=== PATIENT | female | born 1985 | race Hispanic/Latino ===

== ENCOUNTER 2019-02-25 16:57 | Inpatient (IN) | payer SELFPAY ==
[~2019-02-25] VITALS: Ht 170.2 cm; Wt 68.0 kg
[~2019-02-25 16:57] MED LIST: DOXY100T2 PO; SULF1TAB42 PO; TRAM50TA2 PO
[2019-02-25] MEDS ORDERED: SODIUM CHLORIDE 0.9% 1000ML 2,000 ML IV ONE (17:19)
[2019-02-25] MEDS ORDERED: ONDANSETRON HCL 4 MG/2 ML VIAL ONE (17:20)
[2019-02-25] MEDS ORDERED: METOCLOPRAMIDE 10 MG/2 ML VIAL ONE ×2 (17:20→21:43)
[2019-02-25] MEDS ORDERED: FAMOTIDINE/PF 20 MG/2 ML VIAL IV ONE ×2 (17:20→21:43)
[2019-02-25 17:41] LABS: ABG OXYGEN SATURATION 49.6 % (95.0-99.0); BASE EXCESS,VENOUS BLOOD GAS -0.8 (-2.0-3.0); HCO3,VENOUS BLOOD GAS 24.3 (21.0-28.0); PCO2,VENOUS BLOOD GAS 42 (32-45); PH,VENOUS BLOOD GAS 7.382 (7.350-7.450)
[2019-02-25 17:50] LABS: BASOPHILS % (AUTO) 0.7 % (0.0-5.0); EOSINOPHILS % (AUTO) 0.6 % (0.0-8.0); HEMATOCRIT 34.6 % (36-48); LYMPHOCYTES % (AUTO) 18.5 % (21.0-51.0); MEAN CORPUSCULAR HEMOGLOBIN 28.2 pg (27.0-33.0); MEAN CORPUSCULAR HGB CONC 34.9 g/dL (32.0-36.0); MEAN CORPUSCULAR VOLUME 80.9 fL (79-99); MONOCYTES % (AUTO) 4.3 % (3.0-13.0); NEUTROPHILS % (AUTO) 75.9 % (40.0-77.0); PLATELET COUNT (AUTO) 287 K/uL (130-400); RED BLOOD CELL COUNT(AUTO) 4.28 MIL/uL (4.00-5.50); RED CELL DISTRIBUTION WIDTH 12.6 % (11.0-15.5); WHITE BLOOD COUNT (AUTO) 8.4 K/uL (4.8-10.8)
[2019-02-25 18:32] LABS: ALBUMIN 2.8 g/dL (3.5-5.0); BILIRUBIN,TOTAL 0.3 mg/dL (0.2-1.0); CREATININE 1.3 mg/dL (0.5-1.5)
[2019-02-25] MEDS ORDERED: DiphenhydrAMINE HCL 50 MG/ML VIAL ONE (18:33)
[2019-02-25] MEDS ORDERED: SODIUM CHLORIDE 0.9% 1000ML 1,000 ML IV ONE (19:04)
[2019-02-25 20:12] LABS: APPEARANCE,URINE CLOUDY (CLEAR); BILIRUBIN,URINE NEGATIVE (NEGATIVE); COLOR,URINE YELLOW (YELLOW); GLUCOSE, URINE (UA) >=1000 mg/dL (NEGATIVE); KETONES,URINE 5 mg/dL (NEGATIVE); LEUKOCYTE ESTERASE ,URINE MODERATE (NEGATIVE); NITRATE,URINE NEGATIVE (NEGATIVE); OCCULT BLOOD,URINE LARGE (NEGATIVE); PROTEIN,URINE 100 mg/dL (NEGATIVE); UROBILINOGEN,URINE 0.2 mg/dL (0.2-1.0)
[2019-02-25 20:19] LABS: HCG,QUAL RESULT NEGATIVE (NEGATIVE)
[2019-02-25 20:25] LABS: WBC,URINE 51-100 /HPF (0-1)
[2019-02-25 20:26] LABS: BACTERIA,URINE Moderate /HPF (None Seen); SQUAMOUS EPITHELIAL CELL,UR Rare /HPF (0-2)
[2019-02-25] MEDS ORDERED: CEFTRIAXONE SODIUM 1 GM ONE (20:37)
[2019-02-25 20:43] LABS: AMPHET/METH SCREEN,URINE NEGATIVE (NEGATIVE); BARBITURATE SCREEN, URINE NEGATIVE (NEGATIVE); BENZODIAZEPINES SCREEN,URINE NEGATIVE (NEGATIVE); CANNABINOID SCREEN,URINE POSITIVE (NEGATIVE); COCAINE SCREEN,URINE NEGATIVE (NEGATIVE); OPIATE SCREEN,URINE NEGATIVE (NEGATIVE); PHENCYCLIDINE SCREEN,URINE NEGATIVE (NEGATIVE)
[2019-02-25] MEDS ORDERED: ONDANSETRON HCL 4 MG/2 ML VIAL IVP PRN (20:45)
[2019-02-25] MEDS ORDERED: MORPHINE SULFATE 2 MG/ML 1ML SYG IVP PRN (20:45)
[2019-02-25] MEDS: CEFTRIAXONE SODIUM 1 GM IVP SCH (20:45)
[2019-02-26] MEDS: INSULIN LISPRO 100 UNIT/ML 3ML SQ SCH ×5 (06:00→23:33)
[2019-02-26 06:20] LABS: HEMATOCRIT 30.4 % (36-48); LYMPHOCYTES % (AUTO) 33.9 % (21.0-51.0); MEAN CORPUSCULAR HEMOGLOBIN 28.5 pg (27.0-33.0); MEAN CORPUSCULAR HGB CONC 34.8 g/dL (32.0-36.0); MEAN CORPUSCULAR VOLUME 81.9 fL (79-99); MONOCYTES % (AUTO) 6.4 % (3.0-13.0); NEUTROPHILS % (AUTO) 57.7 % (40.0-77.0); PLATELET COUNT (AUTO) 252 K/uL (130-400); RED BLOOD CELL COUNT(AUTO) 3.71 MIL/uL (4.00-5.50); RED CELL DISTRIBUTION WIDTH 12.3 % (11.0-15.5); WHITE BLOOD COUNT (AUTO) 7.8 K/uL (4.8-10.8)
[2019-02-26 06:38] LABS: ALBUMIN 2.1 g/dL (3.5-5.0); BILIRUBIN,TOTAL 0.2 mg/dL (0.2-1.0); CREATININE 0.8 mg/dL (0.5-1.5); CRP QUANTITATIVE 2.3 mg/L (0.00-9.0); POTASSIUM 3.6 mmol/L (3.5-5.1); TOTAL PROTEIN, SERUM 5.3 g/dL (6.0-8.3)
[2019-02-26 08:21] VITALS: BP 133/86
[2019-02-26] MEDS: SODIUM CHLORIDE 0.9% 1000ML 1,000 ML IV SCH ×3 (09:57→18:08)
[2019-02-26] MEDS: METOCLOPRAMIDE 10 MG/2 ML VIAL IVP SCH ×2 (09:57→20:48)
[2019-02-26] MEDS: FAMOTIDINE/PF 20 MG/2 ML VIAL IV SCH ×2 (09:58→20:48)
[2019-02-26 11:12] VITALS: BP 132/73
[2019-02-26] MEDS ORDERED: FENO135C4 PO (12:30)
[2019-02-26] MEDS ORDERED: PREVPACK (12:30)
[2019-02-26] MEDS ORDERED: ATOR40TA71 PO (12:30)
[2019-02-26] MEDS ORDERED: SITA100T12 PO (12:30)
[2019-02-26 16:31] VITALS: BP 122/87
[2019-02-26 20:00] VITALS: BP 127/79
[2019-02-26] MEDS: CEFTRIAXONE SODIUM 1 GM IVP SCH (20:48)
[2019-02-26 23:50] VITALS: BP 125/79
[2019-02-27 04:00] VITALS: BP 138/88
[2019-02-27] MEDS: SODIUM CHLORIDE 0.9% 1000ML 1,000 ML IV SCH (04:41)
[2019-02-27] MEDS: INSULIN LISPRO 100 UNIT/ML 3ML SQ SCH ×2 (05:33→12:00)
[2019-02-27 05:37] LABS: HEMATOCRIT 29.8 % (36-48); MEAN CORPUSCULAR HEMOGLOBIN 28.4 pg (27.0-33.0); MEAN CORPUSCULAR HGB CONC 34.6 g/dL (32.0-36.0); MEAN CORPUSCULAR VOLUME 82.1 fL (79-99); PLATELET COUNT (AUTO) 245 K/uL (130-400); RED BLOOD CELL COUNT(AUTO) 3.63 MIL/uL (4.00-5.50); RED CELL DISTRIBUTION WIDTH 12.9 % (11.0-15.5); WHITE BLOOD COUNT (AUTO) 5.9 K/uL (4.8-10.8)
[2019-02-27 05:49] LABS: CREATININE 0.7 mg/dL (0.5-1.5); POTASSIUM 3.3 mmol/L (3.5-5.1)
[2019-02-27 08:07] VITALS: BP 154/93
[2019-02-27 08:08] LABS: LYMPHOCYTES % (MANUAL) 46 % (22-44); MONOCYTES % (MANUAL) 5 % (2-9); REACTIVE LYMPHOCYTES 1 % (0-0); SEGMENTED NEUTROPHILS % 48 % (40-70)
[2019-02-27 08:09] LABS: PLATELET MORPHOLOGY COMMENT ADEQUATE
[2019-02-27] MEDS: FAMOTIDINE/PF 20 MG/2 ML VIAL IV SCH (10:51)
[2019-02-27] MEDS: METOCLOPRAMIDE 10 MG/2 ML VIAL IVP SCH (10:51)
[2019-02-27 11:20] VITALS: BP 133/86
[2019-02-27] MEDS ORDERED: CEFD300C3 PO (12:02)
[2019-02-27] MEDS ORDERED: METF-444 PO (12:14)
[2019-02-27] MEDS ORDERED: POTASSIUM CHLORIDE 20 MEQ ERTAB PO ONE (13:03)
[2019-02-27] MEDS ORDERED: POTASSIUM CHLORIDE 10% ELIXIR 20 MEQ/15 ML UDCUP PO SCH (13:15)
--- NOTE | 2019-02-27 14:19 | NUR ---
DCP CM met with pt discussed dc plans. Pt is independent prior to admission, lives at home with mother and children. Denies any equipments/services. Pt feels safe to go back home, still works and drives, mother able to assist with transportation and needs as necessary. Given community resources packet. DC plan to home once stable. CM to cont to follow up. Addendum: 02/27/19 at 1420 by CORNELIUS ANTHONY LVN CM Amended: Links added.
[2019-02-27] MEDS ORDERED: POTASSIUM CHLORIDE 20 MEQ ERTAB PO SCH (14:20)
[2019-02-27] MEDS: CEFTRIAXONE SODIUM 1 GM IVP SCH (14:49)
--- NOTE | 2019-02-27 15:00 | NUR ---
DISCHARGE DISCHARGE TEACHING PROVIDED TO PATIENT REGARDING RX (CEFDINIR, METFORMIN), NEED TO SCHEDULED F/U APPT WITH PRIMARY MD. LIST OF FAMILY DOCTORS PROVIDED TO PATIENT. TEACHING PROVIDED REGARDING CONTINUING SOFT/BLAND DIET AT HOME, NAUSEA/VOMITING HOME CARE, UTI TEACHING. PROVIDED TEACHING REGARDING URINE CULTURE RESULTS AND SENSITIVITY REPORTS, PROVIDED TEACHING REGARDING ANTIBIOTIC RESISTANCE. PATIENT VERBALIZED UNDERSTANDING OF DISCHARGE TEACHING. REMOVED 20G IV FROM RIGHT AC. PATIENT REPORTS NO PAIN, NO DISCOMFORTS, REPORTS TOLERATING DIET WELL.
== END 2019-02-27 15:32 | disposition home or self-care (01) | DRG 690 ==
LOC: EDH 16:57 → EDHIP 20:40 → OBSVTOIN 20:40 → 4BH 02-26 08:20
PROVIDERS: ADMIT Family Medicine; ATTEND Family Medicine
DX: N39.0 Urinary tract infection, site not specified (principal); E87.1 Hypo-osmolality and hyponatremia; E46 Unspecified protein-calorie malnutrition; E86.0 Dehydration; E11.9 Type 2 diabetes mellitus without complications; B96.20 Unspecified Escherichia coli [E. coli] as the cause of diseases classified elsewhere; E87.6 Hypokalemia; F12.10 Cannabis abuse, uncomplicated; Z68.23 Body mass index [BMI] 23.0-23.9, adult
CPT/HCPCS: 36415; 36600; 80048; 80053; 80061; 80305; 81001; 81025; 82010; 82550; 82803; 82948; 83605; 83690; 85025; 86140; 86677; 87077; 87088; 87186; G0378; J0696; J1200; J2405; J2765; J3490; J7030

== ENCOUNTER 2019-05-03 20:27 | Emergency (ER) | payer OTHER ==
[~2019-05-03 20:27] MED LIST changes: +ATOR40TA71 PO; +CEFD300C3 PO; -DOXY100T2 PO; +FENO135C4 PO; +METF-444 PO; +PREVPACK; +SITA100T12 PO; -SULF1TAB42 PO; -TRAM50TA2 PO
[2019-05-03] MEDS ORDERED: ONDANSETRON HCL 4 MG/2 ML VIAL ONE (20:57)
[2019-05-03] MEDS ORDERED: SODIUM CHLORIDE 0.9% 1000ML 1,000 ML IV ONE ×2 (20:58→22:40)
[2019-05-03 21:05] LABS: BASOPHILS % (AUTO) 0.7 % (0.0-5.0); EOSINOPHILS % (AUTO) 1.1 % (0.0-8.0); HEMATOCRIT 33.3 % (36-48); LYMPHOCYTES % (AUTO) 20.3 % (21.0-51.0); MEAN CORPUSCULAR HEMOGLOBIN 27.7 pg (27.0-33.0); MEAN CORPUSCULAR HGB CONC 34.3 g/dL (32.0-36.0); MEAN CORPUSCULAR VOLUME 80.9 fL (79-99); MONOCYTES % (AUTO) 5.6 % (3.0-13.0); NEUTROPHILS % (AUTO) 72.3 % (40.0-77.0); NUCLEATED RED BLOOD CELLS 0.1 % (0.0-0.19); PLATELET COUNT (AUTO) 283 K/uL (130-400); RED BLOOD CELL COUNT(AUTO) 4.11 MIL/uL (4.00-5.50); RED CELL DISTRIBUTION WIDTH 12.3 % (11.0-15.5)
[2019-05-03 21:12] LABS: APPEARANCE,URINE SL CLOUDY (CLEAR); BILIRUBIN,URINE NEGATIVE (NEGATIVE); COLOR,URINE YELLOW (YELLOW); GLUCOSE, URINE (UA) >=1000 mg/dL (NEGATIVE); KETONES,URINE 5 mg/dL (NEGATIVE); LEUKOCYTE ESTERASE ,URINE SMALL (NEGATIVE); NITRATE,URINE NEGATIVE (NEGATIVE); OCCULT BLOOD,URINE LARGE (NEGATIVE); PROTEIN,URINE 100 mg/dL (NEGATIVE); UROBILINOGEN,URINE 0.2 mg/dL (0.2-1.0)
[2019-05-03 21:15] LABS: HCG,QUAL RESULT NEGATIVE (NEGATIVE)
[2019-05-03 21:19] LABS: INR 0.95 (0.85-1.15); PARTIAL THROMBOPLASTIN TIME 22.9 SEC (26.3-35.5)
[2019-05-03 21:24] LABS: BACTERIA,URINE Many /HPF (None Seen); MUCUS,URINE Few LPF (None Seen)
[2019-05-03 21:27] LABS: ALBUMIN 2.7 g/dL (3.5-5.0); BILIRUBIN,TOTAL 0.3 mg/dL (0.2-1.0); CREATININE 0.9 mg/dL (0.5-1.5); POTASSIUM 3.8 mmol/L (3.5-5.1); TOTAL PROTEIN, SERUM 6.6 g/dL (6.0-8.3)
[2019-05-03 22:14] LABS: AMPHET/METH SCREEN,URINE NEGATIVE (NEGATIVE); BARBITURATE SCREEN, URINE NEGATIVE (NEGATIVE); BENZODIAZEPINES SCREEN,URINE NEGATIVE (NEGATIVE); CANNABINOID SCREEN,URINE POSITIVE (NEGATIVE); COCAINE SCREEN,URINE NEGATIVE (NEGATIVE); OPIATE SCREEN,URINE NEGATIVE (NEGATIVE); PHENCYCLIDINE SCREEN,URINE NEGATIVE (NEGATIVE)
[2019-05-03] MEDS ORDERED: INSULIN HUMULIN R 100 UNIT/ML 3ML ONE (22:39)
[2019-05-03] MEDS ORDERED: CEFTRIAXONE SODIUM 1 GM ONE (23:49)
== END 2019-05-04 03:39 | disposition home or self-care (01) ==
LOC: EDH 20:27
DX: N39.0 Urinary tract infection, site not specified (principal); E11.65 Type 2 diabetes mellitus with hyperglycemia
CPT/HCPCS: 36415; 80053; 80305; 81001; 81025; 82010; 82150; 82550; 82948 ×3; 83690; 84484; 85025; 85610; 85730; 87077; 87088; 87186; 93005; 96361; 96374; 99285; J0696; J1815; J2405; J7030 ×2

== ENCOUNTER 2019-06-01 22:08 | Emergency (ER) | payer OTHER ==
[2019-06-01] MEDS ORDERED: ONDANSETRON HCL 4 MG/2 ML VIAL ONE (22:21)
[2019-06-01] MEDS ORDERED: SODIUM CHLORIDE 0.9% 1000ML 1,000 ML IV ONE ×2 (22:21→23:08)
[2019-06-01 22:22] LABS: BASOPHILS % (AUTO) 0.2 % (0.0-5.0); LYMPHOCYTES % (AUTO) 13.9 % (21.0-51.0); MEAN CORPUSCULAR HGB CONC 34.5 g/dL (32.0-36.0); MEAN CORPUSCULAR VOLUME 78.2 fL (79-99); MONOCYTES % (AUTO) 2.9 % (3.0-13.0); NEUTROPHILS % (AUTO) 82.6 % (40.0-77.0); PLATELET COUNT (AUTO) 336 K/uL (130-400); RED BLOOD CELL COUNT(AUTO) 4.22 MIL/uL (4.00-5.50); WHITE BLOOD COUNT (AUTO) 8.1 K/uL (4.8-10.8)
[2019-06-01 22:35] LABS: ALBUMIN 2.9 g/dL (3.5-5.0); BILIRUBIN,TOTAL 0.3 mg/dL (0.2-1.0); CREATININE 1.1 mg/dL (0.5-1.5); POTASSIUM 3.9 mmol/L (3.5-5.1); TOTAL PROTEIN, SERUM 6.7 g/dL (6.0-8.3)
[2019-06-01 23:00] LABS: APPEARANCE,URINE Cloudy (CLEAR); BILIRUBIN,URINE Negative (NEGATIVE); COLOR,URINE Yellow (YELLOW); GLUCOSE, URINE (UA) >=1000 mg/dL (NEGATIVE); KETONES,URINE 15 mg/dL (NEGATIVE); LEUKOCYTE ESTERASE ,URINE Trace (NEGATIVE); NITRATE,URINE Negative (NEGATIVE); OCCULT BLOOD,URINE Moderate (NEGATIVE); PH,URINE 6.5 (5.0-8.0); PROTEIN,URINE 300 mg/dL (NEGATIVE); UROBILINOGEN,URINE 0.2 mg/dL (0.2-1.0)
[2019-06-01 23:01] LABS: HCG,QUAL RESULT NEGATIVE (NEGATIVE)
[2019-06-01] MEDS ORDERED: INSULIN HUMULIN R 100 UNIT/ML 3ML ONE (23:05)
[2019-06-01 23:12] LABS: BACTERIA,URINE Few /HPF (None Seen); YEAST,URINE BUDDING Few /HPF (None Seen)
[2019-06-01] MEDS ORDERED: CEFTRIAXONE SODIUM 1 GM ONE (23:30)
[2019-06-01 23:33] LABS: ABG BASE EXCESS -3.4 mmol/L (-2.0-3.0); ABG HCO3 20.2 mmol/L (21.0-28.0); ABG OXYGEN SATURATION 97.8 % (95.0-99.0); ABG PCO2 33 mmHg (32-45)
[2019-06-02] MEDS ORDERED: MAG HYDROX/AL HYDROX/SIMETH ES 30 ML SUSP UDCUP ONE
[2019-06-02] MEDS ORDERED: LIDOCAINE HCL 2% VISCOUS 15 ML UDCUP ONE
[2019-06-02] MEDS ORDERED: FAMOTIDINE 20MG TAB 20 MG TAB ONE (00:46)
[2019-06-02] MEDS ORDERED: METOCLOPRAMIDE 10 MG TABLET ONE (00:57)
== END 2019-06-02 01:47 | disposition home or self-care (01) ==
LOC: EDH 22:08
DX: E11.65 Type 2 diabetes mellitus with hyperglycemia (principal); N39.0 Urinary tract infection, site not specified; R11.2 Nausea with vomiting, unspecified; R10.13 Epigastric pain
CPT/HCPCS: 36415; 36600; 74176; 80053; 81001; 81025; 82010; 82150; 82803; 82948 ×2; 83690; 85025; 87088; 87804 ×2; 96361; 96374; 96375; 99285; J0696; J1815; J2405; J7030 ×2

== ENCOUNTER 2019-06-14 17:36 | Emergency (ER) | payer OTHER ==
[2019-06-14] MEDS ORDERED: ONDANSETRON HCL 4 MG/2 ML VIAL ONE (17:43)
[2019-06-14] MEDS ORDERED: SODIUM CHLORIDE 0.9% 1000ML 1,000 ML IV ONE (17:43)
[2019-06-14 17:59] LABS: BASOPHILS % (AUTO) 0.4 % (0.0-5.0); EOSINOPHILS % (AUTO) 0.4 % (0.0-8.0); HEMATOCRIT 36.5 % (36-48); MEAN CORPUSCULAR HEMOGLOBIN 26.7 pg (27.0-33.0); MEAN CORPUSCULAR HGB CONC 34.2 g/dL (32.0-36.0); MEAN CORPUSCULAR VOLUME 77.8 fL (79-99); MONOCYTES % (AUTO) 3.5 % (3.0-13.0); NEUTROPHILS % (AUTO) 70.4 % (40.0-77.0); PLATELET COUNT (AUTO) 323 K/uL (130-400); RED BLOOD CELL COUNT(AUTO) 4.69 MIL/uL (4.00-5.50); RED CELL DISTRIBUTION WIDTH 11.9 % (11.0-15.5); WHITE BLOOD COUNT (AUTO) 7.5 K/uL (4.8-10.8)
[2019-06-14 18:18] LABS: INR 0.95 (0.85-1.15); PARTIAL THROMBOPLASTIN TIME 24.5 SEC (26.3-35.5)
[2019-06-14 18:22] LABS: ALBUMIN 2.9 g/dL (3.5-5.0); BILIRUBIN,TOTAL 0.3 mg/dL (0.2-1.0); CREATININE 1.1 mg/dL (0.5-1.5); TOTAL PROTEIN, SERUM 7.1 g/dL (6.0-8.3)
[2019-06-14 18:34] LABS: ABG BASE EXCESS -0.6 mmol/L (-2.0-3.0); ABG HCO3 23.4 mmol/L (21.0-28.0); ABG OXYGEN SATURATION 97.7 % (95.0-99.0); ABG PCO2 37 mmHg (32-45)
[2019-06-14 18:54] LABS: APPEARANCE,URINE Clear (CLEAR); BILIRUBIN,URINE Negative (NEGATIVE); COLOR,URINE Yellow (YELLOW); GLUCOSE, URINE (UA) >=1000 mg/dL (NEGATIVE); KETONES,URINE Negative (NEGATIVE); LEUKOCYTE ESTERASE ,URINE Negative (NEGATIVE); NITRATE,URINE Negative (NEGATIVE); OCCULT BLOOD,URINE Moderate (NEGATIVE); PH,URINE 6.5 (5.0-8.0); PROTEIN,URINE 300 mg/dL (NEGATIVE); UROBILINOGEN,URINE 0.2 mg/dL (0.2-1.0)
[2019-06-14 19:03] LABS: AMPHET/METH SCREEN,URINE NEGATIVE (NEGATIVE); BARBITURATE SCREEN, URINE NEGATIVE (NEGATIVE); BENZODIAZEPINES SCREEN,URINE NEGATIVE (NEGATIVE); CANNABINOID SCREEN,URINE POSITIVE (NEGATIVE); COCAINE SCREEN,URINE NEGATIVE (NEGATIVE); OPIATE SCREEN,URINE NEGATIVE (NEGATIVE); PHENCYCLIDINE SCREEN,URINE NEGATIVE (NEGATIVE)
[2019-06-14 19:07] LABS: HCG,QUAL RESULT NEGATIVE (NEGATIVE)
[2019-06-14] MEDS ORDERED: KETOROLAC TROMETHAMINE 15MG/ML ONE (19:13)
[2019-06-14] MEDS ORDERED: METOCLOPRAMIDE 10 MG/2 ML VIAL ONE (19:13)
[2019-06-14 19:25] LABS: BACTERIA,URINE Few /HPF (None Seen); WBC,URINE 0-1 /HPF (0-1)
== END 2019-06-14 19:46 | disposition home or self-care (01) ==
LOC: EDH 17:36
DX: R10.13 Epigastric pain (principal); R11.2 Nausea with vomiting, unspecified; E11.9 Type 2 diabetes mellitus without complications
CPT/HCPCS: 36415; 36600; 80053; 80305; 81001; 81025; 82010; 82150; 82550; 82803; 82948 ×2; 83690; 84484; 85025; 85610; 85730; 93005; 96361; 96374; 96375; 99285; J1885; J2405; J2765; J7030

== ENCOUNTER 2020-08-23 12:59 | Inpatient (IN) | payer MEDICAID, OTHER ==
[~2020-08-23] VITALS: Ht 170.2 cm; Wt 86.6 kg
[2020-08-23] VITALS (11 sets, daily range): BP systolic 149–200; BP diastolic 80–115
[2020-08-23 13:42] LABS: BASOPHILS % (AUTO) 0.2 % (0.0-5.0); EOSINOPHILS % (AUTO) 0.8 % (0.0-8.0); LYMPHOCYTES % (AUTO) 18.1 % (21.0-51.0); MEAN CORPUSCULAR HEMOGLOBIN 27.2 pg (27.0-33.0); MEAN CORPUSCULAR HGB CONC 33.1 g/dL (32.0-36.0); MONOCYTES % (AUTO) 3.8 % (3.0-13.0); NEUTROPHILS % (AUTO) 76.7 % (40.0-77.0); PLATELET COUNT (AUTO) 168 K/uL (130-400); RED BLOOD CELL COUNT(AUTO) 2.17 MIL/uL (4.00-5.50); RED CELL DISTRIBUTION WIDTH 14.1 % (11.0-15.5)
[2020-08-23 13:59] LABS: B-TYPE NATRIURETIC PEPTIDE 426 pg/mL (0-100)
[2020-08-23 14:00] LABS: INR 0.98 (0.85-1.15); PROTHROMBIN TIME 10.7 SEC (9.6-11.6)
[2020-08-23 14:01] LABS: HEMATOCRIT 17.8 % (36-48)
[2020-08-23 14:02] LABS: PARTIAL THROMBOPLASTIN TIME 26.2 SEC (26.3-35.5)
[2020-08-23 14:09] LABS: ALBUMIN 2.6 g/dL (3.5-5.0); BILIRUBIN,TOTAL 0.3 mg/dL (0.2-1.0); MAGNESIUM 1.9 mg/dL (1.80-2.40); POTASSIUM 5.8 mmol/L (3.5-5.1); TOTAL PROTEIN, SERUM 5.8 g/dL (6.0-8.3)
[2020-08-23 14:13] LABS: CREATININE 7.9 mg/dL (0.5-1.5); THYROID STIMULATING HORMONE 2.56 uIU/mL (0.36-3.74)
[2020-08-23 14:20] LABS: APPEARANCE,URINE Clear (CLEAR); BILIRUBIN,URINE Negative (NEGATIVE); COLOR,URINE Yellow (YELLOW); GLUCOSE, URINE (UA) TRACE mg/dL (NEGATIVE); KETONES,URINE Negative (NEGATIVE); LEUKOCYTE ESTERASE ,URINE Trace (NEGATIVE); NITRATE,URINE Negative (NEGATIVE); OCCULT BLOOD,URINE Moderate (NEGATIVE); PROTEIN,URINE >=1000 mg/dL (NEGATIVE); UROBILINOGEN,URINE 0.2 mg/dL (0.2-1.0)
[2020-08-23 14:27] LABS: AMPHET/METH SCREEN,URINE NEGATIVE (NEGATIVE); BARBITURATE SCREEN, URINE NEGATIVE (NEGATIVE); BENZODIAZEPINES SCREEN,URINE NEGATIVE (NEGATIVE); CANNABINOID SCREEN,URINE NEGATIVE (NEGATIVE); COCAINE SCREEN,URINE NEGATIVE (NEGATIVE); OPIATE SCREEN,URINE NEGATIVE (NEGATIVE); PHENCYCLIDINE SCREEN,URINE NEGATIVE (NEGATIVE)
[2020-08-23 14:36] LABS: BACTERIA,URINE Rare /HPF (None Seen); SQUAMOUS EPITHELIAL CELL,UR Few /HPF (0-2); TRANSITIONAL EPI CELLS,URINE Rare /HPF (None Seen)
[2020-08-23] MEDS ORDERED: CALCIUM GLUC 1GM/10ML VIAL IV ONE (15:00)
[2020-08-23] MEDS ORDERED: ONDANSETRON 4MG INJ ONE (15:00)
[2020-08-23] MEDS ORDERED: MORPHINE 2 MG SYG ONE (15:00)
[2020-08-23] MEDS ORDERED: 0.9%NACL 100ML 100 ML IV ONE (15:01)
[2020-08-23] MEDS ORDERED: DEXTROSE 5%-WATER 100 ML IV ONE (15:03)
[2020-08-23] MEDS ORDERED: LACTULOSE 20 GM/30 ML UDCUP PO PRN (15:30)
[2020-08-23] MEDS ORDERED: ACETAMINOPHEN 325 MG TAB PO PRN (15:30)
[2020-08-23 15:59] LABS: HEMOGLOBIN A1C 6.2 % (4.0-6.0)
[2020-08-23] MEDS: INSULIN HUMULIN R 100 UNIT/ML 3ML SQ SCH ×2 (16:30→21:00)
[2020-08-23] MEDS ORDERED: KAYEXALATE 15GM/60ML PO SCH (17:30)
[2020-08-23] MEDS: ONDANSETRON 4MG INJ IV PRN (18:22)
[2020-08-23] MEDS: MORPHINE 2 MG SYG IVP PRN (18:22)
[2020-08-23] MEDS ORDERED: 0.9% NACL 250ML 500 ML IV ONE (18:45)
[2020-08-23] MEDS ORDERED: LABETALOL 20MG VIAL IV ONE (20:39)
[2020-08-23] MEDS ORDERED: LABETALOL 20MG SYG IV PRN (20:45)
[2020-08-23] MEDS: FAMOTIDINE 20MG TAB PO SCH (21:00)
[2020-08-23] MEDS: CEFTRIAXONE 1G VIAL IVP SCH (21:22)
[2020-08-23] MEDS ORDERED: CACL 1GM SYG IVP SCH (22:00)
[2020-08-23] MEDS ORDERED: FUROSEMIDE 20MG VIAL IV SCH (22:00)
[2020-08-23] MEDS ORDERED: DEXTROSE 50%-WATER 50 ML DISP.SYRIN IV SCH (22:00)
[2020-08-23] MEDS ORDERED: INSULIN HUMULIN R 100 UNIT/ML 3ML IV SCH (22:00)
[2020-08-23 22:07] LABS: POTASSIUM 5.4 mmol/L (3.5-5.1)
[2020-08-24] VITALS (19 sets, daily range): BP systolic 141–188; BP diastolic 81–115
[2020-08-24] MEDS: MORPHINE 2 MG SYG IVP PRN ×3 (01:38→13:45)
[2020-08-24] MEDS: ONDANSETRON 4MG INJ IV PRN ×4 (01:38→23:01)
[2020-08-24] MEDS: METRONIDAZOLE 500MG/100ML BAG 100 ML IVPB SCH ×4 (01:51→21:34)
[2020-08-24 02:55] LABS: BASOPHILS % (AUTO) 0.5 % (0.0-5.0); EOSINOPHILS % (AUTO) 0.3 % (0.0-8.0); HEMATOCRIT 29.2 % (36-48); LYMPHOCYTES % (AUTO) 13.8 % (21.0-51.0); MEAN CORPUSCULAR HGB CONC 33.2 g/dL (32.0-36.0); MEAN CORPUSCULAR VOLUME 81.3 fL (79-99); MONOCYTES % (AUTO) 3.9 % (3.0-13.0); NEUTROPHILS % (AUTO) 81.3 % (40.0-77.0); PLATELET COUNT (AUTO) 214 K/uL (130-400); RED BLOOD CELL COUNT(AUTO) 3.59 MIL/uL (4.00-5.50); RED CELL DISTRIBUTION WIDTH 15.2 % (11.0-15.5); WHITE BLOOD COUNT (AUTO) 6.4 K/uL (4.8-10.8)
[2020-08-24 03:04] LABS: CREATININE 7.7 mg/dL (0.5-1.5); POTASSIUM 5.5 mmol/L (3.5-5.1)
[2020-08-24 03:21] LABS: B-TYPE NATRIURETIC PEPTIDE 1530 pg/mL (0-100)
[2020-08-24] MEDS: INSULIN HUMULIN R 100 UNIT/ML 3ML SQ SCH ×4 (07:25→21:00)
[2020-08-24] MEDS ORDERED: AMLODIPINE 5 MG TAB ONE (08:47)
[2020-08-24] MEDS ORDERED: AMLODIPINE 5 MG TAB PO SCH (09:00)
[2020-08-24] MEDS: AMLODIPINE 5 MG TAB PO SCH (09:13)
[2020-08-24] MEDS ORDERED: METOPROLOL TARTRATE 50 MG TAB PO SCH (11:30)
[2020-08-24] MEDS ORDERED: FUROSEMIDE 40MG VIAL IV SCH (11:45)
[2020-08-24] MEDS ORDERED: HYDROMORPHONE 0.5 MG SYG (0.5MG/0.5ML) ONE (16:30)
[2020-08-24] MEDS: FUROSEMIDE 40MG VIAL IV SCH (16:38)
[2020-08-24] MEDS: CEFTRIAXONE 1G VIAL IVP SCH (16:38)
[2020-08-24] MEDS ORDERED: PROMETHAZINE HCL 25 MG/ML 1ML AMPULE IM SCH (17:35)
[2020-08-24] MEDS: METOPROLOL TARTRATE 50 MG TAB PO SCH (21:33)
[2020-08-24] MEDS: FAMOTIDINE 20MG TAB PO SCH (21:33)
[2020-08-24] MEDS: HYDROMORPHONE 0.5 MG SYG (0.5MG/0.5ML) IVP PRN (23:01)
[2020-08-25] VITALS (7 sets, daily range): BP systolic 142–157; BP diastolic 56–90
[2020-08-25 05:29] LABS: BASOPHILS % (AUTO) 0.5 % (0.0-5.0); LYMPHOCYTES % (AUTO) 31.4 % (21.0-51.0); MEAN CORPUSCULAR HEMOGLOBIN 26.7 pg (27.0-33.0); MEAN CORPUSCULAR HGB CONC 32.3 g/dL (32.0-36.0); MEAN CORPUSCULAR VOLUME 82.7 fL (79-99); MONOCYTES % (AUTO) 6.8 % (3.0-13.0); PLATELET COUNT (AUTO) 234 K/uL (130-400); RED BLOOD CELL COUNT(AUTO) 3.75 MIL/uL (4.00-5.50); RED CELL DISTRIBUTION WIDTH 15.7 % (11.0-15.5); WHITE BLOOD COUNT (AUTO) 7.5 K/uL (4.8-10.8)
[2020-08-25 05:33] LABS: INR 1.01 (0.85-1.15)
[2020-08-25] MEDS: ACETAMINOPHEN 325 MG TAB PO PRN (05:34)
[2020-08-25 05:35] LABS: PARTIAL THROMBOPLASTIN TIME 26.2 SEC (26.3-35.5)
[2020-08-25 05:54] LABS: % IRON SATURATION 34.5 % (22-44); PHOSPHORUS 7.9 mg/dL (2.5-4.9); POTASSIUM 4.9 mmol/L (3.5-5.1)
[2020-08-25] MEDS: METRONIDAZOLE 500MG/100ML BAG 100 ML IVPB SCH ×3 (06:03→20:19)
[2020-08-25] MEDS: INSULIN HUMULIN R 100 UNIT/ML 3ML SQ SCH ×4 (06:04→20:35)
[2020-08-25 06:11] LABS: CREATININE 8.3 mg/dL (0.5-1.5)
[2020-08-25] MEDS: FUROSEMIDE 40MG VIAL IV SCH ×2 (06:18→16:24)
[2020-08-25] MEDS: HYDROMORPHONE 0.5 MG SYG (0.5MG/0.5ML) IVP PRN ×2 (08:14→16:31)
[2020-08-25] MEDS: AMLODIPINE 5 MG TAB PO SCH (08:14)
[2020-08-25] MEDS: METOPROLOL TARTRATE 50 MG TAB PO SCH ×2 (08:14→20:19)
[2020-08-25] MEDS ORDERED: LIDOCAINE HCL 1% MDV 50ML VIAL ONE (09:44)
[2020-08-25] MEDS ORDERED: HEPARIN 1,000 UNIT VIAL ONE (09:44)
[2020-08-25 12:02] LABS: ALBUMIN 2.5 g/dL (3.5-5.0)
[2020-08-25 12:14] LABS: HEMOGLOBIN A1C 5.9 % (4.0-6.0)
[2020-08-25] MEDS ORDERED: NITROGLYCERIN 0.4 MG SL TAB SL PRN (12:15)
[2020-08-25] MEDS ORDERED: 0.9%NACL 1000ML 1,000 ML IV PRN (12:15)
[2020-08-25] MEDS ORDERED: ACETAMINOPHEN 325 MG TAB PO PRN (12:15)
[2020-08-25] MEDS ORDERED: ALBUMIN FOR BP SUPPORT MISC PRN (12:15)
[2020-08-25] MEDS ORDERED: HEPARIN 5,000 UNIT VIAL IJ PRN ×2 (12:15)
[2020-08-25] MEDS ORDERED: 0.9%NACL 1000ML IV PRN (12:15)
[2020-08-25] MEDS ORDERED: LIDOCAINE HCL-MPF 1% 2ML VIAL IJ PRN (12:15)
[2020-08-25] MEDS: CEFTRIAXONE 1G VIAL IVP SCH (16:24)
[2020-08-25] MEDS: FAMOTIDINE 20MG TAB PO SCH (20:19)
[2020-08-25] MEDS: ONDANSETRON 4MG INJ IV PRN (22:53)
[2020-08-26] MEDS: HYDROMORPHONE 0.5 MG SYG (0.5MG/0.5ML) IVP PRN ×3 (00:40→16:32)
[2020-08-26 04:00] VITALS: BP 155/87
[2020-08-26 05:06] LABS: BASOPHILS % (AUTO) 0.8 % (0.0-5.0); EOSINOPHILS % (AUTO) 4.7 % (0.0-8.0); HEMATOCRIT 31.1 % (36-48); LYMPHOCYTES % (AUTO) 20.8 % (21.0-51.0); MEAN CORPUSCULAR HEMOGLOBIN 26.8 pg (27.0-33.0); MEAN CORPUSCULAR HGB CONC 33.1 g/dL (32.0-36.0); MONOCYTES % (AUTO) 6.2 % (3.0-13.0); NEUTROPHILS % (AUTO) 67.2 % (40.0-77.0); PLATELET COUNT (AUTO) 214 K/uL (130-400); RED BLOOD CELL COUNT(AUTO) 3.84 MIL/uL (4.00-5.50); RED CELL DISTRIBUTION WIDTH 14.9 % (11.0-15.5)
[2020-08-26 05:27] LABS: ALBUMIN 2.3 g/dL (3.5-5.0); BILIRUBIN,TOTAL 0.2 mg/dL (0.2-1.0); CREATININE 6.3 mg/dL (0.5-1.5); POTASSIUM 4.3 mmol/L (3.5-5.1); TOTAL PROTEIN, SERUM 5.6 g/dL (6.0-8.3)
[2020-08-26] MEDS: INSULIN HUMULIN R 100 UNIT/ML 3ML SQ SCH ×4 (05:41→20:25)
[2020-08-26] MEDS: METRONIDAZOLE 500MG/100ML BAG 100 ML IVPB SCH ×3 (05:51→21:48)
[2020-08-26] MEDS: FUROSEMIDE 40MG VIAL IV SCH (05:51)
[2020-08-26] MEDS: ONDANSETRON 4MG INJ IV PRN ×3 (06:52→20:33)
[2020-08-26 07:00] VITALS: BP 160/81
[2020-08-26 08:13] LABS: HEPATITIS Bs ANTIGEN SCREEN P Negative (Negative)
[2020-08-26] MEDS: AMLODIPINE 5 MG TAB PO SCH (08:34)
[2020-08-26] MEDS: METOPROLOL TARTRATE 50 MG TAB PO SCH ×2 (08:34→20:25)
[2020-08-26] MEDS: METOCLOPRAMIDE 5 MG TABLET PO SCH ×2 (10:41→16:28)
[2020-08-26 11:30] VITALS: BP 149/79
[2020-08-26] MEDS: CEFTRIAXONE 1G VIAL IVP SCH (14:50)
[2020-08-26 16:00] VITALS: BP 147/90
[2020-08-26 19:34] VITALS: BP 135/76
[2020-08-26] MEDS: FAMOTIDINE 20MG TAB PO SCH (20:25)
[2020-08-27] VITALS (7 sets, daily range): BP systolic 137–155; BP diastolic 20–96
[2020-08-27] MEDS: HYDROMORPHONE 0.5 MG SYG (0.5MG/0.5ML) IVP PRN ×2 (01:50→14:21)
[2020-08-27 04:58] LABS: BASOPHILS % (AUTO) 0.6 % (0.0-5.0); EOSINOPHILS % (AUTO) 1.8 % (0.0-8.0); HEMATOCRIT 32.6 % (36-48); LYMPHOCYTES % (AUTO) 24.7 % (21.0-51.0); MEAN CORPUSCULAR HEMOGLOBIN 26.5 pg (27.0-33.0); MEAN CORPUSCULAR HGB CONC 33.1 g/dL (32.0-36.0); MEAN CORPUSCULAR VOLUME 79.9 fL (79-99); MONOCYTES % (AUTO) 7.7 % (3.0-13.0); NEUTROPHILS % (AUTO) 64.9 % (40.0-77.0); PLATELET COUNT (AUTO) 243 K/uL (130-400); RED BLOOD CELL COUNT(AUTO) 4.08 MIL/uL (4.00-5.50); RED CELL DISTRIBUTION WIDTH 14.6 % (11.0-15.5); WHITE BLOOD COUNT (AUTO) 6.8 K/uL (4.8-10.8)
[2020-08-27 05:10] LABS: INR 1.05 (0.85-1.15); PROTHROMBIN TIME 11.4 SEC (9.6-11.6)
[2020-08-27 05:12] LABS: PARTIAL THROMBOPLASTIN TIME 26.2 SEC (26.3-35.5)
[2020-08-27 05:19] LABS: ALBUMIN 2.2 g/dL (3.5-5.0); BILIRUBIN,TOTAL 0.3 mg/dL (0.2-1.0); CREATININE 4.9 mg/dL (0.5-1.5); PHOSPHORUS 5.1 mg/dL (2.5-4.9); TOTAL PROTEIN, SERUM 5.9 g/dL (6.0-8.3)
[2020-08-27] MEDS: INSULIN HUMULIN R 100 UNIT/ML 3ML SQ SCH ×4 (05:38→19:53)
[2020-08-27] MEDS: METRONIDAZOLE 500MG/100ML BAG 100 ML IVPB SCH ×3 (05:38→21:04)
[2020-08-27] MEDS: METOCLOPRAMIDE 5 MG TABLET PO SCH ×3 (05:38→16:26)
[2020-08-27] MEDS: ONDANSETRON 4MG INJ IV PRN ×3 (05:49→19:52)
[2020-08-27] MEDS: METOPROLOL TARTRATE 50 MG TAB PO SCH ×2 (07:28→19:53)
[2020-08-27] MEDS: AMLODIPINE 5 MG TAB PO SCH (07:29)
[2020-08-27] MEDS ORDERED: MIDAZOLAM HCL 1 MG/ML 2ML VIAL ONE (10:22)
[2020-08-27] MEDS ORDERED: FENTANYL CITRATE PF 50 MCG/1 ML 2ML VIAL ONE (10:22)
[2020-08-27] MEDS: CEFTRIAXONE 1G VIAL IVP SCH (19:52)
[2020-08-27] MEDS: FAMOTIDINE 20MG TAB PO SCH (19:53)
[2020-08-28] MEDS: ONDANSETRON 4MG INJ IV PRN ×3 (01:34→17:28)
[2020-08-28] MEDS: HYDROMORPHONE 0.5 MG SYG (0.5MG/0.5ML) IVP PRN (01:41)
[2020-08-28 04:00] VITALS: BP 156/89
[2020-08-28 05:47] LABS: BASOPHILS % (AUTO) 0.5 % (0.0-5.0); EOSINOPHILS % (AUTO) 1.2 % (0.0-8.0); HEMATOCRIT 33.3 % (36-48); LYMPHOCYTES % (AUTO) 22.4 % (21.0-51.0); MEAN CORPUSCULAR HEMOGLOBIN 26.7 pg (27.0-33.0); MEAN CORPUSCULAR HGB CONC 33.3 g/dL (32.0-36.0); MEAN CORPUSCULAR VOLUME 80.2 fL (79-99); MONOCYTES % (AUTO) 5.9 % (3.0-13.0); NEUTROPHILS % (AUTO) 69.7 % (40.0-77.0); PLATELET COUNT (AUTO) 246 K/uL (130-400); RED BLOOD CELL COUNT(AUTO) 4.15 MIL/uL (4.00-5.50); RED CELL DISTRIBUTION WIDTH 14.4 % (11.0-15.5); WHITE BLOOD COUNT (AUTO) 7.5 K/uL (4.8-10.8)
[2020-08-28 05:55] LABS: ALBUMIN 2.5 g/dL (3.5-5.0); BILIRUBIN,TOTAL 0.3 mg/dL (0.2-1.0); CREATININE 5.2 mg/dL (0.5-1.5); POTASSIUM 3.9 mmol/L (3.5-5.1); TOTAL PROTEIN, SERUM 6.1 g/dL (6.0-8.3)
[2020-08-28] MEDS: METRONIDAZOLE 500MG/100ML BAG 100 ML IVPB SCH ×3 (05:57→23:00)
[2020-08-28] MEDS: METOCLOPRAMIDE 5 MG TABLET PO SCH ×3 (05:57→17:23)
[2020-08-28] MEDS: INSULIN HUMULIN R 100 UNIT/ML 3ML SQ SCH ×4 (05:58→21:00)
[2020-08-28 08:00] VITALS: BP 158/88
[2020-08-28] MEDS ORDERED: PROMETHAZINE HCL 25 MG/ML 1ML AMPULE IM SCH (09:15)
[2020-08-28] MEDS: AMLODIPINE 5 MG TAB PO SCH (11:28)
[2020-08-28] MEDS: METOPROLOL TARTRATE 50 MG TAB PO SCH ×2 (11:28→21:09)
[2020-08-28 12:00] VITALS: BP 166/98
[2020-08-28 16:00] VITALS: BP 131/74
[2020-08-28 19:15] VITALS: BP 132/72
[2020-08-28] MEDS: FAMOTIDINE 20MG TAB PO SCH (21:10)
[2020-08-28] MEDS: CEFTRIAXONE 1G VIAL IVP SCH (21:10)
[2020-08-28] MEDS ORDERED: ONDANSETRON 4MG INJ IVP PRN (23:30)
[2020-08-28 23:51] VITALS: BP 136/79
[2020-08-29] MEDS: ONDANSETRON 4MG INJ IV PRN (00:13)
[2020-08-29 04:00] VITALS: BP 156/84
[2020-08-29] MEDS: PROMETHAZINE HCL 25 MG/ML 1ML AMPULE IM PRN ×2 (04:24→10:36)
[2020-08-29 05:15] LABS: BASOPHILS % (AUTO) 0.6 % (0.0-5.0); EOSINOPHILS % (AUTO) 2.2 % (0.0-8.0); HEMATOCRIT 32.3 % (36-48); LYMPHOCYTES % (AUTO) 22.1 % (21.0-51.0); MEAN CORPUSCULAR HEMOGLOBIN 26.3 pg (27.0-33.0); MEAN CORPUSCULAR HGB CONC 32.8 g/dL (32.0-36.0); MEAN CORPUSCULAR VOLUME 80.1 fL (79-99); MONOCYTES % (AUTO) 6.9 % (3.0-13.0); NEUTROPHILS % (AUTO) 67.8 % (40.0-77.0); PLATELET COUNT (AUTO) 243 K/uL (130-400); RED BLOOD CELL COUNT(AUTO) 4.03 MIL/uL (4.00-5.50); RED CELL DISTRIBUTION WIDTH 14.4 % (11.0-15.5); WHITE BLOOD COUNT (AUTO) 7.9 K/uL (4.8-10.8)
[2020-08-29 05:18] LABS: CREATININE 4.5 mg/dL (0.5-1.5); POTASSIUM 3.7 mmol/L (3.5-5.1)
[2020-08-29] MEDS: METRONIDAZOLE 500MG/100ML BAG 100 ML IVPB SCH ×2 (06:54→16:38)
[2020-08-29] MEDS: METOCLOPRAMIDE 5 MG TABLET PO SCH ×3 (06:56→16:38)
[2020-08-29] MEDS: INSULIN HUMULIN R 100 UNIT/ML 3ML SQ SCH ×4 (06:58→20:43)
[2020-08-29 08:06] VITALS: BP 152/73
[2020-08-29] MEDS: FAMOTIDINE 20MG VIAL IV SCH ×2 (10:34→21:57)
[2020-08-29] MEDS: AMLODIPINE 5 MG TAB PO SCH (10:35)
[2020-08-29] MEDS: METOPROLOL TARTRATE 50 MG TAB PO SCH ×2 (10:35→21:57)
[2020-08-29] MEDS: HYDROMORPHONE 0.5 MG SYG (0.5MG/0.5ML) IVP PRN (10:37)
[2020-08-29 12:04] VITALS: BP 160/88
[2020-08-29] MEDS ORDERED: LISINOPRIL 10 MG TABLET PO SCH (13:15)
[2020-08-29 16:08] VITALS: BP 137/74
[2020-08-29] MEDS ORDERED: LISINOPRIL 10 MG TABLET ONE (16:39)
[2020-08-29 20:18] VITALS: BP 143/78
[2020-08-29] MEDS: CEFTRIAXONE 1G VIAL IVP SCH (21:57)
[2020-08-29 23:47] VITALS: BP 146/82
[2020-08-30] MEDS: PROMETHAZINE HCL 25 MG/ML 1ML AMPULE IM PRN (00:46)
[2020-08-30] MEDS: METRONIDAZOLE 500MG/100ML BAG 100 ML IVPB SCH ×4 (00:46→20:21)
[2020-08-30] MEDS ORDERED: TRAMADOL HCL 50 MG TABLET ONE (01:43)
[2020-08-30] MEDS: TRAMADOL HCL 50 MG TABLET PO SCH ×3 (01:45→21:01)
[2020-08-30 04:38] LABS: BASOPHILS % (AUTO) 0.5 % (0.0-5.0); EOSINOPHILS % (AUTO) 2.8 % (0.0-8.0); HEMATOCRIT 30.5 % (36-48); LYMPHOCYTES % (AUTO) 28.3 % (21.0-51.0); MEAN CORPUSCULAR HEMOGLOBIN 26.5 pg (27.0-33.0); MEAN CORPUSCULAR HGB CONC 32.8 g/dL (32.0-36.0); MEAN CORPUSCULAR VOLUME 80.9 fL (79-99); MONOCYTES % (AUTO) 6.6 % (3.0-13.0); NEUTROPHILS % (AUTO) 61.7 % (40.0-77.0); PLATELET COUNT (AUTO) 207 K/uL (130-400); RED BLOOD CELL COUNT(AUTO) 3.77 MIL/uL (4.00-5.50); RED CELL DISTRIBUTION WIDTH 14.3 % (11.0-15.5); WHITE BLOOD COUNT (AUTO) 7.6 K/uL (4.8-10.8)
[2020-08-30 04:54] LABS: CREATININE 5.5 mg/dL (0.5-1.5); POTASSIUM 3.6 mmol/L (3.5-5.1)
[2020-08-30 05:05] VITALS: BP 146/88
[2020-08-30] MEDS: METOCLOPRAMIDE 5 MG TABLET PO SCH ×3 (06:33→16:11)
[2020-08-30] MEDS: INSULIN HUMULIN R 100 UNIT/ML 3ML SQ SCH ×4 (06:34→20:40)
[2020-08-30 08:00] VITALS: BP 138/75
[2020-08-30] MEDS: AMLODIPINE 5 MG TAB PO SCH (10:46)
[2020-08-30] MEDS: LISINOPRIL 20 MG TABLET PO SCH (10:46)
[2020-08-30] MEDS: METOPROLOL TARTRATE 50 MG TAB PO SCH ×2 (10:47→20:21)
[2020-08-30 11:35] VITALS: BP 166/85
[2020-08-30 16:08] VITALS: BP 143/80
[2020-08-30 19:48] VITALS: BP 141/80
[2020-08-30] MEDS: CEFTRIAXONE 1G VIAL IVP SCH (20:21)
[2020-08-31] VITALS (7 sets, daily range): BP systolic 133–164; BP diastolic 74–91
[2020-08-31] MEDS ORDERED: LOPERAMIDE 1 MG/7.5 ML UDCUP PO SCH (00:45)
[2020-08-31] MEDS: LOPERAMIDE HCL 2 MG CAP PO SCH (02:52)
[2020-08-31 04:35] LABS: BASOPHILS % (AUTO) 0.5 % (0.0-5.0); EOSINOPHILS % (AUTO) 4.4 % (0.0-8.0); LYMPHOCYTES % (AUTO) 30.4 % (21.0-51.0); MEAN CORPUSCULAR HEMOGLOBIN 26.6 pg (27.0-33.0); MEAN CORPUSCULAR HGB CONC 32.6 g/dL (32.0-36.0); MEAN CORPUSCULAR VOLUME 81.6 fL (79-99); NEUTROPHILS % (AUTO) 56.4 % (40.0-77.0); PLATELET COUNT (AUTO) 179 K/uL (130-400); RED CELL DISTRIBUTION WIDTH 14.4 % (11.0-15.5); WHITE BLOOD COUNT (AUTO) 7.3 K/uL (4.8-10.8)
[2020-08-31 05:03] LABS: BILIRUBIN,TOTAL 0.2 mg/dL (0.2-1.0); CREATININE 4.4 mg/dL (0.5-1.5); PHOSPHORUS 4.4 mg/dL (2.5-4.9); POTASSIUM 3.5 mmol/L (3.5-5.1); TOTAL PROTEIN, SERUM 5.2 g/dL (6.0-8.3)
[2020-08-31] MEDS: INSULIN HUMULIN R 100 UNIT/ML 3ML SQ SCH ×4 (05:36→20:38)
[2020-08-31] MEDS: METRONIDAZOLE 500MG/100ML BAG 100 ML IVPB SCH ×3 (05:57→20:38)
[2020-08-31] MEDS: METOCLOPRAMIDE 5 MG TABLET PO SCH ×3 (07:18→16:19)
[2020-08-31] MEDS: TRAMADOL HCL 50 MG TABLET PO SCH ×2 (09:00→20:38)
[2020-08-31] MEDS: AMLODIPINE 5 MG TAB PO SCH (09:15)
[2020-08-31] MEDS: FAMOTIDINE 20MG TAB PO SCH (09:15)
[2020-08-31] MEDS: LISINOPRIL 20 MG TABLET PO SCH (09:15)
[2020-08-31] MEDS: METOPROLOL TARTRATE 50 MG TAB PO SCH ×2 (09:15→20:38)
[2020-08-31] MEDS: ONDANSETRON 4MG INJ IV PRN (20:37)
[2020-08-31] MEDS: CEFTRIAXONE 1G VIAL IVP SCH (20:38)
[2020-09-01] VITALS (12 sets, daily range): BP systolic 135–161; BP diastolic 73–100
[2020-09-01] MEDS: LOPERAMIDE HCL 2 MG CAP PO SCH (01:15)
[2020-09-01 05:24] LABS: HEMATOCRIT 29.9 % (36-48); MEAN CORPUSCULAR HEMOGLOBIN 27.1 pg (27.0-33.0); MEAN CORPUSCULAR HGB CONC 33.4 g/dL (32.0-36.0); RED BLOOD CELL COUNT(AUTO) 3.69 MIL/uL (4.00-5.50); RED CELL DISTRIBUTION WIDTH 14.3 % (11.0-15.5); WHITE BLOOD COUNT (AUTO) 6.9 K/uL (4.8-10.8)
[2020-09-01 05:46] LABS: CREATININE 4.9 mg/dL (0.5-1.5); POTASSIUM 3.4 mmol/L (3.5-5.1)
[2020-09-01] MEDS: INSULIN HUMULIN R 100 UNIT/ML 3ML SQ SCH ×4 (06:18→21:00)
[2020-09-01] MEDS: METOCLOPRAMIDE 5 MG TABLET PO SCH ×3 (06:46→16:29)
[2020-09-01] MEDS: METRONIDAZOLE 500MG/100ML BAG 100 ML IVPB SCH ×3 (06:46→22:15)
[2020-09-01] MEDS: TRAMADOL HCL 50 MG TABLET PO SCH ×2 (09:00→14:46)
[2020-09-01] MEDS: METOPROLOL TARTRATE 50 MG TAB PO SCH ×2 (09:43→22:15)
[2020-09-01] MEDS: AMLODIPINE 5 MG TAB PO SCH (09:43)
[2020-09-01] MEDS: LISINOPRIL 20 MG TABLET PO SCH (09:43)
[2020-09-01 12:28] LABS: INR 1.02 (0.85-1.15); PROTHROMBIN TIME 11.1 SEC (9.6-11.6)
[2020-09-01 12:29] LABS: PARTIAL THROMBOPLASTIN TIME 24.9 SEC (26.3-35.5)
[2020-09-01] MEDS ORDERED: SODIUM BICARB 50MEQ 50ML VIAL 50 ML ONE (13:16)
[2020-09-01] MEDS ORDERED: HEPARIN 1,000 UNIT VIAL ONE (13:17)
[2020-09-01] MEDS ORDERED: LIDOCAINE HCL 400MG/20ML VIAL ONE (13:17)
[2020-09-01] MEDS ORDERED: HYDROMORPHONE 0.5 MG SYG (0.5MG/0.5ML) ONE (18:24)
[2020-09-01] MEDS: HEPARIN 5,000 UNIT VIAL SQ SCH (18:28)
[2020-09-01] MEDS: CEFTRIAXONE 1G VIAL IVP SCH (22:15)
[2020-09-02] MEDS: HYDROMORPHONE 0.5 MG SYG (0.5MG/0.5ML) IVP PRN ×3 (00:50→23:10)
[2020-09-02] MEDS: LOPERAMIDE HCL 2 MG CAP PO SCH (01:15)
[2020-09-02] MEDS: HEPARIN 5,000 UNIT VIAL SQ SCH ×3 (02:00→16:37)
[2020-09-02 03:43] VITALS: BP 139/78
[2020-09-02 05:19] LABS: BASOPHILS % (AUTO) 0.7 % (0.0-5.0); EOSINOPHILS % (AUTO) 3.3 % (0.0-8.0); HEMATOCRIT 30.5 % (36-48); LYMPHOCYTES % (AUTO) 30.2 % (21.0-51.0); MEAN CORPUSCULAR HEMOGLOBIN 26.8 pg (27.0-33.0); MEAN CORPUSCULAR HGB CONC 32.8 g/dL (32.0-36.0); MEAN CORPUSCULAR VOLUME 81.8 fL (79-99); MONOCYTES % (AUTO) 6.9 % (3.0-13.0); NEUTROPHILS % (AUTO) 58.6 % (40.0-77.0); PLATELET COUNT (AUTO) 203 K/uL (130-400); RED BLOOD CELL COUNT(AUTO) 3.73 MIL/uL (4.00-5.50); RED CELL DISTRIBUTION WIDTH 14.6 % (11.0-15.5); WHITE BLOOD COUNT (AUTO) 7.4 K/uL (4.8-10.8)
[2020-09-02 05:47] LABS: CREATININE 5.9 mg/dL (0.5-1.5); PHOSPHORUS 5.4 mg/dL (2.5-4.9); POTASSIUM 3.4 mmol/L (3.5-5.1)
[2020-09-02 06:01] LABS: INR 1.09 (0.85-1.15); PROTHROMBIN TIME 11.2 SEC (9.6-11.6)
[2020-09-02 06:03] LABS: PARTIAL THROMBOPLASTIN TIME 24.4 SEC (26.3-35.5)
[2020-09-02] MEDS: INSULIN HUMULIN R 100 UNIT/ML 3ML SQ SCH ×4 (06:38→21:00)
[2020-09-02] MEDS: METOCLOPRAMIDE 5 MG TABLET PO SCH ×3 (06:53→16:26)
[2020-09-02] MEDS: METRONIDAZOLE 500MG/100ML BAG 100 ML IVPB SCH ×3 (06:53→21:33)
[2020-09-02 07:56] VITALS: BP 149/85
[2020-09-02] MEDS: FAMOTIDINE 20MG TAB PO SCH (09:50)
[2020-09-02] MEDS: METOPROLOL TARTRATE 50 MG TAB PO SCH ×2 (09:51→21:31)
[2020-09-02] MEDS: TRAMADOL HCL 50 MG TABLET PO SCH ×2 (09:51→21:32)
[2020-09-02] MEDS: AMLODIPINE 5 MG TAB PO SCH (09:51)
[2020-09-02] MEDS: LISINOPRIL 20 MG TABLET PO SCH (09:55)
[2020-09-02 12:00] VITALS: BP 170/92
[2020-09-02 15:54] VITALS: BP 130/74
[2020-09-02] MEDS: ACETAMINOPHEN 325 MG TAB PO PRN (18:23)
[2020-09-02] MEDS ORDERED: CEFAZOLIN SODIUM 1 GM VIAL IVP PRN (19:45)
[2020-09-02 19:56] VITALS: BP 166/94
[2020-09-02] MEDS: CEFTRIAXONE 1G VIAL IVP SCH (21:31)
[2020-09-02] MEDS: ONDANSETRON 4MG INJ IV PRN (23:09)
[2020-09-02 23:45] VITALS: BP 138/75
[2020-09-03] VITALS (23 sets, daily range): BP systolic 141–168; BP diastolic 75–85
[2020-09-03] MEDS: LOPERAMIDE HCL 2 MG CAP PO SCH ×2 (00:13→23:07)
[2020-09-03] MEDS: HEPARIN 5,000 UNIT VIAL SQ SCH ×3 (00:15→18:50)
[2020-09-03] MEDS: METRONIDAZOLE 500MG/100ML BAG 100 ML IVPB SCH ×3 (05:11→23:06)
[2020-09-03 05:13] LABS: BASOPHILS % (AUTO) 0.7 % (0.0-5.0); HEMATOCRIT 32.3 % (36-48); LYMPHOCYTES % (AUTO) 30.8 % (21.0-51.0); MEAN CORPUSCULAR HEMOGLOBIN 26.1 pg (27.0-33.0); MEAN CORPUSCULAR HGB CONC 31.9 g/dL (32.0-36.0); MONOCYTES % (AUTO) 8.4 % (3.0-13.0); NEUTROPHILS % (AUTO) 56.9 % (40.0-77.0); PLATELET COUNT (AUTO) 209 K/uL (130-400); RED BLOOD CELL COUNT(AUTO) 3.94 MIL/uL (4.00-5.50); RED CELL DISTRIBUTION WIDTH 14.7 % (11.0-15.5)
[2020-09-03 05:27] LABS: INR 1.03 (0.85-1.15); PROTHROMBIN TIME 11.2 SEC (9.6-11.6)
[2020-09-03 05:28] LABS: CREATININE 4.6 mg/dL (0.5-1.5); POTASSIUM 3.5 mmol/L (3.5-5.1)
[2020-09-03] MEDS: METOCLOPRAMIDE 5 MG TABLET PO SCH ×3 (06:38→18:46)
[2020-09-03] MEDS: INSULIN HUMULIN R 100 UNIT/ML 3ML SQ SCH ×4 (06:41→21:00)
[2020-09-03] MEDS: AMLODIPINE 5 MG TAB PO SCH (09:27)
[2020-09-03] MEDS: METOPROLOL TARTRATE 50 MG TAB PO SCH ×2 (09:27→23:06)
[2020-09-03] MEDS: TRAMADOL HCL 50 MG TABLET PO SCH ×3 (09:28→09:30)
[2020-09-03] MEDS ORDERED: CEFAZOLIN SODIUM 1 GM VIAL ONE (10:23)
[2020-09-03] MEDS ORDERED: MIDAZOLAM HCL 1 MG/ML 2ML VIAL ONE (10:26)
[2020-09-03] MEDS ORDERED: PROPOFOL 10 MG/ML 20ML VIAL IV ONE (10:32)
[2020-09-03] MEDS ORDERED: FENTANYL CITRATE PF 50 MCG/1 ML 2ML VIAL ONE ×2 (10:44→12:26)
[2020-09-03] MEDS ORDERED: LIDOCAINE HCL MPF 1% 5ML VIAL ONE (10:47)
[2020-09-03] MEDS ORDERED: TRAMADOL HCL 50 MG TABLET PO PRN ×2 (11:30)
[2020-09-03] MEDS ORDERED: PROTAMINE SULFATE 10 MG/ML 5 ML VIAL ONE (11:59)
[2020-09-03] MEDS ORDERED: HEPARIN 10,000 UNIT/10ML (1,000 UNIT/ML) VIAL ONE (11:59)
[2020-09-03] MEDS ORDERED: OXYCODONE/ACETAMIN 5/325MG TAB PO PRN (13:30)
[2020-09-03] MEDS: HYDROMORPHONE 0.5 MG SYG (0.5MG/0.5ML) IVP PRN (14:10)
[2020-09-03] MEDS ORDERED: HYDROMORPHONE 0.5 MG SYG (0.5MG/0.5ML) IVP PRN (14:30)
[2020-09-03] MEDS: LISINOPRIL 20 MG TABLET PO SCH (15:12)
[2020-09-03] MEDS: OXYCODONE/ACETAMIN 5/325MG TAB PO PRN ×2 (15:13→23:16)
[2020-09-03] MEDS: CEFTRIAXONE 1G VIAL IVP SCH (23:06)
[2020-09-04] MEDS: HEPARIN 5,000 UNIT VIAL SQ SCH ×3 (02:21→16:13)
[2020-09-04 03:38] VITALS: BP 155/80
[2020-09-04 05:10] LABS: BASOPHILS % (AUTO) 0.8 % (0.0-5.0); HEMATOCRIT 30.8 % (36-48); LYMPHOCYTES % (AUTO) 30.8 % (21.0-51.0); MEAN CORPUSCULAR HEMOGLOBIN 27.1 pg (27.0-33.0); MEAN CORPUSCULAR HGB CONC 32.8 g/dL (32.0-36.0); MEAN CORPUSCULAR VOLUME 82.6 fL (79-99); MONOCYTES % (AUTO) 8.5 % (3.0-13.0); NEUTROPHILS % (AUTO) 56.6 % (40.0-77.0); PLATELET COUNT (AUTO) 213 K/uL (130-400); RED BLOOD CELL COUNT(AUTO) 3.73 MIL/uL (4.00-5.50); RED CELL DISTRIBUTION WIDTH 14.6 % (11.0-15.5); WHITE BLOOD COUNT (AUTO) 6.6 K/uL (4.8-10.8)
[2020-09-04 05:23] LABS: CREATININE 5.4 mg/dL (0.5-1.5); POTASSIUM 3.6 mmol/L (3.5-5.1)
[2020-09-04] MEDS: METRONIDAZOLE 500MG/100ML BAG 100 ML IVPB SCH ×2 (05:58→14:43)
[2020-09-04] MEDS: INSULIN HUMULIN R 100 UNIT/ML 3ML SQ SCH ×3 (05:59→16:13)
[2020-09-04] MEDS: METOCLOPRAMIDE 5 MG TABLET PO SCH ×3 (06:41→16:13)
[2020-09-04 08:00] VITALS: BP 155/82
[2020-09-04] MEDS: ONDANSETRON 4MG INJ IV PRN ×2 (08:12→16:53)
[2020-09-04] MEDS ORDERED: METO50 PO (09:21)
[2020-09-04] MEDS ORDERED: LISI20TA24 PO (09:21)
[2020-09-04] MEDS ORDERED: AMLO5TAB4 PO (09:21)
[2020-09-04 11:37] VITALS: BP 147/86
[2020-09-04] MEDS: OXYCODONE/ACETAMIN 5/325MG TAB PO PRN (14:41)
[2020-09-04] MEDS: AMLODIPINE 5 MG TAB PO SCH (14:42)
[2020-09-04] MEDS: METOPROLOL TARTRATE 50 MG TAB PO SCH (14:42)
[2020-09-04] MEDS: FAMOTIDINE 20MG TAB PO SCH (14:42)
[2020-09-04] MEDS: LISINOPRIL 20 MG TABLET PO SCH (14:43)
[2020-09-04 16:00] VITALS: BP 151/82
[2021-06-08] MEDS ORDERED: AMOX-426 PO (11:05)
[2021-06-08] MEDS ORDERED: ONDA4TAB4 PO (11:05)
== END 2020-09-04 17:58 | disposition home or self-care (01) | DRG 444 ==
LOC: EDH 12:59 → EDHIP 13:00 → 4BH 18:07 → 2CH 18:58 → 4BH 08-24 15:56
PROVIDERS: ADMIT Family Medicine; ATTEND Family Medicine
PROC: 30233N1 Transfusion of Nonautologous Red Blood Cells into Peripheral Vein, Percutaneous Approach (ICD-10-PCS; 2020-08-23)
PROC: 02H633Z Insertion of Infusion Device into Right Atrium, Percutaneous Approach (ICD-10-PCS; 2020-08-25)
PROC: B5181ZA Fluoroscopy of Superior Vena Cava using Low Osmolar Contrast, Guidance (ICD-10-PCS; 2020-08-25)
PROC: B548ZZA Ultrasonography of Superior Vena Cava, Guidance (ICD-10-PCS; 2020-08-25)
PROC: 5A1D70Z Performance of Urinary Filtration, Intermittent, Less than 6 Hours Per Day (ICD-10-PCS; 2020-08-25)
PROC: 5A1D70Z Performance of Urinary Filtration, Intermittent, Less than 6 Hours Per Day (ICD-10-PCS; 2020-08-27)
PROC: 0TB13ZX Excision of Left Kidney, Percutaneous Approach, Diagnostic (ICD-10-PCS; 2020-08-27)
PROC: 5A1D70Z Performance of Urinary Filtration, Intermittent, Less than 6 Hours Per Day (ICD-10-PCS; 2020-08-28)
PROC: 0JH63XZ Insertion of Tunneled Vascular Access Device into Chest Subcutaneous Tissue and Fascia, Percutaneous Approach (ICD-10-PCS; 2020-09-01)
PROC: 05HM33Z Insertion of Infusion Device into Right Internal Jugular Vein, Percutaneous Approach (ICD-10-PCS; 2020-09-01)
PROC: B5131ZA Fluoroscopy of Right Jugular Veins using Low Osmolar Contrast, Guidance (ICD-10-PCS; 2020-09-01)
PROC: 5A1D70Z Performance of Urinary Filtration, Intermittent, Less than 6 Hours Per Day (ICD-10-PCS; 2020-09-02)
PROC: 03180ZD Bypass Left Brachial Artery to Upper Arm Vein, Open Approach (ICD-10-PCS; principal; 2020-09-03 10:16)
PROC: 5A1D70Z Performance of Urinary Filtration, Intermittent, Less than 6 Hours Per Day (ICD-10-PCS; 2020-09-04)
DX: N17.9 Acute kidney failure, unspecified (principal); I13.2 Hypertensive heart and chronic kidney disease with heart failure and with stage 5 chronic kidney disease, or end stage renal disease; N18.6 End stage renal disease; N39.0 Urinary tract infection, site not specified; G82.20 Paraplegia, unspecified; M62.82 Rhabdomyolysis; E44.0 Moderate protein-calorie malnutrition; D64.9 Anemia, unspecified; E87.5 Hyperkalemia; R79.89 Other specified abnormal findings of blood chemistry; R74.8 Abnormal levels of other serum enzymes; M79.89 Other specified soft tissue disorders; R62.7 Adult failure to thrive; I50.43 Acute on chronic combined systolic (congestive) and diastolic (congestive) heart failure; D63.8 Anemia in other chronic diseases classified elsewhere; E11.22 Type 2 diabetes mellitus with diabetic chronic kidney disease; E87.6 Hypokalemia; Z79.4 Long term (current) use of insulin; Z99.2 Dependence on renal dialysis; Z20.822 Contact with and (suspected) exposure to COVID-19; Z88.8 Allergy status to other drugs, medicaments and biological substances; E88.09 Other disorders of plasma-protein metabolism, not elsewhere classified; Z68.29 Body mass index [BMI] 29.0-29.9, adult
CPT/HCPCS: 36415; 36430; 36556; 36581; 50200; 70450; 71045; 72141; 72146; 72148; 74176; 76705; 76770; 76942; 77001; 80048; 80053; 80061; 80305; 81001; 82040; 82085; 82270; 82306; 82550; 82570; 82728; 82948; 83036; 83540; 83550; 83605; 83690; 83735; 83880; 84100; 84132; 84156; 84166; 84443; 84484; 84703; 85025; 85027; 85378; 85610; 85651; 85730; 86038; 86140; 86160; 86215; 86235; 86255; 86325; 86334; 86701; 86704; 86706; 86850; 86900; 86901; 86923; 87040; 87088; 87340; 87390; 87426; 87520; 88305; 88313; 88346; 88348; 88350; 90935; 93005; 93306; 93356; 93970; 93971; 96365; 97039; 99152; C1750; C1752; G0378; J0610; J0690; J0696; J1170; J1644; J1815; J1940; J2250; J2405; J2550; J2704; J2720; J3010; J3490; J7030; J7050; J7060; J7070; P9016; U0003

== ENCOUNTER 2020-09-17 11:23 | Emergency (ER) | payer MEDICAID ==
[~2020-09-17 11:23] MED LIST changes: +AMLO5TAB4 PO; -CEFD300C3 PO; +LISI20TA24 PO; +METO50 PO; -PREVPACK
[2020-09-17] MEDS ORDERED: ONDANSETRON HCL 4 MG/2 ML VIAL ONE (11:34)
[2020-09-17 12:50] LABS: BASOPHILS % (AUTO) 0.5 % (0.0-5.0); EOSINOPHILS % (AUTO) 0.2 % (0.0-8.0); HEMATOCRIT 31.2 % (36-48); LYMPHOCYTES % (AUTO) 13.3 % (21.0-51.0); MEAN CORPUSCULAR HEMOGLOBIN 27.4 pg (27.0-33.0); MEAN CORPUSCULAR HGB CONC 34.3 g/dL (32.0-36.0); MONOCYTES % (AUTO) 3.1 % (3.0-13.0); NEUTROPHILS % (AUTO) 81.6 % (40.0-77.0); PLATELET COUNT (AUTO) 283 K/uL (130-400); RED CELL DISTRIBUTION WIDTH 15.1 % (11.0-15.5); WHITE BLOOD COUNT (AUTO) 8.5 K/uL (4.8-10.8)
[2020-09-17] MEDS ORDERED: METOCLOPRAMIDE 10 MG/2 ML VIAL ONE ×2 (12:57→17:44)
[2020-09-17 13:00] LABS: ALBUMIN 2.8 g/dL (3.5-5.0); BILIRUBIN,TOTAL 0.3 mg/dL (0.2-1.0); CREATININE 4.6 mg/dL (0.5-1.5); POTASSIUM 3.9 mmol/L (3.5-5.1)
[2020-09-17] MEDS ORDERED: MORPHINE SULFATE 4 MG/1ML SYG ONE (13:03)
[2020-09-17] MEDS ORDERED: MORPHINE SULFATE 2 MG/ML 1ML SYG ONE (17:45)
== END 2020-09-17 18:00 | disposition home or self-care (01) ==
LOC: EDH 11:23
DX: K83.8 Other specified diseases of biliary tract (principal); R10.84 Generalized abdominal pain; I12.0 Hypertensive chronic kidney disease with stage 5 chronic kidney disease or end stage renal disease; E11.22 Type 2 diabetes mellitus with diabetic chronic kidney disease; N18.6 End stage renal disease; Z98.890 Other specified postprocedural states; Z99.2 Dependence on renal dialysis
CPT/HCPCS: 36415; 74176; 76705; 80053; 83690; 84702; 85025; 96374; 96375; 96376; 99285; J2270; J2405; J2765 ×2

== ENCOUNTER 2020-11-21 10:18 | Day surgery (SDC) | payer MEDICAID ==
[~2020-11-21] VITALS: Ht 170.2 cm; Wt 80.3 kg
[2020-11-21 11:22] LABS: HEMATOCRIT 35.5 % (36-48); MEAN CORPUSCULAR HEMOGLOBIN 28.3 pg (27.0-33.0); MEAN CORPUSCULAR HGB CONC 32.4 g/dL (32.0-36.0); MEAN CORPUSCULAR VOLUME 87.4 fL (79-99); RED BLOOD CELL COUNT(AUTO) 4.06 MIL/uL (4.00-5.50); RED CELL DISTRIBUTION WIDTH 15.2 % (11.0-15.5); WHITE BLOOD COUNT (AUTO) 8.5 K/uL (4.8-10.8)
[2020-11-21 11:34] LABS: CREATININE 7.5 mg/dL (0.5-1.5); POTASSIUM 5.6 mmol/L (3.5-5.1)
[2020-11-21 11:45] LABS: INR 0.95 (0.85-1.15); PROTHROMBIN TIME 10.4 SEC (9.6-11.6)
== END 2020-11-21 13:26 | disposition home or self-care (01) ==
LOC: DAH 10:18
PROVIDERS: ATTEND Thoracic Surgery (Cardiothoracic Vascular Surgery)
DX: N18.6 End stage renal disease (principal); Z79.899 Other long term (current) drug therapy; Z53.8 Procedure and treatment not carried out for other reasons; Z79.01 Long term (current) use of anticoagulants
CPT/HCPCS: 36415; 80048; 82948; 84703; 85027; 85610; A4215; A4216; A4221; A4222; A4223 ×3; A4606; A4663

== ENCOUNTER 2020-12-17 16:00 | Observation (INO) | payer MEDICAID ==
[~2020-12-17] VITALS: Ht 170.2 cm; Wt 68.0 kg
[2020-12-17] MEDS ORDERED: ONDANSETRON 4MG INJ IVP ONE (16:30)
[2020-12-17] MEDS ORDERED: 0.9%NACL 1000ML 1,000 ML IV ONE (16:30)
[2020-12-17 17:40] LABS: APPEARANCE,URINE Clear (CLEAR); BILIRUBIN,URINE Negative (NEGATIVE); COLOR,URINE Yellow (YELLOW); GLUCOSE, URINE (UA) 250 mg/dL (NEGATIVE); KETONES,URINE Negative (NEGATIVE); LEUKOCYTE ESTERASE ,URINE Trace (NEGATIVE); NITRATE,URINE Negative (NEGATIVE); OCCULT BLOOD,URINE Trace (NEGATIVE); PH,URINE >=9.0 (5.0-8.0); PROTEIN,URINE >=1000 mg/dL (NEGATIVE); UROBILINOGEN,URINE 0.2 mg/dL (0.2-1.0)
[2020-12-17 17:48] LABS: BASOPHILS % (AUTO) 0.2 % (0.0-5.0); HEMATOCRIT 34.2 % (36-48); LYMPHOCYTES % (AUTO) 12.3 % (21.0-51.0); MEAN CORPUSCULAR HEMOGLOBIN 27.9 pg (27.0-33.0); MEAN CORPUSCULAR HGB CONC 33.3 g/dL (32.0-36.0); MEAN CORPUSCULAR VOLUME 83.6 fL (79-99); MONOCYTES % (AUTO) 4.3 % (3.0-13.0); NEUTROPHILS % (AUTO) 82.9 % (40.0-77.0); PLATELET COUNT (AUTO) 256 K/uL (130-400); RED BLOOD CELL COUNT(AUTO) 4.09 MIL/uL (4.00-5.50); RED CELL DISTRIBUTION WIDTH 13.7 % (11.0-15.5); WHITE BLOOD COUNT (AUTO) 8.6 K/uL (4.8-10.8)
[2020-12-17 17:51] LABS: BACTERIA,URINE Few /HPF (None Seen); SQUAMOUS EPITHELIAL CELL,UR Moderate /HPF (0-2)
[2020-12-17] MEDS ORDERED: PROMETHAZINE HCL 25 MG/ML 1ML AMPULE IM ONE (18:00)
[2020-12-17] MEDS ORDERED: FENTANYL CITRATE PF 50 MCG/1 ML 2ML VIAL IVP ONE ×2 (18:00→20:00)
[2020-12-17] MEDS ORDERED: CEFTRIAXONE 1G VIAL IVP ONE (18:00)
[2020-12-17 18:03] LABS: CREATININE 4.9 mg/dL (0.5-1.5); POTASSIUM 3.7 mmol/L (3.5-5.1)
[2020-12-17 18:08] LABS: ALBUMIN 3.2 g/dL (3.5-5.0); BILIRUBIN,TOTAL 0.3 mg/dL (0.2-1.0); TOTAL PROTEIN, SERUM 7.5 g/dL (6.0-8.3)
[2020-12-17] MEDS ORDERED: CEFTRIAXONE 1G VIAL ONE (18:08)
[2020-12-17] MEDS ORDERED: FENTANYL CITRATE PF 50 MCG/1 ML 2ML VIAL ONE (18:09)
[2020-12-17 19:15] VITALS: BP 187/96
[2020-12-17 19:34] VITALS: BP 189/93
[2020-12-17] MEDS ORDERED: HYDRALAZINE 20MG/ML VIAL ONE (19:54)
[2020-12-17] MEDS ORDERED: HYDRALAZINE 20MG/ML VIAL IV SCH (20:00)
[2020-12-17] MEDS ORDERED: ACETAMINOPHEN 325 MG TAB PO PRN ×2 (20:30)
[2020-12-17] MEDS: ONDANSETRON 4MG INJ IV PRN (21:09)
[2020-12-17] MEDS: ZOSYN 3.375GM+NS 50ML 50 ML IV SCH (21:09)
[2020-12-17] MEDS ORDERED: HYDROMORPHONE 0.5 MG SYG (0.5MG/0.5ML) IVP PRN (22:30)
[2020-12-17] MEDS ORDERED: HYDROMORPHONE 0.5 MG SYG (0.5MG/0.5ML) ONE (23:14)
[2020-12-18] VITALS (29 sets, daily range): BP systolic 139–186; BP diastolic 60–99
[2020-12-18] MEDS ORDERED: LABETALOL 20MG SYG IV PRN (00:30)
[2020-12-18] MEDS: HYDRALAZINE 20MG/ML VIAL IV PRN ×2 (02:16→20:13)
[2020-12-18] MEDS: METOCLOPRAMIDE 10 MG/2 ML VIAL IVP PRN ×2 (02:50→10:00)
[2020-12-18] MEDS: ONDANSETRON 4MG INJ IV PRN ×2 (06:20→10:27)
[2020-12-18 07:38] LABS: BASOPHILS % (AUTO) 0.2 % (0.0-5.0); HEMATOCRIT 32.2 % (36-48); LYMPHOCYTES % (AUTO) 18.5 % (21.0-51.0); MEAN CORPUSCULAR HGB CONC 32.9 g/dL (32.0-36.0); MEAN CORPUSCULAR VOLUME 85.2 fL (79-99); NEUTROPHILS % (AUTO) 74.8 % (40.0-77.0); PLATELET COUNT (AUTO) 228 K/uL (130-400); RED BLOOD CELL COUNT(AUTO) 3.78 MIL/uL (4.00-5.50); WHITE BLOOD COUNT (AUTO) 8.3 K/uL (4.8-10.8)
[2020-12-18 07:49] LABS: MAGNESIUM 1.9 mg/dL (1.80-2.40); POTASSIUM 3.6 mmol/L (3.5-5.1)
[2020-12-18] MEDS ORDERED: PANTOPRAZOLE 40 MG/VIAL IVP SCH (09:00)
[2020-12-18] MEDS: METOPROLOL TARTRATE 50 MG TAB PO SCH ×2 (09:00→21:04)
[2020-12-18] MEDS ORDERED: KETOROLAC 15MG/ML VIAL (15MG/ML) IV ONE (09:00)
[2020-12-18] MEDS ORDERED: HYDROMORPHONE 0.5 MG SYG (0.5MG/0.5ML) IVP PRN (09:00)
[2020-12-18] MEDS ORDERED: LISINOPRIL 40 MG TABLET PO SCH (09:00)
[2020-12-18] MEDS ORDERED: AMLODIPINE 5 MG TAB PO SCH (09:00)
[2020-12-18] MEDS: ZOSYN 3.375GM+NS 50ML 50 ML IV SCH ×2 (09:59→21:04)
[2020-12-18] MEDS ORDERED: HYDROMORPHONE 0.5 MG SYG (0.5MG/0.5ML) ONE (12:20)
[2020-12-18] MEDS ORDERED: HEPARIN 5,000 UNIT VIAL IV SCH (18:00)
[2020-12-18] MEDS ORDERED: METOCLOPRAMIDE 10 MG/2 ML VIAL ONE (19:53)
[2020-12-18] MEDS ORDERED: INSULIN HUMULIN R 100 UNIT/ML 3ML SQ SCH (21:00)
[2020-12-18] MEDS ORDERED: METOCLOPRAMIDE 10 MG/2 ML VIAL IVP SCH (21:00)
[2020-12-18] MEDS: KETOROLAC 15MG/ML VIAL (15MG/ML) IM PRN (21:04)
[2020-12-19] MEDS: ONDANSETRON 4MG INJ IV PRN (01:55)
[2020-12-19] MEDS: KETOROLAC 15MG/ML VIAL (15MG/ML) IM PRN (01:56)
[2020-12-19 03:54] VITALS: BP 167/86
[2020-12-19] MEDS ORDERED: PROMETHAZINE HCL 25 MG/ML 1ML AMPULE IM PRN (04:30)
[2020-12-19 04:55] LABS: HEMATOCRIT 31.8 % (36-48); MEAN CORPUSCULAR HEMOGLOBIN 28.4 pg (27.0-33.0); MEAN CORPUSCULAR VOLUME 83.7 fL (79-99); RED BLOOD CELL COUNT(AUTO) 3.8 MIL/uL (4.00-5.50); RED CELL DISTRIBUTION WIDTH 13.8 % (11.0-15.5); WHITE BLOOD COUNT (AUTO) 7.5 K/uL (4.8-10.8)
[2020-12-19 05:18] LABS: ALBUMIN 3.2 g/dL (3.5-5.0); BILIRUBIN,TOTAL 0.3 mg/dL (0.2-1.0); POTASSIUM 3.4 mmol/L (3.5-5.1); TOTAL PROTEIN, SERUM 7.2 g/dL (6.0-8.3)
[2020-12-19 05:24] LABS: HEMOGLOBIN A1C 6.5 % (4.0-6.0)
[2020-12-19 10:14] LABS: HEPATITIS Bs ANTIGEN SCREEN P Negative (Negative)
== END 2020-12-19 05:45 | disposition left against medical advice (07) ==
LOC: EDH 16:00 → EDHIP 20:15 → 3AH 12-18 18:14
PROVIDERS: ADMIT Internal Medicine; ATTEND Internal Medicine
DX: N30.00 Acute cystitis without hematuria (principal); I12.0 Hypertensive chronic kidney disease with stage 5 chronic kidney disease or end stage renal disease; N18.6 End stage renal disease; K82.8 Other specified diseases of gallbladder; R11.2 Nausea with vomiting, unspecified; E78.00 Pure hypercholesterolemia, unspecified; E11.43 Type 2 diabetes mellitus with diabetic autonomic (poly)neuropathy; E11.22 Type 2 diabetes mellitus with diabetic chronic kidney disease; F19.90 Other psychoactive substance use, unspecified, uncomplicated; Z99.2 Dependence on renal dialysis; Z87.442 Personal history of urinary calculi; Z79.899 Other long term (current) drug therapy
CPT/HCPCS: 36415 ×3; 74176; 76775; 80048; 80053 ×2; 81001; 82948 ×3; 83036; 83605; 83690; 83735; 84100; 84703; 85025 ×2; 85027; 86704; 86706; 87040 ×2; 87088; 87340; 96365; 96366 ×2; 96372 ×3; 96375 ×2; 96376 ×3; 99285; G0378 ×33; J0360 ×3; J0696; J1170 ×2; J1885 ×2; J2405 ×5; J2543 ×2; J2765 ×3; J3010 ×2; S0164; 90935; C9113; J2550

== ENCOUNTER 2020-12-22 10:52 | Emergency (ER) | payer MEDICAID ==
[~2020-12-22] VITALS: Ht 170.2 cm; Wt 68.0 kg
[2020-12-22 11:02] VITALS: BP 193/108
[2020-12-22 11:26] LABS: BASOPHILS % (AUTO) 0.5 % (0.0-5.0); HEMATOCRIT 36.2 % (36-48); LYMPHOCYTES % (AUTO) 23.3 % (21.0-51.0); MEAN CORPUSCULAR HEMOGLOBIN 27.9 pg (27.0-33.0); MEAN CORPUSCULAR HGB CONC 33.7 g/dL (32.0-36.0); MEAN CORPUSCULAR VOLUME 82.8 fL (79-99); MONOCYTES % (AUTO) 5.9 % (3.0-13.0); NEUTROPHILS % (AUTO) 69.1 % (40.0-77.0); PLATELET COUNT (AUTO) 248 K/uL (130-400); RED BLOOD CELL COUNT(AUTO) 4.37 MIL/uL (4.00-5.50); RED CELL DISTRIBUTION WIDTH 13.4 % (11.0-15.5); WHITE BLOOD COUNT (AUTO) 8.6 K/uL (4.8-10.8)
[2020-12-22 11:48] LABS: ALBUMIN 3.8 g/dL (3.5-5.0); BILIRUBIN,TOTAL 0.3 mg/dL (0.2-1.0); POTASSIUM 3.6 mmol/L (3.5-5.1)
[2020-12-22] MEDS ORDERED: DICYCLOMINE 20MG (10MG/ML) AMP IM STA (11:59)
[2020-12-22] MEDS ORDERED: METOCLOPRAMIDE 10 MG/2 ML VIAL IVP ONE (12:00)
[2020-12-22] MEDS ORDERED: FAMOTIDINE 20MG VIAL IV ONE (12:30)
[2020-12-22] MEDS: HYDRALAZINE 20MG/ML VIAL IV SCH ×2 (12:53→13:09)
[2020-12-22 13:09] VITALS: BP 195/97
[2020-12-22] MEDS ORDERED: DICY20TA2 PO (13:11)
[2020-12-22] MEDS ORDERED: ONDA4TAB10 PO (13:11)
[2020-12-22] MEDS ORDERED: FAMO-136 PO (13:11)
[2020-12-22 13:19] VITALS: BP 163/87
[2020-12-22] MEDS ORDERED: HYDRALAZINE 20MG/ML VIAL IV SCH (13:30)
[2020-12-22 13:46] VITALS: BP 165/78
== END 2020-12-22 13:47 | disposition home or self-care (01) ==
LOC: EDH 10:52
DX: K29.70 Gastritis, unspecified, without bleeding (principal); I12.0 Hypertensive chronic kidney disease with stage 5 chronic kidney disease or end stage renal disease; E10.22 Type 1 diabetes mellitus with diabetic chronic kidney disease; N18.6 End stage renal disease; Z79.84 Long term (current) use of oral hypoglycemic drugs; Z79.899 Other long term (current) drug therapy; Z99.2 Dependence on renal dialysis
CPT/HCPCS: 36415; 80053; 82150; 83690; 84703; 85025; 96372; 96374; 96375; 99284; J0360 ×2; J0500; J2765; S0028; J3490

== ENCOUNTER 2021-01-27 08:33 | Emergency (ER) | payer MEDICAID ==
[~2021-01-27] VITALS: Ht 170.2 cm; Wt 68.0 kg
[~2021-01-27 08:33] MED LIST changes: +DICY20TA2 PO; +FAMO-136 PO; +ONDA4TAB10 PO
[2021-01-27 08:40] VITALS: BP 171/93
[2021-01-27] MEDS ORDERED: ONDANSETRON 4MG INJ IVP SCH (09:00)
[2021-01-27 09:05] LABS: BASOPHILS % (AUTO) 0.6 % (0.0-5.0); EOSINOPHILS % (AUTO) 0.4 % (0.0-8.0); HEMATOCRIT 35.7 % (36-48); LYMPHOCYTES % (AUTO) 9.8 % (21.0-51.0); MEAN CORPUSCULAR HEMOGLOBIN 27.9 pg (27.0-33.0); MEAN CORPUSCULAR HGB CONC 31.9 g/dL (32.0-36.0); MEAN CORPUSCULAR VOLUME 87.5 fL (79-99); MONOCYTES % (AUTO) 5.4 % (3.0-13.0); NEUTROPHILS % (AUTO) 83.6 % (40.0-77.0); PLATELET COUNT (AUTO) 294 K/uL (130-400); RED BLOOD CELL COUNT(AUTO) 4.08 MIL/uL (4.00-5.50); RED CELL DISTRIBUTION WIDTH 16.5 % (11.0-15.5); WHITE BLOOD COUNT (AUTO) 8.3 K/uL (4.8-10.8)
[2021-01-27 09:17] LABS: ALANINE AMINOTRANSFERASE 18 U/L (12-78); ALBUMIN 3.4 g/dL (3.5-5.0); AMYLASE 122 U/L (25-115); ASPARTATE AMINOTRANSFERASE 14 U/L (10-37); BILIRUBIN,TOTAL 0.3 mg/dL (0.2-1.0); CARBON DIOXIDE 28 mmol/L (21-32); CHLORIDE 99 mmol/L (101-111); GLOMERULAR FILTR. RATE CALC 5 mL/min (>60); GLUCOSE,RANDOM 234 mg/dL (70-105); POTASSIUM 4.2 mmol/L (3.5-5.1); SODIUM SERUM 139 mmol/L (136-145); TOTAL PROTEIN, SERUM 6.9 g/dL (6.0-8.3); UREA NITROGEN, BLOOD 54 mg/dL (7-18)
[2021-01-27 09:22] LABS: LIPASE < 50 U/L (114-286)
[2021-01-27 09:23] LABS: CREATININE 9.9 mg/dL (0.5-1.5)
[2021-01-27] MEDS ORDERED: METOCLOPRAMIDE 10 MG/2 ML VIAL IVP SCH (09:30)
[2021-01-27] MEDS ORDERED: MORPHINE 2 MG SYG IVP SCH (09:30)
[2021-01-27] MEDS ORDERED: METO10TA41 PO (11:24)
[2021-01-27 11:30] VITALS: BP 171/93
[2021-01-27] MEDS ORDERED: MORPHINE 2 MG SYG IM ONE (11:30)
== END 2021-01-27 11:36 | disposition home or self-care (01) ==
LOC: EDH 08:33
DX: K29.70 Gastritis, unspecified, without bleeding (principal); E11.43 Type 2 diabetes mellitus with diabetic autonomic (poly)neuropathy; K31.84 Gastroparesis; I12.0 Hypertensive chronic kidney disease with stage 5 chronic kidney disease or end stage renal disease; E11.22 Type 2 diabetes mellitus with diabetic chronic kidney disease; N18.6 End stage renal disease; Z79.84 Long term (current) use of oral hypoglycemic drugs; Z79.899 Other long term (current) drug therapy; Z99.2 Dependence on renal dialysis
CPT/HCPCS: 36415; 80053; 82150; 83690; 85025; 96374; 96375; 99284; J2405; J2765

== ENCOUNTER 2021-06-12 02:21 | Emergency (ER) | payer MEDICAID ==
[~2021-06-12] VITALS: Ht 170.2 cm; Wt 74.8 kg
[~2021-06-12 02:21] MED LIST changes: +AMOX-426 PO; +METO10TA41 PO; +ONDA4TAB4 PO
[2021-06-12] MEDS ORDERED: HALOPERIDOL INJ 5 MG/ML VIAL IM SCH (02:30)
[2021-06-12] MEDS ORDERED: HALOPERIDOL INJ 5 MG/ML VIAL IV SCH (03:00)
[2021-06-12 03:02] LABS: APPEARANCE,URINE Cloudy (CLEAR); BILIRUBIN,URINE Negative (NEGATIVE); COLOR,URINE Yellow (YELLOW); GLUCOSE, URINE (UA) 250 mg/dL (NEGATIVE); KETONES,URINE Negative (NEGATIVE); LEUKOCYTE ESTERASE ,URINE Small (NEGATIVE); NITRATE,URINE Negative (NEGATIVE); OCCULT BLOOD,URINE Moderate (NEGATIVE); PH,URINE 8.5 (5.0-8.0); PROTEIN,URINE >=1000 mg/dL (NEGATIVE)
[2021-06-12 03:12] LABS: AMPHET/METH SCREEN,URINE NEGATIVE (NEGATIVE); BARBITURATE SCREEN, URINE NEGATIVE (NEGATIVE); BENZODIAZEPINES SCREEN,URINE POSITIVE (NEGATIVE); CANNABINOID SCREEN,URINE POSITIVE (NEGATIVE); COCAINE SCREEN,URINE NEGATIVE (NEGATIVE); HCG,QUAL RESULT NEGATIVE (NEGATIVE); OPIATE SCREEN,URINE NEGATIVE (NEGATIVE); PHENCYCLIDINE SCREEN,URINE NEGATIVE (NEGATIVE)
[2021-06-12 03:20] LABS: BASOPHILS % (AUTO) 0.3 % (0.0-5.0); EOSINOPHILS % (AUTO) 0.2 % (0.0-8.0); HEMATOCRIT 29.6 % (36-48); LYMPHOCYTES % (AUTO) 7.4 % (21.0-51.0); MEAN CORPUSCULAR HEMOGLOBIN 28.3 pg (27.0-33.0); MEAN CORPUSCULAR HGB CONC 33.1 g/dL (32.0-36.0); MEAN CORPUSCULAR VOLUME 85.5 fL (79-99); MONOCYTES % (AUTO) 3.4 % (3.0-13.0); NEUTROPHILS % (AUTO) 87.6 % (40.0-77.0); PLATELET COUNT (AUTO) 318 K/uL (130-400); RED BLOOD CELL COUNT(AUTO) 3.46 MIL/uL (4.00-5.50); RED CELL DISTRIBUTION WIDTH 14.4 % (11.0-15.5); WHITE BLOOD COUNT (AUTO) 13.2 K/uL (4.8-10.8)
[2021-06-12 03:25] LABS: BACTERIA,URINE Few /HPF (None Seen); SQUAMOUS EPITHELIAL CELL,UR 30-50 /HPF (0-2)
[2021-06-12 03:45] LABS: ALBUMIN 4.1 g/dL (3.5-5.0); BILIRUBIN,TOTAL 0.3 mg/dL (0.2-1.0); POTASSIUM 4.6 mmol/L (3.5-5.1); TOTAL PROTEIN, SERUM 7.8 g/dL (6.0-8.3)
[2021-06-12 03:53] LABS: CREATININE 8.7 mg/dL (0.5-1.5)
[2021-06-12] MEDS ORDERED: HYDROCODONE/ACETAMINOPHEN 10/325 MG TAB PO ONE (04:00)
[2021-06-12] MEDS ORDERED: PROM12.513 PO (05:21)
[2021-06-12 06:41] VITALS: BP 159/67
== END 2021-06-12 06:42 | disposition home or self-care (01) ==
LOC: EDH 02:21
DX: R11.2 Nausea with vomiting, unspecified (principal); F12.10 Cannabis abuse, uncomplicated; I12.0 Hypertensive chronic kidney disease with stage 5 chronic kidney disease or end stage renal disease; E11.22 Type 2 diabetes mellitus with diabetic chronic kidney disease; N18.6 End stage renal disease; Z99.2 Dependence on renal dialysis; Z79.84 Long term (current) use of oral hypoglycemic drugs; Z79.899 Other long term (current) drug therapy
CPT/HCPCS: 36415; 80053; 80305; 81001; 81025; 83690; 84484; 84702; 85025; 87088; 93005; 96374; 99284; J1630

== ENCOUNTER 2022-04-27 15:05 | Observation (INO) | payer MEDICAID ==
[~2022-04-27] VITALS: Ht 170.2 cm; Wt 70.3 kg
[2022-04-27] VITALS (12 sets, daily range): BP systolic 131–166; BP diastolic 51–81
[~2022-04-27 15:05] MED LIST changes: -AMOX-426 PO; -DICY20TA2 PO; -FAMO-136 PO; -LISI20TA24 PO; -METF-444 PO; -METO10TA41 PO; +METO5TAB2 PO; -ONDA4TAB10 PO; -ONDA4TAB4 PO; +PANT40TA PO; +SUCR1TAB PO
[2022-04-27] MEDS ORDERED: ONDANSETRON 4MG INJ IVP ONE (15:30)
[2022-04-27] MEDS ORDERED: 0.9% NACL 250ML 250 ML IV ONE (15:30)
[2022-04-27 15:39] LABS: BASOPHILS % (AUTO) 0.5 % (0.0-5.0); EOSINOPHILS % (AUTO) 1.6 % (0.0-8.0); HEMATOCRIT 30.5 % (36-48); LYMPHOCYTES % (AUTO) 22.1 % (21.0-51.0); MEAN CORPUSCULAR HEMOGLOBIN 29.5 pg (27.0-33.0); MEAN CORPUSCULAR HGB CONC 34.1 g/dL (32.0-36.0); MEAN CORPUSCULAR VOLUME 86.4 fL (79-99); MONOCYTES % (AUTO) 6.7 % (3.0-13.0); NEUTROPHILS % (AUTO) 68.6 % (40.0-77.0); PLATELET COUNT (AUTO) 196 K/uL (130-400); RED BLOOD CELL COUNT(AUTO) 3.53 MIL/uL (4.00-5.50); RED CELL DISTRIBUTION WIDTH 14.1 % (11.0-15.5); WHITE BLOOD COUNT (AUTO) 7.4 K/uL (4.8-10.8)
[2022-04-27 15:51] LABS: ALBUMIN 3.8 g/dL (3.5-5.0); TOTAL PROTEIN, SERUM 7.5 g/dL (6.0-8.3)
[2022-04-27 15:58] LABS: POTASSIUM 6.9 mmol/L (3.5-5.1)
[2022-04-27 15:59] LABS: APPEARANCE,URINE CLEAR (CLEAR); BILIRUBIN,URINE NEGATIVE (NEGATIVE); COLOR,URINE LIGHT-YELLOW (YELLOW); GLUCOSE, URINE (UA) TRACE mg/dL (NEGATIVE); KETONES,URINE NEGATIVE (NEGATIVE); LEUKOCYTE ESTERASE ,URINE NEGATIVE Leu/uL (NEGATIVE); NITRATE,URINE NEGATIVE (NEGATIVE); OCCULT BLOOD,URINE NEGATIVE (NEGATIVE); PROTEIN,URINE 300 mg/dL (NEGATIVE); UROBILINOGEN,URINE 0.2 mg/dL (0.2-1.0)
[2022-04-27] MEDS ORDERED: SODIUM BICARB 50MEQ 50ML VIAL IV STA (16:03)
[2022-04-27] MEDS ORDERED: CALCIUM GLUC 1GM/10ML VIAL IV STA (16:03)
[2022-04-27 16:05] LABS: BACTERIA,URINE RARE /HPF (None Seen); SQUAMOUS EPITHELIAL CELL,UR MOD /HPF (0-2)
[2022-04-27] MEDS ORDERED: DEXTROSE 50%-WATER 50 ML DISP.SYRIN IV ONE (16:30)
[2022-04-27] MEDS ORDERED: INSULIN HUMULIN R 100 UNIT/ML 3ML SQ ONE (16:30)
[2022-04-27] MEDS ORDERED: KAYEXALATE 15GM/60ML PO ONE (16:30)
[2022-04-27] MEDS ORDERED: ONDANSETRON 4MG INJ IVP PRN (17:00)
[2022-04-27] MEDS ORDERED: ACETAMINOPHEN 650 MG SUPPOSITORY RC PRN (17:00)
[2022-04-27] MEDS ORDERED: ACETAMINOPHEN 325 MG TAB PO PRN (17:00)
[2022-04-27] MEDS ORDERED: CLONIDINE HCL 0.1 MG TABLET PO PRN (17:00)
[2022-04-27] MEDS ORDERED: HYDRALAZINE 20MG/ML VIAL IV PRN (17:00)
[2022-04-27] MEDS ORDERED: HALOPERIDOL INJ 5 MG/ML VIAL IV SCH (17:00)
[2022-04-27 18:45] LABS: AMPHET/METH SCREEN,URINE NEGATIVE (NEGATIVE); BARBITURATE SCREEN, URINE NEGATIVE (NEGATIVE); BENZODIAZEPINES SCREEN,URINE POSITIVE (NEGATIVE); CANNABINOID SCREEN,URINE NEGATIVE (NEGATIVE); COCAINE SCREEN,URINE NEGATIVE (NEGATIVE); OPIATE SCREEN,URINE NEGATIVE (NEGATIVE); PHENCYCLIDINE SCREEN,URINE NEGATIVE (NEGATIVE)
[2022-04-27] MEDS ORDERED: PROMETHAZINE HCL 25 MG/ML 1ML AMPULE IM PRN (19:00)
[2022-04-27] MEDS ORDERED: LORAZEPAM 0.5 MG TABLET PO PRN (20:00)
[2022-04-27] MEDS ORDERED: ZOSYN 3.375GM +NS 50ML IV SCH (21:00)
[2022-04-27] MEDS ORDERED: METOCLOPRAMIDE 5 MG TABLET PO SCH (21:00)
[2022-04-27] MEDS ORDERED: INSULIN HUMULIN R 100 UNIT/ML 3ML SQ SCH (21:00)
[2022-04-27 23:15] LABS: POTASSIUM 4.2 mmol/L (3.5-5.1)
[2022-04-28 01:23] VITALS: BP 146/74
[2022-04-28 04:20] LABS: HEPATITIS B SURFACE ANTIGEN Non-Reactive (Nonreactive)
[2022-04-28] MEDS ORDERED: PANTOPRAZOLE 40 MG TAB DR PO SCH (09:00)
[2022-04-28] MEDS ORDERED: FERROUS SULFATE 325 MG TABLET.DR PO SCH (09:00)
[2022-04-28] MEDS ORDERED: ENOXAPARIN SODIUM 30 MG/0.3 ML SQ SCH (09:00)
== END 2022-04-28 01:46 | disposition left against medical advice (07) ==
LOC: EDH 15:05 → EDHIP 15:06
PROVIDERS: ADMIT Internal Medicine Critical Care Medicine; ATTEND Internal Medicine Critical Care Medicine
DX: R11.2 Nausea with vomiting, unspecified (principal); Z20.822 Contact with and (suspected) exposure to COVID-19; I12.0 Hypertensive chronic kidney disease with stage 5 chronic kidney disease or end stage renal disease; N18.6 End stage renal disease; E87.5 Hyperkalemia; E87.1 Hypo-osmolality and hyponatremia; E11.22 Type 2 diabetes mellitus with diabetic chronic kidney disease; E11.65 Type 2 diabetes mellitus with hyperglycemia; D63.8 Anemia in other chronic diseases classified elsewhere; H54.61 Unqualified visual loss, right eye, normal vision left eye; E78.00 Pure hypercholesterolemia, unspecified; R79.89 Other specified abnormal findings of blood chemistry; Z79.899 Other long term (current) drug therapy; Z98.890 Other specified postprocedural states
CPT/HCPCS: 96372; 96361; 96365; 96366 ×2; 96375; 99285; 82550 ×2; 83874 ×2; 84484 ×2; 84132; 80053; 80305; 83690; 85025; 87040 ×2; 87804 ×2; 82948; 83605; 86706; 87340; 86704; 81001; 81025; 36415; 87635; 74176; 93005; 96376; 76705; G0378 ×7; C9803; J3490; J7070; J1630; J0610; J2405 ×2; J2543; J7050; J1815; 90935

== ENCOUNTER 2023-01-31 19:43 | Emergency (ER) | payer MEDICAID ==
[~2023-01-31] VITALS: Ht 170.2 cm; Wt 69.9 kg
[2023-01-31 20:56] LABS: ADD UA MICROSCOPIC YES; APPEARANCE,URINE CLOUDY (CLEAR); BILIRUBIN,URINE NEGATIVE (NEGATIVE); COLOR,URINE LIGHT-YELLOW (YELLOW); GLUCOSE, URINE (UA) 200 mg/dL (NEGATIVE); KETONES,URINE NEGATIVE (NEGATIVE); LEUKOCYTE ESTERASE ,URINE NEGATIVE Leu/uL (NEGATIVE); NITRATE,URINE NEGATIVE (NEGATIVE); OCCULT BLOOD,URINE MODERATE (NEGATIVE); PH,URINE 6.5 (5.0-8.0); PROTEIN,URINE 300 mg/dL (NEGATIVE); UROBILINOGEN,URINE 0.2 mg/dL (0.2-1.0)
[2023-01-31 20:59] LABS: BACTERIA,URINE RARE /HPF (None Seen); MUCUS,URINE RARE LPF (None Seen); NON-SQUAMOUS EPITHELIAL CELL 2 /HPF (0-2); OTHER CASTS, URINE 2 /LPF (None Seen); SQUAMOUS EPITHELIAL CELL,UR MOD /HPF (0-2); UNCLASSIFIED CRYSTAL 2 /HPF (None Seen)
[2023-01-31 21:19] LABS: BASOPHILS # (AUTO) 0.03 K/uL (0.00-0.20); BASOPHILS % (AUTO) 0.4 % (0.0-5.0); EOSINOPHILS # (AUTO) 0.18 K/uL (0.00-0.70); EOSINOPHILS % (AUTO) 2.2 % (0.0-8.0); HEMATOCRIT 34.2 % (36-48); IMMATURE GRANULOCYTE ABSOLUTE 0.08 K/uL (0-1); LYMPHOCYTES # (AUTO) 2.5 K/uL (1.0-4.8); LYMPHOCYTES % (AUTO) 30.6 % (21.0-51.0); MEAN CORPUSCULAR HEMOGLOBIN 29.6 pg (27.0-33.0); MEAN CORPUSCULAR VOLUME 89.5 fL (79-99); MONOCYTES # (AUTO) 0.5 K/uL (0.1-1.0); MONOCYTES % (AUTO) 5.8 % (3.0-13.0); NEUTROPHILS # (AUTO) 4.8 K/uL (1.8-7.7); PLATELET COUNT (AUTO) 218 K/uL (130-400); RED BLOOD CELL COUNT(AUTO) 3.82 MIL/uL (4.00-5.50); RED CELL DISTRIBUTION WIDTH 13.9 % (11.0-15.5)
[2023-01-31 22:06] LABS: ALBUMIN 3.2 g/dL (3.5-5.0); BILIRUBIN,TOTAL 0.3 mg/dL (0.2-1.0); POTASSIUM 5.5 mmol/L (3.5-5.1); TOTAL PROTEIN, SERUM 7.2 g/dL (6.0-8.3)
[2023-01-31 22:07] LABS: CREATININE 8.4 mg/dL (0.5-1.5)
[2023-01-31] MEDS ORDERED: CALCIUM GLUC 1GM/10ML VIAL ONE (23:11)
[2023-01-31] MEDS ORDERED: DEXTROSE 50%-WATER 50 ML DISP.SYRIN IV ONE (23:12)
[2023-01-31] MEDS ORDERED: KAYEXALATE 15GM/60ML RC SCH (23:30)
[2023-01-31] MEDS ORDERED: ALBUTEROL 0.083% 2.5 MG/3 ML INH IH SCH (23:30)
[2023-01-31] MEDS ORDERED: DEXTROSE 50%-WATER 25 GM/50 ML VIAL IV ONE (23:30)
[2023-01-31] MEDS ORDERED: CALCIUM GLUC 1GM 1 GM in 0.9%NACL 100ML 100 ML IV ONE (23:30)
[2023-01-31] MEDS ORDERED: KAYEXALATE 15GM/60ML PO ONE (23:30)
[2023-01-31] MEDS ORDERED: INSULIN HUMULIN R 100 UNIT/ML 3ML IV ONE (23:30)
[2023-01-31 23:47] VITALS: BP 153/76; PULSE 68; RESP 18; O2SAT 98
== END 2023-01-31 23:50 | disposition home or self-care (01) ==
LOC: EDH 19:43
DX: E87.5 Hyperkalemia (principal); K59.00 Constipation, unspecified; R31.9 Hematuria, unspecified; I10 Essential (primary) hypertension; E78.00 Pure hypercholesterolemia, unspecified; Z90.710 Acquired absence of both cervix and uterus; Z79.899 Other long term (current) drug therapy
CPT/HCPCS: 99285; 80053; 83690; 85025; 87088; 81001; 81025; 36415; 74176; 96365; 96375; J7070 ×2; J0610 ×2; J1815

== ENCOUNTER 2023-06-15 21:16 | Observation (INO) | payer MEDICARE ==
[~2023-06-15 21:16] MED LIST changes: +HALO1TAB2 PO; +LEVO250T75 PO; +LISI40TA9 PO; +METR-172 PO; +PANT40TA54 PO; -SUCR1TAB PO
[2023-06-15] MEDS ORDERED: ONDANSETRON 4MG INJ IV ONE (21:30)
[2023-06-15] MEDS ORDERED: MORPHINE 2 MG SYG ONE (21:33)
[2023-06-15 21:51] LABS: BASOPHILS # (AUTO) 0.04 K/uL (0.00-0.20); BASOPHILS % (AUTO) 0.4 % (0.0-5.0); EOSINOPHILS # (AUTO) 0.02 K/uL (0.00-0.70); EOSINOPHILS % (AUTO) 0.2 % (0.0-8.0); HEMATOCRIT 35.1 % (36-48); IMMATURE GRANULOCYTE ABSOLUTE 0.04 K/uL (0-1); LYMPHOCYTES # (AUTO) 1.2 K/uL (1.0-4.8); LYMPHOCYTES % (AUTO) 12.8 % (21.0-51.0); MEAN CORPUSCULAR HEMOGLOBIN 29.6 pg (27.0-33.0); MEAN CORPUSCULAR HGB CONC 33.6 g/dL (32.0-36.0); MEAN CORPUSCULAR VOLUME 88.2 fL (79-99); MONOCYTES # (AUTO) 0.7 K/uL (0.1-1.0); MONOCYTES % (AUTO) 7.9 % (3.0-13.0); NEUTROPHILS # (AUTO) 7.3 K/uL (1.8-7.7); NEUTROPHILS % (AUTO) 78.3 % (40.0-77.0); PLATELET COUNT (AUTO) 229 K/uL (130-400); RED BLOOD CELL COUNT(AUTO) 3.98 MIL/uL (4.00-5.50); RED CELL DISTRIBUTION WIDTH 14.1 % (11.0-15.5); WHITE BLOOD COUNT (AUTO) 9.4 K/uL (4.8-10.8)
[2023-06-15] MEDS ORDERED: MORPHINE 2 MG SYG IVP ONE (22:00)
[2023-06-15] MEDS ORDERED: ONDANSETRON 4MG INJ IVP ONE (22:00)
[2023-06-15 22:10] LABS: ALBUMIN 3.9 g/dL (3.5-5.0); BILIRUBIN,TOTAL 0.6 mg/dL (0.2-1.0); MAGNESIUM 2.5 mg/dL (1.80-2.40); POTASSIUM 5.8 mmol/L (3.5-5.1); TOTAL PROTEIN, SERUM 8.1 g/dL (6.0-8.3)
[2023-06-15 22:13] LABS: CREATININE 8.1 mg/dL (0.5-1.5)
[2023-06-15] MEDS ORDERED: KAYEXALATE 15GM/60ML PO ONE (22:30)
[2023-06-15 22:47] LABS: RAPID GROUP A STREP negative (NEGATIVE)
[2023-06-15 22:52] LABS: APPEARANCE,URINE CLOUDY (CLEAR); BILIRUBIN,URINE NEGATIVE (NEGATIVE); COLOR,URINE LIGHT-YELLOW (YELLOW); GLUCOSE, URINE (UA) 70 mg/dL (NEGATIVE); KETONES,URINE NEGATIVE (NEGATIVE); LEUKOCYTE ESTERASE ,URINE NEGATIVE Leu/uL (NEGATIVE); NITRATE,URINE NEGATIVE (NEGATIVE); OCCULT BLOOD,URINE SMALL (NEGATIVE); PH,URINE 8.5 (5.0-8.0); PROTEIN,URINE 300 mg/dL (NEGATIVE); UROBILINOGEN,URINE 0.2 mg/dL (0.2-1.0)
[2023-06-15 22:54] LABS: ADD UA MICROSCOPIC YES; SARS-CoV-2, RNA, NAAT NEGATIVE SARS CoV-2 (NEGATIVE)
[2023-06-15 23:06] LABS: BACTERIA,URINE RARE /HPF (None Seen); NON-SQUAMOUS EPITHELIAL CELL 8 /HPF (0-2); SQUAMOUS EPITHELIAL CELL,UR MANY /HPF (0-2); TRANSITIONAL EPI CELLS,URINE RARE /HPF (None Seen)
[2023-06-15] MEDS ORDERED: PROMETHAZINE HCL 25 MG/ML 1ML AMPULE IM PRN (23:30)
[2023-06-15] MEDS ORDERED: TEMAZEPAM 15 MG CAPSULE PO PRN (23:30)
[2023-06-15] MEDS ORDERED: LACTULOSE 20 GM/30 ML UDCUP PO PRN (23:30)
[2023-06-15] MEDS ORDERED: HYDROMORPHONE 1 MG INJ IVP PRN (23:30)
[2023-06-15] MEDS ORDERED: TRAMADOL HCL 50 MG TABLET PO PRN (23:30)
[2023-06-15] MEDS ORDERED: LABETALOL 20MG SYG IV PRN (23:30)
[2023-06-15] MEDS ORDERED: ALBUTEROL 0.083% 2.5 MG/3 ML INH IH PRN (23:30)
[2023-06-15] MEDS ORDERED: HYDRALAZINE 20MG/ML VIAL IV PRN (23:30)
[2023-06-15] MEDS ORDERED: ONDANSETRON 4MG INJ IVP PRN (23:30)
[2023-06-15] MEDS ORDERED: DOCUSATE SODIUM 100 MG CAP PO PRN (23:30)
[2023-06-15] MEDS ORDERED: ACETAMINOPHEN 325 MG TAB PO PRN (23:30)
[2023-06-15] MEDS ORDERED: ACETAMINOPHEN 650 MG SUPPOSITORY RC PRN (23:30)
[2023-06-16] VITALS (16 sets, daily range): BP systolic 140–173; BP diastolic 66–87; PULSE 62–88; RESP 14–18; TEMP 98.2–98.3; O2SAT 99
[2023-06-16 00:15] LABS: INFLUENZA TYPE A Negative For Type A (NEGATIVE); INFLUENZA TYPE B Negative For Type B (NEGATIVE)
[2023-06-16 07:35] LABS: BASOPHILS # (AUTO) 0.03 K/uL (0.00-0.20); BASOPHILS % (AUTO) 0.4 % (0.0-5.0); EOSINOPHILS # (AUTO) 0.02 K/uL (0.00-0.70); EOSINOPHILS % (AUTO) 0.3 % (0.0-8.0); HEMATOCRIT 36.2 % (36-48); IMMATURE GRANULOCYTE ABSOLUTE 0.03 K/uL (0-1); LYMPHOCYTES % (AUTO) 13.4 % (21.0-51.0); MEAN CORPUSCULAR HEMOGLOBIN 29.3 pg (27.0-33.0); MEAN CORPUSCULAR HGB CONC 33.7 g/dL (32.0-36.0); MONOCYTES # (AUTO) 0.5 K/uL (0.1-1.0); NEUTROPHILS # (AUTO) 6.1 K/uL (1.8-7.7); NEUTROPHILS % (AUTO) 78.5 % (40.0-77.0); PLATELET COUNT (AUTO) 234 K/uL (130-400); RED BLOOD CELL COUNT(AUTO) 4.16 MIL/uL (4.00-5.50); RED CELL DISTRIBUTION WIDTH 14.3 % (11.0-15.5); WHITE BLOOD COUNT (AUTO) 7.7 K/uL (4.8-10.8)
[2023-06-16 07:47] LABS: MAGNESIUM 2.6 mg/dL (1.80-2.40); PHOSPHORUS 6.1 mg/dL (2.5-4.9); POTASSIUM 5.2 mmol/L (3.5-5.1)
[2023-06-16] MEDS: INSULIN HUMULIN R 100 UNIT/ML 3ML SQ SCH ×3 (07:50→16:30)
[2023-06-16] MEDS ORDERED: LORAZEPAM 2 MG/ML 1 ML VIAL IVP ONE (08:00)
[2023-06-16 08:09] LABS: CREATININE 8.4 mg/dL (0.5-1.5)
[2023-06-16] MEDS ORDERED: LISINOPRIL 40 MG TABLET PO SCH (09:00)
[2023-06-16] MEDS ORDERED: LORAZEPAM 1 MG TABLET PO PRN (09:00)
[2023-06-16] MEDS ORDERED: AMLODIPINE 5 MG TAB PO SCH (09:00)
[2023-06-16] MEDS ORDERED: METOPROLOL TARTRATE 50 MG TAB PO SCH (09:00)
[2023-06-16] MEDS: METOCLOPRAMIDE 5 MG TABLET PO SCH ×2 (14:07→16:37)
[2023-06-16] MEDS ORDERED: LORAZEPAM 0.5 MG TABLET PO SCH (17:30)
[2023-06-17 00:57] LABS: HEPATITIS B CORE AB TOTAL Non-Reactive (Nonreactive); HEPATITIS B SURFACE ANTIBODY Positive (Reactive); HEPATITIS B SURFACE ANTIGEN Non-Reactive (Nonreactive)
== END 2023-06-16 18:31 | disposition left against medical advice (07) ==
LOC: EDH 21:16 → EDHIP 23:12
PROVIDERS: ADMIT Internal Medicine Pulmonary Disease; ATTEND Internal Medicine Pulmonary Disease
DX: I16.1 Hypertensive emergency (principal); Z20.822 Contact with and (suspected) exposure to COVID-19; E87.5 Hyperkalemia; J96.01 Acute respiratory failure with hypoxia; E11.65 Type 2 diabetes mellitus with hyperglycemia; I12.0 Hypertensive chronic kidney disease with stage 5 chronic kidney disease or end stage renal disease; E11.22 Type 2 diabetes mellitus with diabetic chronic kidney disease; N18.6 End stage renal disease; E78.00 Pure hypercholesterolemia, unspecified; Z90.710 Acquired absence of both cervix and uterus; Z53.29 Procedure and treatment not carried out because of patient's decision for other reasons; Z91.199 Patient's noncompliance with other medical treatment and regimen due to unspecified reason; Z99.2 Dependence on renal dialysis; Z79.899 Other long term (current) drug therapy
CPT/HCPCS: 96374; 96375 ×2; 99285; 83735 ×2; 84484; 80053; 84703; 85025 ×2; 87040 ×2; 87088; 87880; 87804 ×2; 83605 ×2; 81001; 36415 ×2; 87635; 71045; 74176; 93005; 84100; 80048; 82948 ×3; 86706; 87340; 86704; J1815; G0378 ×17; J2270; J2405; J1170; J0360; J2060; 90935

== ENCOUNTER 2023-09-25 15:30 | Emergency (ER) | payer MEDICARE ==
[~2023-09-25] VITALS: Ht 170.2 cm; Wt 70.3 kg
[2023-09-25] MEDS: ACETAMINOPHEN 500 MG TABLET PO ONE (15:59)
[2023-09-25] MEDS: LORAZEPAM 2 MG/ML 1 ML VIAL IVP ONE (15:59)
[2023-09-25 16:14] LABS: BASOPHILS # (AUTO) 0.03 K/uL (0.00-0.20); BASOPHILS % (AUTO) 0.4 % (0.0-5.0); EOSINOPHILS % (AUTO) 1.2 % (0.0-8.0); HEMATOCRIT 34.2 % (36-48); IMMATURE GRANULOCYTE ABSOLUTE 0.03 K/uL (0-1); LYMPHOCYTES # (AUTO) 1.6 K/uL (1.0-4.8); LYMPHOCYTES % (AUTO) 18.9 % (21.0-51.0); MEAN CORPUSCULAR HEMOGLOBIN 30.3 pg (27.0-33.0); MEAN CORPUSCULAR HGB CONC 33.6 g/dL (32.0-36.0); MONOCYTES # (AUTO) 0.5 K/uL (0.1-1.0); MONOCYTES % (AUTO) 6.3 % (3.0-13.0); NEUTROPHILS % (AUTO) 72.8 % (40.0-77.0); PLATELET COUNT (AUTO) 204 K/uL (130-400); RED CELL DISTRIBUTION WIDTH 13.2 % (11.0-15.5); WHITE BLOOD COUNT (AUTO) 8.2 K/uL (4.8-10.8)
[2023-09-25 16:23] LABS: POTASSIUM 4.3 mmol/L (3.5-5.1)
[2023-09-25 16:32] LABS: ALBUMIN 3.5 g/dL (3.5-5.0); BILIRUBIN,TOTAL 0.4 mg/dL (0.2-1.0); TOTAL PROTEIN, SERUM 7.2 g/dL (6.0-8.3)
[2023-09-25 18:45] VITALS: BP 162/70; PULSE 79; RESP 16; O2SAT 98
== END 2023-09-25 18:55 | disposition home or self-care (01) ==
LOC: EDH 15:30
DX: H54.7 Unspecified visual loss (principal); I12.0 Hypertensive chronic kidney disease with stage 5 chronic kidney disease or end stage renal disease; E11.22 Type 2 diabetes mellitus with diabetic chronic kidney disease; N18.6 End stage renal disease; Z99.2 Dependence on renal dialysis; E78.00 Pure hypercholesterolemia, unspecified; Z90.710 Acquired absence of both cervix and uterus; Z79.899 Other long term (current) drug therapy
CPT/HCPCS: 99285; 96374; 70450; 71045; 84484; 80053; 85025; 36415; 93005; J2060

== ENCOUNTER 2023-10-23 14:32 | Emergency (ER) | payer MEDICARE ==
[~2023-10-23] VITALS: Ht 170.2 cm; Wt 68.0 kg
[2023-10-23] MEDS: ONDANSETRON 4MG INJ IVP ONE (15:03)
[2023-10-23] MEDS: HYDROMORPHONE 1 MG INJ IVP ONE (15:03)
[2023-10-23 15:51] LABS: BASOPHILS # (AUTO) 0.02 K/uL (0.00-0.20); BASOPHILS % (AUTO) 0.2 % (0.0-5.0); HEMATOCRIT 32.8 % (36-48); IMMATURE GRANULOCYTE ABSOLUTE 0.03 K/uL (0-1); LYMPHOCYTES # (AUTO) 0.8 K/uL (1.0-4.8); LYMPHOCYTES % (AUTO) 8.4 % (21.0-51.0); MEAN CORPUSCULAR HEMOGLOBIN 30.4 pg (27.0-33.0); MEAN CORPUSCULAR HGB CONC 34.1 g/dL (32.0-36.0); MEAN CORPUSCULAR VOLUME 88.9 fL (79-99); MONOCYTES # (AUTO) 0.4 K/uL (0.1-1.0); NEUTROPHILS # (AUTO) 7.8 K/uL (1.8-7.7); NEUTROPHILS % (AUTO) 87.1 % (40.0-77.0); PLATELET COUNT (AUTO) 217 K/uL (130-400); RED BLOOD CELL COUNT(AUTO) 3.69 MIL/uL (4.00-5.50); RED CELL DISTRIBUTION WIDTH 14.2 % (11.0-15.5); WHITE BLOOD COUNT (AUTO) 8.9 K/uL (4.8-10.8)
[2023-10-23 16:11] LABS: ALBUMIN 4.2 g/dL (3.5-5.0); BILIRUBIN,TOTAL 0.6 mg/dL (0.2-1.0); POTASSIUM 5.4 mmol/L (3.5-5.1); TOTAL PROTEIN, SERUM 8.4 g/dL (6.0-8.3)
[2023-10-23 16:17] LABS: CREATININE 9.2 mg/dL (0.5-1.0)
[2023-10-23] MEDS ORDERED: ONDA-243 PO (18:02)
[2023-10-23] MEDS: METOCLOPRAMIDE 10 MG/2 ML VIAL IVP ONE (18:34)
[2023-10-23 18:40] VITALS: BP 161/78; PULSE 80; RESP 17; O2SAT 97
== END 2023-10-23 18:42 | disposition home or self-care (01) ==
LOC: EDH 14:32
DX: R11.2 Nausea with vomiting, unspecified (principal); R10.2 Pelvic and perineal pain; I12.0 Hypertensive chronic kidney disease with stage 5 chronic kidney disease or end stage renal disease; E11.22 Type 2 diabetes mellitus with diabetic chronic kidney disease; N18.6 End stage renal disease; E78.00 Pure hypercholesterolemia, unspecified; M54.50 Low back pain, unspecified; Z99.2 Dependence on renal dialysis; Z90.710 Acquired absence of both cervix and uterus; Z79.899 Other long term (current) drug therapy
CPT/HCPCS: 99285; 96374; 96375; J1170; J2765; 36415; 71045; 74176; 80053; 82010; 83690; 84702; 85025

== ENCOUNTER → 2023-11-30 | Outpatient (CLI) | payer MEDICARE ==
[~2023-11-30] MED LIST changes: +CEPH500B PO; +LIDOCAINE HCL 4% LTA SOL 4 ML VIAL TP ONE; +ONDA-243 PO
== END | disposition home or self-care (01) ==
LOC: WHH 09:27
PROVIDERS: ATTEND Podiatrist Foot & Ankle Surgery
DX: E11.621 Type 2 diabetes mellitus with foot ulcer (principal); L97.512 Non-pressure chronic ulcer of other part of right foot with fat layer exposed; E11.42 Type 2 diabetes mellitus with diabetic polyneuropathy; E11.22 Type 2 diabetes mellitus with diabetic chronic kidney disease; I12.0 Hypertensive chronic kidney disease with stage 5 chronic kidney disease or end stage renal disease; N18.6 End stage renal disease; R60.0 Localized edema; M21.372 Foot drop, left foot; M21.371 Foot drop, right foot; E78.00 Pure hypercholesterolemia, unspecified; H54.7 Unspecified visual loss; F41.9 Anxiety disorder, unspecified; Z90.710 Acquired absence of both cervix and uterus; Z99.2 Dependence on renal dialysis; Z79.899 Other long term (current) drug therapy
CPT/HCPCS: 11042; A6209; A4450; A6260

== ENCOUNTER → 2023-12-07 | Outpatient (CLI) | payer MEDICARE | END | disposition home or self-care (01) | LOC: WHH 09:18 | PROVIDERS: ATTEND Podiatrist Foot & Ankle Surgery | DX: E11.621 Type 2 diabetes mellitus with foot ulcer (principal); L97.512 Non-pressure chronic ulcer of other part of right foot with fat layer exposed; L97.521 Non-pressure chronic ulcer of other part of left foot limited to breakdown of skin; E11.42 Type 2 diabetes mellitus with diabetic polyneuropathy; E11.22 Type 2 diabetes mellitus with diabetic chronic kidney disease; I12.0 Hypertensive chronic kidney disease with stage 5 chronic kidney disease or end stage renal disease; N18.6 End stage renal disease; R60.0 Localized edema; M21.371 Foot drop, right foot; M21.372 Foot drop, left foot; E78.00 Pure hypercholesterolemia, unspecified; H54.7 Unspecified visual loss; F41.9 Anxiety disorder, unspecified; Z90.710 Acquired absence of both cervix and uterus; Z99.2 Dependence on renal dialysis; Z79.899 Other long term (current) drug therapy | CPT/HCPCS: 97597; A6209; A6260 ==

== ENCOUNTER 2023-12-08 09:01 | Emergency (ER) | payer MEDICARE ==
[~2023-12-08] VITALS: Ht 170.2 cm; Wt 70.3 kg
[~2023-12-08 09:01] MED LIST changes: -CEPH500B PO; -LIDOCAINE HCL 4% LTA SOL 4 ML VIAL TP ONE
[2023-12-08 09:30] LABS: BASOPHILS # (AUTO) 0.02 K/uL (0.00-0.20); BASOPHILS % (AUTO) 0.2 % (0.0-5.0); EOSINOPHILS # (AUTO) 0.02 K/uL (0.00-0.70); EOSINOPHILS % (AUTO) 0.2 % (0.0-8.0); HEMATOCRIT 34.4 % (36-48); IMMATURE GRANULOCYTE ABSOLUTE 0.03 K/uL (0-1); LYMPHOCYTES # (AUTO) 1.3 K/uL (1.0-4.8); LYMPHOCYTES % (AUTO) 15.6 % (21.0-51.0); MEAN CORPUSCULAR HEMOGLOBIN 30.6 pg (27.0-33.0); MEAN CORPUSCULAR HGB CONC 34.9 g/dL (32.0-36.0); MEAN CORPUSCULAR VOLUME 87.8 fL (79-99); MONOCYTES # (AUTO) 0.6 K/uL (0.1-1.0); MONOCYTES % (AUTO) 7.4 % (3.0-13.0); NEUTROPHILS # (AUTO) 6.3 K/uL (1.8-7.7); NEUTROPHILS % (AUTO) 76.2 % (40.0-77.0); PLATELET COUNT (AUTO) 246 K/uL (130-400); RED BLOOD CELL COUNT(AUTO) 3.92 MIL/uL (4.00-5.50); RED CELL DISTRIBUTION WIDTH 14.1 % (11.0-15.5); WHITE BLOOD COUNT (AUTO) 8.3 K/uL (4.8-10.8)
[2023-12-08] MEDS: MORPHINE 2 MG SYG ONE (09:33)
[2023-12-08] MEDS: ONDANSETRON 4MG INJ ONE (09:41)
[2023-12-08] MEDS: MORPHINE 2 MG SYG IVP ONE (09:42)
[2023-12-08] MEDS: LORAZEPAM 2 MG/ML 1 ML VIAL IVP ONE (09:42)
[2023-12-08] MEDS: ONDANSETRON 4MG INJ IVP ONE (09:46)
[2023-12-08 09:54] LABS: CREATININE 6.4 mg/dL (0.5-1.0); POTASSIUM 5.4 mmol/L (3.5-5.1)
[2023-12-08 09:56] LABS: ALBUMIN 4.1 g/dL (3.5-5.0); BILIRUBIN,TOTAL 0.5 mg/dL (0.2-1.0); TOTAL PROTEIN, SERUM 7.9 g/dL (6.0-8.3)
[2023-12-08 10:05] LABS: APPEARANCE,URINE CLOUDY (CLEAR); BILIRUBIN,URINE NEGATIVE (NEGATIVE); COLOR,URINE YELLOW (YELLOW); GLUCOSE, URINE (UA) TRACE mg/dL (NEGATIVE); KETONES,URINE NEGATIVE (NEGATIVE); LEUKOCYTE ESTERASE ,URINE NEGATIVE Leu/uL (NEGATIVE); NITRATE,URINE NEGATIVE (NEGATIVE); OCCULT BLOOD,URINE NEGATIVE (NEGATIVE); PH,URINE 8.5 (5.0-8.0); PROTEIN,URINE 600 mg/dL (NEGATIVE); UROBILINOGEN,URINE 0.2 mg/dL (0.2-1.0)
[2023-12-08 10:10] LABS: ADD UA MICROSCOPIC YES
[2023-12-08 10:13] LABS: BACTERIA,URINE RARE /HPF (None Seen); MUCUS,URINE RARE LPF (None Seen); OTHER CASTS, URINE 6 /LPF (None Seen); SQUAMOUS EPITHELIAL CELL,UR MANY /HPF (0-2); TRANSITIONAL EPI CELLS,URINE FEW /HPF (None Seen)
[2023-12-08] MEDS: CEFTRIAXONE 1G VIAL IVPB ONE (10:52)
[2023-12-08] MEDS: HYDRALAZINE 20MG/ML VIAL IV ONE (12:37)
[2023-12-08] MEDS ORDERED: ONDA-243 PO (13:01)
[2023-12-08] MEDS ORDERED: CEPH500B PO (13:01)
[2023-12-08 13:35] VITALS: BP 176/99; PULSE 66; RESP 14; O2SAT 97
== END 2023-12-08 13:35 | disposition home or self-care (01) ==
LOC: EDH 09:01
DX: N30.90 Cystitis, unspecified without hematuria (principal); N83.209 Unspecified ovarian cyst, unspecified side; I12.0 Hypertensive chronic kidney disease with stage 5 chronic kidney disease or end stage renal disease; E11.22 Type 2 diabetes mellitus with diabetic chronic kidney disease; N18.6 End stage renal disease; F41.9 Anxiety disorder, unspecified; E78.00 Pure hypercholesterolemia, unspecified; Z79.899 Other long term (current) drug therapy; Z90.49 Acquired absence of other specified parts of digestive tract; Z90.710 Acquired absence of both cervix and uterus; Z98.890 Other specified postprocedural states
CPT/HCPCS: 99284; 96365; 96375; 76830; 71045; 84484; 80053; 83690; 85025; 81001; 81025; 36415; 93005; J2270; J0360; J0696; J2405; J2060

== ENCOUNTER → 2023-12-21 | Outpatient (CLI) | payer MEDICARE ==
[~2023-12-21] MED LIST changes: +CEPH500B PO; +LIDOCAINE HCL 4% LTA SOL 4 ML VIAL TP ONE
== END | disposition home or self-care (01) ==
LOC: WHH 09:27
PROVIDERS: ATTEND Podiatrist Foot & Ankle Surgery
DX: E11.621 Type 2 diabetes mellitus with foot ulcer (principal); L97.512 Non-pressure chronic ulcer of other part of right foot with fat layer exposed; L97.521 Non-pressure chronic ulcer of other part of left foot limited to breakdown of skin; S90.821A Blister (nonthermal), right foot, initial encounter; E11.42 Type 2 diabetes mellitus with diabetic polyneuropathy; L84 Corns and callosities; E11.22 Type 2 diabetes mellitus with diabetic chronic kidney disease; I12.0 Hypertensive chronic kidney disease with stage 5 chronic kidney disease or end stage renal disease; N18.6 End stage renal disease; R60.0 Localized edema; M21.371 Foot drop, right foot; M21.372 Foot drop, left foot; E78.00 Pure hypercholesterolemia, unspecified; H54.7 Unspecified visual loss; F41.9 Anxiety disorder, unspecified; Z90.710 Acquired absence of both cervix and uterus; Z99.2 Dependence on renal dialysis; Z79.899 Other long term (current) drug therapy; X58.XXXA Exposure to other specified factors, initial encounter; Y93.89 Activity, other specified; Y92.89 Other specified places as the place of occurrence of the external cause; Y99.8 Other external cause status
CPT/HCPCS: 11042; A4450

== ENCOUNTER → 2024-01-04 | Outpatient (CLI) | payer MEDICARE | END | disposition home or self-care (01) | LOC: WHH 09:03 | PROVIDERS: ATTEND Podiatrist Foot & Ankle Surgery | DX: E11.621 Type 2 diabetes mellitus with foot ulcer (principal); L97.512 Non-pressure chronic ulcer of other part of right foot with fat layer exposed; L97.521 Non-pressure chronic ulcer of other part of left foot limited to breakdown of skin; S90.821D Blister (nonthermal), right foot, subsequent encounter; E11.42 Type 2 diabetes mellitus with diabetic polyneuropathy; L84 Corns and callosities; E11.22 Type 2 diabetes mellitus with diabetic chronic kidney disease; I12.0 Hypertensive chronic kidney disease with stage 5 chronic kidney disease or end stage renal disease; N18.6 End stage renal disease; R60.0 Localized edema; M21.371 Foot drop, right foot; M21.372 Foot drop, left foot; E78.00 Pure hypercholesterolemia, unspecified; H54.7 Unspecified visual loss; F41.9 Anxiety disorder, unspecified; Z90.710 Acquired absence of both cervix and uterus; Z99.2 Dependence on renal dialysis; Z79.899 Other long term (current) drug therapy; X58.XXXD Exposure to other specified factors, subsequent encounter | CPT/HCPCS: G0463; A6209; A6260 ==

== ENCOUNTER → 2024-01-11 | Outpatient (CLI) | payer MEDICARE ==
[~2024-01-11] MED LIST changes: -LIDOCAINE HCL 4% LTA SOL 4 ML VIAL TP ONE
== END | disposition home or self-care (01) ==
LOC: WHH 09:02
PROVIDERS: ATTEND Podiatrist Foot & Ankle Surgery
DX: E11.621 Type 2 diabetes mellitus with foot ulcer (principal); L97.512 Non-pressure chronic ulcer of other part of right foot with fat layer exposed; L97.522 Non-pressure chronic ulcer of other part of left foot with fat layer exposed; E11.42 Type 2 diabetes mellitus with diabetic polyneuropathy; L84 Corns and callosities; E11.22 Type 2 diabetes mellitus with diabetic chronic kidney disease; I12.0 Hypertensive chronic kidney disease with stage 5 chronic kidney disease or end stage renal disease; N18.6 End stage renal disease; R60.0 Localized edema; M21.371 Foot drop, right foot; M21.372 Foot drop, left foot; E78.00 Pure hypercholesterolemia, unspecified; H54.7 Unspecified visual loss; F41.9 Anxiety disorder, unspecified; Z90.710 Acquired absence of both cervix and uterus; Z99.2 Dependence on renal dialysis; Z79.899 Other long term (current) drug therapy
CPT/HCPCS: 11042; 11055; A6209

== ENCOUNTER → 2024-02-01 | Outpatient (CLI) | payer MEDICARE ==
[~2024-02-01] MED LIST changes: +LIDOCAINE HCL 4% LTA SOL 4 ML VIAL TP ONE
== END | disposition home or self-care (01) ==
LOC: WHH 09:06
PROVIDERS: ATTEND Podiatrist Foot & Ankle Surgery
DX: E11.621 Type 2 diabetes mellitus with foot ulcer (principal); L97.512 Non-pressure chronic ulcer of other part of right foot with fat layer exposed; L97.522 Non-pressure chronic ulcer of other part of left foot with fat layer exposed; E11.42 Type 2 diabetes mellitus with diabetic polyneuropathy; E11.22 Type 2 diabetes mellitus with diabetic chronic kidney disease; I12.0 Hypertensive chronic kidney disease with stage 5 chronic kidney disease or end stage renal disease; N18.6 End stage renal disease; R60.0 Localized edema; M21.371 Foot drop, right foot; M21.372 Foot drop, left foot; E78.00 Pure hypercholesterolemia, unspecified; H54.7 Unspecified visual loss; F41.9 Anxiety disorder, unspecified; Z90.710 Acquired absence of both cervix and uterus; Z99.2 Dependence on renal dialysis; Z79.899 Other long term (current) drug therapy
CPT/HCPCS: 11042; A6209; A4450

== ENCOUNTER 2024-03-07 10:35 | Inpatient (IN) | payer MEDICARE ==
[~2024-03-07] VITALS: Ht 170.2 cm; Wt 66.2 kg
[2024-03-07] VITALS (15 sets, daily range): BP systolic 157–198; BP diastolic 84–100; PULSE 70–80; RESP 16; TEMP 97.7–98.1
[~2024-03-07 10:35] MED LIST changes: -LIDOCAINE HCL 4% LTA SOL 4 ML VIAL TP ONE
[2024-03-07 11:19] LABS: BASOPHILS # (AUTO) 0.05 K/uL (0.00-0.20); BASOPHILS % (AUTO) 0.3 % (0.0-5.0); EOSINOPHILS # (AUTO) 0.01 K/uL (0.00-0.70); EOSINOPHILS % (AUTO) 0.1 % (0.0-8.0); HEMATOCRIT 32.3 % (36-48); IMMATURE GRANULOCYTE ABSOLUTE 0.11 K/uL (0-1); LYMPHOCYTES # (AUTO) 0.8 K/uL (1.0-4.8); LYMPHOCYTES % (AUTO) 4.9 % (21.0-51.0); MEAN CORPUSCULAR VOLUME 85.7 fL (79-99); MONOCYTES % (AUTO) 5.7 % (3.0-13.0); NEUTROPHILS # (AUTO) 14.9 K/uL (1.8-7.7); NEUTROPHILS % (AUTO) 88.3 % (40.0-77.0); PLATELET COUNT (AUTO) 196 K/uL (130-400); RED BLOOD CELL COUNT(AUTO) 3.77 MIL/uL (4.00-5.50); RED CELL DISTRIBUTION WIDTH 15.1 % (11.0-15.5); WHITE BLOOD COUNT (AUTO) 16.9 K/uL (4.8-10.8)
[2024-03-07 11:25] LABS: INR 1.23 (0.85-1.15); PROTHROMBIN TIME 13.1 SEC (9.6-11.6)
[2024-03-07 11:27] LABS: PARTIAL THROMBOPLASTIN TIME 33.7 SEC (26.3-35.5); POTASSIUM 5.2 mmol/L (3.5-5.1)
[2024-03-07 11:30] LABS: CREATININE 12.7 mg/dL (0.5-1.0)
[2024-03-07 12:01] LABS: BAND NEUTROPHILS % (MANUAL) 7 % (0-2); LYMPHOCYTES % (MANUAL) 7 % (22-44); MAN.DIFF COMMENT-IMPRESSION MANUAL DIFFERENTIAL; MONOCYTES % (MANUAL) 6 % (2-9); PLATELET MORPHOLOGY COMMENT ADEQUATE; REACTIVE LYMPHOCYTES 2 % (0-0); SEGMENTED NEUTROPHILS % 78 % (40-70); TOTAL CELLS COUNTED 100
[2024-03-07] MEDS: ceFEPime HCL 1 GM VIAL IVPB SCH (12:21)
[2024-03-07] MEDS: morPHINE 2 MG SYG IVP ONE (15:19)
[2024-03-07] MEDS ORDERED: VANCOMYCIN PROTOCOL PER PHARMACY IV SCH (16:30)
[2024-03-07] MEDS: SODIUM ZIRCONIUM CYCLOSILICATE 5 GM POWD.PACK PO ONE (16:35)
[2024-03-07] MEDS: SODIUM CHLORIDE 3% FOR INHALATION 4 ML/AMP VIAL.NEB IH ONE ×2 (16:43→23:36)
[2024-03-07] MEDS ORDERED: hydrALAZine 20MG/ML VIAL IV PRN (17:00)
[2024-03-07] MEDS ORDERED: cloNIDine HCL 0.1 MG TABLET PO PRN (17:00)
[2024-03-07] MEDS: 0.9%NACL 1000ML 1,000 ML IV SCH (17:54)
[2024-03-07] MEDS: metoPROLOL tartRATE 50 MG TAB PO SCH (21:08)
[2024-03-07 21:09] LABS: INFLUENZA TYPE A Negative For Type A (NEGATIVE); INFLUENZA TYPE B Negative For Type B (NEGATIVE)
[2024-03-07] MEDS: LISINOPRIL 40 MG TABLET PO SCH (21:09)
[2024-03-07] MEDS: ZOSYN 3.375GM +NS 50ML IV SCH (21:09)
[2024-03-07 21:11] LABS: SARS-CoV-2, RNA, NAAT NEGATIVE SARS CoV-2 (NEGATIVE)
[2024-03-07] MEDS: VANCOMYCIN 1.25 GM/250 ML BAG 250 ML IV ONE (21:31)
[2024-03-08] MEDS: hydroMORPHone 0.5 MG SYG (0.5MG/0.5ML) IVP ONE (00:42)
[2024-03-08 02:15] LABS: HEPATITIS B SURFACE ANTIGEN Non-Reactive (Nonreactive)
[2024-03-08 04:59] LABS: HEPATITIS B CORE AB TOTAL Non-Reactive (Nonreactive); HEPATITIS B SURFACE ANTIBODY Positive (Reactive)
[2024-03-08] MEDS ORDERED: DEXTROSE 50%-WATER 50 ML DISP.SYRIN IV PRN (06:30)
[2024-03-08] MEDS ORDERED: GLUCAGON 1MG KIT 1 MG ML IM PRN (06:30)
[2024-03-08 07:02] LABS: HEMATOCRIT 32.3 % (36-48); MEAN CORPUSCULAR HEMOGLOBIN 29.3 pg (27.0-33.0); MEAN CORPUSCULAR HGB CONC 34.1 g/dL (32.0-36.0); MEAN CORPUSCULAR VOLUME 86.1 fL (79-99); RED BLOOD CELL COUNT(AUTO) 3.75 MIL/uL (4.00-5.50); RED CELL DISTRIBUTION WIDTH 15.1 % (11.0-15.5); WHITE BLOOD COUNT (AUTO) 16.2 K/uL (4.8-10.8)
[2024-03-08] MEDS: INSULIN humuLIN R 100 UNIT/ML 3ML SQ SCH (07:30)
[2024-03-08 08:20] LABS: ALBUMIN 2.8 g/dL (3.5-5.0); BILIRUBIN,TOTAL 1.8 mg/dL (0.2-1.0); PHOSPHORUS 6.7 mg/dL (2.5-4.9); POTASSIUM 4.5 mmol/L (3.5-5.1); TOTAL PROTEIN, SERUM 7.5 g/dL (6.0-8.3)
[2024-03-08] MEDS: ZOSYN 3.375GM +NS 50ML IV SCH (09:00)
[2024-03-08] MEDS: ALPRAZolam 0.25 MG TABLET PO PRN (09:15)
[2024-03-08] MEDS: HYDROcodone/APAP 5/325 1 TAB TABLET PO PRN ×2 (09:16→15:25)
[2024-03-08] MEDS: amLODIPine 5 MG TAB PO SCH (09:16)
[2024-03-08] MEDS: SODIUM CHLORIDE 3% FOR INHALATION 4 ML/AMP VIAL.NEB IH ONE (10:24)
[2024-03-08 10:25] VITALS: PULSE 64; RESP 20; O2SAT 97
[2024-03-08 11:30] VITALS: O2SAT 100
[2024-03-08] MEDS: sevELAMer HCL 800 MG TABLET PO SCH (15:25)
[2024-03-08 17:30] VITALS: BP 131/68; PULSE 66; RESP 16; TEMP 98.8
[2024-03-08] MEDS: ALPRAZolam 0.5 MG TABLET PO PRN (20:12)
[2024-03-08] MEDS: hydroMORPHone 0.5 MG SYG (0.5MG/0.5ML) IVP PRN (23:08)
[2024-03-08 23:27] VITALS: BP 129/74; PULSE 58; RESP 19; TEMP 98.5
[2024-03-09] VITALS (39 sets, daily range): BP systolic 102–175; BP diastolic 48–96; PULSE 54–88; RESP 15–19; TEMP 97.3–100.2
[2024-03-09 03:47] LABS: HEMATOCRIT 28.6 % (36-48); MEAN CORPUSCULAR HEMOGLOBIN 29.4 pg (27.0-33.0); MEAN CORPUSCULAR HGB CONC 34.3 g/dL (32.0-36.0); MEAN CORPUSCULAR VOLUME 85.9 fL (79-99); RED BLOOD CELL COUNT(AUTO) 3.33 MIL/uL (4.00-5.50); RED CELL DISTRIBUTION WIDTH 15.2 % (11.0-15.5); WHITE BLOOD COUNT (AUTO) 16.7 K/uL (4.8-10.8)
[2024-03-09 04:23] LABS: POTASSIUM 4.5 mmol/L (3.5-5.1)
[2024-03-09 04:26] LABS: CREATININE 10.1 mg/dL (0.5-1.0)
[2024-03-09 08:36] LABS: HEMOGLOBIN A1C 6.9 % (4.0-6.0)
[2024-03-09] MEDS: VANCOMYCIN 500MG+NS 100ML 100 ML IV SCH (16:10)
[2024-03-09 17:27] LABS: BASOPHILS # (AUTO) 0.05 K/uL (0.00-0.20); BASOPHILS % (AUTO) 0.3 % (0.0-5.0); EOSINOPHILS # (AUTO) 0.07 K/uL (0.00-0.70); EOSINOPHILS % (AUTO) 0.4 % (0.0-8.0); HEMATOCRIT 30.2 % (36-48); IMMATURE GRANULOCYTE ABSOLUTE 0.13 K/uL (0-1); LYMPHOCYTES % (AUTO) 5.2 % (21.0-51.0); MEAN CORPUSCULAR HEMOGLOBIN 29.7 pg (27.0-33.0); MEAN CORPUSCULAR HGB CONC 33.8 g/dL (32.0-36.0); MEAN CORPUSCULAR VOLUME 87.8 fL (79-99); MONOCYTES # (AUTO) 0.9 K/uL (0.1-1.0); MONOCYTES % (AUTO) 4.7 % (3.0-13.0); NEUTROPHILS # (AUTO) 16.4 K/uL (1.8-7.7); NEUTROPHILS % (AUTO) 88.7 % (40.0-77.0); PLATELET COUNT (AUTO) 220 K/uL (130-400); RED BLOOD CELL COUNT(AUTO) 3.44 MIL/uL (4.00-5.50); RED CELL DISTRIBUTION WIDTH 15.3 % (11.0-15.5); WHITE BLOOD COUNT (AUTO) 18.4 K/uL (4.8-10.8)
[2024-03-09 17:46] LABS: ALBUMIN 2.5 g/dL (3.5-5.0); BILIRUBIN,TOTAL 1.3 mg/dL (0.2-1.0); POTASSIUM 3.6 mmol/L (3.5-5.1)
[2024-03-09] MEDS ORDERED: LIDOCAINE PF 100MG/5ML (2%) SYRINGE 5ML ONE (18:56)
[2024-03-09] MEDS ORDERED: FENTanyl CITRate PF 50 MCG/1 ML 2ML VIAL ONE (18:57)
[2024-03-09] MEDS ORDERED: MIDAZOLAM HCL 1 MG/ML 2ML VIAL ONE (18:57)
[2024-03-09] MEDS ORDERED: proPOFol 10 MG/ML 20ML VIAL IV ONE ×2 (18:57→19:45)
[2024-03-09] MEDS ORDERED: LIDOCAINE HCL 400MG/20ML VIAL ONE (19:16)
[2024-03-09] MEDS ORDERED: BUPIvacaine/PF 0.5% 30ML VIAL ONE (19:16)
[2024-03-09] MEDS: LIDOCAINE HCL-MPF 2% 10ML AMP IJ ONE (19:34)
[2024-03-09] MEDS ORDERED: BACITRACIN 28.4 GM OINT TP ONE (19:37)
[2024-03-09] MEDS ORDERED: ondanSETRON 4MG INJ ONE (19:45)
[2024-03-10] VITALS: BP 119/65; PULSE 86; RESP 16
== END 2024-03-10 00:45 | disposition left against medical advice (07) | DRG 853 ==
LOC: EDH 10:35 → EDHIP 16:09 → 2AH 03-08 15:28 → 2DH 03-09 21:17
PROVIDERS: ADMIT Internal Medicine Critical Care Medicine; ATTEND Internal Medicine Critical Care Medicine
PROC: 0KBV0ZZ Excision of Right Foot Muscle, Open Approach (ICD-10-PCS; principal; 2024-03-09 19:22)
DX: A41.9 Sepsis, unspecified organism (principal); N18.6 End stage renal disease; E87.1 Hypo-osmolality and hyponatremia; L03.115 Cellulitis of right lower limb; N30.00 Acute cystitis without hematuria; I12.0 Hypertensive chronic kidney disease with stage 5 chronic kidney disease or end stage renal disease; F41.9 Anxiety disorder, unspecified; E87.5 Hyperkalemia; Z20.822 Contact with and (suspected) exposure to COVID-19; Z53.29 Procedure and treatment not carried out because of patient's decision for other reasons; E11.621 Type 2 diabetes mellitus with foot ulcer; E11.22 Type 2 diabetes mellitus with diabetic chronic kidney disease; E78.00 Pure hypercholesterolemia, unspecified; E11.319 Type 2 diabetes mellitus with unspecified diabetic retinopathy without macular edema; E11.42 Type 2 diabetes mellitus with diabetic polyneuropathy; E11.65 Type 2 diabetes mellitus with hyperglycemia; D64.9 Anemia, unspecified; L97.519 Non-pressure chronic ulcer of other part of right foot with unspecified severity; L97.529 Non-pressure chronic ulcer of other part of left foot with unspecified severity; M21.372 Foot drop, left foot; M21.371 Foot drop, right foot; Z99.2 Dependence on renal dialysis; Z79.899 Other long term (current) drug therapy
CPT/HCPCS: 36415; 71045; 73630; 80048; 80053; 82948; 83036; 83605; 83735; 84100; 84145; 84484; 84703; 85025; 85027; 85610; 85730; 86704; 86706; 87040; 87070; 87076; 87086; 87186; 87205; 87340; 87635; 87804; 87880; 90935; 93005; 93970; 94640; 96365; G0378; J0692; J1170; J2001; J2250; J2270; J2405; J2543; J2704; J3010; J3370; J3490; J7030; J7070; 3370; A4649; A4930; A6209; A6446; A6450; J0665

== ENCOUNTER 2024-03-21 13:40 | Inpatient (IN) | payer MEDICARE ==
[~2024-03-21] VITALS: Ht 170.2 cm; Wt 58.5 kg
[2024-03-21] VITALS (17 sets, daily range): BP systolic 152–203; BP diastolic 73–104; PULSE 64–88; RESP 12–20; TEMP 97.2–98; O2SAT 96
[~2024-03-21 13:40] MED LIST changes: -AMLO-258 PO; -LIDOCAINE HCL 4% LTA SOL 4 ML VIAL TP ONE
[2024-03-21 19:28] LABS: BASOPHILS # (AUTO) 0.06 K/uL (0.00-0.20); BASOPHILS % (AUTO) 0.3 % (0.0-5.0); EOSINOPHILS # (AUTO) 0.28 K/uL (0.00-0.70); EOSINOPHILS % (AUTO) 1.6 % (0.0-8.0); HEMATOCRIT 25.2 % (36-48); IMMATURE GRANULOCYTE ABSOLUTE 0.16 K/uL (0-1); LYMPHOCYTES # (AUTO) 1.1 K/uL (1.0-4.8); MEAN CORPUSCULAR HEMOGLOBIN 29.3 pg (27.0-33.0); MEAN CORPUSCULAR HGB CONC 34.1 g/dL (32.0-36.0); MEAN CORPUSCULAR VOLUME 85.7 fL (79-99); MONOCYTES # (AUTO) 0.9 K/uL (0.1-1.0); MONOCYTES % (AUTO) 4.8 % (3.0-13.0); NEUTROPHILS # (AUTO) 15.1 K/uL (1.8-7.7); NEUTROPHILS % (AUTO) 86.4 % (40.0-77.0); PLATELET COUNT (AUTO) 463 K/uL (130-400); RED BLOOD CELL COUNT(AUTO) 2.94 MIL/uL (4.00-5.50); WHITE BLOOD COUNT (AUTO) 17.6 K/uL (4.8-10.8)
[2024-03-21 19:43] LABS: ALBUMIN 2.1 g/dL (3.5-5.0); BILIRUBIN,TOTAL 0.4 mg/dL (0.2-1.0); CREATININE 4.2 mg/dL (0.5-1.0); TOTAL PROTEIN, SERUM 6.8 g/dL (6.0-8.3)
[2024-03-21 19:45] LABS: POTASSIUM 2.9 mmol/L (3.5-5.1)
[2024-03-21] MEDS: hydroMORPHone 0.5 MG SYG (0.5MG/0.5ML) IVP ONE (19:57)
[2024-03-21] MEDS: hydrALAZine 20MG/ML VIAL IV PRN (19:58)
[2024-03-21] MEDS ORDERED: DEXTROSE 50%-WATER 50 ML DISP.SYRIN IV PRN (20:00)
[2024-03-21] MEDS ORDERED: VANCOMYCIN PROTOCOL PER PHARMACY IV PRN (20:00)
[2024-03-21] MEDS ORDERED: GLUCAGON 1MG KIT 1 MG ML IM PRN (20:00)
[2024-03-21] MEDS ORDERED: ZOSYN 3.375GM+NS 50ML 50 ML IV SCH (21:00)
[2024-03-21] MEDS: INSULIN humuLIN R 100 UNIT/ML 3ML SQ SCH (21:00)
[2024-03-21] MEDS: ZOSYN 3.375GM +NS 50ML IVPB SCH (22:00)
[2024-03-21] MEDS: DiphenhydrAMINE HCL 25 MG CAPSULE PO ONE (22:40)
[2024-03-21] MEDS: VANCOMYCIN 1.25 GM/250 ML BAG 250 ML IV ONE (22:40)
[2024-03-21] MEDS: cloNIDine HCL 0.1 MG TABLET PO ONE (22:45)
[2024-03-22] MEDS: hydroMORPHone 0.5 MG SYG (0.5MG/0.5ML) IVP ONE ×2 (04:38→10:03)
[2024-03-22 05:00] VITALS: BP 162/85; PULSE 76; RESP 17; TEMP 98.1
[2024-03-22 05:21] LABS: HEMATOCRIT 29.1 % (36-48); MEAN CORPUSCULAR HEMOGLOBIN 29.4 pg (27.0-33.0); MEAN CORPUSCULAR HGB CONC 33.7 g/dL (32.0-36.0); MEAN CORPUSCULAR VOLUME 87.4 fL (79-99); RED BLOOD CELL COUNT(AUTO) 3.33 MIL/uL (4.00-5.50); RED CELL DISTRIBUTION WIDTH 15.9 % (11.0-15.5); WHITE BLOOD COUNT (AUTO) 17.1 K/uL (4.8-10.8)
[2024-03-22] MEDS ORDERED: AMLO-258 PO (05:59)
[2024-03-22] MEDS ORDERED: LISI40TA9 PO (05:59)
[2024-03-22 06:10] LABS: ALBUMIN 2.1 g/dL (3.5-5.0); BILIRUBIN,TOTAL 0.5 mg/dL (0.2-1.0); CREATININE 5.8 mg/dL (0.5-1.0); PHOSPHORUS 5.2 mg/dL (2.5-4.9)
[2024-03-22 08:00] VITALS: BP 139/70; PULSE 79; RESP 18; TEMP 99.3; O2SAT 90
[2024-03-22] MEDS: FAMOTIDINE 20MG TAB PO SCH (09:08)
[2024-03-22] MEDS: acetaMINOPHEN 325 MG TAB PO PRN (11:33)
[2024-03-22 12:00] VITALS: BP 160/80; PULSE 89; RESP 18; TEMP 100.3
[2024-03-22 16:00] VITALS: BP 148/75; PULSE 73; RESP 18; TEMP 98.3
[2024-03-22] MEDS: hydroMORPHone 0.5 MG SYG (0.5MG/0.5ML) IVP PRN (16:12)
[2024-03-22 20:00] VITALS: BP 144/77; PULSE 77; RESP 16; TEMP 98.4; O2SAT 99
[2024-03-22] MEDS: ALPRAZolam 0.5 MG TABLET PO ONE (22:59)
[2024-03-23] VITALS (40 sets, daily range): BP systolic 118–204; BP diastolic 49–107; PULSE 63–102; RESP 14–21; TEMP 97.4–99.5; O2SAT 96–98
[2024-03-23] MEDS: DiphenhydrAMINE HCL 25 MG CAPSULE PO PRN (04:59)
[2024-03-23 05:22] LABS: BASOPHILS # (AUTO) 0.07 K/uL (0.00-0.20); BASOPHILS % (AUTO) 0.4 % (0.0-5.0); EOSINOPHILS % (AUTO) 1.1 % (0.0-8.0); HEMATOCRIT 26.8 % (36-48); IMMATURE GRANULOCYTE ABSOLUTE 0.13 K/uL (0-1); LYMPHOCYTES # (AUTO) 1.4 K/uL (1.0-4.8); LYMPHOCYTES % (AUTO) 7.8 % (21.0-51.0); MEAN CORPUSCULAR HEMOGLOBIN 29.1 pg (27.0-33.0); MEAN CORPUSCULAR HGB CONC 33.6 g/dL (32.0-36.0); MEAN CORPUSCULAR VOLUME 86.7 fL (79-99); MONOCYTES % (AUTO) 5.8 % (3.0-13.0); NEUTROPHILS % (AUTO) 84.2 % (40.0-77.0); PLATELET COUNT (AUTO) 427 K/uL (130-400); RED BLOOD CELL COUNT(AUTO) 3.09 MIL/uL (4.00-5.50); RED CELL DISTRIBUTION WIDTH 15.9 % (11.0-15.5); WHITE BLOOD COUNT (AUTO) 17.8 K/uL (4.8-10.8)
[2024-03-23 05:39] LABS: ALBUMIN 2.1 g/dL (3.5-5.0); BILIRUBIN,TOTAL 0.7 mg/dL (0.2-1.0); CREATININE 7.4 mg/dL (0.5-1.0); MAGNESIUM 1.8 mg/dL (1.80-2.40); PHOSPHORUS 7.3 mg/dL (2.5-4.9); POTASSIUM 4.4 mmol/L (3.5-5.1)
[2024-03-23 06:26] LABS: ERYTHROCYTE SEDIMENTATION RATE 67 MM/HR (0-20)
[2024-03-23] MEDS: [UNRECOGNIZED DRUG - REMARK] MISC SCH (13:00)
[2024-03-23] MEDS: ALPRAZolam 0.5 MG TABLET PO ONE ×2 (14:12→23:21)
[2024-03-23] MEDS: 0.9%NACL 1000ML 1,000 ML IV SCH (14:17)
[2024-03-23] MEDS: VANCOMYCIN 500MG+NS 100ML 100 ML IV SCH (16:00)
[2024-03-23 17:11] LABS: CREATININE 3.8 mg/dL (0.5-1.0); POTASSIUM 3.5 mmol/L (3.5-5.1)
[2024-03-23] MEDS: EPOETIN ALFA-EPBX (NON-ESRD) 10,000 UNIT/ML VIAL SQ ONE (18:06)
[2024-03-23] MEDS ORDERED: FENTanyl CITRate PF 50 MCG/1 ML 2ML VIAL ONE ×2 (18:15→19:11)
[2024-03-23] MEDS ORDERED: proPOFol 10 MG/ML 20ML VIAL IV ONE ×2 (18:15→19:13)
[2024-03-23] MEDS ORDERED: MIDAZOLAM HCL 1 MG/ML 2ML VIAL ONE (18:15)
[2024-03-23 18:30] LABS: INR 1.12 (0.85-1.15)
[2024-03-23 18:32] LABS: PARTIAL THROMBOPLASTIN TIME 27.1 SEC (26.3-35.5)
[2024-03-23] MEDS: hydrALAZine 20MG/ML VIAL IV ONE (18:36)
[2024-03-23] MEDS: BUPIvacaine/PF 0.5% 30ML VIAL ONE (19:04)
[2024-03-23] MEDS: LIDOCAINE HCL 1% 20 ML VIAL ONE (19:04)
[2024-03-23] MEDS ORDERED: ondanSETRON 4MG INJ ONE (19:11)
[2024-03-24] VITALS (11 sets, daily range): BP systolic 140–180; BP diastolic 71–87; PULSE 71–89; RESP 16–19; TEMP 97.7–100.1; O2SAT 98–99
[2024-03-24 04:02] LABS: BASOPHILS # (AUTO) 0.09 K/uL (0.00-0.20); BASOPHILS % (AUTO) 0.5 % (0.0-5.0); EOSINOPHILS # (AUTO) 0.22 K/uL (0.00-0.70); EOSINOPHILS % (AUTO) 1.2 % (0.0-8.0); HEMATOCRIT 27.8 % (36-48); IMMATURE GRANULOCYTE ABSOLUTE 0.23 K/uL (0-1); LYMPHOCYTES # (AUTO) 1.5 K/uL (1.0-4.8); LYMPHOCYTES % (AUTO) 7.9 % (21.0-51.0); MEAN CORPUSCULAR HEMOGLOBIN 29.1 pg (27.0-33.0); MEAN CORPUSCULAR HGB CONC 33.5 g/dL (32.0-36.0); MEAN CORPUSCULAR VOLUME 86.9 fL (79-99); MONOCYTES # (AUTO) 1.2 K/uL (0.1-1.0); MONOCYTES % (AUTO) 6.3 % (3.0-13.0); NEUTROPHILS # (AUTO) 15.7 K/uL (1.8-7.7); NEUTROPHILS % (AUTO) 82.9 % (40.0-77.0); PLATELET COUNT (AUTO) 440 K/uL (130-400); RED CELL DISTRIBUTION WIDTH 15.8 % (11.0-15.5); WHITE BLOOD COUNT (AUTO) 18.9 K/uL (4.8-10.8)
[2024-03-24 04:23] LABS: ALBUMIN 2.1 g/dL (3.5-5.0); BILIRUBIN,TOTAL 0.5 mg/dL (0.2-1.0); PHOSPHORUS 4.7 mg/dL (2.5-4.9); POTASSIUM 4.2 mmol/L (3.5-5.1)
[2024-03-24] MEDS: amLODIPine 5 MG TAB PO SCH (08:17)
[2024-03-24] MEDS: ALPRAZolam 0.5 MG TABLET PO SCH (08:17)
[2024-03-24] MEDS: LISINOPRIL 40 MG TABLET PO SCH (08:17)
[2024-03-24] MEDS: FAMOTIDINE 20MG TAB PO SCH (08:17)
[2024-03-24] MEDS: ALPRAZolam 0.5 MG TABLET PO ONE (18:14)
[2024-03-25] VITALS (8 sets, daily range): BP systolic 132–187; BP diastolic 68–87; PULSE 78–103; RESP 16–21; TEMP 98.4–99.5; O2SAT 97–98
[2024-03-25] MEDS: ALPRAZolam 0.25 MG TABLET PO ONE (00:42)
[2024-03-25 03:57] LABS: MEAN CORPUSCULAR HEMOGLOBIN 28.6 pg (27.0-33.0); MEAN CORPUSCULAR HGB CONC 33.6 g/dL (32.0-36.0); RED BLOOD CELL COUNT(AUTO) 2.94 MIL/uL (4.00-5.50); RED CELL DISTRIBUTION WIDTH 15.7 % (11.0-15.5); WHITE BLOOD COUNT (AUTO) 19.5 K/uL (4.8-10.8)
[2024-03-25 04:25] LABS: CREATININE 6.6 mg/dL (0.5-1.0); MAGNESIUM 1.6 mg/dL (1.80-2.40); PHOSPHORUS 5.7 mg/dL (2.5-4.9); POTASSIUM 4.1 mmol/L (3.5-5.1)
[2024-03-25] MEDS: hydrOXYzine 10 MG TABLET PO ONE (23:46)
[2024-03-26] VITALS (21 sets, daily range): BP systolic 122–161; BP diastolic 60–88; PULSE 73–87; RESP 14–20; TEMP 97.5–100; O2SAT 98–100
[2024-03-26 05:12] LABS: BASOPHILS # (AUTO) 0.12 K/uL (0.00-0.20); BASOPHILS % (AUTO) 0.7 % (0.0-5.0); EOSINOPHILS # (AUTO) 0.35 K/uL (0.00-0.70); EOSINOPHILS % (AUTO) 2.1 % (0.0-8.0); HEMATOCRIT 24.9 % (36-48); IMMATURE GRANULOCYTE ABSOLUTE 0.45 K/uL (0-1); LYMPHOCYTES % (AUTO) 12.1 % (21.0-51.0); MEAN CORPUSCULAR HEMOGLOBIN 28.1 pg (27.0-33.0); MEAN CORPUSCULAR HGB CONC 33.3 g/dL (32.0-36.0); MEAN CORPUSCULAR VOLUME 84.4 fL (79-99); MONOCYTES # (AUTO) 1.4 K/uL (0.1-1.0); MONOCYTES % (AUTO) 8.4 % (3.0-13.0); NEUTROPHILS # (AUTO) 12.4 K/uL (1.8-7.7); PLATELET COUNT (AUTO) 462 K/uL (130-400); RED BLOOD CELL COUNT(AUTO) 2.95 MIL/uL (4.00-5.50); RED CELL DISTRIBUTION WIDTH 15.9 % (11.0-15.5); WHITE BLOOD COUNT (AUTO) 16.8 K/uL (4.8-10.8)
[2024-03-26 05:35] LABS: ALBUMIN 1.8 g/dL (3.5-5.0); BILIRUBIN,TOTAL 0.5 mg/dL (0.2-1.0); PHOSPHORUS 7.7 mg/dL (2.5-4.9); POTASSIUM 4.7 mmol/L (3.5-5.1); TOTAL PROTEIN, SERUM 7.1 g/dL (6.0-8.3); VANCOMYCIN LEVEL 12.8 mcg/mL (20.0-30.0)
[2024-03-26 05:54] LABS: CREATININE 8.7 mg/dL (0.5-1.0)
[2024-03-26] MEDS: hydroMORPHone 0.5 MG SYG (0.5MG/0.5ML) IVP ONE (09:58)
[2024-03-26] MEDS: ALPRAZolam 0.5 MG TABLET PO ONE (16:46)
[2024-03-26] MEDS: hydrOXYzine 10 MG TABLET PO ONE (22:00)
[2024-03-27] VITALS: BP 141/64; PULSE 91; RESP 18; TEMP 100
== END 2024-03-27 00:13 | DRG 853 ==
LOC: EDH 13:40 → EDHIP 13:41 → 4DH 22:02
PROVIDERS: ADMIT Internal Medicine; ATTEND Internal Medicine
PROC: 5A1D70Z Performance of Urinary Filtration, Intermittent, Less than 6 Hours Per Day (ICD-10-PCS; 2024-03-21)
PROC: 5A1D70Z Performance of Urinary Filtration, Intermittent, Less than 6 Hours Per Day (ICD-10-PCS; 2024-03-23)
PROC: 0QBN0ZZ Excision of Right Metatarsal, Open Approach (ICD-10-PCS; principal; 2024-03-23 18:58)
PROC: 5A1D70Z Performance of Urinary Filtration, Intermittent, Less than 6 Hours Per Day (ICD-10-PCS; 2024-03-26)
DX: A41.9 Sepsis, unspecified organism (principal); A48.0 Gas gangrene; N18.6 End stage renal disease; I12.0 Hypertensive chronic kidney disease with stage 5 chronic kidney disease or end stage renal disease; M86.8X7 Other osteomyelitis, ankle and foot; E11.52 Type 2 diabetes mellitus with diabetic peripheral angiopathy with gangrene; L02.611 Cutaneous abscess of right foot; L03.115 Cellulitis of right lower limb; E11.621 Type 2 diabetes mellitus with foot ulcer; L97.519 Non-pressure chronic ulcer of other part of right foot with unspecified severity; L08.9 Local infection of the skin and subcutaneous tissue, unspecified; E11.622 Type 2 diabetes mellitus with other skin ulcer; E11.22 Type 2 diabetes mellitus with diabetic chronic kidney disease; E11.65 Type 2 diabetes mellitus with hyperglycemia; D63.1 Anemia in chronic kidney disease; D75.839 Thrombocytosis, unspecified; S91.302A Unspecified open wound, left foot, initial encounter; F12.90 Cannabis use, unspecified, uncomplicated; E11.319 Type 2 diabetes mellitus with unspecified diabetic retinopathy without macular edema; F32.A Depression, unspecified; L97.529 Non-pressure chronic ulcer of other part of left foot with unspecified severity; E78.5 Hyperlipidemia, unspecified; F41.9 Anxiety disorder, unspecified; H54.7 Unspecified visual loss; M21.372 Foot drop, left foot; M21.371 Foot drop, right foot; Z83.3 Family history of diabetes mellitus; Z91.158 Patient's noncompliance with renal dialysis for other reason; Z99.2 Dependence on renal dialysis
CPT/HCPCS: 36415; 73630; 73718; 80048; 80053; 80061; 80202; 82948; 83605; 83735; 84100; 84132; 84145; 84703; 85025; 85027; 85610; 85651; 85730; 86140; 86850; 86900; 86901; 87070; 87076; 87086; 87186; 87205; 90935; 93005; A6266; G0378; J0360; J1171; J1815; J2250; J2405; J2543; J2704; J3010; J3370; J7030; Q0163; 3370; A4215; A4216; A4222; A4223; A4649; A6445; A6446; J0665; J3490; Q5106

== ENCOUNTER → 2024-03-21 | Outpatient (CLI) | payer MEDICARE ==
[~2024-03-21] MED LIST changes: +AMLO-258 PO; +LIDOCAINE HCL 4% LTA SOL 4 ML VIAL TP ONE
== END | disposition home or self-care (01) ==
LOC: WHH 10:26
PROVIDERS: ATTEND Podiatrist Foot & Ankle Surgery
DX: E11.621 Type 2 diabetes mellitus with foot ulcer (principal); L97.512 Non-pressure chronic ulcer of other part of right foot with fat layer exposed; L97.522 Non-pressure chronic ulcer of other part of left foot with fat layer exposed; E11.69 Type 2 diabetes mellitus with other specified complication; M86.8X8 Other osteomyelitis, other site; E11.319 Type 2 diabetes mellitus with unspecified diabetic retinopathy without macular edema; E11.42 Type 2 diabetes mellitus with diabetic polyneuropathy; E11.22 Type 2 diabetes mellitus with diabetic chronic kidney disease; I12.0 Hypertensive chronic kidney disease with stage 5 chronic kidney disease or end stage renal disease; N18.6 End stage renal disease; E78.00 Pure hypercholesterolemia, unspecified; R60.0 Localized edema; H54.7 Unspecified visual loss; M21.371 Foot drop, right foot; M21.372 Foot drop, left foot; F41.9 Anxiety disorder, unspecified; Z99.2 Dependence on renal dialysis; Z79.899 Other long term (current) drug therapy; Z90.710 Acquired absence of both cervix and uterus
CPT/HCPCS: G0463; A4450

== ENCOUNTER → 2024-05-16 | Outpatient (CLI) | payer MEDICARE ==
[~2024-05-16] MED LIST changes: +ALBU50IV IV; +ALPR0.5T PO; -AMLO5TAB4 PO; +AMLO5TAB5 PO; +ASPI-1026 PO; -ATOR40TA71 PO; -CEPH500B PO; +DIPH25CA53 PO; +DOCU100C33 PO; +FAMO-136 PO; -FENO135C4 PO; +FENT1PAT60 TP; -HALO1TAB2 PO; +HYDR-4060 PO; +HYDR20VI16 IV; -LEVO250T75 PO; +LIDO-15 TP; +MERO1VIA23 IV; -METO50 PO; -METO5TAB2 PO; -METR-172 PO; +NITR0.4T50 SL; -ONDA-243 PO; +ONDA4SOL PO; -PANT40TA PO; -PANT40TA54 PO; +PREG25CA19 PO; -SITA100T12 PO; +TRAZ-187 PO; +VANC750V IV
== END | disposition home or self-care (01) ==
LOC: WHH 08:12
PROVIDERS: ATTEND Podiatrist Foot & Ankle Surgery
DX: E11.621 Type 2 diabetes mellitus with foot ulcer (principal); L97.522 Non-pressure chronic ulcer of other part of left foot with fat layer exposed; L97.511 Non-pressure chronic ulcer of other part of right foot limited to breakdown of skin; E11.69 Type 2 diabetes mellitus with other specified complication; M86.8X8 Other osteomyelitis, other site; E11.319 Type 2 diabetes mellitus with unspecified diabetic retinopathy without macular edema; E11.42 Type 2 diabetes mellitus with diabetic polyneuropathy; E11.22 Type 2 diabetes mellitus with diabetic chronic kidney disease; I12.0 Hypertensive chronic kidney disease with stage 5 chronic kidney disease or end stage renal disease; N18.6 End stage renal disease; E78.00 Pure hypercholesterolemia, unspecified; R60.0 Localized edema; H54.7 Unspecified visual loss; M21.371 Foot drop, right foot; M21.372 Foot drop, left foot; F41.9 Anxiety disorder, unspecified; Z99.2 Dependence on renal dialysis; Z79.899 Other long term (current) drug therapy; Z90.710 Acquired absence of both cervix and uterus
CPT/HCPCS: G0463; A6209; A4450

== ENCOUNTER → 2024-05-17 | Outpatient (CLI) | payer MEDICARE | END | disposition home or self-care (01) | LOC: WHH 09:58 | PROVIDERS: ATTEND Family Medicine | DX: T87.81 Dehiscence of amputation stump (principal); E11.621 Type 2 diabetes mellitus with foot ulcer; L97.522 Non-pressure chronic ulcer of other part of left foot with fat layer exposed; S81.801A Unspecified open wound, right lower leg, initial encounter; E11.69 Type 2 diabetes mellitus with other specified complication; M86.8X8 Other osteomyelitis, other site; E11.319 Type 2 diabetes mellitus with unspecified diabetic retinopathy without macular edema; E11.42 Type 2 diabetes mellitus with diabetic polyneuropathy; E11.22 Type 2 diabetes mellitus with diabetic chronic kidney disease; I12.0 Hypertensive chronic kidney disease with stage 5 chronic kidney disease or end stage renal disease; N18.6 End stage renal disease; E78.00 Pure hypercholesterolemia, unspecified; R60.0 Localized edema; H54.7 Unspecified visual loss; M21.371 Foot drop, right foot; M21.372 Foot drop, left foot; F41.9 Anxiety disorder, unspecified; Z99.2 Dependence on renal dialysis; Z79.899 Other long term (current) drug therapy; Z90.710 Acquired absence of both cervix and uterus; X58.XXXA Exposure to other specified factors, initial encounter; Y93.89 Activity, other specified; Y92.89 Other specified places as the place of occurrence of the external cause; Y99.8 Other external cause status; Y83.5 Amputation of limb(s) as the cause of abnormal reaction of the patient, or of later complication, without mention of misadventure at the time of the procedure | CPT/HCPCS: 11042; 87070; 87086; 87186 ==

== ENCOUNTER 2024-05-21 04:21 | Inpatient (IN) | payer MEDICARE ==
[2024-05-21] VITALS (24 sets, daily range): BP systolic 128–191; BP diastolic 53–97; PULSE 56–79; RESP 14–20; TEMP 97.5–98.7; O2SAT 97–99
[~2024-05-21] VITALS: Ht 177.8 cm; Wt 67.9 kg
[~2024-05-21 04:21] MED LIST changes: +TIGECYCLINE 50 MG in 0.9%NACL 100ML 100 ML IV SCH
[2024-05-21] MEDS: LACTATED RINGERS 1000ML 1,000 ML IV ONE (05:03)
[2024-05-21 05:14] LABS: BASOPHILS # (AUTO) 0.04 K/uL (0.00-0.20); BASOPHILS % (AUTO) 0.4 % (0.0-5.0); EOSINOPHILS # (AUTO) 0.33 K/uL (0.00-0.70); EOSINOPHILS % (AUTO) 3.4 % (0.0-8.0); HEMATOCRIT 30.4 % (36-48); IMMATURE GRANULOCYTE ABSOLUTE 0.07 K/uL (0-1); LYMPHOCYTES # (AUTO) 3.2 K/uL (1.0-4.8); LYMPHOCYTES % (AUTO) 32.9 % (21.0-51.0); MEAN CORPUSCULAR HEMOGLOBIN 28.6 pg (27.0-33.0); MEAN CORPUSCULAR HGB CONC 32.9 g/dL (32.0-36.0); MEAN CORPUSCULAR VOLUME 86.9 fL (79-99); MONOCYTES # (AUTO) 0.6 K/uL (0.1-1.0); MONOCYTES % (AUTO) 5.8 % (3.0-13.0); NEUTROPHILS # (AUTO) 5.5 K/uL (1.8-7.7); NEUTROPHILS % (AUTO) 56.8 % (40.0-77.0); NUCLEATED RED BLOOD CELLS 0.2 % (0.0-0.19); PLATELET COUNT (AUTO) 327 K/uL (130-400); RED CELL DISTRIBUTION WIDTH 17.9 % (11.0-15.5); WHITE BLOOD COUNT (AUTO) 9.7 K/uL (4.8-10.8)
[2024-05-21] MEDS: morPHINE 4 MG SYG IVP ONE (05:18)
[2024-05-21 05:19] LABS: CREATININE 7.6 mg/dL (0.5-1.0); POTASSIUM 5.3 mmol/L (3.5-5.1)
[2024-05-21 05:23] LABS: MAGNESIUM 2.1 mg/dL (1.80-2.40)
[2024-05-21] MEDS: NITROGLYCERIN 1GM OINT 1 INCH/1GM TD ONE ×2 (06:02→09:00)
--- NOTE | 2024-05-21 06:55 | ERN ---
General Chief Complaint: Hypertension Stated Complaint: PAIN TO DIALYSIS ACCESS R UPPER CHEST Time Seen by MD: 04:28 History of Present Illness Initial Comments Ms. Blanca is a very pleasant 38-year-old female significant past medical history of end-stage renal disease, hypertension, anxiety, GERD presents today with a chief complaint of catheter pain. Patient reports that she has been experiencing pain over her dialysis catheter. Patient reports that she was at [facility] few weeks ago when there was some manipulation to her catheter. Patient reports that she has been experiencing increased pain and discomfort. She patient denies fever or chills Allergies: Coded Allergies: No Known Drug Allergies (Unverified Allergy, Unknown, 01/03/17) Home Meds Reported Medications Hydrocodone/Acetaminophen (Hydrocodon-Acetaminophen 5-325) 5 Mg-325 Mg Tablet, 1 TAB PO Q6HPRN PRN for pain for 5 Days, #10 TAB 0 Refills 04/05/24 Albumin Human (Albumin (Human) 25%) 25 % Iv.soln, 50 ML IV QMOWEFR, ML 04/05/24 Fentanyl (Fentanyl) 25 Mcg/Hour Patch.td72, 1 PATCH TP Q3D for 6 Days, #2 PATCH 0 Refills 04/05/24 Famotidine (Pepcid) 20 Mg Tablet, 1 TAB PO Q48H for 30 Days, #60 TAB 0 Refills 04/05/24 Meropenem (Meropenem) 1 Gram Vial, 1 GM IV AM, VIAL 04/05/24 Vancomycin HCl (Vancomycin HCl) 750 Mg Vial, 750 MG IV QMOWEFR, VIAL 04/05/24 Pregabalin (Pregabalin) 25 Mg Capsule, 1 CAP PO AM MDD 2 Capsule(s) for 30 Days, #60 CAP 0 Refills 04/05/24 Lidocaine HCl (Lidocaine HCl) 4 % Adh..patch, 1 PATCH TP DAILY for 10 Days, #10 PATCH 0 Refills 04/05/24 Trazodone HCl (Trazodone HCl) 100 Mg Tablet, 1 TAB PO HS for 30 Days, #30 TAB 0 Refills 04/05/24 Alprazolam (Xanax) 0.5 Mg Tablet, 1 TAB PO BID PRN for anxiety for 30 Days, #60 TAB 0 Refills 04/05/24 Lisinopril (Lisinopril) 40 Mg Tablet, 1 TAB PO DAILY for 30 Days, #30 TAB 0 Refills 04/05/24 Amlodipine Besylate (Norvasc) 5 Mg Tablet, 2 TAB PO BID for 30 Days, #30 TAB 0 Refills 04/05/24 Famotidine (Pepcid) 20 Mg Tablet, 1 TAB PO BID for 30 Days, #60 TAB 0 Refills 04/05/24 Hydralazine HCl (Hydralazine HCl) 20 Mg/Ml Vial, 5 MG IV Q4PRN, VIAL 04/05/24 Diphenhydramine HCl (Diphenhydramine HCl) 25 Mg Capsule, 25 MG PO TIDP PRN for ITCHING, CAP 04/05/24 Docusate Sodium (Docusate Sodium) 100 Mg Capsule, 1 CAP PO BID PRN for CONSTIPATION for 7 Days, #14 CAP 0 Refills 04/05/24 Ondansetron HCl (Ondansetron HCl) 4 Mg/5 Ml Solution, 2 ML PO Q6HPRN PRN for NAUSEA for 2 Days, #15 ML 0 Refills 04/05/24 Nitroglycerin (Nitroglycerin) 0.4 Mg Tab.subl, 1 TAB SL AD PRN for CHEST PAIN, #25 TAB 0 Refills 1st sign of attack; may repeat every 5 mins; if pain persists after 3 in 15 min, medical attention is recommended 04/05/24 Aspirin (Aspirin) 325 Mg Tablet, 325 MG PO AM PRN for CHEST PAIN, TAB 04/05/24 Past Medical History Past Medical History: Diabetes-Type II, High Cholesterol, Hypertension, Renal Disese, Renal Failure Medical History Other: MRSA Past Surgical History: , LAVA Surgical History Other: ABD I/D Family History Family History: Negative Social History Social History: Drugs, Negative Female( History) History: Not Applicable ROS Dictation Constitutional: Negative for fever,chills, and weight loss Eyes: Negative for injury, pain,redness, and discharge ENT: Negative for injury,pain or swelling Cardiovascular: Negative for chest pain, palpitations, and edema Respiratory: Negative for shortness of breath, cough, and wheezing, Abdomen/GI: Negative for abdominal pain, nausea, vomiting, diarrhea, and constipation Back: Negative for injury and pain : Negative for injury, bleeding and discharge MS/Extremity: Pain at the catheter site Skin: Negative for rash, and discoloration Neuro: Negative for headache, weakness, numbness, tingling, and seizure Psych: Negative for suicide ideation, homicidal ideation, and hallucinations Physical Exam Physical Exam Dictation General: 38-year-old female who appears to be in discomfort Head/Face: Normocephalic, atraumatic Eyes: PERRL ENT: oral cavity clear Neck: Trachea midline, supple Cardiovascular: RRR, normal S1/S2, No MRGs, no JVD Respiratory: CTAB, no respiratory distress, No rales or wheezes Abdomen: Soft, non-tender, non-distended Skin: Dialysis catheter site has some clear drainage. No evidence of pus pain around the location MS/Extremity: Right [id number] amputation Neuro: COAx4 Results Laboratory and Microbiology Lab and Micro Result Laboratory Tests Test 05/21/24 05:03 05/21/24 05:40 White Blood Count 9.7 K/uL (4.8-10.8) Red Blood Count 3.50 MIL/uL (4.00-5.50) L Hemoglobin 10.0 g/dL (12.0-16.0) L Hematocrit 30.4 % (36-48) L Mean Corpuscular Volume 86.9 fL (79-99) Mean Corpuscular Hemoglobin 28.6 pg (27.0-33.0) Mean Corpuscular Hemoglobin Concent 32.9 g/dL (32.0-36.0) Red Cell Distribution Width 17.9 % (11.0-15.5) H Platelet Count 327 K/uL (130-400) Mean Platelet Volume 10.3 fL (7.5-10.5) Immature Granulocyte % (Auto) 0.7 % (0-1) Neutrophils (%) (Auto) 56.8 % (40.0-77.0) Lymphocytes (%) (Auto) 32.9 % (21.0-51.0) Monocytes (%) (Auto) 5.8 % (3.0-13.0) Eosinophils (%) (Auto) 3.4 % (0.0-8.0) Basophils (%) (Auto) 0.4 % (0.0-5.0) Neutrophils # (Auto) 5.5 K/uL (1.8-7.7) Lymphocytes # (Auto) 3.2 K/uL (1.0-4.8) Monocytes # (Auto) 0.6 K/uL (0.1-1.0) Eosinophils # (Auto) 0.33 K/uL (0.00-0.70) Basophils # (Auto) 0.04 K/uL (0.00-0.20) Absolute Immature Granulocyte (auto 0.07 K/uL (0-1) Nucleated Red Blood Cells 0.2 % (0.0-0.19) H Sodium Level 144 mmol/L (136-145) Potassium Level 5.3 mmol/L (3.5-5.1) H Chloride Level 104 mmol/L (101-111) Carbon Dioxide Level 27 mmol/L (21-32) Blood Urea Nitrogen 73 mg/dL (7-18) H Creatinine 7.6 mg/dL (0.5-1.0) H Glomerular Filtration Rate Calc 7 mL/min (>90) Random Glucose 163 mg/dL (70-105) H Total Calcium 7.8 mg/dL (8.5-10.1) L Magnesium Level 2.10 mg/dL (1.80-2.40) Triglycerides Level 99 mg/dL (30-200) Cholesterol Level 185 mg/dL (<200) # LDL Cholesterol 104 mg/dL (0-99) H HDL Cholesterol 52 mg/dL (35-85) Troponin I < 0.05 ng/mL (0.00-0.05) MDM Pt admitted for dialysis and blood pressure control ED Course Orders Procedure Category Date Status Time Cbc With Differential LAB 05/21/24 Complete 04:33 Lipid Panel LAB 05/21/24 Complete 04:33 Chest 1vw RAD 05/21/24 Taken 04:33 Lactated Ringers PHA 05/21/24 Complete 1000ml (Lactated 05:00 Nitroglycerin 1gm PHA 05/21/24 Complete Oint (Nitroglycerin 1g 05:00 Morphine 4mg Syg PHA 05/21/24 Complete (Morphine 4mg Syg) 05:00 Magnesium LAB 05/21/24 Complete 04:33 Troponin Poc Order LAB 05/21/24 Complete Only 04:33 Basic Metabolic Panel LAB 05/21/24 Complete 04:33 Us Chest Wall Soft US 05/21/24 Taken Tissue 05:19 Current Medications Medications (Trade) Dose Ordered Sig/Balwinder Route PRN Reason Start Time Stop Time Status Last Admin Dose Admin Lactated Ringer's 1,000 ml @ 0 mls/hr ONCE ONCE IV 05/21/24 05:00 05/21/24 05:01 DC Morphine Sulfate (morPHINE 4MG SYG) 4 mg ONCE ONCE IVP 05/21/24 05:00 05/21/24 05:01 DC 05/21/24 05:18 Nitroglycerin (Nitroglycerin 1gm Oint) 1 inch ONCE ONCE TD 05/21/24 05:00 05/21/24 05:01 DC Vital Signs Date Time Temp Pulse Resp B/P (MAP) Pulse Ox O2 Delivery O2 Flow Rate FiO2 05/21/24 07:57 98.1 63 12 164/76 96 Room Air* 0 21 05/21/24 05:54 67 12 166/78 68 Room Air* 0 21 05/21/24 04:23 98.6 71 20 187/123 96 Room Air 0 05/21/24 04:23 98.6 71 20 187/123 96 Room Air* 0 21 DX & DISP Disposition: Inpatient Decision to Admit Date: May 21, 2024 Decision to Admit Time: 08:18 Departure Impression: Primary Impression: ESRD (end stage renal disease) Additional Impression: Hypertensive urgency Condition: Stable Referrals: MARTY VENTURA MD (PCP) RAHEL VILLEGAS MD May 21, 2024 06:55 KAYLA HOOD MD May 21, 2024 08:19
--- NOTE | 2024-05-21 08:19 | HMCIMG ---
US CHEST WALL SOFT TISSUE REASON: evaluate for abscess under dialysis cath COMPARISON: None TECHNIQUE: Chest wall ultrasound was performed on the right with attention to the course of the dialysis catheter. FINDINGS: Dialysis catheter was visualized. There are no surrounding fluid collections to suggest abscess. IMPRESSION: 1. No evidence of abscess around the indwelling dialysis catheter.
--- NOTE | 2024-05-21 08:29 | HMCIMG ---
CHEST 1VW REASON: chest pain COMPARISON: 04/12/2024 FINDINGS: There is mild cardiomegaly. There is no pulmonary vascular congestion. Lungs are clear. There is a right-sided PermCath in good position. IMPRESSION: 1. Stable mild cardiomegaly, no acute finding.
[2024-05-21] MEDS ORDERED: acetaMINOPHEN 650 MG SUPPOSITORY RC PRN (08:30)
[2024-05-21] MEDS ORDERED: VANCOMYCIN PROTOCOL PER PHARMACY IV SCH (08:30)
--- NOTE | 2024-05-21 08:40 | NUR ---
NEPHROLOGY CONSULT: PATIENT REPORT GIVEN TO DR MARVIN.
--- NOTE | 2024-05-21 08:43 | HP ---
[facility] HISTORY & PHYSICAL Date Patient Seen: May 21, 2024 Time of Visit: 08:43 Supervising Physician: Israel Grant MD Primary Care Physician: [ ] Outpatient Specialists: [ ] Inpatient Consults: [ ] PROBLEM LIST: Hypertensive urgency, POA Pain to Rt chest wall PermCath POA ESRD may need a HD via Parm Cath M,W, F Nonfunctional LAVA to left arm Normocytic anemia likely from chronic illness, POA Troponinemia from ESRD, POA Hyperglycemia in the presence of type 2 diabetes mellitus, POA Acinetobacter infection to right BKA per culture on 05/17/24, POA Hyperlipidemia Diabetic neuropathy Moderate pulmonary hypertension with a RVSP of 49 mm Hg on 08/24/20 2D echo Diastolic heart failure with EF of 45-50% on 2D echo 08/24/20 Moderate mitral regurgitation on 2D echo 08/24/20 HPI: This is a 38-year-old chronically ill female with a past medical history of hypertension, type 2 diabetes mellitus uncontrolled, hyperlipidemia, ESRD on hemodialysis on Wednesdays and Fridays, and 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 Remarkable labs for H&H of 10/30.4 and a platelet count of [id number]. Per ED requesting patient to be admitted for chest pain , hypertensive urgency, and chest pain. On arrival to emergency department blood pressure 187/123 trending down to 178/73 with a heart rate in the 70s respiratory rate of 14 saturating 100% at room air and afebrile. On chemistry labs consistent with her CKD with a a potassium of 5.3 BUN of 73 creatinine 7.6 random glucose 163 mg/dL total calcium of 7.8 troponin less than 0.05 sensitive troponin 59.63 likely from ESRD serum was negative. She was seen and examined in the ED Rm. He is awake alert and oriented x3 accompanied by her significant other who is at the bedside. She reports pain to her right side of the chest by the PermCath per ED physician ultrasound of the right chest wall was done to assess for abscess and none noted. There is no dressing to the PermCath and unkempt. Patient reports that the pain is on and off after catheter was manipulated a few weeks ago while admitted at the [facility]. She reports the pain is 7/10 and it comes and go not constant. Patient also with the current blood pressure of 170/78 on the monitor at bedside and she reports she has been taking all her medications as prescribed. She also has a dressing to the right non healing BKA that was changed yesterday of the wound care center as per pt. Nephrology was consulted who plans to do hemodialysis today. I in four patient of the reason for the admission and plan of care patient and significant other in agreement. PAST MEDICAL HX: Type 2 diabetes mellitus, Hypertension Hyperlipidemia ESRD Hemodialysis on Wednesdays and Fridays Diabetic foot ulcer Right BKA wound infection Diabetic neuropathy PAST SURGICAL HX: See suctioned Lava PermCath right chest wall Right amputation SOCIAL HISTORY: History of marijuana abuse No tobacco, ETOH, Coded Allergies: No Known Drug Allergies (Unverified Allergy, Unknown, 01/03/17) REVIEW OF SYSTEMS: General: No malaise or fever. Neurological: No fainting episodes or seizures. HEENT: No nasal congestion or nasal secretion. Respiratory: Yes to shortness of breath on exertion, no cough no wheezing Cardiac: No chest pain or palpitations. Pain to right chest wall who PermCath site. Gastrointestinal: No vomiting or diarrhea. Genitourinary: No dysuria hematuria. Skin: No rashes or lesions. Hematological: No bruises or bleeding. Musculoskeletal: No joint pains or arthralgias. Yes to nonhealing right BKA Psychiatric: No depression or panic attacks. PHYSICAL EXAM: GENERAL: alert, weak, awake oriented x 3 HEENT: EOMI, Sclera non icteric, moist mucosa NECK: Supple, no JVD, trachea midline LUNGS: Diminished breath sounds bilaterally. No wheezes HEART: Regular rate and rhythm. Normal S1 and S2, without murmurs ABD: Abdomen soft, nontender. Bowel sounds present EXT: No clubbing cyanosis, dressing to right BKA NEURO: Alert and oriented to person, follows commands Vital Signs (last 8hr) Date Time Temp Pulse Resp B/P (MAP) Pulse Ox O2 Delivery O2 Flow Rate FiO2 05/21/24 07:57 98.1 63 12 164/76 96 Room Air* 0 21 05/21/24 05:54 67 12 166/78 68 Room Air* 0 05/21/24 04:23 98.6 71 20 187/123 96 Room Air 0 05/21/24 04:23 98.6 71 20 187/123 96 Room Air* 0 21 LABS: Hematology Labs: Test 05/21/24 05:03 Range/Units White Blood Count 9.7 4.8-10.8 K/uL Red Blood Count 3.50 L 4.00-5.50 MIL/uL Hemoglobin 10.0 L 12.0-16.0 g/dL Hematocrit 30.4 L 36-48 % Mean Corpuscular Volume 86.9 79-99 fL Mean Corpuscular Hemoglobin 28.6 27.0-33.0 pg Mean Corpuscular Hemoglobin Concent 32.9 32.0-36.0 g/dL Red Cell Distribution Width 17.9 H 11.0-15.5 % Platelet Count 327 130-400 K/uL Mean Platelet Volume 10.3 7.5-10.5 fL Immature Granulocyte % (Auto) 0.7 0-1 % Neutrophils (%) (Auto) 56.8 40.0-77.0 % Lymphocytes (%) (Auto) 32.9 21.0-51.0 % Monocytes (%) (Auto) 5.8 3.0-13.0 % Eosinophils (%) (Auto) 3.4 0.0-8.0 % Basophils (%) (Auto) 0.4 0.0-5.0 % Neutrophils # (Auto) 5.5 1.8-7.7 K/uL Lymphocytes # (Auto) 3.2 1.0-4.8 K/uL Monocytes # (Auto) 0.6 0.1-1.0 K/uL Eosinophils # (Auto) 0.33 0.00-0.70 K/uL Basophils # (Auto) 0.04 0.00-0.20 K/uL Absolute Immature Granulocyte (auto 0.07 0-1 K/uL Nucleated Red Blood Cells 0.2 H 0.0-0.19 % Chemistry Labs: Test 05/21/24 05:40 05/21/24 05:03 Range/Units Troponin I < 0.05 0.00-0.05 ng/mL Sodium Level 144 136-145 mmol/L Potassium Level 5.3 H 3.5-5.1 mmol/L Chloride Level 104 101-111 mmol/L Carbon Dioxide Level 27 21-32 mmol/L Blood Urea Nitrogen 73 H 7-18 mg/dL Creatinine 7.6 H 0.5-1.0 mg/dL Glomerular Filtration Rate Calc 7 >90 mL/min Random Glucose 163 H 70-105 mg/dL Total Calcium 7.8 L 8.5-10.1 mg/dL Magnesium Level 2.10 1.80-2.40 mg/dL Triglycerides Level 99 30-200 mg/dL Cholesterol Level 185 # <200 mg/dL LDL Cholesterol 104 H 0-99 mg/dL HDL Cholesterol 52 35-85 mg/dL DIAGNOSTICS / RADIOLOGY RESULTS: [ ] IMAGING REPORT Signed PATIENT: MAGUI ANTHONY MR#: [id number] : 1985 SEX: F AGE: 38 LOCATION: [facility] ORDER 5 STATUS: REG ER REPORT#: [id number] SERVICE 2 REASON: chest pain ORDERING PHYSICIAN: RAHEL VILLEGAS MD PROCEDURE: CXR1VW - CHEST 1VW CHEST 1VW REASON: chest pain COMPARISON: 04/12/2024 FINDINGS: There is mild cardiomegaly. There is no pulmonary vascular congestion. Lungs are clear. There is a right-sided PermCath in good position. IMPRESSION: 1. Stable mild cardiomegaly, no acute finding. DICTATED BY: ALEIDA PERALTA MD DATE: 05/21/24824 ELECTRONICALLY SIGNED BY: ALEIDA PERALTA MD DATE: 05/21/24828 Signed PATIENT: MAGUI ANTHONY MR#: [id number] : 1985 SEX: F AGE: 38 LOCATION: [facility] ORDER 9 STATUS: REG ER REPORT#: [id number] SERVICE 8 REASON: evaluate for abscess under dialysis cath ORDERING PHYSICIAN: RAHEL VILLEGAS MD PROCEDURE: CHEST SCAN - US CHEST WALL SOFT TISSUE US CHEST WALL SOFT TISSUE REASON: evaluate for abscess under dialysis cath COMPARISON: None TECHNIQUE: Chest wall ultrasound was performed on the right with attention to the course of the dialysis catheter. FINDINGS: Dialysis catheter was visualized. There are no surrounding fluid collections to suggest abscess. IMPRESSION: 1. No evidence of abscess around the indwelling dialysis catheter. DICTATED BY: ALEIDA PERALTA MD DATE: 05/21/24815 ELECTRONICALLY SIGNED BY: ALEIDA PERALTA MD DATE: 05/21/24818 PLAN Admit to [facility] NEURO: Minimize central acting medications as possible. Maintain fall precautions, adequate lighting during the day PULMONARY: Supplemental 02 as needed. Maintain aspiration precautions at all times Maintain O2 sats above 92% CARDIOVASCULAR: Follow hemodynamics. Vital signs per facility protocol GI & NUTRITION: Continue with nutritional support. Continue stool softeners and laxatives as needed. Renal dialysis diet KIDNEYS & ELECTROLYTES: Strict monitoring of intake, output and overall fluid balance. Avoid nephrotoxic medications to the extent possible. Medications to be dosed according to renal function. Monitor electrolytes and replace as needed Consult nephrology and follow recommendations for HD ENDOCRINE: Maintain blood glucose between 100-180 at all times. Hypoglycemia protocol in place ISS Hypoglycemia protocol INFECTIOUS DISEASE: Trend temperature, WBC and procalcitonin level Follow cultures, deescalate antibiotics as soon as possible. Panculture if new onset fever Consult ID for Acinetobacter BKA infection ONCOLOGY/HEMATOLOGY/COAGULATION: Monitor for s/s of bleeding Monitor hemoglobin, coagulation studies as needed SKIN: Pressure ulcer prevention per facility protocol Specialty mattress Wound care ORTHO/REHAB: Continue PT/OT Prophylaxis: Continue GI and DVT prophylaxis Code Status: Full Resuscitation Disposition: TBD Other: Total patient care time exceeds 45 minutes excluding all procedures. MIKEL CHANDLER [facility] May 21, 2024 08:43
[2024-05-21] MEDS: polyETHYLene GLYCol 3350 17 GM POWD.PACK PO SCH (09:00)
--- NOTE | 2024-05-21 09:03 | NUR ---
ELECTROPHONIC ENGINEER INFORMED OR PERMACATH REPLACEMENT ORDER
--- NOTE | 2024-05-21 09:05 | NUR ---
DIALYSIS TEAM MADE AWARE OF INPATIENT DIALYSIS ORDER
--- NOTE | 2024-05-21 09:20 | NUR ---
WOUND CARE: PATIENT REPORT GIVEN TO DR CACERES
[2024-05-21] MEDS: ZOSYN 3.375GM +NS 50ML IV SCH (09:41)
[2024-05-21] MEDS: ASPIRIN 81MG CHEW TAB PO SCH (09:42)
[2024-05-21] MEDS: NA ZIRCON CYCLOSIL(LOKELMA 10GM) PO ONE (09:42)
[2024-05-21] MEDS: PANTOPrazole 40 MG TAB DR PO SCH (09:42)
[2024-05-21] MEDS: hydroMORPHone 0.5 MG SYG (0.5MG/0.5ML) IVP PRN (10:33)
[2024-05-21] MEDS: SODIUM CHLORIDE 3% FOR INHALATION 4 ML/AMP VIAL.NEB IH ONE ×3 (10:39→19:04)
[2024-05-21] MEDS: INSULIN humuLIN R 100 UNIT/ML 3ML SQ SCH (11:30)
[2024-05-21] MEDS: VANCOMYCIN 1.25 GM/250 ML BAG 250 ML IV ONE (11:37)
--- NOTE | 2024-05-21 13:20 | CONS ---
CONSULTATION NOTE Date of Service: May 21, 2024 Reason for Consultation: [ ] Requesting Physician: [ ] HISTORY OF PRESENT ILLNESS: [ 05/21/24 This is a 38-year-old chronically ill female with a past medical history of hypertension, type 2 diabetes mellitus uncontrolled, hyperlipidemia, ESRD on hemodialysis on Wednesdays and Fridays, and 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 Per ED requesting patient to be admitted for chest pain , hypertensive urgency, and chest pain. Primary nurse to assist was Brii. Family was present during visit. Patient is being seen in [facility]. Wound culture was performed during last visit. ] REVIEW OF SYSTEMS General: No malaise or fever. Neurological: No fainting episodes or seizures. HEENT: No nasal congestion or nasal secretion. Respiratory: Yes to shortness of breath on exertion, no cough no wheezing Cardiac: No chest pain or palpitations. Pain to right chest wall who PermCath site. Gastrointestinal: No vomiting or diarrhea. Genitourinary: No dysuria hematuria. Skin: No rashes or lesions. Hematological: No bruises or bleeding. Musculoskeletal: No joint pains or arthralgias. Yes to nonhealing right BKA Psychiatric: No depression or panic attacks. PAST MEDICAL HISTORY: [ Type 2 diabetes mellitus, Hypertension Hyperlipidemia ESRD Hemodialysis on Wednesdays and Fridays Diabetic foot ulcer Right BKA wound infection Diabetic neuropathy ] PAST SURGICAL HISTORY: [ ] PAST SOCIAL HISTORY: [ History of marijuana abuse No tobacco, ETOH, ] FAMILY HISTORY: [Negative ] Coded Allergies: No Known Drug Allergies (Unverified Allergy, Unknown, 01/03/17) PHYSICAL EXAM GENERAL: alert, weak, awake oriented x 3 HEENT: EOMI, Sclera non icteric, moist mucosa NECK: Supple, no JVD, trachea midline LUNGS: Diminished breath sounds bilaterally. No wheezes HEART: Regular rate and rhythm. Normal S1 and S2, without murmurs ABD: Abdomen soft, nontender. Bowel sounds present EXT: No clubbing cyanosis, dressing to right BKA NEURO: Alert and oriented to person, follows commands SKIN: RIGHT LOWER EXTREMITY NONHEALING BKA, DEHISCED TENDON EXPOSURE OF SURGICAL WOUND Vital Sign (Last 24 Hours) 05/21/24 05/21/24 10:19 11:00 Temp 98.8 Pulse 65 Resp 18 B/P (MAP) 169/82 Pulse Ox 98 O2 Delivery Room Air O2 Flow Rate 0 FiO2 21 LABS: Laboratory: Test 05/21/24 11:20 05/21/24 09:15 05/21/24 09:12 05/21/24 05:40 Range/Units Whole Blood Glucose 128 H 70-110 MG/DL Total Creatine Kinase 50 # 21-232 U/L Troponin I High Sensitivity 59.6 *H 4-50 ng/L Serum Test, Qualitative NEGATIVE NEGATIVE Troponin I < 0.05 0.00-0.05 ng/mL Test 05/21/24 05:03 Range/Units White Blood Count 9.7 4.8-10.8 K/uL Red Blood Count 3.50 L 4.00-5.50 MIL/uL Hemoglobin 10.0 L 12.0-16.0 g/dL Hematocrit 30.4 L 36-48 % Mean Corpuscular Volume 86.9 79-99 fL Mean Corpuscular Hemoglobin 28.6 27.0-33.0 pg Mean Corpuscular Hemoglobin Concent 32.9 32.0-36.0 g/dL Red Cell Distribution Width 17.9 H 11.0-15.5 % Platelet Count 327 130-400 K/uL Mean Platelet Volume 10.3 7.5-10.5 fL Immature Granulocyte % (Auto) 0.7 0-1 % Neutrophils (%) (Auto) 56.8 40.0-77.0 % Lymphocytes (%) (Auto) 32.9 21.0-51.0 % Monocytes (%) (Auto) 5.8 3.0-13.0 % Eosinophils (%) (Auto) 3.4 0.0-8.0 % Basophils (%) (Auto) 0.4 0.0-5.0 % Neutrophils # (Auto) 5.5 1.8-7.7 K/uL Lymphocytes # (Auto) 3.2 1.0-4.8 K/uL Monocytes # (Auto) 0.6 0.1-1.0 K/uL Eosinophils # (Auto) 0.33 0.00-0.70 K/uL Basophils # (Auto) 0.04 0.00-0.20 K/uL Absolute Immature Granulocyte (auto 0.07 0-1 K/uL Nucleated Red Blood Cells 0.2 H 0.0-0.19 % Sodium Level 144 136-145 mmol/L Potassium Level 5.3 H 3.5-5.1 mmol/L Chloride Level 104 101-111 mmol/L Carbon Dioxide Level 27 21-32 mmol/L Blood Urea Nitrogen 73 H 7-18 mg/dL Creatinine 7.6 H 0.5-1.0 mg/dL Glomerular Filtration Rate Calc 7 >90 mL/min Random Glucose 163 H 70-105 mg/dL Total Calcium 7.8 L 8.5-10.1 mg/dL Magnesium Level 2.10 1.80-2.40 mg/dL Triglycerides Level 99 30-200 mg/dL Cholesterol Level 185 # <200 mg/dL LDL Cholesterol 104 H 0-99 mg/dL HDL Cholesterol 52 35-85 mg/dL DIAGNOSTICS / RADIOLOGY: [ ] ASSESSMENT: [RIGHT LOWER EXTREMITY NONHEALING BKA ] PLAN: [MEDIHONEY W/ DRESSING ] ESTRADA GONZALEZ May 21, 2024 13:20
--- NOTE | 2024-05-21 14:09 | NUR ---
WOUND PICTURE TO RIGHT BKA STUMP AND LEFT LATERAL FOOT TAKE PER PROTOCOL. VIEW FLOOR TABLET FOR WOUNDS IMAGES.
[2024-05-21] MEDS: 0.9%NACL 1000ML 1,000 ML IV SCH (15:11)
--- NOTE | 2024-05-21 15:21 | NUR ---
[facility] Consult: Patient assessed by wound healing team. See wound assessment. Assessment and recommendations provided to primary nurse. Education provided. Wound care done. Addendum: 05/22/24 at 1653 by GOLDY MUNGUIA RN RN/ Amended: Links added.
[2024-05-21] MEDS: hydrALAZine 20MG/ML VIAL IV PRN (15:58)
[2024-05-21 16:13] LABS: INR 1.01 (0.85-1.15); PROTHROMBIN TIME 10.9 SEC (9.6-11.6)
[2024-05-21] MEDS: TIGECYCLINE 100 MG in 0.9%NACL 100ML 100 ML IV ONE (16:14)
[2024-05-21 16:15] LABS: PARTIAL THROMBOPLASTIN TIME 27.6 SEC (26.3-35.5)
[2024-05-21] MEDS: EPOETIN ALFA-EPBX (NON-ESRD) 10,000 UNIT/ML VIAL SQ ONE (16:15)
[2024-05-21 16:18] LABS: CREATINE KINASE, TOTAL 54 U/L (21-232)
[2024-05-21] MEDS: DiphenhydrAMINE HCL 25 MG CAPSULE PO PRN (18:32)
--- NOTE | 2024-05-21 19:38 | CONS ---
REFERRING PHYSICIAN: Balta Buckley MD REASON FOR CONSULTATION: ESRD, PermCath infection. HISTORY OF PRESENT ILLNESS: A 38-year-old female with history of diabetes mellitus and hypertension. She has a history of vascular disease, status post recent BKA. The patient has a history of end-stage renal disease, on dialysis 3 times per week. The patient does receive dialysis via a PermCath. The patient's AV fistula has been clotted. She presented to the Emergency Room complaining of significant pain and discomfort to the PermCath site. The patient had blood cultures drawn and antibiotics have been initiated. The patient does receive dialysis on a Tuesday, Tuesday, Tuesday schedule and the patient is being seen in consultation for all the above. PAST MEDICAL HISTORY: Diabetes mellitus, hypertension, vascular disease and ESRD. PAST SURGICAL HISTORY: BKA, lower extremity arteriogram. SOCIAL HISTORY: She lives independently. There is no active tobacco use. FAMILY HISTORY: No renal disease in the family. ALLERGIES: There are no allergies. MEDICATIONS: Noted. REVIEW OF SYSTEMS: GENERAL: She is complaining of pain. HEENT: No change in vision. No change in hearing. CARDIOVASCULAR: There is no current chest pain or palpitations. PULMONARY: She denies shortness of breath. GASTROINTESTINAL: She had been tolerating a diet. MUSCULOSKELETAL: Complains of the pain. NEUROLOGIC: No seizures or focal deficits. PSYCHIATRIC: No history of hallucinations or psychosis. ENDOCRINE: Diabetes mellitus. No history of thyroid disease. HEME: History of anemia. No history of malignancy. PHYSICAL EXAMINATION: VITAL SIGNS: Blood pressure 164/76, pulse in the 60s. GENERAL: She is a chronically ill female, much older than appearing. HEENT: Head is atraumatic. Pupils equal, roving to light. Oropharynx is without exudate. Nares clear. NECK: There is no JVP. There is no thyromegaly, no mass. CARDIOVASCULAR: Regular. There is no S3, S4 gallop. LUNGS: Coarse with equal thoracic movement. ABDOMEN: Soft, nondistended, nontender. EXTREMITIES: Reveal no clubbing, no cyanosis. NEUROLOGICAL: She is awake. She is alert. She is oriented. SKIN: Reveals no rash or nodules. BACK: There is no CVA tenderness or back deformities. LABORATORY DATA: Sodium 144, potassium 5.3, BUN 73, creatinine 7. Hemoglobin 10, hematocrit 30. IMPRESSION: * Uncontrolled hypertension. * Hyperkalemia. * Diabetes mellitus. * Hypertension. * ____ pain. PLAN: The patient's blood cultures have been sent. The patient has been empirically started on the antibiotics. If blood cultures are positive, the patient's PermCath will need to be removed. I did discuss with the patient, will ultimately need a fistulogram with declot that can be done as an outpatient. The patient was treated with Lokelma for the hyperkalemia. The patient will receive dialysis on the day of this consultation and we will continue to follow the patient closely. The patient will be resumed on her pain medications. We will follow the patient closely. The patient and family at the bedside. Multiple questions were all answered. TID: [id number] RECEIPT: [id number]
--- NOTE | 2024-05-21 20:15 | NUR ---
patient found with swollen face and states she is experiencing itchiness and has bumps on head from allergic reaction. Patient's states she has experienced allergic reactions after dialysis before. Nettie NEW PATIENT ESCORT called for orders and orders received, patient is not in any respiratory distress, will carry out orders and continue to monitor.
[2024-05-21] MEDS: FAMOTIDINE 20MG VIAL IV ONE (21:12)
[2024-05-21] MEDS: Solu-medROL 125MG VIAL IVP ONE (21:12)
--- NOTE | 2024-05-21 21:45 | NUR ---
RECEIVED PT RECEIVED FROM PCCU NURSE ALEXI, PLACED IN ROOM 329. PT IS AAOX4, CONVERSANT AND COHERENT. PT STILL SCRATCHING HERSELF AND THE FACE IS STILL RED AND SWOLLEN. PLACED COMFORTABLY IN BED WITH HOB ELEVATED. ASSESSMENT DONE, PLEASE REFER TO CHART. PENDING MEDS ADMINISTERED, TOLERATED WELL. ORIENTED TO ROOM AND UNIT. FALL PRECAUTIONS IN PLACE, BED ALARM ACTIVATED, SIDE RAILS UP AND CALL LIGHT WITHIN REACH. FAMILY AT BEDSIDE. IN FOR MORE CARE AND MANAGEMENT.
[2024-05-21] MEDS: DiphenhydrAMINE HCL 50 MG/ML VIAL IV ONE (22:03)
[2024-05-21] MEDS: amLODIPine 5 MG TAB PO SCH (22:03)
[2024-05-21] MEDS: trAZOdone HCL 100 MG TABLET PO SCH (22:03)
[2024-05-22] VITALS (10 sets, daily range): BP systolic 134–199; BP diastolic 74–102; PULSE 71–98; RESP 14–18; TEMP 98.3–98.9; O2SAT 97–99
[2024-05-22] MEDS ORDERED: DIPHENHYDRAMINE HCL 25 MG PO PRN (02:30)
[2024-05-22] MEDS: TIGECYCLINE 50 MG in 0.9%NACL 100ML 100 ML IV SCH (04:01)
[2024-05-22 04:22] LABS: HEPATITIS B SURFACE ANTIGEN Non-Reactive (Nonreactive)
--- NOTE | 2024-05-22 05:15 | NUR ---
N/V PT'S PIV IS INFILTRATED, DISCONTINUED PIV WITH CATHETER INTACT. PT HAD AN EPISODE OF EMESIS. PIV RE-INSERTED G20 TO RT HAND, TOLERATED WELL. ICE CHIPS PROVIDED TO TAKE.
--- NOTE | 2024-05-22 05:40 | NUR ---
PAGED PT STILL HAVING A LOT OF NAUSEA AT THIS TIME. PAGED REIMBURSEMENT COUNSELOR STUDIO GRIP FOR BENCHMARK VIA ANSWERING SERVICE. SHAMIKA ROMANO CALLED BACK AND REFERRED PT'S N/V. REIMBURSEMENT COUNSELOR STATED WILL ORDER MEDS FOR PT. PLEASE REFER TO CPOE.
[2024-05-22] MEDS: PROCHLORPERAZINE 10MG/2ML INJ IV STA (05:56)
--- NOTE | 2024-05-22 05:56 | CONS ---
INFECTIOUS DISEASE CONSULTATION NOTE DATE OF SERVICE: 05/21/2024 REQUESTING PHYSICIAN: Angie Read NP REASON FOR CONSULTATION: Right below-knee stump infection. HISTORY OF PRESENT ILLNESS: This is a 38-year-old female with history of diabetes mellitus, ESRD, on dialysis, and anxiety disorder, who was brought to the hospital with chest pain. The patient complained of pain to the Perm-A-Cath site on the right chest wall. No erythema, no drainage from the catheter site. The patient also found to have ulcer to the right below-knee stump. [facility] came back positive for Acinetobacter baumannii, which is MDR-A. No fever or chills. No diarrhea, no abdominal pain. PAST MEDICAL HISTORY: * ESRD, on dialysis. * Hypertension. * Anxiety disorder. * GERD. * Diabetes mellitus. * Right foot gangrene and osteomyelitis. * Left foot ulcer. PAST SURGICAL HISTORY: * section. * AV fistula. * Right BKA * Right foot wound debridement. ALLERGIES: No known drug allergy. CURRENT MEDICATIONS: Include: * Vancomycin. * Zosyn. SOCIAL HISTORY: . No alcohol, tobacco or illicit drug use. FAMILY HISTORY: Positive for diabetes mellitus. REVIEW OF SYSTEMS: Greater than 10 systems were reviewed, negatives as documented above. PHYSICAL EXAMINATION: GENERAL: Young female, awake. VITAL SIGNS: Temperature 98.1, pulse 79, respiratory rate 20, BP 178/73. EYES: No icterus. No conjunctival hemorrhage. HENT: No oral thrush seen. Moist oral mucosa. NECK: Supple, no JVD or thyromegaly. LUNGS: Good air entry. No rales, no rhonchi. CARDIOVASCULAR: S1, S2 regular. No murmur heard. ABDOMEN: Full, soft, nontender. Bowel sounds present. CENTRAL NERVOUS SYSTEM: Awake, alert, oriented x 3. No focal deficits. SKIN: No rashes, no itchiness. LYMPHATIC: There is inguinal lymphadenopathy. BACK: No deformity, no pressure ulcer. EXTREMITIES: Right below-knee stump amputation. No purulent drainage. Ulcer involving the lateral aspect of the left foot. LABORATORY DATA: Sodium 144, potassium 5.2, BUN 73, creatinine 7.6. WBC 9.7, hemoglobin 10.0, platelet 127. RADIOLOGY: Sonogram unremarkable. Chest x-ray unremarkable. ASSESSMENT: A 38-year-old female with multiple problems, which include: * Right below-knee stump ulcer and infection. * Left foot diabetic ulcer. * End-stage renal disease, on dialysis. * Hyperkalemia. * Infection with multidrug resistant organism. * Debility. PLAN: * Continue Zosyn. * Discontinue vancomycin. * Start the patient on Tigecycline. * Continue wound care. * Continue dialysis. * Continue pain management. * Continue nutritional support. * Continue DVT prophylaxis. * Monitor electrolytes and correct as needed. Thank you for allowing me to participate in the care of this patient. TID: [id number] RECEIPT: [id number] MTDD
[2024-05-22 08:16] LABS: BASOPHILS # (AUTO) 0.02 K/uL (0.00-0.20); BASOPHILS % (AUTO) 0.2 % (0.0-5.0); HEMATOCRIT 37.1 % (36-48); IMMATURE GRANULOCYTE ABSOLUTE 0.09 K/uL (0-1); LYMPHOCYTES % (AUTO) 9.8 % (21.0-51.0); MEAN CORPUSCULAR HEMOGLOBIN 27.7 pg (27.0-33.0); MEAN CORPUSCULAR HGB CONC 32.3 g/dL (32.0-36.0); MEAN CORPUSCULAR VOLUME 85.7 fL (79-99); MONOCYTES # (AUTO) 0.1 K/uL (0.1-1.0); MONOCYTES % (AUTO) 1.2 % (3.0-13.0); NEUTROPHILS % (AUTO) 87.9 % (40.0-77.0); NUCLEATED RED BLOOD CELLS 0.2 % (0.0-0.19); PLATELET COUNT (AUTO) 365 K/uL (130-400); RED BLOOD CELL COUNT(AUTO) 4.33 MIL/uL (4.00-5.50); RED CELL DISTRIBUTION WIDTH 18.1 % (11.0-15.5); WHITE BLOOD COUNT (AUTO) 10.2 K/uL (4.8-10.8)
[2024-05-22 08:26] LABS: INR 1.08 (0.85-1.15); PROTHROMBIN TIME 11.6 SEC (9.6-11.6)
[2024-05-22 08:27] LABS: PARTIAL THROMBOPLASTIN TIME 27.6 SEC (26.3-35.5)
[2024-05-22 08:37] LABS: CREATININE 6.3 mg/dL (0.5-1.0); PHOSPHORUS 8.3 mg/dL (2.5-4.9); POTASSIUM 4.5 mmol/L (3.5-5.1); THYROID STIMULATING HORMONE 7.15 uIU/mL (0.36-3.74)
[2024-05-22 08:47] LABS: B-TYPE NATRIURETIC PEPTIDE 3520 pg/mL (0-100)
[2024-05-22] MEDS: LISINOPRIL 40 MG TABLET PO SCH (09:52)
[2024-05-22 10:04] LABS: HEPATITIS B CORE AB TOTAL Non-Reactive (Nonreactive); HEPATITIS B SURFACE ANTIBODY Positive (Reactive)
[2024-05-22] MEDS ORDERED: COMPOUND IV MISC 1 EACH IVSOLN MISC PRN (12:00)
[2024-05-22] MEDS ORDERED: COMPOUND IV REFRIGERATED 1 EACH IVSOLN MISC PRN (12:00)
[2024-05-22] MEDS ORDERED: PHARMACY COMMUNICATION 1 EACH EACH MISC SCH (12:30)
--- NOTE | 2024-05-22 12:30 | PN ---
INFECTIOUS DISEASE PROGRESS NOTE Date of Service: May 22, 2024 SUBJECTIVE: This is a 38-year-old female patient with past medical history of recent right dlzas-bzg-cmxg amputation diabetes mellitus who was admitted to the hospital with chief complaint of pain to the PermCath site and hypotension. Patient was seen and examined at bedside in room 329. Patient is awake, alert and oriented. Patient reported feeling very nauseated. We will give Phenergan 12.5 mg IM x1 dose. Patient remains afebrile, temperature is 99.0 and the WBC is 10.2. No growth reported yet blood cultures. Patient will continue on Tygacil. Will continue to monitor patient. PHYSICAL EXAM EYES: Anicteric. Pupils equal and reactive. HENT: No oral thrush seen, moist Oral mucosa. NECK: Supple, no JVD or thyromegaly. LUNGS: Good air entry. No rales, no rhonchi. CARDIOVASCULAR: S1, S2 regular. No murmur heard. ABDOMEN: Soft, non tender, bowel sounds present, no organomegaly. CENTRAL NERVOUS SYSTEM: Awake, alert, oriented x 3. SKIN: No rashes, no swelling. Left foot diabetic ulcer. LYMPHATICS: No peripheral lymphadenopathy MUSCULOSKELETAL: No joint swelling, erythema or tenderness. EXTREMITIES: No cyanosis or clubbing. Right inthr-fgy-zbeo amputation. BACK: No deformity, no pressure ulcer. GENITOURINARY: No dysuria or hematuria. Vital Sign (Last 12 Hours) 05/22/24 05/22/24 05/22/24 05/22/24 04:00 08:00 08:00 12:00 Temp 98.2 98.2 99.0 Pulse 84 93 98 Resp 14 18 18 B/P (MAP) 146/83 184/96 181/96 Pulse Ox 98 99 99 98 O2 Delivery Room Air Room Air* Room Air O2 Flow Rate 0 FiO2 21 Intake & Output (last 24hrs) 05/21/24 05/21/24 05/22/24 15:00 23:00 07:00 Intake Total 400.0 ml 110.0 ml Output Total 3900 ml Balance -3500.0 ml 110.0 ml LABS: Laboratory: Test 05/22/24 10:39 05/22/24 08:11 05/21/24 20:12 05/21/24 09:12 Range/Units Whole Blood Glucose 220 H 70-110 MG/DL White Blood Count 10.2 4.8-10.8 K/uL Red Blood Count 4.33 4.00-5.50 MIL/uL Hemoglobin 12.0 12.0-16.0 g/dL Hematocrit 37.1 # 36-48 % Mean Corpuscular Volume 85.7 79-99 fL Mean Corpuscular Hemoglobin 27.7 27.0-33.0 pg Mean Corpuscular Hemoglobin Concent 32.3 32.0-36.0 g/dL Red Cell Distribution Width 18.1 H 11.0-15.5 % Platelet Count 365 130-400 K/uL Mean Platelet Volume 9.8 7.5-10.5 fL Immature Granulocyte % (Auto) 0.9 0-1 % Neutrophils (%) (Auto) 87.9 H 40.0-77.0 % Lymphocytes (%) (Auto) 9.8 L 21.0-51.0 % Monocytes (%) (Auto) 1.2 L 3.0-13.0 % Eosinophils (%) (Auto) 0.0 0.0-8.0 % Basophils (%) (Auto) 0.2 0.0-5.0 % Neutrophils # (Auto) 9.0 H 1.8-7.7 K/uL Lymphocytes # (Auto) 1.0 1.0-4.8 K/uL Monocytes # (Auto) 0.1 0.1-1.0 K/uL Eosinophils # (Auto) 0.00 0.00-0.70 K/uL Basophils # (Auto) 0.02 0.00-0.20 K/uL Absolute Immature Granulocyte (auto 0.09 0-1 K/uL Nucleated Red Blood Cells 0.2 H 0.0-0.19 % White Cell Morphology Comment See comments Red Blood Cell Morphology See comments Prothrombin Time 11.6 9.6-11.6 SEC Prothromb Time International Ratio 1.08 0.85-1.15 Activated Partial Thromboplast Time 27.6 26.3-35.5 SEC Sodium Level 138 136-145 mmol/L Potassium Level 4.5 3.5-5.1 mmol/L Chloride Level 96 L 101-111 mmol/L Carbon Dioxide Level 27 21-32 mmol/L Blood Urea Nitrogen 62 H 7-18 mg/dL Creatinine 6.3 H 0.5-1.0 mg/dL Glomerular Filtration Rate Calc 8 >90 mL/min Random Glucose 257 H 70-105 mg/dL Total Calcium 8.2 L 8.5-10.1 mg/dL Phosphorus Level 8.3 H 2.5-4.9 mg/dL Magnesium Level 2.00 1.80-2.40 mg/dL B-Type Natriuretic Peptide 3520 H 0-100 pg/mL Procalcitonin 0.34 0.05-0.5 ng/mL Thyroid Stimulating Hormone (TSH) 7.15 #H 0.36-3.74 uIU/mL Total Creatine Kinase 49 21-232 U/L Troponin I High Sensitivity 44.7 4-50 ng/L Serum Test, Qualitative NEGATIVE NEGATIVE Test 05/21/24 05:40 05/21/24 05:03 Range/Units Troponin I < 0.05 0.00-0.05 ng/mL Triglycerides Level 99 30-200 mg/dL Cholesterol Level 185 # <200 mg/dL LDL Cholesterol 104 H 0-99 mg/dL HDL Cholesterol 52 35-85 mg/dL Hepatitis B Surface Antigen. Non-Reactive Nonreactive Hepatitis B Surface Antibody. Positive Reactive Hepatitis B Core Total Antibody. Non-Reactive Nonreactive ASSESSMENT: Right lyrwy-suv-ilql stump ulcer and infection. Right xaikw-jqe-vajt stump wound dehiscence. Left foot diabetic ulcer. Infection with multidrug resistant organism. End-stage renal disease, on dialysis. Diabetes mellitus. Debility. Nausea or vomiting. PLAN: Give Phenergan 12.5 IM x1 dose. Continue Tygacil. Continue GI prophylaxis. We will follow up on the cultures. Continue dialysis as recommended by lime kiln worker. Continue monitoring glucose levels. Continue wound care. We will monitor electrolytes. This case was reviewed and discussed with my supervising physician and the above assessment and plan was formulated and agreed upon. ATTESTATION BY PHYSICIAN I have seen and examined the patient. I reviewed the documentation, medical decision making, and treatment plan as noted by the mid-level provider above. I agree with the findings and plan of care. GLORIA RICHTER MD, MIRTA L SEGMENT PRODUCER May 22, 2024 12:30
[2024-05-22] MEDS: PROMETHAZINE HCL 25 MG/ML 1ML AMPULE IM ONE (14:52)
[2024-05-22] MEDS: ALPRAZolam 1 MG TAB PO PRN (15:22)
--- NOTE | 2024-05-22 15:24 | PN ---
[facility] PROGRESS NOTE Date Patient Seen: May 22, 2024 Time of Visit: 15:17 Supervising Physician: KOREY BRAVO Primary Care Physician: MARTY VENTURA MD Outpatient Specialists: [ ] Inpatient Consults: DR. 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 The patient continues very deconditioned and weak. Currently denies any chest pain. She continues on IV antibiotics with Zosyn and tigecycline. Intermittent nausea is being experienced. Has not had a bowel movement today but was able to tolerate p.o. and states she feels as if she has to go. Infectious disease at this time has recommended 2-3 weeks of IV antibiotics. Glucose ranging in the 200s. REVIEW OF SYSTEMS: 12 Point ROS reviewed with patient and were positive only as per HPI. Pertinent + and negative listed above all others negative PHYSICAL EXAM: GENERAL: alert, weak, awake oriented x 3, weak and deconditioned, appearing much older than stated age HEENT: EOMI, Sclera non icteric, moist mucosa NECK: Supple, no JVD, trachea midline LUNGS: Diminished breath sounds bilaterally. No wheezes HEART: Regular rate and rhythm. Normal S1 and S2, without murmurs ABD: Abdomen soft, nontender. Bowel sounds present EXT: No clubbing cyanosis, dressing to right BKA NEURO: Alert and oriented to person, follows commands Vital Signs (last 8hr) Date Time Temp Pulse Resp B/P (MAP) Pulse Ox O2 Delivery O2 Flow Rate FiO2 05/22/24 12:00 99.0 98 18 181/96 98 Room Air 05/22/24 08:00 98.2 93 18 184/96 99 05/22/24 08:00 99 Room Air* 0 21 LABS: Hematology Labs: Test 05/22/24 08:11 Range/Units White Blood Count 10.2 4.8-10.8 K/uL Red Blood Count 4.33 4.00-5.50 MIL/uL Hemoglobin 12.0 12.0-16.0 g/dL Hematocrit 37.1 # 36-48 % Mean Corpuscular Volume 85.7 79-99 fL Mean Corpuscular Hemoglobin 27.7 27.0-33.0 pg Mean Corpuscular Hemoglobin Concent 32.3 32.0-36.0 g/dL Red Cell Distribution Width 18.1 H 11.0-15.5 % Platelet Count 365 130-400 K/uL Mean Platelet Volume 9.8 7.5-10.5 fL Immature Granulocyte % (Auto) 0.9 0-1 % Neutrophils (%) (Auto) 87.9 H 40.0-77.0 % Lymphocytes (%) (Auto) 9.8 L 21.0-51.0 % Monocytes (%) (Auto) 1.2 L 3.0-13.0 % Eosinophils (%) (Auto) 0.0 0.0-8.0 % Basophils (%) (Auto) 0.2 0.0-5.0 % Neutrophils # (Auto) 9.0 H 1.8-7.7 K/uL Lymphocytes # (Auto) 1.0 1.0-4.8 K/uL Monocytes # (Auto) 0.1 0.1-1.0 K/uL Eosinophils # (Auto) 0.00 0.00-0.70 K/uL Basophils # (Auto) 0.02 0.00-0.20 K/uL Absolute Immature Granulocyte (auto 0.09 0-1 K/uL Nucleated Red Blood Cells 0.2 H 0.0-0.19 % White Cell Morphology Comment See comments Red Blood Cell Morphology See comments Chemistry Labs: Test 05/22/24 10:39 05/22/24 08:11 05/21/24 20:12 05/21/24 09:12 Range/Units Whole Blood Glucose 220 H 70-110 MG/DL Sodium Level 138 136-145 mmol/L Potassium Level 4.5 3.5-5.1 mmol/L Chloride Level 96 L 101-111 mmol/L Carbon Dioxide Level 27 21-32 mmol/L Blood Urea Nitrogen 62 H 7-18 mg/dL Creatinine 6.3 H 0.5-1.0 mg/dL Glomerular Filtration Rate Calc 8 >90 mL/min Random Glucose 257 H 70-105 mg/dL Total Calcium 8.2 L 8.5-10.1 mg/dL Phosphorus Level 8.3 H 2.5-4.9 mg/dL Magnesium Level 2.00 1.80-2.40 mg/dL B-Type Natriuretic Peptide 3520 H 0-100 pg/mL Procalcitonin 0.34 0.05-0.5 ng/mL Thyroid Stimulating Hormone (TSH) 7.15 #H 0.36-3.74 uIU/mL Total Creatine Kinase 49 21-232 U/L Troponin I High Sensitivity 44.7 4-50 ng/L Serum Test, Qualitative NEGATIVE NEGATIVE Test 05/21/24 05:40 05/21/24 05:03 Range/Units Troponin I < 0.05 0.00-0.05 ng/mL Triglycerides Level 99 30-200 mg/dL Cholesterol Level 185 # <200 mg/dL LDL Cholesterol 104 H 0-99 mg/dL HDL Cholesterol 52 35-85 mg/dL Coagulation Labs: Test 05/22/24 08:11 Range/Units Prothrombin Time 11.6 9.6-11.6 SEC Prothromb Time International Ratio 1.08 0.85-1.15 Activated Partial Thromboplast Time 27.6 26.3-35.5 SEC DIAGNOSTICS / RADIOLOGY RESULTS: [ ] PLAN Admit to [facility] [place] NEURO: Minimize central acting medications as possible. Maintain fall precautions, adequate lighting during the day PULMONARY: Supplemental 02 as needed. Maintain aspiration precautions at all times Maintain O2 sats above 92% CARDIOVASCULAR: Follow hemodynamics. Vital signs per facility protocol Troponin downtrending since admission, Likely elevated in setting of HTN URgency on admission No Chest pain reported, Continue cardioprudent medications Start Hydralazine , continue amlodipine and lisinopril. Of note hx of elevated K , will stop JOSE if continues to occur. GI & NUTRITION: Continue with nutritional support. Continue stool softeners and laxatives as needed. Renal dialysis diet KIDNEYS & ELECTROLYTES: Strict monitoring of intake, output and overall fluid balance. Avoid nephrotoxic medications to the extent possible. Medications to be dosed according to renal function. Monitor electrolytes and replace as needed Consult nephrology and follow recommendations for HD ENDOCRINE: Maintain blood glucose between 100-180 at all times. Hypoglycemia protocol in place ISS Hypoglycemia protocol Lantus 17 units qhs INFECTIOUS DISEASE: Trend temperature, WBC and procalcitonin level Follow cultures, deescalate antibiotics as soon as possible. Panculture if new onset fever Consult ID for Acinetobacter BKA infection- Will requiretreatment x 2-3 weeks with Zosyn and Tygicil ONCOLOGY/HEMATOLOGY/COAGULATION: Monitor for s/s of bleeding Monitor hemoglobin, coagulation studies as needed SKIN: Pressure ulcer prevention per facility protocol Specialty mattress Wound care ORTHO/REHAB: Continue PT/OT Prophylaxis: Continue GI and DVT prophylaxis Code Status: Full Resuscitation Disposition: TBD Other: Total patient care time exceeds 45 minutes excluding all procedures. PHYLLIS CHRISTINE May 22, 2024 15:24
--- NOTE | 2024-05-22 15:28 | NUR ---
Discharge Planning: Pt. states she lives with her father. Contact number is for her mother Sapphire Blanca at . PCP is Dr. Hawk Orosco and preferred pharmacy is [facility] on the [facility] in [place]. Pt. states she needs assistance with ADL's. No home health or provider services. Pt. says she has a w/c at home. ESRD patient with HD MWF. Further planning will depend on patient's progress.
--- NOTE | 2024-05-22 17:02 | PN ---
FOLLOWUP PROGRESS NOTE SUBJECTIVE: A 38-year-old female who was just recently discharged from the hospital. The patient is status post BKA. She presents back to the hospital with complaints of failure to thrive. The patient with generalized pain. The patient does receive dialysis via the PermCath. She did receive dialysis yesterday without difficulty and the patient is being seen as a followup visit for all of the above. The patient is being set up for outpatient IV antibiotics. REVIEW OF SYSTEMS: CONSTITUTIONAL: Complained of pain. HEENT: No change in vision. No change in hearing. CARDIOVASCULAR: There is no current chest pain or palpitations. PULMONARY: She denies shortness of breath. GASTROINTESTINAL: She is tolerating a diet. MUSCULOSKELETAL: Complains of weakness. PHYSICAL EXAMINATION: VITAL SIGNS: Blood pressure 184/96, pulse in the 90s. GENERAL: Chronically ill female, older than appearing. SKIN: Head is atraumatic. Pupils equal, roving to light. Oropharynx is without exudate. Nares clear. NECK: There is no JVP. There is no thyromegaly, no mass. CARDIOVASCULAR: Regular. There is no S3, S4 gallop. LUNGS: Coarse with equal thoracic movement. ABDOMEN: Soft, nondistended, nontender. EXTREMITIES: Reveal no clubbing, no cyanosis. NEUROLOGIC: She is awake. She is alert. LABORATORY DATA: Hemoglobin 12, hematocrit 37. Sodium 138, potassium 4.5, BUN 62, creatinine 6. IMPRESSION: * Wound infection. * Diabetes mellitus. * Hypertension. * Vascular disease. PLAN: The patient continues with the dialysis 3 times per week. She continues with the antibiotics. The patient is being seen by Infectious Disease. We will continue to follow closely. She has been resumed on all of her antihypertensive medications. We will follow while in the hospital. Once the patient is discharged, the patient will follow up at the dialysis unit. TID: [id number] RECEIPT: [id number]
[2024-05-22] MEDS: acetaMINOPHEN 325 MG TAB PO PRN (19:53)
[2024-05-22] MEDS: ondanSETRON 4MG INJ IVP PRN (19:54)
--- NOTE | 2024-05-22 19:55 | NUR ---
MEDS PT IS SITTING ON SIDE OF THE BED. VERBALIZES PAINS TO RLE/STUMP. V/S MONITORED BY PCP WITH ELEVATED BP AT 199/83, HR=89. TYLENOL PO GIVEN FOR PAINS AND DUE MEDS ADMINISTERED, TOLERATED WELL. ZOFRAN IV GIVEN FOR NAUSEA. PT REFUSED LANTUS DOSE, STATED SHE IS AFRAID HER BLOOD SUGAR WILL DROP WITH INSULIN BUT AGREED TO REGULAR INSULIN DOSE WHICH WAS ADMINISTERED. PT REFUSED TO LIE DOWN IN BED AT THIS TIME. STATED WILL SIT FOR NOW. FAMILY AT BEDSIDE, KEEPING CLOSE WATCH ON PT. CALL LIGHT WITHIN REACH.
[2024-05-22] MEDS: INSULIN GLARgine 100 UNITS/ML 10 ML VIAL SQ SCH (19:57)
[2024-05-22] MEDS: hydrALAZine 25MG TABLET PO SCH (20:06)
--- NOTE | 2024-05-22 20:52 | NUR ---
RE-CHECK PT'S BP RE-CHECKED STILL HIGH AT 194/99, HR=92 BPM. COMPLAINTS OF PAINS TO RLE. MEDICATED WITH DILAUDID IV. PT STILL NOT WANTING TO LAY DOWN IN BED. FAMILY STILL ON CLOSE PROXIMITY KEEPING CLOSE WATCH ON PT. WILL RE-ASSESS PT.
--- NOTE | 2024-05-22 21:23 | PN ---
PROGRESS NOTE Date of Service: May 22, 2024 Time of Service: 21:23 SUBJECTIVE: [ ] REVIEW OF SYSTEMS General: No malaise or fever. Neurological: No fainting episodes or seizures. HEENT: No nasal congestion or nasal secretion. Respiratory: Yes to shortness of breath on exertion, no cough no wheezing Cardiac: No chest pain or palpitations. Pain to right chest wall who PermCath s ite. Gastrointestinal: No vomiting or diarrhea. Genitourinary: No dysuria hematuria. Skin: No rashes or lesions. Hematological: No bruises or bleeding. Musculoskeletal: No joint pains or arthralgias. Yes to nonhealing right BKA Psychiatric: No depression or panic attacks. PHYSICAL EXAM GENERAL: alert, weak, awake oriented x 3 HEENT: EOMI, Sclera non icteric, moist mucosa NECK: Supple, no JVD, trachea midline LUNGS: Diminished breath sounds bilaterally. No wheezes HEART: Regular rate and rhythm. Normal S1 and S2, without murmurs ABD: Abdomen soft, nontender. Bowel sounds present EXT: No clubbing cyanosis, dressing to right BKA NEURO: Alert and oriented to person, follows commands SKIN: RIGHT LOWER EXTREMITY NONHEALING BKA, DEHISCED TENDON EXPOSURE OF SURGICAL WOUND Vital Signs (last 8hr) Date Time Temp Pulse Resp B/P (MAP) Pulse Ox O2 Delivery O2 Flow Rate FiO2 05/22/24 20:52 92 194/99 Room Air 05/22/24 19:00 98.8 89 16 199/83 97 Room Air 05/22/24 16:08 78 168/78 LABS: Laboratory: Test 05/22/24 19:32 05/22/24 08:11 05/21/24 20:12 05/21/24 09:12 Range/Units Whole Blood Glucose 198 H 70-110 MG/DL White Blood Count 10.2 4.8-10.8 K/uL Red Blood Count 4.33 4.00-5.50 MIL/uL Hemoglobin 12.0 12.0-16.0 g/dL Hematocrit 37.1 # 36-48 % Mean Corpuscular Volume 85.7 79-99 fL Mean Corpuscular Hemoglobin 27.7 27.0-33.0 pg Mean Corpuscular Hemoglobin Concent 32.3 32.0-36.0 g/dL Red Cell Distribution Width 18.1 H 11.0-15.5 % Platelet Count 365 130-400 K/uL Mean Platelet Volume 9.8 7.5-10.5 fL Immature Granulocyte % (Auto) 0.9 0-1 % Neutrophils (%) (Auto) 87.9 H 40.0-77.0 % Lymphocytes (%) (Auto) 9.8 L 21.0-51.0 % Monocytes (%) (Auto) 1.2 L 3.0-13.0 % Eosinophils (%) (Auto) 0.0 0.0-8.0 % Basophils (%) (Auto) 0.2 0.0-5.0 % Neutrophils # (Auto) 9.0 H 1.8-7.7 K/uL Lymphocytes # (Auto) 1.0 1.0-4.8 K/uL Monocytes # (Auto) 0.1 0.1-1.0 K/uL Eosinophils # (Auto) 0.00 0.00-0.70 K/uL Basophils # (Auto) 0.02 0.00-0.20 K/uL Absolute Immature Granulocyte (auto 0.09 0-1 K/uL Nucleated Red Blood Cells 0.2 H 0.0-0.19 % White Cell Morphology Comment See comments Red Blood Cell Morphology See comments Prothrombin Time 11.6 9.6-11.6 SEC Prothromb Time International Ratio 1.08 0.85-1.15 Activated Partial Thromboplast Time 27.6 26.3-35.5 SEC Sodium Level 138 136-145 mmol/L Potassium Level 4.5 3.5-5.1 mmol/L Chloride Level 96 L 101-111 mmol/L Carbon Dioxide Level 27 21-32 mmol/L Blood Urea Nitrogen 62 H 7-18 mg/dL Creatinine 6.3 H 0.5-1.0 mg/dL Glomerular Filtration Rate Calc 8 >90 mL/min Random Glucose 257 H 70-105 mg/dL Total Calcium 8.2 L 8.5-10.1 mg/dL Phosphorus Level 8.3 H 2.5-4.9 mg/dL Magnesium Level 2.00 1.80-2.40 mg/dL B-Type Natriuretic Peptide 3520 H 0-100 pg/mL Procalcitonin 0.34 0.05-0.5 ng/mL Thyroid Stimulating Hormone (TSH) 7.15 #H 0.36-3.74 uIU/mL Total Creatine Kinase 49 21-232 U/L Troponin I High Sensitivity 44.7 4-50 ng/L Serum Test, Qualitative NEGATIVE NEGATIVE Test 05/21/24 05:40 05/21/24 05:03 Range/Units Troponin I < 0.05 0.00-0.05 ng/mL Triglycerides Level 99 30-200 mg/dL Cholesterol Level 185 # <200 mg/dL LDL Cholesterol 104 H 0-99 mg/dL HDL Cholesterol 52 35-85 mg/dL Hepatitis B Surface Antigen. Non-Reactive Nonreactive Hepatitis B Surface Antibody. Positive Reactive Hepatitis B Core Total Antibody. Non-Reactive Nonreactive DIAGNOSTICS / RADIOLOGY: [ ] ASSESSMENT: [RIGHT LOWER EXTREMITY NONHEALING BKA ] PLAN: [MEDIHONEY W/ DRESSING ] ESTRADA GONZALEZ May 22, 2024 21:23
--- NOTE | 2024-05-22 21:57 | NUR ---
RE-ASSESS PT'S BP RE-YCQQJIN=805/102, HR=82 BPM. PT VERBALIZES PAIN HAD BEEN RELIEVED. MEDICATED WITH HYDRALAZINE IV. KEPT RESTED. WILL RE-CHECK BP.
--- NOTE | 2024-05-22 22:35 | NUR ---
JOB SITE SUPERVISOR PT CALLS AND COMPLAINTS OF HAVING ANXIETY. RE-CHECKED LF=171/91, HR=90. PAGED JOB SITE SUPERVISOR OIL RIGGER VIA ANSWERING SERVICE. AT 2240, SHAMIKA DORMAN CALLED BACK. REFERRED PT'S COMPLAINTS AND CONDITION TO JOB SITE SUPERVISOR. NEW MED ORDERS RECEIVED, PLEASE REFER TO CPOE. WILL MEDICATE PT.
[2024-05-22] MEDS: queTIAPine fuMARate 25 MG TAB PO ONE (22:47)
[2024-05-22] MEDS: LAbetaLOL 20MG SYG IV PRN (22:48)
--- NOTE | 2024-05-22 23:00 | NUR ---
CHANGE PT ACCIDENTALLY REMOVED HER DRESSING TO RT STUMP FROM MOVING IN BED. DRESSING CHANGED. CLEANSED STUMP WOUND WITH NS, PAT DRY, COVERED WITH GAUZE THEN SECURED WITH KERLIX/TAPE AND JOSE WRAP. PT CLAIMS SHE WANTS TO USE THE BEDSIDE COMMODE TO TRY TO HAVE A BM. PT REFUSED BEDPAN. BEDSIDE COMMODE PROVIDED AND PT'S SIGNIFICANT OTHER STATED WILL HELP PT IF NEEDED TO USE COMMODE. RE-ITERATED FALL PRECAUTIONS. VERBALIZES UNDERSTANDING.
[2024-05-23] VITALS (25 sets, daily range): BP systolic 121–200; BP diastolic 60–103; PULSE 70–92; RESP 16–18; TEMP 97.6–98.7; O2SAT 97–98
--- NOTE | 2024-05-23 04:00 | NUR ---
PAIN PT CALLS FOR PAIN MEDICATION. CLAIMS OF RLE PAINS. PT IS HAVING DRY HEAVES. PT'S BP= 194/103, HR=90. RE-POSIITONED IN BED WITH HOB ELEVATED. MEDICATED WITH ZOFRAN IV AND DILAUDID IV. WILL RE-ASSESS PT. Addendum: 05/23/24 at 0434 by ALBERTO WYATT RN RN Amended: Links added.
[2024-05-23 04:37] LABS: BASOPHILS # (AUTO) 0.03 K/uL (0.00-0.20); BASOPHILS % (AUTO) 0.3 % (0.0-5.0); HEMATOCRIT 31.8 % (36-48); IMMATURE GRANULOCYTE ABSOLUTE 0.06 K/uL (0-1); LYMPHOCYTES # (AUTO) 1.5 K/uL (1.0-4.8); LYMPHOCYTES % (AUTO) 12.4 % (21.0-51.0); MEAN CORPUSCULAR HGB CONC 32.7 g/dL (32.0-36.0); MEAN CORPUSCULAR VOLUME 85.7 fL (79-99); MONOCYTES # (AUTO) 0.5 K/uL (0.1-1.0); MONOCYTES % (AUTO) 4.3 % (3.0-13.0); NEUTROPHILS # (AUTO) 9.8 K/uL (1.8-7.7); NEUTROPHILS % (AUTO) 82.5 % (40.0-77.0); PLATELET COUNT (AUTO) 358 K/uL (130-400); RED BLOOD CELL COUNT(AUTO) 3.71 MIL/uL (4.00-5.50); RED CELL DISTRIBUTION WIDTH 18.5 % (11.0-15.5); WHITE BLOOD COUNT (AUTO) 11.8 K/uL (4.8-10.8)
[2024-05-23 04:58] LABS: ALBUMIN 3.2 g/dL (3.5-5.0); BILIRUBIN,TOTAL 0.4 mg/dL (0.2-1.0); CREATININE 7.8 mg/dL (0.5-1.0); MAGNESIUM 2.2 mg/dL (1.80-2.40); POTASSIUM 5.2 mmol/L (3.5-5.1); TOTAL PROTEIN, SERUM 8.1 g/dL (6.0-8.3)
--- NOTE | 2024-05-23 05:17 | NUR ---
RE-CHECK PT'S BP RE-DJBJOLW=320/97, HR=92. PT CLAIMS PAIN IS BETTER. NO MORE DRY HEAVING NOTED. MEDICATED WITH HYDRALAZINE IV. WILL RE-CHECK BP.
--- NOTE | 2024-05-23 06:43 | NUR ---
ANXIETY PT CALLS FOR ANXIETY MEDICATION. RE-CHECKED IN=927/96, HR=89 WITH O2 SATS=96% ON RA. MEDICATED WITH XANAX PO. KEPT RESTED IN BED. FOR MORE CARE AND MANAGEMENT.
[2024-05-23] MEDS: HONEY 1 APPL/ML TUBE TP SCH (10:31)
--- NOTE | 2024-05-23 11:07 | HMCIMG ---
CHEST 1VW REASON: PNA COMPARISON: None. FINDINGS: There is cardiomegaly. There is no pulmonary vascular congestion. Lungs are clear. There is a dialysis catheter in place. IMPRESSION: 1. Mild cardiomegaly, unchanged, no acute finding.
--- NOTE | 2024-05-23 11:54 | CONS ---
CONSULTATION NOTE Date of Service: May 23, 2024 Reason for Consultation: This 38 years old female was seen for consultation follow up on ulceration to the left foot 5th metatarsal head left Requesting Physician: Dr. Grant HISTORY OF PRESENT ILLNESS: This 41 years old female well known to me with a history of end-stage renal disease on hemodialysis history of severe depression and anxiety disorder history of diabetic retinopathy history of peripheral vascular disease history of drop foot bilateral most recent [id number] amputation right lower extremity with nonhealing wound and history of nonhealing ulcer to the left foot 5th metatarsal head was seen at this time for follow up evaluation on the foot ulcer. Patient is has been [facility] the left foot ulcer treatment regimen will be continued with at this time with Hydrofera blue every other day. Nonweightbearing on this foot. REVIEW OF SYSTEMS General: No malaise or fever. Neurological: No fainting episodes or seizures. HEENT: No nasal congestion or nasal secretion. Respiratory: Yes to shortness of breath on exertion, no cough no wheezing Cardiac: No chest pain or palpitations. Pain to right chest wall who PermCath site. Gastrointestinal: No vomiting or diarrhea. Genitourinary: No dysuria hematuria. Skin: Ulceration to the left foot plantar aspect 5th metatarsal and. Wound of the BKA right Hematological: No bruises or bleeding. Musculoskeletal: No joint pains or arthralgias. Yes to nonhealing right BKA Psychiatric: No depression or panic attacks. PAST MEDICAL HISTORY: End stage renal disease on hemodialysis diabetes hypertension diabetic retinopathy severe anxiety disorder depression PAST SURGICAL HISTORY: Excisional debridement of lateral foot right subsequent kszxu-pcg-jhoe amputation PAST SOCIAL HISTORY: Denies alcohol or smoking FAMILY HISTORY: Noncontributory Coded Allergies: No Known Drug Allergies (Unverified Allergy, Unknown, 01/03/17) PHYSICAL EXAM GENERAL: alert, weak, awake oriented x 3 HEENT: EOMI, Sclera non icteric, moist mucosa NECK: Supple, no JVD, trachea midline LUNGS: Diminished breath sounds bilaterally. No wheezes HEART: Regular rate and rhythm. Normal S1 and S2, without murmurs ABD: Abdomen soft, nontender. Bowel sounds present EXT: No clubbing cyanosis, dressing to right BKA, ulcer left foot 5th metatarsal head NEURO: Alert and oriented to person, follows commands SKIN: RIGHT LOWER EXTREMITY NONHEALING BKA, DEHISCED TENDON EXPOSURE OF SURGICAL WOUND Ulcer left foot 5th metatarsal head staged 2 Vital Sign (Last 24 Hours) 05/22/24 05/23/24 05/23/24 19:55 07:42 08:00 Temp 98.8 Pulse 89 Resp 18 B/P (MAP) 187/91 Pulse Ox 97 O2 Delivery Room Air O2 Flow Rate 0 FiO2 21 Intake & Output (last 24hrs) 05/22/24 05/22/24 05/23/24 15:00 23:00 07:00 Intake Total 220 ml 220.0 ml Balance 220 ml 220.0 ml LABS: Laboratory: Test 05/23/24 05:13 05/23/24 04:30 05/22/24 08:11 05/21/24 20:12 Range/Units Whole Blood Glucose 200 H 70-110 MG/DL White Blood Count 11.8 H 4.8-10.8 K/uL Red Blood Count 3.71 L 4.00-5.50 MIL/uL Hemoglobin 10.4 L 12.0-16.0 g/dL Hematocrit 31.8 L 36-48 % Mean Corpuscular Volume 85.7 79-99 fL Mean Corpuscular Hemoglobin 28.0 27.0-33.0 pg Mean Corpuscular Hemoglobin Concent 32.7 32.0-36.0 g/dL Red Cell Distribution Width 18.5 H 11.0-15.5 % Platelet Count 358 130-400 K/uL Mean Platelet Volume 9.7 7.5-10.5 fL Immature Granulocyte % (Auto) 0.5 0-1 % Neutrophils (%) (Auto) 82.5 H 40.0-77.0 % Lymphocytes (%) (Auto) 12.4 L 21.0-51.0 % Monocytes (%) (Auto) 4.3 3.0-13.0 % Eosinophils (%) (Auto) 0.0 0.0-8.0 % Basophils (%) (Auto) 0.3 0.0-5.0 % Neutrophils # (Auto) 9.8 H 1.8-7.7 K/uL Lymphocytes # (Auto) 1.5 1.0-4.8 K/uL Monocytes # (Auto) 0.5 0.1-1.0 K/uL Eosinophils # (Auto) 0.00 0.00-0.70 K/uL Basophils # (Auto) 0.03 0.00-0.20 K/uL Absolute Immature Granulocyte (auto 0.06 0-1 K/uL Nucleated Red Blood Cells 0.0 0.0-0.19 % Sodium Level 138 136-145 mmol/L Potassium Level 5.2 H 3.5-5.1 mmol/L Chloride Level 95 L 101-111 mmol/L Carbon Dioxide Level 21 21-32 mmol/L Blood Urea Nitrogen 85 #*H 7-18 mg/dL Creatinine 7.8 H 0.5-1.0 mg/dL Glomerular Filtration Rate Calc 6 >90 mL/min Random Glucose 197 H 70-105 mg/dL Total Calcium 8.2 L 8.5-10.1 mg/dL Magnesium Level 2.20 1.80-2.40 mg/dL Total Bilirubin 0.4 0.2-1.0 mg/dL Aspartate Amino Transf (AST/SGOT) 18 10-37 U/L Alanine Aminotransferase (ALT/SGPT) 31 12-78 U/L Alkaline Phosphatase 145 H 50-136 U/L Total Protein 8.1 6.0-8.3 g/dL Albumin 3.2 L 3.5-5.0 g/dL Procalcitonin 0.33 0.05-0.5 ng/mL White Cell Morphology Comment See comments Red Blood Cell Morphology See comments Prothrombin Time 11.6 9.6-11.6 SEC Prothromb Time International Ratio 1.08 0.85-1.15 Activated Partial Thromboplast Time 27.6 26.3-35.5 SEC Phosphorus Level 8.3 H 2.5-4.9 mg/dL B-Type Natriuretic Peptide 3520 H 0-100 pg/mL Thyroid Stimulating Hormone (TSH) 7.15 #H 0.36-3.74 uIU/mL Total Creatine Kinase 49 21-232 U/L Troponin I High Sensitivity 44.7 4-50 ng/L DIAGNOSTICS / RADIOLOGY: [ ] ASSESSMENT: [RIGHT LOWER EXTREMITY NONHEALING BKA ] Ulcer 5th metatarsal head left foot PLAN: [MEDIHONEY W/ DRESSING ] Hydrofera blue to left foot ulcer change every other day. Nonweightbearing on the left foot. CONOR CASTAÑEDA DPM May 23, 2024 11:54
--- NOTE | 2024-05-23 12:54 | PN ---
DIALYSIS NOTE SUBJECTIVE: The patient is seen and evaluated on hemodialysis, prescription noted. OBJECTIVE: VITAL SIGNS: Blood pressure 187/91. CARDIOVASCULAR: Regular. LUNGS: Coarse. IMPRESSION: End-stage renal disease. PLAN: The patient continues with her antihypertensive medications. The patient is being set up for outpatient IV antibiotics. The patient is encouraged with her therapy. TID: [id number] RECEIPT: [id number]
--- NOTE | 2024-05-23 14:42 | PN ---
[facility] PROGRESS NOTE Date Patient Seen: May 23, 2024 Time of Visit: 14:34 Supervising Physician: KARSTEN GAMBOA Primary Care Physician: MARTY VENTURA MD Outpatient Specialists: [ ] Inpatient Consults: DR. 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 The patient continues very deconditioned and weak. BP continues to be elevated currently on amlodipine 5 mg bid and lisinopril 40 mg daily Hydralazine 25 mg TID started and was not administred due to being in HD . We do have PRN antihtn medication on board. Currently denies any chest pain. She continues on IV antibiotics with Zosyn and tigecycline. Infectious disease at this time has recommended 2-3 weeks of IV antibiotics. Case mgt consulted and will be sending referral to [facility] REVIEW OF SYSTEMS: 12 Point ROS reviewed with patient and were positive only as per HPI. Pertinent + and negative listed above all others negative PHYSICAL EXAM: GENERAL: alert, weak, awake oriented x 3, weak and deconditioned, appearing much older than stated age HEENT: EOMI, Sclera non icteric, moist mucosa NECK: Supple, no JVD, trachea midline LUNGS: Diminished breath sounds bilaterally. No wheezes HEART: Regular rate and rhythm. Normal S1 and S2, without murmurs ABD: Abdomen soft, nontender. Bowel sounds present EXT: No clubbing cyanosis, dressing to right BKA NEURO: Alert and oriented to person, follows commands Vital Signs (last 8hr) Date Time Temp Pulse Resp B/P (MAP) Pulse Ox O2 Delivery O2 Flow Rate FiO2 05/23/24 13:10 98.4 77 16 175/96 Room Air 05/23/24 12:00 98.1 87 17 189/98 97 Room Air 05/23/24 08:00 98.8 89 18 187/91 97 Room Air 05/23/24 08:00 97 Room Air* 0 05/23/24 07:42 90 18 N/A Room Air 05/23/24 06:43 89 180/96 96 Room Air LABS: Hematology Labs: Test 05/23/24 04:30 05/22/24 08:11 Range/Units White Blood Count 11.8 H 4.8-10.8 K/uL Red Blood Count 3.71 L 4.00-5.50 MIL/uL Hemoglobin 10.4 L 12.0-16.0 g/dL Hematocrit 31.8 L 36-48 % Mean Corpuscular Volume 85.7 79-99 fL Mean Corpuscular Hemoglobin 28.0 27.0-33.0 pg Mean Corpuscular Hemoglobin Concent 32.7 32.0-36.0 g/dL Red Cell Distribution Width 18.5 H 11.0-15.5 % Platelet Count 358 130-400 K/uL Mean Platelet Volume 9.7 7.5-10.5 fL Immature Granulocyte % (Auto) 0.5 0-1 % Neutrophils (%) (Auto) 82.5 H 40.0-77.0 % Lymphocytes (%) (Auto) 12.4 L 21.0-51.0 % Monocytes (%) (Auto) 4.3 3.0-13.0 % Eosinophils (%) (Auto) 0.0 0.0-8.0 % Basophils (%) (Auto) 0.3 0.0-5.0 % Neutrophils # (Auto) 9.8 H 1.8-7.7 K/uL Lymphocytes # (Auto) 1.5 1.0-4.8 K/uL Monocytes # (Auto) 0.5 0.1-1.0 K/uL Eosinophils # (Auto) 0.00 0.00-0.70 K/uL Basophils # (Auto) 0.03 0.00-0.20 K/uL Absolute Immature Granulocyte (auto 0.06 0-1 K/uL Nucleated Red Blood Cells 0.0 0.0-0.19 % White Cell Morphology Comment See comments Red Blood Cell Morphology See comments Chemistry Labs: Test 05/23/24 11:45 05/23/24 04:30 05/22/24 08:11 05/21/24 20:12 Range/Units Whole Blood Glucose 135 H 70-110 MG/DL Sodium Level 138 136-145 mmol/L Potassium Level 5.2 H 3.5-5.1 mmol/L Chloride Level 95 L 101-111 mmol/L Carbon Dioxide Level 21 21-32 mmol/L Blood Urea Nitrogen 85 #*H 7-18 mg/dL Creatinine 7.8 H 0.5-1.0 mg/dL Glomerular Filtration Rate Calc 6 >90 mL/min Random Glucose 197 H 70-105 mg/dL Total Calcium 8.2 L 8.5-10.1 mg/dL Magnesium Level 2.20 1.80-2.40 mg/dL Total Bilirubin 0.4 0.2-1.0 mg/dL Aspartate Amino Transf (AST/SGOT) 18 10-37 U/L Alanine Aminotransferase (ALT/SGPT) 31 12-78 U/L Alkaline Phosphatase 145 H 50-136 U/L Total Protein 8.1 6.0-8.3 g/dL Albumin 3.2 L 3.5-5.0 g/dL Procalcitonin 0.33 0.05-0.5 ng/mL Phosphorus Level 8.3 H 2.5-4.9 mg/dL B-Type Natriuretic Peptide 3520 H 0-100 pg/mL Thyroid Stimulating Hormone (TSH) 7.15 #H 0.36-3.74 uIU/mL Total Creatine Kinase 49 21-232 U/L Troponin I High Sensitivity 44.7 4-50 ng/L Coagulation Labs: Test 05/22/24 08:11 Range/Units Prothrombin Time 11.6 9.6-11.6 SEC Prothromb Time International Ratio 1.08 0.85-1.15 Activated Partial Thromboplast Time 27.6 26.3-35.5 SEC DIAGNOSTICS / RADIOLOGY RESULTS: [ ] PLAN Admit to [facility] NEURO: Minimize central acting medications as possible. Maintain fall precautions, adequate lighting during the day PULMONARY: Supplemental 02 as needed. Maintain aspiration precautions at all times Maintain O2 sats above 92% CARDIOVASCULAR: Follow hemodynamics. Vital signs per facility protocol Troponin downtrending since admission, Likely elevated in setting of HTN URgency on admission No Chest pain reported, Continue cardioprudent medications Increase Hydralazine to 50 mg TID , continue amlodipine and stop lisinopril given her reoccurrence of hyperkalemia , start on telemetry monitoring. GI & NUTRITION: Continue with nutritional support. Continue stool softeners and laxatives as needed. Renal dialysis diet KIDNEYS & ELECTROLYTES: Strict monitoring of intake, output and overall fluid balance. Avoid nephrotoxic medications to the extent possible. Medications to be dosed according to renal function. Monitor electrolytes and replace as needed Consult nephrology and follow recommendations for HD ENDOCRINE: Maintain blood glucose between 100-180 at all times. Hypoglycemia protocol in place ISS Hypoglycemia protocol Lantus 17 units qhs INFECTIOUS DISEASE: Trend temperature, WBC and procalcitonin level Follow cultures, deescalate antibiotics as soon as possible. Panculture if new onset fever Consult ID for Acinetobacter BKA infection- Will require treatment x 2-3 weeks with Zosyn and Tygacil ONCOLOGY/HEMATOLOGY/COAGULATION: Monitor for s/s of bleeding Monitor hemoglobin, coagulation studies as needed SKIN: Pressure ulcer prevention per facility protocol Specialty mattress Wound care ORTHO/REHAB: Continue PT/OT Prophylaxis: Continue GI and DVT prophylaxis Code Status: Full Resuscitation Disposition: [place] Other: Total patient care time exceeds 45 minutes excluding all procedures. PHYLLIS CHRISTINE May 23, 2024 14:42
[2024-05-23] MEDS ORDERED: VANCOMYCIN 750MG VIAL IVPB SCH (16:00)
[2024-05-23] MEDS: HEParin 5,000 UNIT VIAL IRRIG SCH (16:04)
--- NOTE | 2024-05-23 17:44 | NUR ---
Discharge Planning: Referral sent to [facility]. Pending 3 tele nights.
--- NOTE | 2024-05-23 17:49 | PN ---
INFECTIOUS DISEASE PROGRESS NOTE Date of Service: May 23, 2024 SUBJECTIVE: This is a 38-year-old female patient with past medical history of recent right hzzle-myb-ltdi amputation diabetes mellitus who was admitted to the hospital with chief complaint of pain to the PermCath site and hypotension. Patient was seen and examined at bedside in room 329. Patient is awake, alert and oriented. Patient is sitting up on the edge of the bed in no distress. Saturating 96-99% on room air. The WBC slightly elevated at 11.8 but no fever, temperature is 98.8 No growth reported yet blood cultures. Patient will continue on Tygacil. Will continue to monitor patient. PHYSICAL EXAM EYES: Anicteric. Pupils equal and reactive. HENT: No oral thrush seen, moist Oral mucosa NECK: Supple, no JVD or thyromegaly. LUNGS: Good air entry. No rales, no rhonchi. CARDIOVASCULAR: S1, S2 regular. No murmur heard. ABDOMEN: Soft, non tender, bowel sounds present, no organomegaly. CENTRAL NERVOUS SYSTEM: Awake, alert, oriented x 3. SKIN: No rashes, no swelling. LYMPHATICS: No peripheral lymphadenopathy MUSCULOSKELETAL: No joint swelling, erythema or tenderness. EXTREMITIES: No cyanosis or clubbing BACK: No deformity, no pressure ulcer. GENITOURINARY: No dysuria or hematuria Vital Sign (Last 12 Hours) 05/23/24 05/23/24 05/23/24 05/23/24 06:43 07:42 08:00 08:00 Temp 98.8 Pulse 89 90 89 Resp 18 18 B/P (MAP) 180/96 187/91 Pulse Ox 96 97 97 O2 Delivery Room Air N/A Room Air Room Air* Room Air O2 Flow Rate 0 FiO2 21 21 05/23/24 05/23/24 05/23/24 05/23/24 12:00 13:10 13:30 13:45 Temp 98.1 98.4 98.4 Pulse 87 77 73 71 Resp 17 16 16 16 B/P (MAP) 189/98 175/96 172/93 171/93 Pulse Ox 97 O2 Delivery Room Air Room Air Room Air Room Air 05/23/24 05/23/24 05/23/24 05/23/24 14:00 14:15 14:30 14:45 Pulse 76 75 83 77 Resp 16 16 16 16 B/P (MAP) 184/103 182/99 186/99 190/99 O2 Delivery Room Air Room Air Room Air Room Air 05/23/24 05/23/24 05/23/24 05/23/24 15:00 15:15 15:30 15:45 Pulse 83 81 82 74 Resp 16 16 16 16 B/P (MAP) 184/98 188/88 182/83 183/91 O2 Delivery Room Air Room Air Room Air Room Air 05/23/24 05/23/24 05/23/24 05/23/24 16:00 16:00 16:15 16:30 Temp 98.2 Pulse 76 77 77 75 Resp 16 16 16 16 B/P (MAP) 192/103 194/102 184/101 180/99 Pulse Ox 99 O2 Delivery Room Air Room Air Room Air Room Air 05/23/24 16:40 Temp 98.2 Pulse 81 Resp 16 B/P (MAP) 200/99 O2 Delivery Room Air Intake & Output (last 24hrs) 05/22/24 05/22/24 05/23/24 15:00 23:00 07:00 Intake Total 220 ml 220.0 ml Balance 220 ml 220.0 ml LABS: Laboratory: Test 05/23/24 15:58 05/23/24 14:50 05/23/24 04:30 05/22/24 08:11 Range/Units Whole Blood Glucose 120 H 70-110 MG/DL Potassium Level 4.5 3.5-5.1 mmol/L White Blood Count 11.8 H 4.8-10.8 K/uL Red Blood Count 3.71 L 4.00-5.50 MIL/uL Hemoglobin 10.4 L 12.0-16.0 g/dL Hematocrit 31.8 L 36-48 % Mean Corpuscular Volume 85.7 79-99 fL Mean Corpuscular Hemoglobin 28.0 27.0-33.0 pg Mean Corpuscular Hemoglobin Concent 32.7 32.0-36.0 g/dL Red Cell Distribution Width 18.5 H 11.0-15.5 % Platelet Count 358 130-400 K/uL Mean Platelet Volume 9.7 7.5-10.5 fL Immature Granulocyte % (Auto) 0.5 0-1 % Neutrophils (%) (Auto) 82.5 H 40.0-77.0 % Lymphocytes (%) (Auto) 12.4 L 21.0-51.0 % Monocytes (%) (Auto) 4.3 3.0-13.0 % Eosinophils (%) (Auto) 0.0 0.0-8.0 % Basophils (%) (Auto) 0.3 0.0-5.0 % Neutrophils # (Auto) 9.8 H 1.8-7.7 K/uL Lymphocytes # (Auto) 1.5 1.0-4.8 K/uL Monocytes # (Auto) 0.5 0.1-1.0 K/uL Eosinophils # (Auto) 0.00 0.00-0.70 K/uL Basophils # (Auto) 0.03 0.00-0.20 K/uL Absolute Immature Granulocyte (auto 0.06 0-1 K/uL Nucleated Red Blood Cells 0.0 0.0-0.19 % Sodium Level 138 136-145 mmol/L Chloride Level 95 L 101-111 mmol/L Carbon Dioxide Level 21 21-32 mmol/L Blood Urea Nitrogen 85 #*H 7-18 mg/dL Creatinine 7.8 H 0.5-1.0 mg/dL Glomerular Filtration Rate Calc 6 >90 mL/min Random Glucose 197 H 70-105 mg/dL Total Calcium 8.2 L 8.5-10.1 mg/dL Magnesium Level 2.20 1.80-2.40 mg/dL Total Bilirubin 0.4 0.2-1.0 mg/dL Aspartate Amino Transf (AST/SGOT) 18 10-37 U/L Alanine Aminotransferase (ALT/SGPT) 31 12-78 U/L Alkaline Phosphatase 145 H 50-136 U/L Total Protein 8.1 6.0-8.3 g/dL Albumin 3.2 L 3.5-5.0 g/dL Procalcitonin 0.33 0.05-0.5 ng/mL White Cell Morphology Comment See comments Red Blood Cell Morphology See comments Prothrombin Time 11.6 9.6-11.6 SEC Prothromb Time International Ratio 1.08 0.85-1.15 Activated Partial Thromboplast Time 27.6 26.3-35.5 SEC Phosphorus Level 8.3 H 2.5-4.9 mg/dL B-Type Natriuretic Peptide 3520 H 0-100 pg/mL Thyroid Stimulating Hormone (TSH) 7.15 #H 0.36-3.74 uIU/mL Test 05/21/24 20:12 Range/Units Total Creatine Kinase 49 21-232 U/L Troponin I High Sensitivity 44.7 4-50 ng/L ASSESSMENT: Right djhzh-ovz-jtgn stump ulcer and infection. Right mdemi-ffn-lirh stump wound dehiscence. Left foot diabetic ulcer. Infection with multidrug resistant organism. End-stage renal disease, on dialysis. Diabetes mellitus. Debility. Nausea or vomiting. PLAN: Continue Tygacil. Continue GI prophylaxis. We will follow up on the cultures. Continue dialysis as recommended by eye physician. Continue monitoring glucose levels. Continue wound care. We will monitor electrolytes. This case was reviewed and discussed with my supervising physician and the above assessment and plan was formulated and agreed upon. ATTESTATION BY PHYSICIAN I have seen and examined the patient. I reviewed the documentation, medical decision making, and treatment plan as noted by the mid-level provider above. I agree with the findings and plan of care. GLORIA RICHTER MD, MIRTA L [facility] May 23, 2024 17:49
[2024-05-23] MEDS: hydrALAZine 25MG TABLET PO SCH (21:14)
[2024-05-24] VITALS (9 sets, daily range): BP systolic 148–185; BP diastolic 76–94; PULSE 70–81; RESP 17–19; TEMP 97.6–98.5; O2SAT 96–99
[2024-05-24] MEDS: DEXTROSE 10%-WATER 1,000 ML IV SCH (00:23)
[2024-05-24] MEDS ORDERED: GLUCAGON 1MG KIT 1 MG ML IM PRN (00:30)
[2024-05-24] MEDS ORDERED: DEXTROSE 50%-WATER 50 ML DISP.SYRIN IV PRN (00:30)
[2024-05-24 04:09] LABS: BASOPHILS # (AUTO) 0.04 K/uL (0.00-0.20); BASOPHILS % (AUTO) 0.4 % (0.0-5.0); EOSINOPHILS # (AUTO) 0.01 K/uL (0.00-0.70); EOSINOPHILS % (AUTO) 0.1 % (0.0-8.0); HEMATOCRIT 39.7 % (36-48); IMMATURE GRANULOCYTE ABSOLUTE 0.08 K/uL (0-1); LYMPHOCYTES # (AUTO) 1.6 K/uL (1.0-4.8); LYMPHOCYTES % (AUTO) 13.8 % (21.0-51.0); MEAN CORPUSCULAR HEMOGLOBIN 27.5 pg (27.0-33.0); MEAN CORPUSCULAR HGB CONC 31.7 g/dL (32.0-36.0); MEAN CORPUSCULAR VOLUME 86.5 fL (79-99); MONOCYTES # (AUTO) 0.6 K/uL (0.1-1.0); MONOCYTES % (AUTO) 4.8 % (3.0-13.0); NEUTROPHILS # (AUTO) 9.1 K/uL (1.8-7.7); NEUTROPHILS % (AUTO) 80.2 % (40.0-77.0); NUCLEATED RED BLOOD CELLS 0.2 % (0.0-0.19); PLATELET COUNT (AUTO) 470 K/uL (130-400); RED BLOOD CELL COUNT(AUTO) 4.59 MIL/uL (4.00-5.50); RED CELL DISTRIBUTION WIDTH 18.6 % (11.0-15.5); WHITE BLOOD COUNT (AUTO) 11.4 K/uL (4.8-10.8)
[2024-05-24 04:29] LABS: CREATININE 5.8 mg/dL (0.5-1.0); POTASSIUM 4.1 mmol/L (3.5-5.1)
[2024-05-24] MEDS: INSULIN humuLIN R 100 UNIT/ML 3ML SQ SCH (06:27)
[2024-05-24] MEDS: ondanSETRON 4MG INJ IVP ONE (09:18)
--- NOTE | 2024-05-24 10:27 | PN ---
FOLLOWUP PROGRESS NOTE SUBJECTIVE: A 38-year-old female with history of diabetes mellitus and hypertension. The patient with a history of vascular disease, status post lower extremity amputation. The patient with underlying wound infection. The patient was seen by ID service and the patient remains on broad spectrum IV antibiotics. The patient did receive dialysis yesterday without difficulty. She continues to complain of nausea and she is being seen as a followup visit for all the above. REVIEW OF SYSTEMS: GENERAL: She is feeling weak and tired. HEENT: No change in vision. No change in hearing, no nasal discharge, no sore throat. CARDIOVASCULAR: No current chest pain or palpitations. PULMONARY: No shortness of breath. GASTROINTESTINAL: As described above. MUSCULOSKELETAL: Complains of weakness. PHYSICAL EXAMINATION:. VITAL SIGNS: Blood pressure is 159/94, pulse in the 70s. GENERAL: She is a chronically ill female, much older than appearing. HEENT: Head is atraumatic. Pupils equal, roving to light. Oropharynx is without exudate. Nares clear. NECK: There is no JVP. There is no thyromegaly, no mass. CARDIOVASCULAR: Regular. There is no S3 or S4 gallop. LUNGS: Coarse with equal thoracic movement. ABDOMEN: Soft, nondistended, nontender. EXTREMITIES: No clubbing, no cyanosis. NEUROLOGIC: She is awake. She is alert. LABORATORY DATA: Hemoglobin 12, hematocrit 39, white cell count 11,000. Sodium 132, BUN 57, creatinine 5.8. IMPRESSION: * Nonhealing wounds. * Diabetes mellitus. * Hypertension. * Persistent nausea. PLAN: The patient continues with the Zofran. We will add Reglan to the medical regimen in regards to the underlying nausea. The patient remains on the IV antibiotics. The patient is being seen by case management in regards to final disposition, which will be long-term IV antibiotics. We will continue to follow closely and make further recommendations accordingly. TID: [id number] RECEIPT: [id number]
--- NOTE | 2024-05-24 10:49 | PN ---
[facility] PROGRESS NOTE Date Patient Seen: May 24, 2024 Time of Visit: 10:47 Supervising Physician: MD MORRIS Primary Care Physician: MARTY VENTURA MD Outpatient Specialists: [ ] Inpatient Consults: DR. 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 BP now better controlled in 120-140mmHg ; currently on amlodipine 5 mg bid and Hydralazine 50 mg TID . She continues on IV antibiotics with Zosyn and tigecycline. Infectious disease at this time has recommended 2-3 weeks of IV antibiotics. Case mgt consulted and referral to [facility] has been sent . Potassium level improved. We stopped Lisinopril given recurrent Hyperkalemia and increased hydralazine REVIEW OF SYSTEMS: 12 Point ROS reviewed with patient and were positive only as per HPI. Pertinent + and negative listed above all others negative PHYSICAL EXAM: GENERAL: alert, weak, awake oriented x 3, weak and deconditioned, appearing much older than stated age HEENT: EOMI, Sclera non icteric, moist mucosa NECK: Supple, no JVD, trachea midline LUNGS: Diminished breath sounds bilaterally. No wheezes HEART: Regular rate and rhythm. Normal S1 and S2, without murmurs ABD: Abdomen soft, nontender. Bowel sounds present EXT: No clubbing cyanosis, dressing to right BKA NEURO: Alert and oriented to person, follows commands Vital Signs (last 8hr) Date Time Temp Pulse Resp B/P (MAP) Pulse Ox O2 Delivery O2 Flow Rate FiO2 05/24/24 08:00 98.2 75 17 159/94 97 Room Air 05/24/24 07:18 77 18 N/A Room Air 21 05/24/24 03:00 97.5 80 19 148/84 100 Room Air LABS: Hematology Labs: Test 05/24/24 03:49 Range/Units White Blood Count 11.4 H 4.8-10.8 K/uL Red Blood Count 4.59 # 4.00-5.50 MIL/uL Hemoglobin 12.6 # 12.0-16.0 g/dL Hematocrit 39.7 # 36-48 % Mean Corpuscular Volume 86.5 79-99 fL Mean Corpuscular Hemoglobin 27.5 27.0-33.0 pg Mean Corpuscular Hemoglobin Concent 31.7 L 32.0-36.0 g/dL Red Cell Distribution Width 18.6 H 11.0-15.5 % Platelet Count 470 #H 130-400 K/uL Mean Platelet Volume 10.1 7.5-10.5 fL Immature Granulocyte % (Auto) 0.7 0-1 % Neutrophils (%) (Auto) 80.2 H 40.0-77.0 % Lymphocytes (%) (Auto) 13.8 L 21.0-51.0 % Monocytes (%) (Auto) 4.8 3.0-13.0 % Eosinophils (%) (Auto) 0.1 0.0-8.0 % Basophils (%) (Auto) 0.4 0.0-5.0 % Neutrophils # (Auto) 9.1 H 1.8-7.7 K/uL Lymphocytes # (Auto) 1.6 1.0-4.8 K/uL Monocytes # (Auto) 0.6 0.1-1.0 K/uL Eosinophils # (Auto) 0.01 0.00-0.70 K/uL Basophils # (Auto) 0.04 0.00-0.20 K/uL Absolute Immature Granulocyte (auto 0.08 0-1 K/uL Nucleated Red Blood Cells 0.2 H 0.0-0.19 % Chemistry Labs: Test 05/24/24 05:04 05/24/24 03:49 05/23/24 04:30 Range/Units Whole Blood Glucose 168 H 70-110 MG/DL Sodium Level 133 L 136-145 mmol/L Potassium Level 4.1 3.5-5.1 mmol/L Chloride Level 90 *L 101-111 mmol/L Carbon Dioxide Level 28 21-32 mmol/L Blood Urea Nitrogen 57 #H 7-18 mg/dL Creatinine 5.8 H 0.5-1.0 mg/dL Glomerular Filtration Rate Calc 9 >90 mL/min Random Glucose 179 H 70-105 mg/dL Total Calcium 8.4 L 8.5-10.1 mg/dL Magnesium Level 2.20 1.80-2.40 mg/dL Total Bilirubin 0.4 0.2-1.0 mg/dL Aspartate Amino Transf (AST/SGOT) 18 10-37 U/L Alanine Aminotransferase (ALT/SGPT) 31 12-78 U/L Alkaline Phosphatase 145 H 50-136 U/L Total Protein 8.1 6.0-8.3 g/dL Albumin 3.2 L 3.5-5.0 g/dL Procalcitonin 0.33 0.05-0.5 ng/mL DIAGNOSTICS / RADIOLOGY RESULTS: [ ] PLAN Admit to [facility] NEURO: Minimize central acting medications as possible. Maintain fall precautions, adequate lighting during the day PULMONARY: Supplemental 02 as needed. Maintain aspiration precautions at all times Maintain O2 sats above 92% CARDIOVASCULAR: Follow hemodynamics. Vital signs per facility protocol Troponin downtrending since admission, Likely elevated in setting of HTN URgency on admission No Chest pain reported, Continue cardioprudent medications Increase Hydralazine to 50 mg TID , continue amlodipine and stop lisinopril given her reoccurrence of hyperkalemia , start on telemetry monitoring. GI & NUTRITION: Continue with nutritional support. Continue stool softeners and laxatives as needed. Renal dialysis diet KIDNEYS & ELECTROLYTES: Strict monitoring of intake, output and overall fluid balance. Avoid nephrotoxic medications to the extent possible. Medications to be dosed according to renal function. Monitor electrolytes and replace as needed Consult nephrology and follow recommendations for HD ENDOCRINE: Maintain blood glucose between 100-180 at all times. Hypoglycemia protocol in place ISS Hypoglycemia protocol Lantus 17 units qhs INFECTIOUS DISEASE: Trend temperature, WBC and procalcitonin level Follow cultures, deescalate antibiotics as soon as possible. Panculture if new onset fever Consult ID for Acinetobacter BKA infection- Will require treatment x 2-3 weeks with Zosyn and Tygacil ONCOLOGY/HEMATOLOGY/COAGULATION: Monitor for s/s of bleeding Monitor hemoglobin, coagulation studies as needed SKIN: Pressure ulcer prevention per facility protocol Specialty mattress Wound care ORTHO/REHAB: Continue PT/OT Prophylaxis: Continue GI and DVT prophylaxis Code Status: Full Resuscitation Disposition: [place] Other: Total patient care time exceeds 45 minutes excluding all procedures. PHYLLIS CHRISTINE May 24, 2024 10:49
--- NOTE | 2024-05-24 12:35 | HMCIMG ---
CHEST 1VW REASON: s/p picc line placement COMPARISON: 05/23/2024 FINDINGS: Single view of the chest was obtained. Lungs are clear. Borderline cardiomegaly. This is unchanged.. There is no pulmonary vascular congestion. Mediastinum and bony thorax appear unremarkable. Right-sided PermCath remains in place. There is also now a right-sided PICC line with tip in superior vena cava. IMPRESSION: 1. Right-sided PICC line with tip in superior vena cava, there has been no other interval change.+
[2024-05-24] MEDS: metoCLOPRAmide 10 MG/2 ML VIAL IVP SCH (13:11)
--- NOTE | 2024-05-24 15:07 | NUR ---
PICC LINE INSERTION 5FR 2 LUMEN PICC LINE INSERTED TO RIGHT UPPER ARM BASILIC VEIN USING STERILE TECHNIQUE. ULTRASOUND GUIDED USING MST. INTERNAL CATHETER LENGTH: 36CM EXTERNAL CATHETER LENGTH: 0CM. (+) VPS BULLSEYE AND CHEST XRAY OBTAINED. PLEASE REPORT RESULTS TO MD FOR ORDERS TO OKAY TO USE PICC LINE. PICC LINE CARE: - PERFORM HAND HYGIENE, WEAR GLOVES, SCRUB THE HUB FOR 15 SECONDS BEFORE EVERY ACCESS. - FLUSH BOTH LUMENS WITH 10 ML NS FLUSH EVERY 12 HOURS IF LINE IS NOT IN USE AND CLAMP AFTER EVERY ACCESS. - PLEASE CHANGE DRESSING, STATLOCK, AND PORT CAPS EVERY 7 DAYS AND PRN IF SOILED OR PEELING OFF.
--- NOTE | 2024-05-24 20:57 | PN ---
INFECTIOUS DISEASE PROGRESS NOTE Date of Service: May 24, 2024 SUBJECTIVE: This is a 38-year-old female patient with past medical history of recent right mhqpe-qlp-zujl amputation diabetes mellitus who was admitted to the hospital with chief complaint of pain to the PermCath site and hypotension. Patient was seen and examined at bedside in room 329. Patient is awake, alert and oriented. No growth reported yet on the blood cu ltures. Patient remains afebrile, temperature is 98.2. Continues on Tygacil. Per report patient has been referred to LTAC and pending three midnight and insurance authorization. Will continue to monitor patient. PHYSICAL EXAM EYES: Anicteric. Pupils equal and reactive. HENT: No oral thrush seen, moist Oral mucosa NECK: Supple, no JVD or thyromegaly. LUNGS: Good air entry. No rales, no rhonchi. CARDIOVASCULAR: S1, S2 regular. No murmur heard. ABDOMEN: Soft, non tender, bowel sounds present, no organomegaly CENTRAL NERVOUS SYSTEM: Awake, alert, oriented x 3. No focal deficits. SKIN: No rashes, no swelling. LYMPHATICS: No peripheral lymphadenopathy MUSCULOSKELETAL: No joint swelling, erythema or tenderness. EXTREMITIES: No cyanosis or clubbing BACK: No deformity, no pressure ulcer. GENITOURINARY: No dysuria or hematuria Vital Sign (Last 12 Hours) 05/24/24 05/24/24 05/24/24 05/24/24 09:00 11:51 16:00 19:00 Temp 98.4 97.9 98.4 Pulse 72 81 70 Resp 17 19 18 B/P (MAP) 151/76 185/86 166/81 Pulse Ox 97 98 98 96 O2 Delivery Room Air* Room Air Room Air Room Air O2 Flow Rate 0 FiO2 21 Intake & Output (last 24hrs) 05/23/24 05/23/24 05/24/24 15:00 23:00 07:00 Intake Total 200.0 ml Output Total 4000 ml Balance -4000 ml 200.0 ml LABS: Laboratory: Test 05/24/24 19:28 05/24/24 03:49 05/23/24 04:30 Range/Units Whole Blood Glucose 153 H 70-110 MG/DL White Blood Count 11.4 H 4.8-10.8 K/uL Red Blood Count 4.59 # 4.00-5.50 MIL/uL Hemoglobin 12.6 # 12.0-16.0 g/dL Hematocrit 39.7 # 36-48 % Mean Corpuscular Volume 86.5 79-99 fL Mean Corpuscular Hemoglobin 27.5 27.0-33.0 pg Mean Corpuscular Hemoglobin Concent 31.7 L 32.0-36.0 g/dL Red Cell Distribution Width 18.6 H 11.0-15.5 % Platelet Count 470 #H 130-400 K/uL Mean Platelet Volume 10.1 7.5-10.5 fL Immature Granulocyte % (Auto) 0.7 0-1 % Neutrophils (%) (Auto) 80.2 H 40.0-77.0 % Lymphocytes (%) (Auto) 13.8 L 21.0-51.0 % Monocytes (%) (Auto) 4.8 3.0-13.0 % Eosinophils (%) (Auto) 0.1 0.0-8.0 % Basophils (%) (Auto) 0.4 0.0-5.0 % Neutrophils # (Auto) 9.1 H 1.8-7.7 K/uL Lymphocytes # (Auto) 1.6 1.0-4.8 K/uL Monocytes # (Auto) 0.6 0.1-1.0 K/uL Eosinophils # (Auto) 0.01 0.00-0.70 K/uL Basophils # (Auto) 0.04 0.00-0.20 K/uL Absolute Immature Granulocyte (auto 0.08 0-1 K/uL Nucleated Red Blood Cells 0.2 H 0.0-0.19 % Sodium Level 133 L 136-145 mmol/L Potassium Level 4.1 3.5-5.1 mmol/L Chloride Level 90 *L 101-111 mmol/L Carbon Dioxide Level 28 21-32 mmol/L Blood Urea Nitrogen 57 #H 7-18 mg/dL Creatinine 5.8 H 0.5-1.0 mg/dL Glomerular Filtration Rate Calc 9 >90 mL/min Random Glucose 179 H 70-105 mg/dL Total Calcium 8.4 L 8.5-10.1 mg/dL Magnesium Level 2.20 1.80-2.40 mg/dL Total Bilirubin 0.4 0.2-1.0 mg/dL Aspartate Amino Transf (AST/SGOT) 18 10-37 U/L Alanine Aminotransferase (ALT/SGPT) 31 12-78 U/L Alkaline Phosphatase 145 H 50-136 U/L Total Protein 8.1 6.0-8.3 g/dL Albumin 3.2 L 3.5-5.0 g/dL Procalcitonin 0.33 0.05-0.5 ng/mL ASSESSMENT: Right lbvlo-ixs-hikz stump ulcer and infection. Right ptvab-swy-ptdj stump wound dehiscence. Left foot diabetic ulcer. Infection with multidrug resistant organism. End-stage renal disease, on dialysis. Diabetes mellitus. Debility. Nausea or vomiting. PLAN: Continue Tygacil. Continue GI prophylaxis. We will follow up on the cultures. Continue dialysis as recommended by weld technician. Continue monitoring glucose levels. Continue wound care. We will monitor electrolytes. Case management working on placement to LTAC. This case was reviewed and discussed with my supervising physician and the above assessment and plan was formulated and agreed upon. ATTESTATION BY PHYSICIAN I have seen and examined the patient. I reviewed the documentation, medical decision making, and treatment plan as noted by the mid-level provider above. I agree with the findings and plan of care. GLORIA RICHTER MD, MIRTA L [facility] May 24, 2024 20:57
[2024-05-25] VITALS (21 sets, daily range): BP systolic 125–190; BP diastolic 57–121; PULSE 67–84; RESP 14–18; TEMP 98–98.6; O2SAT 97
[2024-05-25 03:48] LABS: BASOPHILS # (AUTO) 0.03 K/uL (0.00-0.20); BASOPHILS % (AUTO) 0.3 % (0.0-5.0); EOSINOPHILS # (AUTO) 0.01 K/uL (0.00-0.70); EOSINOPHILS % (AUTO) 0.1 % (0.0-8.0); HEMATOCRIT 37.2 % (36-48); IMMATURE GRANULOCYTE ABSOLUTE 0.04 K/uL (0-1); LYMPHOCYTES % (AUTO) 21.4 % (21.0-51.0); MEAN CORPUSCULAR HGB CONC 33.3 g/dL (32.0-36.0); MONOCYTES # (AUTO) 0.7 K/uL (0.1-1.0); MONOCYTES % (AUTO) 7.4 % (3.0-13.0); NEUTROPHILS # (AUTO) 6.5 K/uL (1.8-7.7); NEUTROPHILS % (AUTO) 70.4 % (40.0-77.0); PLATELET COUNT (AUTO) 425 K/uL (130-400); RED BLOOD CELL COUNT(AUTO) 4.43 MIL/uL (4.00-5.50); RED CELL DISTRIBUTION WIDTH 18.4 % (11.0-15.5); WHITE BLOOD COUNT (AUTO) 9.3 K/uL (4.8-10.8)
[2024-05-25 04:01] LABS: CREATININE 7.7 mg/dL (0.5-1.0); MAGNESIUM 2.3 mg/dL (1.80-2.40); POTASSIUM 4.9 mmol/L (3.5-5.1)
--- NOTE | 2024-05-25 09:17 | PN ---
DIALYSIS NOTE SUBJECTIVE: The patient is seen and evaluated on hemodialysis, prescription noted. OBJECTIVE: VITAL SIGNS: Blood pressure 144/64, pulse 60s. CARDIOVASCULAR: Regular. LUNGS: Coarse. IMPRESSION: End-stage renal disease. PLAN: The patient remains on dialysis as prescribed. The patient remains on the IV antibiotics as well as local wound care. The patient is being seen by social service in regard to placement at the LTAC. TID: [id number] RECEIPT: [id number]
--- NOTE | 2024-05-25 13:23 | PN ---
INFECTIOUS DISEASE PROGRESS NOTE Date of Service: May 25, 2024 SUBJECTIVE: This is a 38-year-old female patient with past medical history of recent right mgcqb-lca-jfzv amputation diabetes mellitus who was admitted to the hospital with chief complaint of pain to the PermCath site and hypotension. Patient was seen and examined at bedside in room 329. Patient is awake, alert and oriented. Patient is sitting up on the edge of the bed. No reports of fever, temperature is 98.4. Patient continues experiences nausea or vomiting and has been started on scheduled metoclopramide. Continues on Tygacil. Patient has been referred to [facility] and pending a 3rd midnight and insurance authorization. Will continue to monitor patient. PHYSICAL EXAM EYES: Anicteric. Pupils equal and reactive. HENT: No oral thrush seen, moist Oral mucosa NECK: Supple, no JVD or thyromegaly. LUNGS: Good air entry. No rales, no rhonchi. CARDIOVASCULAR: S1, S2 regular. No murmur heard. ABDOMEN: Soft, non tender, bowel sounds present, no organomegaly. CENTRAL NERVOUS SYSTEM: Awake, alert, oriented x 3. SKIN: No rashes, no swelling. LYMPHATICS: No peripheral lymphadenopathy MUSCULOSKELETAL: No joint swelling, erythema or tenderness. EXTREMITIES: No cyanosis or clubbing. Right xqgpv-luo-jxsj stump ulcer and infection. BACK: No deformity, no pressure ulcer. GENITOURINARY: No dysuria or hematuria Vital Sign (Last 12 Hours) 05/25/24 05/25/24 05/25/24 04:00 08:00 12:00 Temp 98.1 98.4 98.4 Pulse 75 69 74 Resp 17 18 18 B/P (MAP) 134/74 144/64 171/71 Pulse Ox 98 97 97 O2 Delivery Room Air Room Air Room Air Intake & Output (last 24hrs) 05/24/24 05/24/24 05/25/24 15:00 23:00 07:00 Intake Total 0 ml Balance 0 ml LABS: Laboratory: Test 05/25/24 11:19 05/25/24 03:33 Range/Units Whole Blood Glucose 109 70-110 MG/DL White Blood Count 9.3 4.8-10.8 K/uL Red Blood Count 4.43 4.00-5.50 MIL/uL Hemoglobin 12.4 12.0-16.0 g/dL Hematocrit 37.2 36-48 % Mean Corpuscular Volume 84.0 79-99 fL Mean Corpuscular Hemoglobin 28.0 27.0-33.0 pg Mean Corpuscular Hemoglobin Concent 33.3 32.0-36.0 g/dL Red Cell Distribution Width 18.4 H 11.0-15.5 % Platelet Count 425 H 130-400 K/uL Mean Platelet Volume 9.5 7.5-10.5 fL Immature Granulocyte % (Auto) 0.4 0-1 % Neutrophils (%) (Auto) 70.4 40.0-77.0 % Lymphocytes (%) (Auto) 21.4 21.0-51.0 % Monocytes (%) (Auto) 7.4 3.0-13.0 % Eosinophils (%) (Auto) 0.1 0.0-8.0 % Basophils (%) (Auto) 0.3 0.0-5.0 % Neutrophils # (Auto) 6.5 1.8-7.7 K/uL Lymphocytes # (Auto) 2.0 1.0-4.8 K/uL Monocytes # (Auto) 0.7 0.1-1.0 K/uL Eosinophils # (Auto) 0.01 0.00-0.70 K/uL Basophils # (Auto) 0.03 0.00-0.20 K/uL Absolute Immature Granulocyte (auto 0.04 0-1 K/uL Nucleated Red Blood Cells 0.0 0.0-0.19 % Sodium Level 134 L 136-145 mmol/L Potassium Level 4.9 3.5-5.1 mmol/L Chloride Level 92 L 101-111 mmol/L Carbon Dioxide Level 25 21-32 mmol/L Blood Urea Nitrogen 86 #*H 7-18 mg/dL Creatinine 7.7 H 0.5-1.0 mg/dL Glomerular Filtration Rate Calc 6 >90 mL/min Random Glucose 134 H 70-105 mg/dL Total Calcium 7.5 L 8.5-10.1 mg/dL Magnesium Level 2.30 1.80-2.40 mg/dL ASSESSMENT: Right royig-gmj-prog stump ulcer and infection. Right xktyj-vux-eyle stump wound dehiscence. Left foot diabetic ulcer. Infection with multidrug resistant organism. End-stage renal disease, on dialysis. Diabetes mellitus. Debility. Nausea or vomiting. PLAN: Continue Tygacil. Continue GI prophylaxis. Continue dialysis as recommended by soft work wrapper examiner. Continue monitoring glucose levels. Continue wound care. We will monitor electrolytes. Patient has been referred to [facility] and pending 3rd midnight and insurance authorization. This case was reviewed and discussed with my supervising physician and the above assessment and plan was formulated and agreed upon. ATTESTATION BY PHYSICIAN I have seen and examined the patient. I reviewed the documentation, medical decision making, and treatment plan as noted by the mid-level provider above. I agree with the findings and plan of care. GLORIA RICHTER MD, MIRTA L [facility] May 25, 2024 13:23
--- NOTE | 2024-05-25 16:14 | NUR ---
Discharge Update: Received call from Domi Oreilly/Jaelyn saying that the patient has an administrative denial. Angie Read/PCP, made aware. Will speak to patient.
--- NOTE | 2024-05-25 16:27 | PN ---
[facility] PROGRESS NOTE Date Patient Seen: May 25, 2024 Time of Visit: 16:27 Supervising Physician: Luzma Peralta MD Primary Care Physician: MARTY VENTURA MD Outpatient Specialists: [ ] Inpatient Consults: DR. 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 She appears in no apparent distress denies any nausea vomiting chills or fevers. Patient denies any chest pain shortness breath palpitations. Patient is hemodynamically stable this morning blood pressure 162/89 with a heart rate in the 70s saturating 98% on room air respiratory rate of 18 no apparent distress. Hemodialysis performed today with 4 L out. White count with a normal limits platelet count is [id number], thrombocytosis improving. Sodium 134 chloride 92 BUN 86 creatinine 7.7 consistent with ESRD magnesium is 2.3 total calcium 7.5. Patient has been denied by administration in [facility], case management working on correction facility for now.She continues on IV antibiotics with Zosyn and tigecycline. Infectious disease at this time has recommended 2-3 weeks of IV antibiotics. REVIEW OF SYSTEMS: 12 Point ROS reviewed with patient and were positive only as per HPI. Pertinent + and negative listed above all others negative PHYSICAL EXAM: GENERAL: alert, weak, awake oriented x 3, weak and deconditioned, appearing much older than stated age HEENT: EOMI, Sclera non icteric, moist mucosa NECK: Supple, no JVD, trachea midline LUNGS: Diminished breath sounds bilaterally. No wheezes HEART: Regular rate and rhythm. Normal S1 and S2, without murmurs ABD: Abdomen soft, nontender. Bowel sounds present EXT: No clubbing cyanosis, dressing to right BKA NEURO: Alert and oriented to person, follows commands Vital Signs (last 8hr) Date Time Temp Pulse Resp B/P (MAP) Pulse Ox O2 Delivery O2 Flow Rate FiO2 05/25/24 16:15 67 14 154/81 Room Air 05/25/24 16:00 70 14 177/93 Room Air 05/25/24 15:45 75 14 185/109 Room Air 05/25/24 15:30 68 14 173/83 Room Air 05/25/24 15:15 69 14 125/86 Room Air 05/25/24 15:00 73 14 190/102 Room Air 05/25/24 14:45 98.6 71 16 166/82 Room Air 05/25/24 14:20 98.6 68 16 169/80 Room Air 05/25/24 12:00 98.4 74 18 171/71 97 Room Air LABS: Hematology Labs: Test 05/25/24 03:33 Range/Units White Blood Count 9.3 4.8-10.8 K/uL Red Blood Count 4.43 4.00-5.50 MIL/uL Hemoglobin 12.4 12.0-16.0 g/dL Hematocrit 37.2 36-48 % Mean Corpuscular Volume 84.0 79-99 fL Mean Corpuscular Hemoglobin 28.0 27.0-33.0 pg Mean Corpuscular Hemoglobin Concent 33.3 32.0-36.0 g/dL Red Cell Distribution Width 18.4 H 11.0-15.5 % Platelet Count 425 H 130-400 K/uL Mean Platelet Volume 9.5 7.5-10.5 fL Immature Granulocyte % (Auto) 0.4 0-1 % Neutrophils (%) (Auto) 70.4 40.0-77.0 % Lymphocytes (%) (Auto) 21.4 21.0-51.0 % Monocytes (%) (Auto) 7.4 3.0-13.0 % Eosinophils (%) (Auto) 0.1 0.0-8.0 % Basophils (%) (Auto) 0.3 0.0-5.0 % Neutrophils # (Auto) 6.5 1.8-7.7 K/uL Lymphocytes # (Auto) 2.0 1.0-4.8 K/uL Monocytes # (Auto) 0.7 0.1-1.0 K/uL Eosinophils # (Auto) 0.01 0.00-0.70 K/uL Basophils # (Auto) 0.03 0.00-0.20 K/uL Absolute Immature Granulocyte (auto 0.04 0-1 K/uL Nucleated Red Blood Cells 0.0 0.0-0.19 % Chemistry Labs: Test 05/25/24 15:48 05/25/24 03:33 Range/Units Whole Blood Glucose 111 H 70-110 MG/DL Sodium Level 134 L 136-145 mmol/L Potassium Level 4.9 3.5-5.1 mmol/L Chloride Level 92 L 101-111 mmol/L Carbon Dioxide Level 25 21-32 mmol/L Blood Urea Nitrogen 86 #*H 7-18 mg/dL Creatinine 7.7 H 0.5-1.0 mg/dL Glomerular Filtration Rate Calc 6 >90 mL/min Random Glucose 134 H 70-105 mg/dL Total Calcium 7.5 L 8.5-10.1 mg/dL Magnesium Level 2.30 1.80-2.40 mg/dL DIAGNOSTICS / RADIOLOGY RESULTS: [ ] IMAGING REPORT Signed PATIENT: MAGUI ANTHONY MR#: [id number] : 1985 SEX: F AGE: 38 LOCATION: 3AH ORDER 34 STATUS: ADM IN REPORT#: [id number] SERVICE 34 REASON: s/p picc line placement ORDERING PHYSICIAN: GLORIA RICHTER MD PROCEDURE: CXR1VW - CHEST 1VW CHEST 1VW REASON: s/p picc line placement COMPARISON: 05/23/2024 FINDINGS: Single view of the chest was obtained. Lungs are clear. Borderline cardiomegaly. This is unchanged.. There is no pulmonary vascular congestion. Mediastinum and bony thorax appear unremarkable. Right-sided PermCath remains in place. There is also now a right-sided PICC line with tip in superior vena cava. IMPRESSION: 1. Right-sided PICC line with tip in superior vena cava, there has been no other interval change.+ DICTATED BY: ALEIDA PERALTA MD DATE: 05/24/24 1232 ELECTRONICALLY SIGNED BY: ALEIDA PERALTA MD DATE: 05/24/24 1235 PLAN awaiting SNF, ID recommends 2-3 weeks of IV abx. HD per neprhology NEURO: Minimize central acting medications as possible. Maintain fall precautions, adequate lighting during the day PULMONARY: Supplemental 02 as needed. Maintain aspiration precautions at all times Maintain O2 sats above 92% CARDIOVASCULAR: Follow hemodynamics. Vital signs per facility protocol Troponin downtrending since admission, Likely elevated in setting of HTN URgency on admission No Chest pain reported, Continue cardioprudent medications Increase Hydralazine to 50 mg TID , continue amlodipine and stop lisinopril given her reoccurrence of hyperkalemia , start on telemetry monitoring. GI & NUTRITION: Continue with nutritional support. Continue stool softeners and laxatives as needed. Renal dialysis diet KIDNEYS & ELECTROLYTES: Strict monitoring of intake, output and overall fluid balance. Avoid nephrotoxic medications to the extent possible. Medications to be dosed according to renal function. Monitor electrolytes and replace as needed Consult nephrology and follow recommendations for HD ENDOCRINE: Maintain blood glucose between 100-180 at all times. Hypoglycemia protocol in place ISS Hypoglycemia protocol Lantus 17 units qhs INFECTIOUS DISEASE: Trend temperature, WBC and procalcitonin level Follow cultures, deescalate antibiotics as soon as possible. Panculture if new onset fever Consult ID for Acinetobacter BKA infection- Will require treatment x 2-3 weeks with Zosyn and Tygacil ONCOLOGY/HEMATOLOGY/COAGULATION: Monitor for s/s of bleeding Monitor hemoglobin, coagulation studies as needed SKIN: Pressure ulcer prevention per facility protocol Specialty mattress Wound care ORTHO/REHAB: Continue PT/OT Prophylaxis: Continue GI and DVT prophylaxis Code Status: Full Resuscitation Disposition: [facility] Other: Total patient care time exceeds 45 minutes excluding all procedures. MIKEL CHANDLER [employer] May 25, 2024 16:27
[2024-05-26] VITALS (7 sets, daily range): BP systolic 120–188; BP diastolic 60–86; PULSE 66–76; RESP 16–18; TEMP 97.9–98.2; O2SAT 100
--- NOTE | 2024-05-26 10:05 | PN ---
[facility] PROGRESS NOTE Date Patient Seen: May 26, 2024 Time of Visit: 10:05 Supervising Physician: Israel Grant MD Primary Care Physician: MARTY VENTURA MD Outpatient Specialists: [ ] Inpatient Consults: DR. 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 She appears in no apparent distress denies any nausea vomiting chills or fevers. Patient denies any chest pain shortness breath palpitations. Patient is hemodynamically stable this morning blood pressure 162/89 with a heart rate in the 70s saturating 98% on room air respiratory rate of 18 no apparent distress. Hemodialysis performed today with 4 L out. White count with a normal limits platelet count is [id number], thrombocytosis improving. Sodium 134 chloride 92 BUN 86 creatinine 7.7 consistent with ESRD magnesium is 2.3 total calcium 7.5. Patient has been denied by administration in [facility], case management working on intermediate facility for now.She continues on IV antibiotics with Zosyn and tigecycline. Infectious disease at this time has recommended 2-3 weeks of IV antibiotics. 05/26- patient is awake alert and oriented x3. As per RN patient requests Xanax and pain medication around the clock. Per patient she gets really anxious has been in the hospital, and when asked where the pain in is she reports pain to her to her BKA after accidentally bumping it with a rail. Patient is hemodynamically stable blood pressure 120/63 heart rate in the 70s respiratory rate of 18 saturating 97% and afebrile. She is awaiting intermediate facility placement as she has been denied by [facility] ( has an administrative denial). Pt is requesting [facility]. CM aware. Remarkable labs platelet [id number] improving from yesterday was [id number]. Continues with wound care per wound care team to left BKA. Had no eyes REVIEW OF SYSTEMS: 12 Point ROS reviewed with patient and were positive only as per HPI. Pertinent + and negative listed above all others negative PHYSICAL EXAM: GENERAL: alert, weak, awake oriented x 3, weak and deconditioned, appearing much older than stated age HEENT: EOMI, Sclera non icteric, moist mucosa NECK: Supple, no JVD, trachea midline LUNGS: Diminished breath sounds bilaterally. No wheezes HEART: Regular rate and rhythm. Normal S1 and S2, without murmurs ABD: Abdomen soft, nontender. Bowel sounds present EXT: No clubbing cyanosis, dressing to right BKA NEURO: Alert and oriented to person, follows commands Vital Signs (last 8hr) Date Time Temp Pulse Resp B/P (MAP) Pulse Ox O2 Delivery O2 Flow Rate FiO2 05/26/24 08:06 98.2 74 18 188/67 100 Room Air 05/26/24 04:00 97.9 73 16 144/72 98 Room Air LABS: Hematology Labs: Test 05/25/24 03:33 Range/Units White Blood Count 9.3 4.8-10.8 K/uL Red Blood Count 4.43 4.00-5.50 MIL/uL Hemoglobin 12.4 12.0-16.0 g/dL Hematocrit 37.2 36-48 % Mean Corpuscular Volume 84.0 79-99 fL Mean Corpuscular Hemoglobin 28.0 27.0-33.0 pg Mean Corpuscular Hemoglobin Concent 33.3 32.0-36.0 g/dL Red Cell Distribution Width 18.4 H 11.0-15.5 % Platelet Count 425 H 130-400 K/uL Mean Platelet Volume 9.5 7.5-10.5 fL Immature Granulocyte % (Auto) 0.4 0-1 % Neutrophils (%) (Auto) 70.4 40.0-77.0 % Lymphocytes (%) (Auto) 21.4 21.0-51.0 % Monocytes (%) (Auto) 7.4 3.0-13.0 % Eosinophils (%) (Auto) 0.1 0.0-8.0 % Basophils (%) (Auto) 0.3 0.0-5.0 % Neutrophils # (Auto) 6.5 1.8-7.7 K/uL Lymphocytes # (Auto) 2.0 1.0-4.8 K/uL Monocytes # (Auto) 0.7 0.1-1.0 K/uL Eosinophils # (Auto) 0.01 0.00-0.70 K/uL Basophils # (Auto) 0.03 0.00-0.20 K/uL Absolute Immature Granulocyte (auto 0.04 0-1 K/uL Nucleated Red Blood Cells 0.0 0.0-0.19 % Chemistry Labs: Test 05/26/24 05:32 05/25/24 03:33 Range/Units Whole Blood Glucose 123 H 70-110 MG/DL Sodium Level 134 L 136-145 mmol/L Potassium Level 4.9 3.5-5.1 mmol/L Chloride Level 92 L 101-111 mmol/L Carbon Dioxide Level 25 21-32 mmol/L Blood Urea Nitrogen 86 #*H 7-18 mg/dL Creatinine 7.7 H 0.5-1.0 mg/dL Glomerular Filtration Rate Calc 6 >90 mL/min Random Glucose 134 H 70-105 mg/dL Total Calcium 7.5 L 8.5-10.1 mg/dL Magnesium Level 2.30 1.80-2.40 mg/dL DIAGNOSTICS / RADIOLOGY RESULTS: [ ] No chest is going to wake PLAN awaiting SNF, ID recommends 2-3 weeks of IV abx. HD per neprhology NEURO: Minimize central acting medications as possible. Maintain fall precautions, adequate lighting during the day PULMONARY: Supplemental 02 as needed. Maintain aspiration precautions at all times Maintain O2 sats above 92% CARDIOVASCULAR: Follow hemodynamics. Vital signs per facility protocol Troponin downtrending since admission, Likely elevated in setting of HTN URgency on admission No Chest pain reported, Continue cardioprudent medications Increase Hydralazine to 50 mg TID , continue amlodipine and stop lisinopril given her reoccurrence of hyperkalemia , start on telemetry monitoring. GI & NUTRITION: Continue with nutritional support. Continue stool softeners and laxatives as needed. Renal dialysis diet KIDNEYS & ELECTROLYTES: Strict monitoring of intake, output and overall fluid balance. Avoid nephrotoxic medications to the extent possible. Medications to be dosed according to renal function. Monitor electrolytes and replace as needed Consult nephrology and follow recommendations for HD ENDOCRINE: Maintain blood glucose between 100-180 at all times. Hypoglycemia protocol in place ISS Hypoglycemia protocol Lantus 17 units qhs INFECTIOUS DISEASE: Trend temperature, WBC and procalcitonin level Follow cultures, deescalate antibiotics as soon as possible. Panculture if new onset fever Consult ID for Acinetobacter BKA infection- Will require treatment x 2-3 weeks with Zosyn and Tygacil ONCOLOGY/HEMATOLOGY/COAGULATION: Monitor for s/s of bleeding Monitor hemoglobin, coagulation studies as needed SKIN: Pressure ulcer prevention per facility protocol Specialty mattress Wound care ORTHO/REHAB: PT eval and treat Prophylaxis: Continue GI and DVT prophylaxis Code Status: Full Resuscitation Disposition: [facility] denied now pending [facility] Other: Total patient care time exceeds 35 minutes excluding all procedures. MIKEL CHANDLER [facility] May 26, 2024 10:05
--- NOTE | 2024-05-26 14:12 | PN ---
SUBJECTIVE: A 38-year-old female, who has had a prolonged hospital course. The patient was just recently discharged from the LTAC. She presents back to the hospital with nonhealing wound to the surgical site. The patient has been resumed on broad spectrum IV antibiotics. She is scheduled to be transferred back to the LTAC to complete further long-term IV antibiotics. She did receive dialysis yesterday without difficulty. The patient is being seen as a followup visit. REVIEW OF SYSTEMS: CONSTITUTIONAL: Complains of pain. HEENT: No change in vision. No change in hearing. CARDIOVASCULAR: There is no current chest pain or palpitations. PULMONARY: She denies shortness of breath. GASTROINTESTINAL: She has some nausea. MUSCULOSKELETAL: Complains of pain. PHYSICAL EXAMINATION:. VITAL SIGNS: Blood pressure 188/67, pulse in the 70s. GENERAL: Chronically ill female lying in bed on medical floor. HEENT: Head is atraumatic. Pupils roving to light. Oropharynx is without exudate. Nares clear. NECK: There is no JVP. There is no thyromegaly, no mass. CARDIOVASCULAR: Regular rhythm. There is no S3, S4 gallop. LUNGS: Coarse with equal thoracic movement. ABDOMEN: Soft, nondistended. EXTREMITIES: Reveal no clubbing, no cyanosis. NEUROLOGIC: She is awake. She is at her baseline. LABORATORY DATA: Sodium 134, BUN 86, creatinine 7.7. Hemoglobin 12, hematocrit 37. IMPRESSION: * Nonhealing wounds. * Vascular disease. * Diabetes mellitus. * Hypertension. PLAN: The patient remains on the IV antibiotics. The patient also continues with local wound care. There is no need for Epogen with her dialysis. We will continue to monitor the patient closely. The patient and family at the bedside. Multiple questions were all answered. TID: [id number] RECEIPT: [id number]
[2024-05-26] MEDS: traMADol HCL 50 MG TABLET PO PRN (14:14)
--- NOTE | 2024-05-26 15:50 | PN ---
INFECTIOUS DISEASE PROGRESS NOTE Date of Service: May 26, 2024 SUBJECTIVE: This is a 38-year-old female patient with past medical history of recent right gebeb-edu-yflv amputation diabetes mellitus who was admitted to the hospital with chief complaint of pain to the PermCath site and hypotension. Patient was seen and examined at bedside in room 329. Patient is awake, alert and oriented. Patient is significant other visiting at bedside. Patient continues requiring pain medication for the recent amputation. No fever, temperature is 98.1. Continues on Tygacil IV. Patient has reached a 3rd midnight with telemetry monitoring and pending insurance authorization to [facility] . Will continue to follow patient's care. PHYSICAL EXAM EYES: Anicteric. Pupils equal and reactive. HENT: No oral thrush seen, moist Oral mucosa NECK: Supple, no JVD or thyromegaly. LUNGS: Good air entry. No rales, no rhonchi. CARDIOVASCULAR: S1, S2 regular. No murmur heard. ABDOMEN: Soft, non tender, bowel sounds present, no organomegaly. CENTRAL NERVOUS SYSTEM: Awake, alert, oriented x 3. SKIN: No rashes, no swelling. LYMPHATICS: No peripheral lymphadenopathy MUSCULOSKELETAL: No joint swelling, erythema or tenderness. EXTREMITIES: No cyanosis or clubbing. Right gfiwf-kuv-dopv stump ulcer and infection. BACK: No deformity, no pressure ulcer. GENITOURINARY: No dysuria or hematuria Vital Sign (Last 12 Hours) 05/26/24 05/26/24 05/26/24 04:00 08:06 11:33 Temp 97.9 98.2 98.1 Pulse 73 74 71 Resp 16 18 18 B/P (MAP) 144/72 188/67 120/63 Pulse Ox 98 100 97 O2 Delivery Room Air Room Air Room Air Intake & Output (last 24hrs) 05/25/24 05/25/24 05/26/24 15:00 23:00 07:00 Intake Total 1000 ml 0 ml Output Total 4000 ml 1 ml Balance -3000 ml -1 ml LABS: Laboratory: Test 05/26/24 11:21 05/25/24 03:33 Range/Units Whole Blood Glucose 140 H 70-110 MG/DL White Blood Count 9.3 4.8-10.8 K/uL Red Blood Count 4.43 4.00-5.50 MIL/uL Hemoglobin 12.4 12.0-16.0 g/dL Hematocrit 37.2 36-48 % Mean Corpuscular Volume 84.0 79-99 fL Mean Corpuscular Hemoglobin 28.0 27.0-33.0 pg Mean Corpuscular Hemoglobin Concent 33.3 32.0-36.0 g/dL Red Cell Distribution Width 18.4 H 11.0-15.5 % Platelet Count 425 H 130-400 K/uL Mean Platelet Volume 9.5 7.5-10.5 fL Immature Granulocyte % (Auto) 0.4 0-1 % Neutrophils (%) (Auto) 70.4 40.0-77.0 % Lymphocytes (%) (Auto) 21.4 21.0-51.0 % Monocytes (%) (Auto) 7.4 3.0-13.0 % Eosinophils (%) (Auto) 0.1 0.0-8.0 % Basophils (%) (Auto) 0.3 0.0-5.0 % Neutrophils # (Auto) 6.5 1.8-7.7 K/uL Lymphocytes # (Auto) 2.0 1.0-4.8 K/uL Monocytes # (Auto) 0.7 0.1-1.0 K/uL Eosinophils # (Auto) 0.01 0.00-0.70 K/uL Basophils # (Auto) 0.03 0.00-0.20 K/uL Absolute Immature Granulocyte (auto 0.04 0-1 K/uL Nucleated Red Blood Cells 0.0 0.0-0.19 % Sodium Level 134 L 136-145 mmol/L Potassium Level 4.9 3.5-5.1 mmol/L Chloride Level 92 L 101-111 mmol/L Carbon Dioxide Level 25 21-32 mmol/L Blood Urea Nitrogen 86 #*H 7-18 mg/dL Creatinine 7.7 H 0.5-1.0 mg/dL Glomerular Filtration Rate Calc 6 >90 mL/min Random Glucose 134 H 70-105 mg/dL Total Calcium 7.5 L 8.5-10.1 mg/dL Magnesium Level 2.30 1.80-2.40 mg/dL ASSESSMENT: Right roaja-eia-iktc stump ulcer and infection. Right zyhgw-fqc-htks stump wound dehiscence. Left foot diabetic ulcer. Infection with multidrug resistant organism. End-stage renal disease, on dialysis. Diabetes mellitus. Debility. Nausea or vomiting. PLAN: Continue Tygacil. Continue GI prophylaxis. Continue dialysis as recommended by arcade technician. Continue monitoring glucose levels. Continue wound care. We will monitor electrolytes. Patient has reach a 3rd midnight of environmental monitoring technician and pending insurance authorization to [facility]. This case was reviewed and discussed with my supervising physician and the above assessment and plan was formulated and agreed upon. ATTESTATION BY PHYSICIAN I have seen and examined the patient. I reviewed the documentation, medical decision making, and treatment plan as noted by the mid-level provider above. I agree with the findings and plan of care. GLORIA RICHTER MD, MIRTA L [facility] May 26, 2024 15:50
--- NOTE | 2024-05-26 17:20 | NUR ---
PATIENT VERBALIZE BEING IN PAIN #10; IN A SCALE OF 1 BEING NO PAIN AND 10 BEING THE WORST PAIN EVER. BLOOD PRESSURE 139/60 MMHG. GAVE DILAUDID 0.5 MG IVP FOLLOWING HOSPITAL POLICIES. NOTIFY MRS. NIKOS GOLD TO RE-EVALUATE PATIENT PAIN IN 15 MINUTES. SHE VERBALIZED UNDERSTANDING.
[2024-05-26] MEDS: hydroMORPHone 0.5 MG SYG (0.5MG/0.5ML) IVP PRN (17:21)
--- NOTE | 2024-05-26 18:00 | NUR ---
cm note met with pt and with mother and extended family and discussed snf orders for iv antibiotic therapy and wound care. they are in agreement. pt requesting [facility], family in agreement. choice letter obtained. PASSAR AND REFERRAL SENT TO [facility].
[2024-05-27] VITALS (7 sets, daily range): BP systolic 103–147; BP diastolic 51–75; PULSE 59–70; RESP 18–19; TEMP 97.7–98.5; O2SAT 99
[2024-05-27 05:00] LABS: BASOPHILS # (AUTO) 0.04 K/uL (0.00-0.20); BASOPHILS % (AUTO) 0.6 % (0.0-5.0); EOSINOPHILS % (AUTO) 4.5 % (0.0-8.0); HEMATOCRIT 36.1 % (36-48); IMMATURE GRANULOCYTE ABSOLUTE 0.02 K/uL (0-1); LYMPHOCYTES # (AUTO) 2.8 K/uL (1.0-4.8); LYMPHOCYTES % (AUTO) 42.5 % (21.0-51.0); MEAN CORPUSCULAR HEMOGLOBIN 28.3 pg (27.0-33.0); MEAN CORPUSCULAR HGB CONC 32.4 g/dL (32.0-36.0); MEAN CORPUSCULAR VOLUME 87.2 fL (79-99); MONOCYTES # (AUTO) 0.7 K/uL (0.1-1.0); MONOCYTES % (AUTO) 9.7 % (3.0-13.0); NEUTROPHILS # (AUTO) 2.8 K/uL (1.8-7.7); NEUTROPHILS % (AUTO) 42.4 % (40.0-77.0); PLATELET COUNT (AUTO) 294 K/uL (130-400); RED BLOOD CELL COUNT(AUTO) 4.14 MIL/uL (4.00-5.50); RED CELL DISTRIBUTION WIDTH 18.4 % (11.0-15.5); WHITE BLOOD COUNT (AUTO) 6.7 K/uL (4.8-10.8)
[2024-05-27 05:14] LABS: ALBUMIN 2.8 g/dL (3.5-5.0); BILIRUBIN,TOTAL 0.4 mg/dL (0.2-1.0); POTASSIUM 4.7 mmol/L (3.5-5.1)
[2024-05-27 05:21] LABS: CREATININE 8.6 mg/dL (0.5-1.0)
--- NOTE | 2024-05-27 10:23 | PN ---
[facility] PROGRESS NOTE Date Patient Seen: May 27, 2024 Time of Visit: 10:22 Supervising Physician: Dr. Grant Primary Care Physician: MARTY VENTURA MD Outpatient Specialists: [ ] Inpatient Consults: Wound care, ID, Nephrology, Podiatry PROBLEM LIST: Hypertensive urgency on admission, resolved Right BKA infection, wound culture positive for Acinetobacter ESRD M,W, F , Nonfunctional LAVA to left arm, PermCath to right upper chest Normocytic anemia likely from chronic illness Elevated troponin in the setting of ESRD Diabetes Mellitus, Type II Hypertension Hyperlipidemia Diabetic neuropathy Moderate pulmonary hypertension with a RVSP of 49 mm Hg Diastolic heart failure with EF of 45-50% on 2D echo 08/24/20 Moderate mitral regurgitation on 2D echo 08/24/20 INTERVAL HISTORY: Pt comfortable, in no distress. No overnight events reported by nursing staff. Continues on IV abx per ID. Pending SNF placement Pt remains weak at this point. Denies any headache or dizziness. Denies any chest pain or palpitations. Denies any cough or shortness of breath at rest. Denies any nausea, vomiting, abdominal pain, or melena Tolerating oral diet. Appetite is good Denies any dysuria or hematuria REVIEW OF SYSTEMS: 12 Point ROS reviewed with patient and were positive only as per HPI. Pertinent + and negative listed above all others negative PHYSICAL EXAM: GENERAL: alert, weak, awake oriented x 3, weak and deconditioned, appearing much older than stated age HEENT: EOMI, Sclera non icteric, moist mucosa NECK: Supple, no JVD, trachea midline LUNGS: Diminished breath sounds bilaterally. No wheezes HEART: Regular rate and rhythm. Normal S1 and S2, without murmurs ABD: Abdomen soft, nontender. Bowel sounds present EXT: No clubbing cyanosis, dressing to right BKA NEURO: Alert and oriented to person, follows commands Vital Signs (last 8hr) Date Time Temp Pulse Resp B/P (MAP) Pulse Ox O2 Delivery O2 Flow Rate FiO2 05/27/24 08:07 98.2 59 18 103/51 99 Room Air 05/27/24 04:00 98.1 60 19 119/56 98 Room Air LABS: Hematology Labs: Test 05/27/24 04:55 Range/Units White Blood Count 6.7 4.8-10.8 K/uL Red Blood Count 4.14 4.00-5.50 MIL/uL Hemoglobin 11.7 L 12.0-16.0 g/dL Hematocrit 36.1 36-48 % Mean Corpuscular Volume 87.2 79-99 fL Mean Corpuscular Hemoglobin 28.3 27.0-33.0 pg Mean Corpuscular Hemoglobin Concent 32.4 32.0-36.0 g/dL Red Cell Distribution Width 18.4 H 11.0-15.5 % Platelet Count 294 # 130-400 K/uL Mean Platelet Volume 9.7 7.5-10.5 fL Immature Granulocyte % (Auto) 0.3 0-1 % Neutrophils (%) (Auto) 42.4 40.0-77.0 % Lymphocytes (%) (Auto) 42.5 21.0-51.0 % Monocytes (%) (Auto) 9.7 3.0-13.0 % Eosinophils (%) (Auto) 4.5 0.0-8.0 % Basophils (%) (Auto) 0.6 0.0-5.0 % Neutrophils # (Auto) 2.8 1.8-7.7 K/uL Lymphocytes # (Auto) 2.8 1.0-4.8 K/uL Monocytes # (Auto) 0.7 0.1-1.0 K/uL Eosinophils # (Auto) 0.30 0.00-0.70 K/uL Basophils # (Auto) 0.04 0.00-0.20 K/uL Absolute Immature Granulocyte (auto 0.02 0-1 K/uL Nucleated Red Blood Cells 0.0 0.0-0.19 % Chemistry Labs: Test 05/27/24 05:07 05/27/24 04:55 Range/Units Whole Blood Glucose 124 H 70-110 MG/DL Sodium Level 133 L 136-145 mmol/L Potassium Level 4.7 3.5-5.1 mmol/L Chloride Level 92 L 101-111 mmol/L Carbon Dioxide Level 24 21-32 mmol/L Blood Urea Nitrogen 95 *H 7-18 mg/dL Creatinine 8.6 *H 0.5-1.0 mg/dL Glomerular Filtration Rate Calc 6 >90 mL/min Random Glucose 115 H 70-105 mg/dL Total Calcium 7.0 L 8.5-10.1 mg/dL Total Bilirubin 0.4 0.2-1.0 mg/dL Aspartate Amino Transf (AST/SGOT) 13 10-37 U/L Alanine Aminotransferase (ALT/SGPT) 20 12-78 U/L Alkaline Phosphatase 158 H 50-136 U/L Total Protein 7.0 6.0-8.3 g/dL Albumin 2.8 L 3.5-5.0 g/dL DIAGNOSTICS / RADIOLOGY RESULTS: Reviewed with supervising MD Plan: Neuro: Minimize central acting medications as possible. Maintain fall precautions, adequate lighting during the day Cardiovascular: Follow hemodynamics. Vital signs per facility protocol Pulmonary: Supplemental 02 as needed. Maintain aspiration precautions at all times GI and nutrition: Continue with nutritional support. Continue stool softeners and laxatives as needed. Kidney and electrolytes: Strict monitoring of intake, output and overall fluid balance. Avoid nephrotoxic medications to the extent possible. Medications to be dosed according to renal function. Monitor electrolytes and replace as needed Endocrine: Maintain blood glucose between 100-180 at all times. Hypoglycemia protocol in place Infectious disease: Trend temperature, WBC and procalcitonin level Follow cultures, deescalate antibiotics as soon as possible. Panculture if new onset fever Oncology/Hematology/Coagulation: Monitor for s/s of bleeding Monitor hemoglobin, coagulation studies as needed Skin: Pressure ulcer prevention per facility protocol Specialty mattress Ortho/Rehab: Continue PT/OT Prophylaxis:. Continue GI and DVT prophylaxis as appropriate Disposition:. [facility] Total patient care time excluding any procedures: 40 min THERESA DEAN NP May 27, 2024 10:23
[2024-05-27] MEDS: sevELAMer HCL 800 MG TABLET PO SCH (12:00)
--- NOTE | 2024-05-27 12:20 | PN ---
SUBJECTIVE: A 38-year-old female with history of diabetes mellitus and hypertension. She has a history of vascular disease, status post recent BKA. The patient presented to the hospital with nonhealing wound to the foot. The patient continues with the IV antibiotics and the patient is being seen as a followup visit for all of the above. REVIEW OF SYSTEMS: GENERAL: She continues to complain of pain. HEENT: No change in vision, which is poor. No change in hearing. No nasal discharge, no sore throat. CARDIOVASCULAR: There is no current chest pain or palpitations. PULMONARY: No shortness of breath. GASTROINTESTINAL: The patient is tolerating a diet. MUSCULOSKELETAL: Complains of weakness. PHYSICAL EXAMINATION: VITAL SIGNS: Blood pressure 103/51, pulse in the 50s. GENERAL: She is chronically ill female, much older than appearing. HEENT: Head is atraumatic. Pupils equal, roving to light. Oropharynx is without exudate. Nares clear. NECK: There is no JVP. There is no thyromegaly, no mass. CARDIOVASCULAR: Regular. There is no S3, S4 gallop. LUNGS: Coarse with equal thoracic movement. ABDOMEN: Soft, nondistended, nontender. EXTREMITIES: No clubbing, no cyanosis. NEUROLOGIC: She is awake. She is at her baseline. LABORATORY DATA: Sodium 133, potassium 4.7, BUN 95, creatinine is 8. Hemoglobin 11, hematocrit 36. IMPRESSION: * Vascular disease, status post BKA. * Nonhealing wounds. * Diabetes mellitus. * Hypertension. PLAN: The patient continues with the IV antibiotics. The patient also continues with the local wound care. She remains on dialysis 3 times per week. The patient will be started back on her phosphate binders and we will follow the patient closely. The patient's is at the bedside. Multiple questions were answered. TID: [id number] RECEIPT: [id number]
--- NOTE | 2024-05-27 13:52 | PN ---
INFECTIOUS DISEASE PROGRESS NOTE Date of Service: May 27, 2024 SUBJECTIVE: This is a 38-year-old female patient with past medical history of recent right ogjex-ufi-yvtk amputation diabetes mellitus who was admitted to the hospital with chief complaint of pain to the PermCath site and hypotension. Patient was seen and examined at bedside in room 329. Patient is awake, alert and oriented x3. Patient continues voicing pain to the surgical stump site and pain being managed with Dilaudid. Observe some left foot drop and boyfriend inquiring about a special shoe. Continues on Tygacil IV. Per report patient was declined to [facility] and case management working on sniff placement to [facility]. Will continue to follow patient's care. PHYSICAL EXAM EYES: Anicteric. Pupils equal and reactive. HENT: No oral thrush seen, moist Oral mucosa NECK: Supple, no JVD or thyromegaly. LUNGS: Good air entry. No rales, no rhonchi. CARDIOVASCULAR: S1, S2 regular. No murmur heard. ABDOMEN: Soft, non tender, bowel sounds present, no organomegaly. CENTRAL NERVOUS SYSTEM: Awake, alert, oriented x 3. SKIN: No rashes, no swelling. LYMPHATICS: No peripheral lymphadenopathy MUSCULOSKELETAL: No joint swelling, erythema or tenderness. EXTREMITIES: No cyanosis or clubbing. Right sogfn-sma-dklq stump ulcer and infection. Left foot drop. BACK: No deformity, no pressure ulcer. GENITOURINARY: No dysuria or hematuria. Vital Sign (Last 12 Hours) 05/27/24 05/27/24 05/27/24 04:00 08:07 11:54 Temp 98.1 98.2 98.4 Pulse 60 59 64 Resp 19 18 18 B/P (MAP) 119/56 103/51 120/64 Pulse Ox 98 99 100 O2 Delivery Room Air Room Air Room Air Intake & Output (last 24hrs) 05/26/24 05/26/24 05/27/24 15:00 23:00 07:00 Intake Total 100 ml 150 ml Balance 100 ml 150 ml LABS: Laboratory: Test 05/27/24 10:44 05/27/24 04:55 Range/Units Whole Blood Glucose 109 70-110 MG/DL White Blood Count 6.7 4.8-10.8 K/uL Red Blood Count 4.14 4.00-5.50 MIL/uL Hemoglobin 11.7 L 12.0-16.0 g/dL Hematocrit 36.1 36-48 % Mean Corpuscular Volume 87.2 79-99 fL Mean Corpuscular Hemoglobin 28.3 27.0-33.0 pg Mean Corpuscular Hemoglobin Concent 32.4 32.0-36.0 g/dL Red Cell Distribution Width 18.4 H 11.0-15.5 % Platelet Count 294 # 130-400 K/uL Mean Platelet Volume 9.7 7.5-10.5 fL Immature Granulocyte % (Auto) 0.3 0-1 % Neutrophils (%) (Auto) 42.4 40.0-77.0 % Lymphocytes (%) (Auto) 42.5 21.0-51.0 % Monocytes (%) (Auto) 9.7 3.0-13.0 % Eosinophils (%) (Auto) 4.5 0.0-8.0 % Basophils (%) (Auto) 0.6 0.0-5.0 % Neutrophils # (Auto) 2.8 1.8-7.7 K/uL Lymphocytes # (Auto) 2.8 1.0-4.8 K/uL Monocytes # (Auto) 0.7 0.1-1.0 K/uL Eosinophils # (Auto) 0.30 0.00-0.70 K/uL Basophils # (Auto) 0.04 0.00-0.20 K/uL Absolute Immature Granulocyte (auto 0.02 0-1 K/uL Nucleated Red Blood Cells 0.0 0.0-0.19 % Sodium Level 133 L 136-145 mmol/L Potassium Level 4.7 3.5-5.1 mmol/L Chloride Level 92 L 101-111 mmol/L Carbon Dioxide Level 24 21-32 mmol/L Blood Urea Nitrogen 95 *H 7-18 mg/dL Creatinine 8.6 *H 0.5-1.0 mg/dL Glomerular Filtration Rate Calc 6 >90 mL/min Random Glucose 115 H 70-105 mg/dL Total Calcium 7.0 L 8.5-10.1 mg/dL Total Bilirubin 0.4 0.2-1.0 mg/dL Aspartate Amino Transf (AST/SGOT) 13 10-37 U/L Alanine Aminotransferase (ALT/SGPT) 20 12-78 U/L Alkaline Phosphatase 158 H 50-136 U/L Total Protein 7.0 6.0-8.3 g/dL Albumin 2.8 L 3.5-5.0 g/dL ASSESSMENT: Right isxnc-uej-sggp stump ulcer and infection. Right wkogu-fpm-bwej stump wound dehiscence. Left foot diabetic ulcer. Infection with multidrug resistant organism. End-stage renal disease, on dialysis. Diabetes mellitus. Debility. Nausea or vomiting. PLAN: Continue Tygacil. Continue GI prophylaxis. Continue dialysis as recommended by dispatcher motor vehicle. Continue monitoring glucose levels. Continue wound care. We will monitor electrolytes. Physical therapy to evaluate and treat. Patient was declined to [facility] and case management has referred patient to [facility]. This case was reviewed and discussed with my supervising physician and the above assessment and plan was formulated and agreed upon. ATTESTATION BY PHYSICIAN I have seen and examined the patient. I reviewed the documentation, medical decision making, and treatment plan as noted by the mid-level provider above. I agree with the findings and plan of care. GLORIA RICHTER MD, MIRTA L [facility] May 27, 2024 13:52
[2024-05-27] MEDS: IpraTROPium 0.5 MG/2.5 ML INH IH ONE (18:01)
[2024-05-28] VITALS (22 sets, daily range): BP systolic 117–154; BP diastolic 57–98; PULSE 62–82; RESP 16–18; TEMP 97.4–98.1; O2SAT 96–99
--- NOTE | 2024-05-28 09:53 | PN ---
DIALYSIS NOTE SUBJECTIVE: The patient was seen and evaluated on hemodialysis, prescription noted. OBJECTIVE: VITAL SIGNS: Blood pressure 123/68, pulse 60s. CARDIOVASCULAR: Regular. LUNGS: Coarse. IMPRESSION: End-stage renal disease. PLAN: The patient remains on the IV antibiotics. The patient is being seen by case management in regards to long-term IV antibiotics. The patient does have the PICC line in place. There is no need for erythropoietin injections at this time. We will continue to follow the patient closely. TID: [id number] RECEIPT: [id number]
--- NOTE | 2024-05-28 10:20 | NUR ---
note wound care preformed at this time using aseptic technique, patient tolerated wound, family at bedsid, pt pre medicated prior to woundcare
--- NOTE | 2024-05-28 13:51 | PN ---
[facility] PROGRESS NOTE Date Patient Seen: May 28, 2024 Time of Visit: 13:43 Supervising Physician: KOREY BRAVO MD Primary Care Physician: MARTY VENTURA MD Outpatient Specialists: [ ] Inpatient Consults: Wound care, ID, Nephrology, Podiatry PROBLEM LIST: Hypertensive urgency on admission, resolved Right BKA infection, wound culture positive for Acinetobacter ESRD M,W, F , Nonfunctional LAVA to left arm, PermCath to right upper chest Chronic Pain , (Phantom Limb Pain) Normocytic anemia likely from chronic illness Elevated troponin in the setting of ESRD Diabetes Mellitus, Type II Hypertension Hyperlipidemia Diabetic neuropathy Moderate pulmonary hypertension with a RVSP of 49 mm Hg Diastolic heart failure with EF of 45-50% on 2D echo 08/24/20 Moderate mitral regurgitation on 2D echo 08/24/20 INTERVAL HISTORY: Patient seen and examined, mother at bedside, weak and deconditioned, states she has intermittent pain to her LE she has been on tramadol and Dilauidid inpatient. Patient will have her pain regimen adjusted as she is pending acceptance to [facility] and they do not offer IV narcotics medication there. We will optimize her regimen with tramadol 50 mg po q12h prn pain and gabapentin 300 mg po x1 now then BID , Patient and mother aware should this not control her pain we can increase to TID and refer to pain mgt specialist. REVIEW OF SYSTEMS: 12 Point ROS reviewed with patient and were positive only as per HPI. Pertinent + and negative listed above all others negative PHYSICAL EXAM: GENERAL: alert, weak, awake oriented x 3, weak and deconditioned, appearing much older than stated age HEENT: EOMI, Sclera non icteric, moist mucosa NECK: Supple, no JVD, trachea midline LUNGS: Diminished breath sounds bilaterally. No wheezes HEART: Regular rate and rhythm. Normal S1 and S2, without murmurs ABD: Abdomen soft, nontender. Bowel sounds present EXT: No clubbing cyanosis, dressing to right BKA NEURO: Alert and oriented to person, follows commands Vital Signs (last 8hr) Date Time Temp Pulse Resp B/P (MAP) Pulse Ox O2 Delivery O2 Flow Rate FiO2 05/28/24 11:20 97.9 69 17 153/84 98 Room Air 05/28/24 07:50 97.9 65 16 123/68 98 Room Air LABS: Hematology Labs: Test 05/27/24 04:55 Range/Units White Blood Count 6.7 4.8-10.8 K/uL Red Blood Count 4.14 4.00-5.50 MIL/uL Hemoglobin 11.7 L 12.0-16.0 g/dL Hematocrit 36.1 36-48 % Mean Corpuscular Volume 87.2 79-99 fL Mean Corpuscular Hemoglobin 28.3 27.0-33.0 pg Mean Corpuscular Hemoglobin Concent 32.4 32.0-36.0 g/dL Red Cell Distribution Width 18.4 H 11.0-15.5 % Platelet Count 294 # 130-400 K/uL Mean Platelet Volume 9.7 7.5-10.5 fL Immature Granulocyte % (Auto) 0.3 0-1 % Neutrophils (%) (Auto) 42.4 40.0-77.0 % Lymphocytes (%) (Auto) 42.5 21.0-51.0 % Monocytes (%) (Auto) 9.7 3.0-13.0 % Eosinophils (%) (Auto) 4.5 0.0-8.0 % Basophils (%) (Auto) 0.6 0.0-5.0 % Neutrophils # (Auto) 2.8 1.8-7.7 K/uL Lymphocytes # (Auto) 2.8 1.0-4.8 K/uL Monocytes # (Auto) 0.7 0.1-1.0 K/uL Eosinophils # (Auto) 0.30 0.00-0.70 K/uL Basophils # (Auto) 0.04 0.00-0.20 K/uL Absolute Immature Granulocyte (auto 0.02 0-1 K/uL Nucleated Red Blood Cells 0.0 0.0-0.19 % Chemistry Labs: Test 05/28/24 11:09 05/27/24 04:55 Range/Units Whole Blood Glucose 95 70-110 MG/DL Sodium Level 133 L 136-145 mmol/L Potassium Level 4.7 3.5-5.1 mmol/L Chloride Level 92 L 101-111 mmol/L Carbon Dioxide Level 24 21-32 mmol/L Blood Urea Nitrogen 95 *H 7-18 mg/dL Creatinine 8.6 *H 0.5-1.0 mg/dL Glomerular Filtration Rate Calc 6 >90 mL/min Random Glucose 115 H 70-105 mg/dL Total Calcium 7.0 L 8.5-10.1 mg/dL Total Bilirubin 0.4 0.2-1.0 mg/dL Aspartate Amino Transf (AST/SGOT) 13 10-37 U/L Alanine Aminotransferase (ALT/SGPT) 20 12-78 U/L Alkaline Phosphatase 158 H 50-136 U/L Total Protein 7.0 6.0-8.3 g/dL Albumin 2.8 L 3.5-5.0 g/dL DIAGNOSTICS / RADIOLOGY RESULTS: [ ] Plan: Neuro: Minimize central acting medications as possible. Maintain fall precautions, adequate lighting during the day Avoid oversedation Cardiovascular: Follow hemodynamics. Vital signs per facility protocol Pulmonary: Supplemental 02 as needed. Maintain aspiration precautions at all times GI and nutrition: Continue with nutritional support. Continue stool softeners and laxatives as needed. Kidney and electrolytes: Strict monitoring of intake, output and overall fluid balance. Avoid nephrotoxic medications to the extent possible. Medications to be dosed according to renal function. Monitor electrolytes and replace as needed Endocrine: Maintain blood glucose between 100-180 at all times. Hypoglycemia protocol in place Infectious disease: Trend temperature, WBC and procalcitonin level Follow cultures, deescalate antibiotics as soon as possible. Panculture if new onset fever Oncology/Hematology/Coagulation: Monitor for s/s of bleeding Monitor hemoglobin, coagulation studies as needed Skin: Pressure ulcer prevention per facility protocol Specialty mattress Ortho/Rehab: Continue PT/OT Prophylaxis:. Continue GI and DVT prophylaxis as appropriate Disposition:. [facility] Total patient care time excluding any procedures: 40 min PHYLLIS CHRISTINE May 28, 2024 13:51
--- NOTE | 2024-05-28 21:20 | PN ---
INFECTIOUS DISEASE PROGRESS NOTE Date of Service: May 28, 2024 SUBJECTIVE: This is a 38-year-old female patient with past medical history of recent right yjoyq-cte-vkrs amputation diabetes mellitus who was admitted to the hospital with chief complaint of pain to the PermCath site and hypotension. Patient was seen and examined at bedside in room 329. Patient is awake, alert and oriented x3. Patient is afebrile, temperature is 97.9. Continues on Tygacil IV. Per case management report patient has been referred to [facility]. Will continue to follow patient's care. PHYSICAL EXAM EYES: Anicteric. Pupils equal and reactive. HENT: No oral thrush seen, moist Oral mucosa NECK: Supple, no JVD or thyromegaly. LUNGS: Good air entry. No rales, no rhonchi. CARDIOVASCULAR: S1, S2 regular. No murmur heard. ABDOMEN: Soft, non tender, bowel sounds present, no organomegaly. CENTRAL NERVOUS SYSTEM: Awake, alert, oriented x 3. SKIN: No rashes, no swelling. LYMPHATICS: No peripheral lymphadenopathy MUSCULOSKELETAL: No joint swelling, erythema or tenderness. EXTREMITIES: No cyanosis or clubbing. Right akihx-lyp-adrf stump ulcer and infection. Left foot drop. BACK: No deformity, no pressure ulcer. GENITOURINARY: No dysuria or hematuria. Vital Sign (Last 12 Hours) 05/28/24 05/28/24 05/28/24 05/28/24 11:20 16:37 17:45 18:00 Temp 97.9 97.5 97.7 97.7 Pulse 69 62 78 77 Resp 17 17 16 16 B/P (MAP) 153/84 118/57 150/70 144/72 Pulse Ox 98 97 O2 Delivery Room Air Room Air Room Air Room Air 05/28/24 05/28/24 05/28/24 05/28/24 18:15 18:30 18:45 19:00 Pulse 75 71 65 68 Resp 16 16 16 16 B/P (MAP) 149/70 154/70 135/61 150/98 O2 Delivery Room Air Room Air Room Air Room Air 05/28/24 05/28/24 05/28/24 05/28/24 19:15 19:30 19:45 20:00 Temp 97.3 Pulse 63 66 63 63 Resp 16 16 16 18 B/P (MAP) 138/92 134/95 122/61 120/61 Pulse Ox 96 O2 Delivery Room Air Room Air Room Air Room Air 05/28/24 05/28/24 05/28/24 05/28/24 20:00 20:15 20:30 20:45 Pulse 82 82 70 78 Resp 16 16 16 16 B/P (MAP) 146/93 117/93 131/70 129/85 O2 Delivery Room Air Room Air Room Air Room Air 05/28/24 05/28/24 20:50 21:05 Temp 97.5 97.5 Pulse 67 Resp 16 B/P (MAP) 125/69 O2 Delivery Room Air Intake & Output (last 24hrs) 05/27/24 05/27/24 05/28/24 15:00 23:00 07:00 Intake Total 200 ml 100 ml Balance 200 ml 100 ml LABS: Laboratory: Test 05/28/24 19:36 05/27/24 04:55 Range/Units Whole Blood Glucose 75 70-110 MG/DL White Blood Count 6.7 4.8-10.8 K/uL Red Blood Count 4.14 4.00-5.50 MIL/uL Hemoglobin 11.7 L 12.0-16.0 g/dL Hematocrit 36.1 36-48 % Mean Corpuscular Volume 87.2 79-99 fL Mean Corpuscular Hemoglobin 28.3 27.0-33.0 pg Mean Corpuscular Hemoglobin Concent 32.4 32.0-36.0 g/dL Red Cell Distribution Width 18.4 H 11.0-15.5 % Platelet Count 294 # 130-400 K/uL Mean Platelet Volume 9.7 7.5-10.5 fL Immature Granulocyte % (Auto) 0.3 0-1 % Neutrophils (%) (Auto) 42.4 40.0-77.0 % Lymphocytes (%) (Auto) 42.5 21.0-51.0 % Monocytes (%) (Auto) 9.7 3.0-13.0 % Eosinophils (%) (Auto) 4.5 0.0-8.0 % Basophils (%) (Auto) 0.6 0.0-5.0 % Neutrophils # (Auto) 2.8 1.8-7.7 K/uL Lymphocytes # (Auto) 2.8 1.0-4.8 K/uL Monocytes # (Auto) 0.7 0.1-1.0 K/uL Eosinophils # (Auto) 0.30 0.00-0.70 K/uL Basophils # (Auto) 0.04 0.00-0.20 K/uL Absolute Immature Granulocyte (auto 0.02 0-1 K/uL Nucleated Red Blood Cells 0.0 0.0-0.19 % Sodium Level 133 L 136-145 mmol/L Potassium Level 4.7 3.5-5.1 mmol/L Chloride Level 92 L 101-111 mmol/L Carbon Dioxide Level 24 21-32 mmol/L Blood Urea Nitrogen 95 *H 7-18 mg/dL Creatinine 8.6 *H 0.5-1.0 mg/dL Glomerular Filtration Rate Calc 6 >90 mL/min Random Glucose 115 H 70-105 mg/dL Total Calcium 7.0 L 8.5-10.1 mg/dL Total Bilirubin 0.4 0.2-1.0 mg/dL Aspartate Amino Transf (AST/SGOT) 13 10-37 U/L Alanine Aminotransferase (ALT/SGPT) 20 12-78 U/L Alkaline Phosphatase 158 H 50-136 U/L Total Protein 7.0 6.0-8.3 g/dL Albumin 2.8 L 3.5-5.0 g/dL ASSESSMENT: Right nvtui-qjk-pkmq stump ulcer and infection. Right dsemc-zql-gqds stump wound dehiscence. Left foot diabetic ulcer. Infection with multidrug resistant organism. End-stage renal disease, on dialysis. Diabetes mellitus. Debility. Nausea or vomiting. PLAN: Continue Tygacil. Continue GI prophylaxis. Continue dialysis as recommended by director of rehabilitative services. Continue monitoring glucose levels. Continue wound care. We will monitor electrolytes. Physical therapy to evaluate and treat. Patient has been referred to [facility]. This case was reviewed and discussed with my supervising physician and the above assessment and plan was formulated and agreed upon. ATTESTATION BY PHYSICIAN I have seen and examined the patient. I reviewed the documentation, medical decision making, and treatment plan as noted by the mid-level provider above. I agree with the findings and plan of care. GLORIA RICHTER MD, MIRTA L [facility] May 28, 2024 21:20
[2024-05-28] MEDS: GABAPENTIN 300 MG CAPSULE PO SCH (22:18)
[2024-05-28] MEDS: hydroMORPHone 0.5 MG SYG (0.5MG/0.5ML) IVP PRN (22:32)
[2024-05-29] VITALS: BP 134/72; PULSE 64; RESP 18; TEMP 97.7
[2024-05-29 04:00] VITALS: BP 142/81; PULSE 64; RESP 18; TEMP 97.9
[2024-05-29] MEDS: hydroMORPHone 0.5 MG SYG (0.5MG/0.5ML) IVP ONE (04:11)
[2024-05-29 08:00] VITALS: O2SAT 99
[2024-05-29 08:10] VITALS: BP 144/73; PULSE 61; RESP 17; TEMP 97.9
--- NOTE | 2024-05-29 08:59 | PN ---
FOLLOWUP PROGRESS NOTE SUBJECTIVE: A 38-year-old female with a history of mellitus and hypertension. She has a history of end-stage renal disease, on dialysis 3 times per week. The patient was initially admitted with nonhealing wound to the stump. The patient remains on the antibiotics. The patient is being seen by case management in regards to long-term IV antibiotics and she is being seen for all of the above. The patient did receive dialysis yesterday without difficulty. She is being seen as a followup visit. REVIEW OF SYSTEMS: GENERAL: The patient is feeling weak and tired. HEENT: No change in vision. No change in hearing. CARDIOVASCULAR: There is no current chest pain or palpitations. PULMONARY: There is no shortness of breath. GASTROINTESTINAL: The patient is tolerating diet. MUSCULOSKELETAL: Complains of weakness. PHYSICAL EXAMINATION: VITAL SIGNS: Blood pressure 144/73, pulse 60s. GENERAL: She is a chronically ill female, much older than appearing. SKIN: Head is atraumatic. Pupils are equal, roving to light. Oropharynx is without exudate. Nares clear. NECK: There is no JVP. There is no thyromegaly, no mass. CARDIOVASCULAR: Regular. There is no S3 or S4 gallop. LUNGS: Coarse with equal thoracic movement. ABDOMEN: Soft, nondistended, nontender. EXTREMITIES: Reveal no clubbing, no cyanosis. NEUROLOGIC: She is awake. She is alert. LABORATORY DATA: Sodium 133, potassium 4.7, BUN 95, creatinine is 8.6, hemoglobin 11 and hematocrit 36. IMPRESSION: * Nonhealing wounds. * Diabetes mellitus. * Hypertension. * End-stage renal disease. PLAN: The patient remains on the IV antibiotics. The patient's antibiotics have been adjusted for the renal failure. The patient is being seen by case management in regards to placement upon discharge. We will continue to follow closely. She remains on dialysis 3 times per week. TID: [id number] RECEIPT: [id number]
--- NOTE | 2024-05-29 11:00 | NUR ---
note woundcare preformed as per md orders using aseptic tenique, premedicated pt as per pt request, pt tolerated dressing change, family at bedside
[2024-05-29 11:45] VITALS: BP 113/50; PULSE 59; RESP 17; TEMP 98.1
[2024-05-29 16:27] VITALS: BP 111/54; PULSE 51; RESP 17; TEMP 98.1
--- NOTE | 2024-05-29 17:40 | NUR ---
note ems notified at this time
--- NOTE | 2024-05-29 19:47 | DS ---
[facility] DISCHARGE SUMMARY Date Patient Seen: May 29, 2024 Time of Visit: 13:41 Supervising Physician: SHELLY NAIR Primary Care Physician: MARTY VENTURA MD Outpatient Specialists: [ ] Inpatient Consults: Wound care, ID, Nephrology, Podiatry PROBLEM LIST: Hypertensive urgency on admission, resolved Right BKA infection, wound culture positive for Acinetobacter ESRD M,W, F , Nonfunctional LAVA to left arm, PermCath to right upper chest Chronic Pain , (Phantom Limb Pain) Normocytic anemia likely from chronic illness Elevated troponin in the setting of ESRD Diabetes Mellitus, Type II Hypertension Hyperlipidemia Diabetic neuropathy Moderate pulmonary hypertension with a RVSP of 49 mm Hg Diastolic heart failure with EF of 45-50% on 2D echo 08/24/20 Moderate mitral regurgitation on 2D echo 08/24/20 HPI AND HOSPITAL COURSE: Patient Patient seen and examined, she is asleep, not in distress, weak, debilitated initially admitted due to hypertensive urgency, BP is better control she has no fever, no nausea or vomiting, patient has been accepted at [facility] plan is to be discharge today, no new events reported over the last 24 hours CHRONIC PROBLEMS: continue previous management per PCP unless otherwise indicated PROCEDURES: as mentioned above DISCHARGE MEDICATIONS: medication list reconciled Pt hemodynamically stable and afebrile at time of discharge. PCP notified of patients admission, hospital course and discharge. PHYSICAL EXAM: GENERAL: alert, weak, awake oriented x 3, weak and deconditioned, appearing much older than stated age HEENT: EOMI, Sclera non icteric, moist mucosa NECK: Supple, no JVD, trachea midline LUNGS: Diminished breath sounds bilaterally. No wheezes HEART: Regular rate and rhythm. Normal S1 and S2, without murmurs ABD: Abdomen soft, nontender. Bowel sounds present EXT: No clubbing cyanosis, dressing to right BKA NEURO: Alert and oriented to person, follows commands RECOMMENDATIONS: See Discharge Instructions . More than 30 minutes spent on discharge process, including evaluation of the patient, discussion with nursing staff, medication reconciliation and follow-up appointments ATTESTATION BY PHYSICIAN Documentation assistance provided by a scribe, information recorded by the scribe was done at my direction and has been reviewed and validated by me." KOREY BRAVO MD I personally scribed for KOREY BRAVO MD ([email or web address]) on 05/29/24 at 19:47. El ectronically submitted by Debby Poole ([id number]). KOREY BRAVO MD May 29, 2024 19:47
--- NOTE | 2024-05-29 19:55 | NUR ---
[facility] IS HERE TO TRANSPORT PATIENT TO [facility].
--- NOTE | 2024-05-29 21:09 | PN ---
INFECTIOUS DISEASE PROGRESS NOTE Date of Service: May 29, 2024 SUBJECTIVE: This is a 38-year-old female patient with past medical history of recent right cmwbu-sit-xqdq amputation diabetes mellitus who was admitted to the hospital with chief complaint of pain to the PermCath site and hypotension. Patient was seen and examined at bedside in room 329. Patient is awake, alert and oriented x3. Continues on Tygacil IV. No fever, temperature is 97.9. Patient was dialyzed yesterday and 3.4 L were removed. Per report patient was approved to [facility] and being discharged today. PHYSICAL EXAM EYES: Anicteric. Pupils equal and reactive. HENT: No oral thrush seen, moist Oral mucosa NECK: Supple, no JVD or thyromegaly. LUNGS: Good air entry. No rales, no rhonchi. CARDIOVASCULAR: S1, S2 regular. No murmur heard. ABDOMEN: Soft, non tender, bowel sounds present, no organomegaly. CENTRAL NERVOUS SYSTEM: Awake, alert, oriented x 3. SKIN: No rashes, no swelling. LYMPHATICS: No peripheral lymphadenopathy MUSCULOSKELETAL: No joint swelling, erythema or tenderness. EXTREMITIES: No cyanosis or clubbing. Right nlpgp-rly-vikb stump ulcer and infection. Left foot drop. BACK: No deformity, no pressure ulcer. GENITOURINARY: No dysuria or hematuria. Vital Sign (Last 12 Hours) 05/29/24 05/29/24 11:45 16:27 Temp 98.1 98.1 Pulse 59 51 Resp 17 17 B/P (MAP) 113/50 111/54 Pulse Ox 100 98 O2 Delivery Room Air Room Air Intake & Output (last 24hrs) 05/28/24 05/28/24 05/29/24 15:00 23:00 07:00 Intake Total 780 ml Output Total 3400 ml Balance 780 ml -3400 ml LABS: Laboratory: Test 05/29/24 15:35 Range/Units Whole Blood Glucose 115 H 70-110 MG/DL ASSESSMENT: Right jmgdi-pbq-fgnu stump ulcer and infection. Right rgtfv-xom-ffou stump wound dehiscence. Left foot diabetic ulcer. Infection with multidrug resistant organism. End-stage renal disease, on dialysis. Diabetes mellitus. Debility. Nausea or vomiting. PLAN: Continue Tygacil. Continue dialysis as recommended by senior sales executive. Continue monitoring glucose levels. Physical therapy to evaluate and treat. Per report patient was approved to [facility] and will be discharged today. This case was reviewed and discussed with my supervising physician and the above assessment and plan was formulated and agreed upon. ATTESTATION BY PHYSICIAN I have seen and examined the patient. I reviewed the documentation, medical deci mychal making, and treatment plan as noted by the mid-level provider above. I agree with the findings and plan of care. GLORIA RICHTER MD, MIRTA L [facility] May 29, 2024 21:09
== END 2024-05-29 19:55 | DRG 564 ==
LOC: EDH 04:21 → EDHIP 08:20 → OBSVTOIN 08:20 → 2DH 11:07 → 3AH 21:47
PROVIDERS: ADMIT Internal Medicine; ATTEND Internal Medicine
PROC: 5A1D70Z Performance of Urinary Filtration, Intermittent, Less than 6 Hours Per Day (ICD-10-PCS; 2024-05-21)
PROC: 5A1D70Z Performance of Urinary Filtration, Intermittent, Less than 6 Hours Per Day (ICD-10-PCS; 2024-05-23)
PROC: 02HV33Z Insertion of Infusion Device into Superior Vena Cava, Percutaneous Approach (ICD-10-PCS; principal; 2024-05-24)
PROC: 5A1D70Z Performance of Urinary Filtration, Intermittent, Less than 6 Hours Per Day (ICD-10-PCS; 2024-05-25)
PROC: 5A1D70Z Performance of Urinary Filtration, Intermittent, Less than 6 Hours Per Day (ICD-10-PCS; 2024-05-28)
DX: T87.43 Infection of amputation stump, right lower extremity (principal); N18.6 End stage renal disease; I50.30 Unspecified diastolic (congestive) heart failure; Z16.24 Resistance to multiple antibiotics; L97.508 Non-pressure chronic ulcer of other part of unspecified foot with other specified severity; L97.918 Non-pressure chronic ulcer of unspecified part of right lower leg with other specified severity; I13.2 Hypertensive heart and chronic kidney disease with heart failure and with stage 5 chronic kidney disease, or end stage renal disease; I16.0 Hypertensive urgency; E87.5 Hyperkalemia; D64.9 Anemia, unspecified; I27.20 Pulmonary hypertension, unspecified; I34.0 Nonrheumatic mitral (valve) insufficiency; E11.22 Type 2 diabetes mellitus with diabetic chronic kidney disease; E11.40 Type 2 diabetes mellitus with diabetic neuropathy, unspecified; E11.621 Type 2 diabetes mellitus with foot ulcer; E78.00 Pure hypercholesterolemia, unspecified; B96.89 Other specified bacterial agents as the cause of diseases classified elsewhere; T87.81 Dehiscence of amputation stump; L97.529 Non-pressure chronic ulcer of other part of left foot with unspecified severity; E11.65 Type 2 diabetes mellitus with hyperglycemia; G89.29 Other chronic pain; G54.6 Phantom limb syndrome with pain; B96.83 Acinetobacter baumannii as the cause of diseases classified elsewhere; E11.622 Type 2 diabetes mellitus with other skin ulcer; F41.9 Anxiety disorder, unspecified; Z99.2 Dependence on renal dialysis; F32.A Depression, unspecified; K21.9 Gastro-esophageal reflux disease without esophagitis; D75.839 Thrombocytosis, unspecified; R62.7 Adult failure to thrive; Z79.899 Other long term (current) drug therapy; Z83.3 Family history of diabetes mellitus; Z89.512 Acquired absence of left leg below knee; Z98.891 History of uterine scar from previous surgery; Y83.5 Amputation of limb(s) as the cause of abnormal reaction of the patient, or of later complication, without mention of misadventure at the time of the procedure
CPT/HCPCS: 36415; 36569; 71045; 76604; 80048; 80053; 80061; 82550; 82948; 83735; 83880; 84100; 84132; 84145; 84443; 84484; 84703; 85025; 85610; 85730; 86704; 86706; 87040; 87340; 90935; 94640; 96365; 96366; 96367; 96368; 96375; 99285; C1894; G0378; J0360; J0780; J1171; J1200; J1644; J1815; J2270; J2405; J2550; J2765; J2919; J3243; J3490; Q0163; 3370; A6209; Q5106

== ENCOUNTER 2024-06-07 12:20 | Observation (INO) | payer MEDICARE ==
[~2024-06-07] VITALS: Ht 167.6 cm; Wt 67.1 kg
[2024-06-07] VITALS (20 sets, daily range): BP systolic 145–208; BP diastolic 52–102; PULSE 47–92; RESP 10–18; TEMP 97.8–99.4; O2SAT 95
[~2024-06-07 12:20] MED LIST changes: -ALBU50IV IV; -ASPI-1026 PO; -DOCU100C33 PO; -FENT1PAT60 TP; -HYDR-4060 PO; -HYDR20VI16 IV; -LIDO-15 TP; -MERO1VIA23 IV; -NITR0.4T50 SL; -ONDA4SOL PO; -PREG25CA19 PO; -TIGECYCLINE 50 MG in 0.9%NACL 100ML 100 ML IV SCH; -TRAZ-187 PO; -VANC750V IV
--- NOTE | 2024-06-07 12:30 | NUR ---
PT NOW JUST PLACED IN MY ED BED 10
[2024-06-07 13:33] LABS: BASOPHILS # (AUTO) 0.13 K/uL (0.00-0.20); EOSINOPHILS # (AUTO) 0.39 K/uL (0.00-0.70); EOSINOPHILS % (AUTO) 2.9 % (0.0-8.0); HEMATOCRIT 34.1 % (36-48); LYMPHOCYTES # (AUTO) 2.8 K/uL (1.0-4.8); LYMPHOCYTES % (AUTO) 20.7 % (21.0-51.0); MEAN CORPUSCULAR HEMOGLOBIN 28.1 pg (27.0-33.0); MEAN CORPUSCULAR HGB CONC 32.8 g/dL (32.0-36.0); MEAN CORPUSCULAR VOLUME 85.7 fL (79-99); MONOCYTES # (AUTO) 0.7 K/uL (0.1-1.0); NEUTROPHILS # (AUTO) 9.1 K/uL (1.8-7.7); NEUTROPHILS % (AUTO) 68.1 % (40.0-77.0); NUCLEATED RED BLOOD CELLS 0.2 % (0.0-0.19); PLATELET COUNT (AUTO) 390 K/uL (130-400); RED BLOOD CELL COUNT(AUTO) 3.98 MIL/uL (4.00-5.50); RED CELL DISTRIBUTION WIDTH 17.2 % (11.0-15.5); WHITE BLOOD COUNT (AUTO) 13.3 K/uL (4.8-10.8)
[2024-06-07] MEDS: morPHINE 2 MG SYG IVP ONE (13:38)
[2024-06-07 13:41] LABS: POTASSIUM 8.7 mmol/L (3.5-5.1)
--- NOTE | 2024-06-07 13:49 | NUR ---
I JUST SPOKE TO JUAN ANTONIO THE HD NURSE AND INFORMED HIM OF NEED FOR HD SOON POSSIBLE.
[2024-06-07] MEDS: DEXTROSE 50%-WATER 50 ML DISP.SYRIN IV ONE (13:57)
[2024-06-07] MEDS ORDERED: DEXTROSE 50%-WATER 25 GM/50 ML VIAL IV ONE (14:00)
[2024-06-07] MEDS ORDERED: DEXTROSE 50%-WATER 50 ML DISP.SYRIN IV ONE (14:00)
[2024-06-07] MEDS: INSULIN humuLIN R 100 UNIT/ML 3ML IV ONE (14:01)
[2024-06-07] MEDS: ALBUTEROL 0.083% 2.5 MG/3 ML INH IH ONE (14:01)
--- NOTE | 2024-06-07 14:04 | NUR ---
CONSENT OBTAINED FOR HD.
[2024-06-07 14:06] LABS: B-TYPE NATRIURETIC PEPTIDE 2490 pg/mL (0-100)
[2024-06-07] MEDS: CALCIUM GLUC 1GM 1 GM in 0.9%NACL 100ML 100 ML IV ONE (14:08)
[2024-06-07] MEDS: CALCIUM GLUC 1GM/10ML VIAL ONE (14:08)
--- NOTE | 2024-06-07 14:16 | HMCIMG ---
Exam Type: CHEST 1VW Clinical Information: sob Comparison: May 24, 2024 Findings: Pulmonary pattern is as before. No worrisome interval changes have taken place. Impression: Stable exam.
[2024-06-07] MEDS: 0.9%NACL 1000ML 1,000 ML IV ONE (15:00)
[2024-06-07] MEDS ORDERED: 0.9% NACL 250ML 250 ML IV SCH (15:00)
[2024-06-07] MEDS ORDERED: HEParin 5,000 UNIT VIAL SQ SCH (15:00)
--- NOTE | 2024-06-07 15:45 | NUR ---
DR MARVIN WAS JUST BY TO SEE THE PT.
[2024-06-07] MEDS ORDERED: NITROGLYCERIN 0.4 MG SL TAB SL PRN (16:00)
[2024-06-07] MEDS ORDERED: polyETHYLene GLYCol 3350 17 GM POWD.PACK PO PRN (16:00)
--- NOTE | 2024-06-07 16:12 | ERN ---
ED Note History of Present Illness Stated Complaint: WEAKESS-MISSED HD Chief Complaint: Weakness Time Seen by MD: 12:26 Time Seen by Midlevel: 12:26 Dictation: The patient is a 39-year-old female with history of ESRD on dialysis, diabetes, hypertension, right BKA who presents to the emergency department with complaints of weakness. Patient reports her last dialysis was Tuesday. Her usually dialysis days are Tuesday, Tuesday, Tuesday. Patient of Dr. Samayoa. Patient denies any , nausea or vomiting. Allergies: Coded Allergies: No Known Drug Allergies (Unverified Allergy, Unknown, 01/03/17) Home Meds Active Scripts Hydralazine HCl (Apresoline) 25 Mg Tab, 25 MG PO TID, #60 TAB Prov[facility]/24 Hydralazine HCl (Hydralazine HCl) 25 Mg Tablet, 25 MG PO TID, #90 TAB Prov[facility] 06/08/24 Nifedipine (Nifedipine ER) 30 Mg Tab.er.24, 60 MG PO DAILY, #60 TAB Prov[facility] 06/08/24 Carvedilol (Coreg) 12.5 Mg Tablet, 12.5 MG PO BID, #60 TAB Prov[facility] 06/08/24 Reported Medications Alprazolam (Xanax) 0.5 Mg Tablet, 1 TAB PO BID PRN for anxiety for 30 Days, #60 TAB 0 Refills 04/05/24 Lisinopril (Lisinopril) 40 Mg Tablet, 1 TAB PO DAILY for 30 Days, #30 TAB 0 R efills 04/05/24 Famotidine (Pepcid) 20 Mg Tablet, 1 TAB PO BID for 30 Days, #60 TAB 0 Refills 04/05/24 Diphenhydramine HCl (Diphenhydramine HCl) 25 Mg Capsule, 25 MG PO TIDP PRN for ITCHING, CAP 04/05/24 Discontinued Reported Medications Amlodipine Besylate (Norvasc) 5 Mg Tablet, 2 TAB PO BID for 30 Days, #30 TAB 0 R efills 04/05/24 Past Medical History Past Medical History: Anemia, Anxiety, CHF, Diabetes-Type II, High Cholesterol, Hypertension, Renal Disese, Renal Failure, Vascular Disease Additional Past Medical Hx: MRSA Surgical History: Other Surgical History Other: RBKA, L UPPER ARM AV GRAFT (NEW), PICC LINE MUSA, RSC HD CATH Family History: Negative Social History: Drugs, Negative History: Not Applicable RN Note Reviewed/Agreed w/PFSH: Yes Review of System Dictation Constitutional: Negative for fever,chills, and weight loss Eyes: Negative for injury, pain,redness, and discharge ENT: Negative for injury,pain or swelling Cardiovascular: Negative for chest pain, palpitations, and edema Respiratory: Negative for shortness of breath, cough, and wheezing, Abdomen/GI: Negative for abdominal pain, nausea, vomiting, diarrhea, and constipation Back: Negative for injury and pain : Negative for injury, bleeding and discharge MS/Extremity: Negative for injury and deformity Skin: Negative for rash, and discoloration Neuro: Negative for headache, numbness, tingling, and seizure positive for generalized weakness Psych: Negative for suicide ideation, homicidal ideation, and hallucinations Initial Vital Sign VS Vital Signs Date Time Temp Pulse Resp B/P (MAP) Pulse Ox O2 Delivery O2 Flow Rate FiO2 06/07/24 12: 97.7 50 17 132/63 99 Nasal Cannula 2.0 06/07/24 14:42 21 Physical Exam Dictation Vital Signs reviewed General Appearance: Lethargic, oriented x 3, mildly distress, well developed, nourished. Head and Face: non-traumatic. Eyes: pink conjunctivas, eyelid no trauma, anterior chamber with arcus senilis. Ears: Pinnas intact and no signs of trauma or erythema ear canals clear and no discharge TM no erythema Nose: No discharge, no bleeding. Oropharynx: Mouth normal, tongue pink. pharynx clear,no erythema, tonsils no exudates, no abscesses noted, mucous membrane moist Neck: Supple, non-tender, no thyromegaly, no masses, no JVD, no bruits Breast:Deferred Chest:No tenderness, no crepitus, no paradoxical movement, no retractions Lungs:Clear, well-ventilated, symmetric, no rales, no wheezing, no rhonchi, no stridor, good breath sounds bilaterally Heart: Regular rate, regular rhythm, no murmur, no gallops Vascular: no peripheral edema, Abdomen: Soft, positive bowel sounds, nondistended, no guarding, nontender, no rebound, no masses no hepatomegaly, no splenomegaly, no Wise's sign, no hernias. Rectal: Deferred Genital: Deferred Neurological: Normal speech, motor function intact, sensory function intact Musculoskeletal: Neck nontender, full range of motion, back nontender, full range of motion, Extremities: nontender, full range of motion right below-knee amputation, wound open with no drainage, Skin: Color pink, dry, no turgor, no rash, no lacerations, no abrasions, no contusions. Lymphatic: Deferred Results (Laboratory/Radiology) Laboratory/Radiology Laboratory Tests Test 06/09/24 05:08 06/09/24 05:32 Sodium Level 136 mmol/L (136-145) Potassium Level 5.3 mmol/L (3.5-5.1) H Chloride Level 96 mmol/L (101-111) L Carbon Dioxide Level 28 mmol/L (21-32) Blood Urea Nitrogen 70 mg/dL (7-18) H Creatinine 6.6 mg/dL (0.5-1.0) H Glomerular Filtration Rate Calc 8 mL/min (>90) Random Glucose 191 mg/dL (70-105) #H Total Calcium 7.2 mg/dL (8.5-10.1) L Whole Blood Glucose 182 MG/DL (70-110) #H REASON: sob ORDERING PHYSICIAN: PÉREZ BURNETT PROCEDURE: CXR1VW - CHEST 1VW Exam Type: CHEST 1VW Clinical Information: sob Comparison: May 24, 2024 Findings: Pulmonary pattern is as before. No worrisome interval changes have taken place. Impression: Stable exam. Labs Reviewed?: Yes EKG: (+) rhythm (Junctional rhythm) EKG Comment: EKG 06/07/2024 1324 ventricular rate 36, regular rate and rhythm, junctional rhythm, no STEMI. ED Course ED Course Orders Procedure Category Date Status Time *General Dc DS 06/09/24 Transmitted Instructions 08:48 Vital Signs Date Time Temp Pulse Resp B/P (MAP) Pulse Ox O2 Delivery O2 Flow Rate FiO2 06/09/24 13:12 140/68 06/09/24 08:00 98.4 72 18 137/64 97 Room Air 06/09/24 08:00 97 Room Air* 0 21 06/09/24 07:04 154/72 06/09/24 05:40 68 142/61 06/09/24 04:00 98.1 77 16 170/71 95 Room Air 06/09/24 00:00 98.1 76 18 170/66 98 Room Air 06/08/24 21:45 71 153/69 Room Air 06/08/24 20:19 193/83 Medical Decision Making MDM MDM: The patient is a 39-year-old female with history of ESRD on dialysis, diabetes, hypertension, right BKA who presents to the emergency department with complaints of weakness. Patient reports her last dialysis was Tuesday. Her usually dialysis days are Tuesday, Tuesday, Tuesday. Patient of Dr. Samayoa. Patient denies any fevers, nausea or vomiting. CBC showed mild leukocytosis, normocytic anemia, chemistry showed, potassium of 8.7, hyponatremia, hypocalcemia, elevated BNP. Chest x-ray with no acute pathology. Patient will be admitted for dialysis. Patient's heart rate improved after medication administration and dialysis to 80s Differential diagnosis: Fluid overload, electrolyte imbalance, sepsis, dehydration Comorbidities: ESRD on dialysis, diabetes, hypertension, below-knee amputation, anxiety Tests considered and not ordered secondary to shared decision making include: none Previous outside records reviewed: none Risk of complication and/or morbidity or mortality of patient management: The patient meets criteria for admission. Need for emergency major/minor surgery: No There are no social concerns with this patient. I independently interpreted the tests I ordered (labs, urinalysis, etc.). I discussed the case with the hospitalist for admission. Taiwo Annel who accepts admission I discussed the case with the following specialists: Historian: pateint. I independently interpreted imaging studies and EKGs that I ordered (US, CT, XR, EKG, etc.). External chart review: none. Medical management and examination interpretation discussions were had by me with other qualified healthcare professionals as indicated for the patient's care. Critical Care Note Critical Time: other (38) Comment(s) Total critical care time was 38 minutes. Excluding time for procedures. Management of critically ill patient with concern for acute decompensation. Management included interpretation of laboratory values and imaging, hemodynamics, time for consultation with consultants and admitting physician. DX & DISP Disposition: Inpatient Decision to Admit Date: Jun 07, 2024 Decision to Admit Time: 15:13 Departure Impression: Primary Impression: Hyperkalemia Additional Impressions: ESRD (end stage renal disease), Leukocytosis, Elevated brain natriuretic peptide (BNP) level, Bradycardia, Weakness Condition: Stable Scripts Hydralazine HCl (Apresoline) 25 Mg Tab 25 MG PO TID, #60 TAB Prov: [facility] 06/09/24 Hydralazine HCl (Hydralazine HCl) 25 Mg Tablet 25 MG PO TID, #90 TAB Prov: [facility] 06/08/24 Nifedipine (Nifedipine ER) 30 Mg Tab.er.24 60 MG PO DAILY, #60 TAB Prov: [facility] 06/08/24 Carvedilol (Coreg) 12.5 Mg Tablet 12.5 MG PO BID, #60 TAB Prov: [facility] 06/08/24 Referrals: MARTY VENTURA MD (PCP) ATTESTATION BY PHYSICIAN I PERFORMED THE SUBSTANTIVE PORTION OF THE VISIT. I HAVE REVIEWED AND PERSONALLY MADE AND APPROVED THE MANAGEMENT PLAN THAT IS DOCUMENTED IN THE NOTE BY MYSELF FOR THE A PP. I ACKNOWLEDGED FOR RESPONSIBILITY FOR THE PATIENT'S MANAGEMENT PLAN. I have examined patient, & reviewed all documents, & agreed W/ the Diagnosis, and Plan PÉREZ BURNETT Jun 07, 2024 16:12 GUALBERTO AUGUSTINE MD Jun 11, 2024 20:09
--- NOTE | 2024-06-07 16:19 | NUR ---
HEMODIALYSIS ON GOING FOR PT.
--- NOTE | 2024-06-07 16:29 | CONS ---
REFERRING PHYSICIAN: Dr. Peralta. REASON FOR CONSULTATION: Hyperkalemia; ESRD, noncompliance. I did discuss with the primary team. HISTORY OF PRESENT ILLNESS: A 39-year-old female with history of diabetes mellitus and hypertension. She has a history of vascular disease, recent BKA. The patient had been receiving outpatient IV antibiotics. She has a history of end-stage renal disease, on dialysis 3 times per week. The patient did not receive her dialysis on 06/05/2024 secondary to noncompliance. She presents to the emergency room complaining of generalized fatigue. In the emergency room, the patient was found to have significant electrolyte abnormalities including a potassium of 8.7 millimoles per liter. The patient is being seen for urgent dialysis. PAST MEDICAL HISTORY: Diabetes mellitus, hypertension, vascular disease, and ESRD. PAST SURGICAL HISTORY: BKA, AV access, eye surgeries. SOCIAL HISTORY: She is currently at the shelter, receiving IV antibiotics. There is no active tobacco use. FAMILY HISTORY: There is no renal disease in the family. ALLERGIES: There are no allergies. MEDICATIONS: All noted. REVIEW OF SYSTEMS: GENERAL: She is feeling weak and tired. HEENT: No change in vision, which is poor. No change in hearing. No nasal discharge. CARDIOVASCULAR: No current chest pains or palpitations. PULMONARY: No shortness of breath. GASTROINTESTINAL: The patient is tolerating a diet. MUSCULOSKELETAL: Complains of weakness. NEUROLOGIC: No seizures or focal deficits. PSYCHIATRIC: No history of hallucinations or psychosis. ENDOCRINE: There is diabetes mellitus. No history of thyroid disease. HEME: History of anemia. No history of malignancy. PHYSICAL EXAMINATION: VITAL SIGNS: Blood pressure 145/89, pulse 60s. She is afebrile. GENERAL: She is a chronically ill female, much older than appearing. HEENT: Head is atraumatic. Pupils are equal, roving to light. Oropharynx is without exudate. Nares are clear. NECK: There is no JVP. There is no thyromegaly, no mass. CARDIOVASCULAR: Regular. There is no S3, S4 gallop. LUNGS: Coarse with equal thoracic movement. ABDOMEN: Soft, nondistended, nontender. EXTREMITIES: Reveal no clubbing, no cyanosis. NEUROLOGICAL: She is awake. She is alert. She is oriented. SKIN: Reveals no rashes or nodules. BACK: There is no CVA tenderness, no back deformities. LABORATORY DATA: Sodium 133, potassium 8.7, chloride 94, bicarbonate 16, BUN 179, creatinine is 11. Hemoglobin 11, hematocrit 34, white cell count is 13,000. Chest x-ray reveals pulmonary vascular congestion. IMPRESSION: * Hyperkalemia. * Volume overload. * End-stage renal disease, noncompliance. * Diabetes mellitus. * Vascular disease. PLAN: The patient presents with symptomatic hyperkalemia. The patient's EKG changes are all noted. The patient will receive urgent dialysis on the day of this consultation. The patient will continue with dialysis on a Tuesday, Tuesday, Tuesday schedule. I did discuss the case in detail with the primary team. Once the patient's hyperkalemia resolves, we will plan for transfer back to the shelter to continue with the IV antibiotics. All labs can be repeated in the morning. I have discussed with the patient on multiple occasions in regard to her poor compliance. We will continue to monitor closely. All labs will be repeated in the morning. TID: [id number] RECEIPT: [id number]
[2024-06-07] MEDS: INSULIN humuLIN R 100 UNIT/ML 3ML SQ SCH (16:30)
--- NOTE | 2024-06-07 18:00 | NUR ---
BED ASSIGNMENT: PT JUST ASSIGNED TO BED 429 BY PVC LOADER ROYAL SAMSON
--- NOTE | 2024-06-07 18:01 | NUR ---
HD STILL GOING ON.
[2024-06-07] MEDS: ALPRAZolam 0.5 MG TABLET PO PRN (18:05)
[2024-06-07] MEDS: acetaMINOPHEN 325 MG TAB PO PRN (18:06)
--- NOTE | 2024-06-07 18:17 | NUR ---
REPORT JUST CALLED TO MAGUI SAMSON 4TH FLOOR
[2024-06-07 18:33] LABS: CREATININE 5.5 mg/dL (0.5-1.0); POTASSIUM 4.1 mmol/L (3.5-5.1)
[2024-06-07] MEDS: hydrALAZine 20MG/ML VIAL IV PRN (18:51)
[2024-06-07] MEDS: HYDROcodone/acetaMINOPHEN 10/325 MG TAB PO PRN (19:17)
--- NOTE | 2024-06-07 19:23 | NUR ---
MED REC: NOT COMPLETED
[2024-06-07] MEDS: FAMOTIDINE 20MG TAB PO SCH (20:18)
[2024-06-07] MEDS: amLODIPine 5 MG TAB PO SCH (20:18)
--- NOTE | 2024-06-07 20:41 | NUR ---
PT BLOOD GLUC POST HD 61, SAYS SHE IS HUNGRY SO I HAVE GIVEN HER SOMETHING TO EAT AND DRINK. HANDED OVER TO FLOOR NURSE TO REPEAT BM CHECK POST MEAL VS STABLE, BP 171/78 PRIOR TRANSFER PATIENT LOOKS SETTLED AFTER [place]CO TAB, BUT STILL ASKING FOR MORPHINE FOR IV PAIN PT KNOWN DRUG SEEKER. DOCTOR'S AWARE PER DAY STAFF JERZY
[2024-06-07] MEDS: ondanSETRON 4MG INJ IV PRN (22:03)
--- NOTE | 2024-06-07 22:48 | HP ---
[facility] HISTORY & PHYSICAL Date Patient Seen: Jun 07, 2024 Time of Visit: 22:48 Supervising Physician: Dr. Peralta Primary Care Physician: Dr. Hawk Orosco Outpatient Specialists: Inpatient Consults: Dr. 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 Blanca is a 39-year-old female with history of anemia, anxiety, CHF, DM, HDL, HTN, ESRD, vascular disease, and right BKA who presents to the emergency department with complaints of weakness from atrium. Patient reports her last dialysis was Tuesday. Her usually dialysis days are Tuesday, Tuesday, Tuesday. The patient reports that she had a missed dialysis because the dialysis days were changed due to the holidays. Patient of Dr. Samayoa. Patient denied SOB, chest pain, nausea, vomiting, any other pain, problem or concern. The patient received dialysis in the ED and ED provider reports that she will have another dialysis session tomorrow. ED request the patient be admitted with the diagnosis of hyperkalemia, ESRD, Leukocytosis, Elevated brain natriuretic peptide (BNP) level, Bradycardia, Weakness. I assessed the patient at bedside in 429. Patient appeared chronically ill, in no distress, breathing was even and unlabored. Patient reported left back pain. She states that it is her kidney pain. Patient also reported pain to her right BKA which is a new surgical amputation onset about one month. She reports that Dilaudid is what helps with the pain and that she receives it when she comes to the hospital. Informed the patient labs, diagnostics, and plan of care. She verbalized understanding and is in agreement with the plan. Plan and assessment are listed below. PAST MEDICAL HX: see above PAST SURGICAL HX: Left upper arm AV graft PermCath right chest wall PICC line MUSA Right BKA SOCIAL HISTORY: No tobacco, ETOH, or illicit drug use Coded Allergies: No Known Drug Allergies (Unverified Allergy, Unknown, 01/03/17) REVIEW OF SYSTEMS: 12 point ROS reviewed with patient. Pertinent positives mentioned above. Otherwise negative. PHYSICAL EXAM: GENERAL: Alert, weak, awake, oriented x 3, chronically ill. HEENT: EOMI, Sclera non icteric, moist mucosa NECK: Supple, no JVD, trachea midline LUNGS: Clear breath sounds bilaterally. No wheezes HEART: Regular rate and rhythm. Normal S1 and S2, without murmurs ABD: Abdomen soft, nontender. Bowel sounds present EXT: No clubbing cyanosis or edema. Right BKA. Dressing is clean and dry. NEURO: Alert and oriented X3, follows commands. Vital Signs (last 8hr) Date Time Temp Pulse Resp B/P (MAP) Pulse Ox O2 Delivery O2 Flow Rate FiO2 06/07/24 21:00 99.3 86 16 146/77 99 Room Air 06/07/24 21:00 95 Room Air* 0 06/07/24 20:23 98.4 88 18 171/87 100 Room Air* 0 06/07/24 19:20 98.4 91 18 199/101 99 Room Air* 0 06/07/24 18:25 97.9 90 12 190/94 100 Room Air 06/07/24 18:08 94 16 190/94 98 Room Air* 0 06/07/24 18:00 97.9 89 12 194/102 100 Room Air 06/07/24 17:55 86 12 207/90 Room Air 06/07/24 17:40 87 12 198/96 Room Air 06/07/24 17:25 87 12 197/99 Room Air 06/07/24 17:10 85 12 178/87 Room Air 06/07/24 17:00 86 12 191/86 99 Room Air* 0 06/07/24 16:55 85 12 191/86 Room Air 06/07/24 16:40 84 10 174/92 Room Air 06/07/24 16:25 86 10 179/87 Room Air 06/07/24 16:10 86 10 197/86 Room Air 06/07/24 16:00 88 12 184/88 99 Room Air* 0 06/07/24 15:55 88 10 184/88 99 Room Air 06/07/24 15:40 90 10 190/88 100 Room Air 06/07/24 15:25 90 10 179/86 99 Room Air 06/07/24 15:10 92 12 208/85 99 Room Air 06/07/24 15:00 59 17 145/62 99 Room Air* 0 21 06/07/24 14:55 97.9 48 10 145/62 99 Room Air LABS: Hematology Labs: Test 06/07/24 13:14 Range/Units White Blood Count 13.3 H 4.8-10.8 K/uL Red Blood Count 3.98 L 4.00-5.50 MIL/uL Hemoglobin 11.2 L 12.0-16.0 g/dL Hematocrit 34.1 L 36-48 % Mean Corpuscular Volume 85.7 79-99 fL Mean Corpuscular Hemoglobin 28.1 27.0-33.0 pg Mean Corpuscular Hemoglobin Concent 32.8 32.0-36.0 g/dL Red Cell Distribution Width 17.2 H 11.0-15.5 % Platelet Count 390 130-400 K/uL Mean Platelet Volume 9.8 7.5-10.5 fL Immature Granulocyte % (Auto) 2.3 H 0-1 % Neutrophils (%) (Auto) 68.1 40.0-77.0 % Lymphocytes (%) (Auto) 20.7 L 21.0-51.0 % Monocytes (%) (Auto) 5.0 3.0-13.0 % Eosinophils (%) (Auto) 2.9 0.0-8.0 % Basophils (%) (Auto) 1.0 0.0-5.0 % Neutrophils # (Auto) 9.1 H 1.8-7.7 K/uL Lymphocytes # (Auto) 2.8 1.0-4.8 K/uL Monocytes # (Auto) 0.7 0.1-1.0 K/uL Eosinophils # (Auto) 0.39 0.00-0.70 K/uL Basophils # (Auto) 0.13 0.00-0.20 K/uL Absolute Immature Granulocyte (auto 0.30 0-1 K/uL Nucleated Red Blood Cells 0.2 H 0.0-0.19 % Chemistry Labs: Test 06/07/24 18:04 06/07/24 13:14 Range/Units Sodium Level 135 L 136-145 mmol/L Potassium Level 4.1 # 3.5-5.1 mmol/L Chloride Level 95 L 101-111 mmol/L Carbon Dioxide Level 26 21-32 mmol/L Blood Urea Nitrogen 76 #*H 7-18 mg/dL Creatinine 5.5 H 0.5-1.0 mg/dL Glomerular Filtration Rate Calc 10 >90 mL/min Random Glucose 76 70-105 mg/dL Total Calcium 7.9 L 8.5-10.1 mg/dL Lactic Acid Level 1.6 0.8-2.5 mmol/L Troponin I High Sensitivity 48 4-50 ng/L B-Type Natriuretic Peptide 2490 H 0-100 pg/mL DIAGNOSTICS / RADIOLOGY RESULTS: [ ] PLAN Admit patient to medical floor with telemetry monitoring. P.r.n. medications for: Pain management, nausea, vomiting, hypertension, fever, constipation. Resume patient's home medications Xanax, amlodipine, Pepcid, lisinopril. Nephrology was consulted and patient received dialysis in the ED. Plan is for dialysis also tomorrow 06/08/2024. Per report patient could be discharged tomorrow 06/08/2020 after dialysis if patient continues stable. Monitor renal and liver function. Monitor electrolytes and treat accordingly. DVT and GI prophylaxis. Morning labs. NEURO: Minimize central acting medications as possible. Maintain fall precautions, adequate lighting during the day PULMONARY: Supplemental 02 as needed. Maintain aspiration precautions at all times CARDIOVASCULAR: Follow hemodynamics. Vital signs per facility protocol GI & NUTRITION: Continue with nutritional support. Continue stool softeners and laxatives as needed. KIDNEYS & ELECTROLYTES: Strict monitoring of intake, output and overall fluid balance. Avoid nephrotoxic medications to the extent possible. Medications to be dosed according to renal function. Monitor electrolytes and replace as needed ENDOCRINE: Maintain blood glucose between 100-180 at all times. Hypoglycemia protocol in place INFECTIOUS DISEASE: Trend temperature, WBC and procalcitonin level Follow cultures, deescalate antibiotics as soon as possible. Panculture if new onset fever ONCOLOGY/HEMATOLOGY/COAGULATION: Monitor for s/s of bleeding Monitor hemoglobin, coagulation studies as needed SKIN: Pressure ulcer prevention per facility protocol Specialty mattress ORTHO/REHAB: Continue PT/OT Prophylaxis: Continue GI and DVT prophylaxis Code Status: Full Resuscitation Disposition: AMBROCIO HERNANDEZ SOFT TILE SETTER Jun 07, 2024 22:48
[2024-06-07] MEDS: hydroMORPHone 1 MG INJ IVP ONE (23:41)
[2024-06-08] VITALS (25 sets, daily range): BP systolic 153–232; BP diastolic 61–118; PULSE 71–88; RESP 16–22; TEMP 97.5–98.8; O2SAT 95
--- NOTE | 2024-06-08 06:11 | EKG ---
[facility] Test Date: 2024-06-07 Test Time: 13:26:26 Pat Name: MAGUI ANTHONY Department: [facility] Room: 429 1 Gender: F Medical Imaging Director: 0723 : 1985 Requested By: PÉREZ BURNETT Order Number: [id number] Reading MD: Jimi Buckley Measurements Intervals [place] Rate: 75 P: 0 IN: 79 QRS: 92 QRSD: 125 T: 0 QT: 0 QTc: 0 Interpretive Statements JUNCTIONAL ESCAPE RHYTHM Nonspecific T abnormalities, diffuse leads Compared to ECG 03/23/2024 18:19:27 Ventricular premature complex(es) now present Intraventricular conduction delay now present T-wave abnormality now present Sinus tachycardia no longer present ST (T wave) deviation no longer present Electronically Signed On 06-08-2024 14:07:05 PROFESSOR OF ANTHROPOLOGY by Jimi Buckley Please click the below link to view image of tracing.
--- NOTE | 2024-06-08 06:12 | EKG ---
[facility] Test Date: 2024-06-07 Test Time: 18:35:11 Pat Name: MAGUI ANTHONY Department: [facility] Room: 429 1 Gender: F Die Cutter Apprentice: 0723 : 1985 Requested By: PÉREZ BURNETT Order Number: [id number] Reading MD: Jimi Buckley Measurements Intervals [place] Rate: 89 P: 46 IN: 169 QRS: 64 QRSD: 100 T: 59 QT: 393 QTc: 479 Interpretive Statements Sinus rhythm Compared to ECG 06/07/2024 13:26:26 Ventricular premature complex(es) no longer present Intraventricular conduction delay no longer present T-wave abnormality no longer present Electronically Signed On 06-08-2024 14:08:46 ANALYTICAL RESEARCH PROGRAM MANAGER by Jimi Buckley Please click the below link to view image of tracing.
--- NOTE | 2024-06-08 06:24 | NUR ---
NOTE PT C/O OF BACK PAIN 03/22 OFFERED NORCO 10 FOR HER PAIN, PT REFUSED STATED "THAT SHIT DOESN'T WORK CALL THE DR TO GIVE ME SOMETHING ELSE." ASKED PT TO TRY PO PAIN MEDICATION SINCE SHE DID NOT HAVE ANY OTHER PAIN MEDICATION ORDERED, PT STATED "NO, I DON'T WANT IT, IT DOESN'T WORK CALL DR MARVIN TELL HIM TO GIVE ME PAIN MEDICATION."
--- NOTE | 2024-06-08 08:37 | NUR ---
PLAN FOR HD TODAY/ WILL HOLD OFF BP MED AND GIVE POST HD
[2024-06-08] MEDS: LISINOPRIL 40 MG TABLET PO SCH (08:58)
[2024-06-08] MEDS ORDERED: amLODIPine 5 MG TAB PO SCH (09:00)
[2024-06-08 09:04] LABS: BASOPHILS # (AUTO) 0.08 K/uL (0.00-0.20); BASOPHILS % (AUTO) 0.8 % (0.0-5.0); EOSINOPHILS # (AUTO) 0.12 K/uL (0.00-0.70); EOSINOPHILS % (AUTO) 1.2 % (0.0-8.0); HEMATOCRIT 32.1 % (36-48); LYMPHOCYTES # (AUTO) 1.4 K/uL (1.0-4.8); LYMPHOCYTES % (AUTO) 14.3 % (21.0-51.0); MEAN CORPUSCULAR HEMOGLOBIN 28.4 pg (27.0-33.0); MEAN CORPUSCULAR HGB CONC 33.6 g/dL (32.0-36.0); MEAN CORPUSCULAR VOLUME 84.5 fL (79-99); MONOCYTES # (AUTO) 0.3 K/uL (0.1-1.0); MONOCYTES % (AUTO) 3.4 % (3.0-13.0); NEUTROPHILS # (AUTO) 7.8 K/uL (1.8-7.7); NEUTROPHILS % (AUTO) 78.3 % (40.0-77.0); PLATELET COUNT (AUTO) 340 K/uL (130-400); RED CELL DISTRIBUTION WIDTH 17.6 % (11.0-15.5)
[2024-06-08] MEDS: hydroMORPHone 0.5 MG SYG (0.5MG/0.5ML) IVP ONE (09:12)
[2024-06-08 09:21] LABS: CREATININE 7.6 mg/dL (0.5-1.0); MAGNESIUM 1.8 mg/dL (1.80-2.40)
[2024-06-08 09:32] LABS: POTASSIUM 6.7 mmol/L (3.5-5.1)
--- NOTE | 2024-06-08 10:03 | PN ---
FOLLOWUP PROGRESS NOTE SUBJECTIVE: A 39-year-old female with a history of diabetes mellitus and hypertension. The patient initially admitted to the hospital and found to have significant hyperkalemia. The patient did receive urgent dialysis on the day of admission. The patient's potassium is much improved and she is being seen as a followup visit for all the above. She does receive dialysis on a Tuesday, Tuesday, Tuesday schedule. I did discuss with the primary team. REVIEW OF SYSTEMS: GENERAL: She is feeling improved. She continues to complain of pain. HEENT: No change in vision. No change in hearing. CARDIOVASCULAR: There is no current chest pain or palpitations. PULMONARY: No shortness of breath. GASTROINTESTINAL: The patient is tolerating a diet. MUSCULOSKELETAL: Complains of weakness. PHYSICAL EXAMINATION: VITAL SIGNS: Blood pressure 186/61, pulse 80s. GENERAL: She is a chronically ill female, much older than appearing. HEENT: Head is atraumatic. Pupils equal, roving to light. Oropharynx is without exudate. Nares clear. NECK: There is no JVP. There is no thyromegaly, no mass. CARDIOVASCULAR: Regular. There is no S3, S4 gallop. LUNGS: Coarse with equal thoracic movement. ABDOMEN: Soft, nondistended, nontender. EXTREMITIES: There is no clubbing, no cyanosis. NEUROLOGIC: She is awake. She is alert. LABORATORY DATA: Hemoglobin 10, hematocrit 32, white cell count is 10,000. Sodium is 135, potassium is 4, BUN 76, creatinine 5.5. IMPRESSION: * Hyperkalemia. * End-stage renal disease with noncompliance. * Diabetes mellitus. * Hypertension. PLAN: The patient will continue with the dialysis as prescribed. The patient is encouraged yet again in regards to her general medical care including her dialysis sessions. I did discuss with the primary team. The patient can safely be discharged post-dialysis. The patient is highly encouraged to follow up at the dialysis unit. The patient and family with multiple questions, all of which were answered. TID: [id number] RECEIPT: [id number]
[2024-06-08] MEDS: hydrALAZine 25MG TABLET PO PRN (10:07)
--- NOTE | 2024-06-08 10:08 | NUR ---
Receive verbal order from HD staff/Nephrology an OK to give BP med now
--- NOTE | 2024-06-08 10:20 | NUR ---
[facility] Consult: Patient assessed by wound healing team. See wound assessment. Assessment and recommendations provided to primary nurse. Education provided. Wound care done. Addendum: 06/08/24 at 1242 by GOLDY MUNGUIA RN RN/ Amended: Links added.
[2024-06-08] MEDS ORDERED: HEParin 5,000 UNIT VIAL IRRIG SCH (10:30)
[2024-06-08] MEDS: nifeDIPine ER 30 MG TAB PO SCH (13:21)
[2024-06-08] MEDS: carVEDIlol 12.5 MG TABLET PO SCH (13:22)
[2024-06-08] MEDS: DiphenhydrAMINE HCL 25 MG CAPSULE PO PRN (13:23)
--- NOTE | 2024-06-08 13:47 | CONS ---
CONSULTATION NOTE Date of Service: Jun 08, 2024 Reason for Consultation: [ RBKA- surgical dehisced wound, Left foot Plantar DFU ] Requesting Physician: [Hospitalist ] HISTORY OF PRESENT ILLNESS: [ 06/08/24 38 yo female presents to ED with complaints of weakness. History of RBKA-surgical dehisced wound. Pt on dialysis M/W/F. Primary nurse Neci at visit. Family present during visit. ] REVIEW OF SYSTEMS CONSTITUTIONAL: Denies fever, chills, or fatigue. Positive for overall weakness. HEAD/FACE: No signs of trauma. EENT: Denies eye pain, blurred vision, double vision, or light sensitivity. RESPIRATORY: Denies shortness of breath, cough, wheezing CARDIOVASCULAR: Denies chest pain, palpitation, syncope GASTROINTESTINAL/ABDOMINAL: Denies abdominal pain, constipation, diarrhea, nausea or vomiting GENITOURINARY: Denies dysuria or hematuria. MUSCULOSKELETAL: Denies joint pain, tenderness, or trauma. INTEGUMENTARY: Denies rash or itchiness NEUROLOGICAL/PSYCH: Denies anxiety, depression, heat or cold intolerance. PAST MEDICAL HISTORY: [ ] PAST SURGICAL HISTORY: [ ] PAST SOCIAL HISTORY: [ ] FAMILY HISTORY: [ ] Coded Allergies: No Known Drug Allergies (Unverified Allergy, Unknown, 01/03/17) PHYSICAL EXAM EYES: Anicteric. Pupils equal and reactive. HENT: No oral thrush seen, moist Oral mucosa NECK: Supple, no JVD or thyromegaly. LUNGS: Good air entry. No rales, no rhonchi. CARDIOVASCULAR: S1, S2 regular. No murmur heard. ABDOMEN: Soft, non tender, bowel sounds present, no organomegaly CENTRAL NERVOUS SYSTEM: Awake, alert, oriented x 3. No focal deficits. SKIN: No rashes, no swelling. LYMPHATICS: No peripheral lymphadenopathy MUSCULOSKELETAL: No joint swelling, erythema or tenderness. EXTREMITIES: No cyanosis or clubbing; RBKA- surgical dehisced wound, Left foot plantar DFU BACK: No deformity, no pressure ulcer. GENITOURINARY: No dysuria or hematuria Vital Sign (Last 24 Hours) 06/08/24 06/08/24 06/08/24 10:00 11:45 12:26 Temp 98.8 Pulse 84 Resp 16 B/P (MAP) 190/98 Pulse Ox 95 O2 Delivery Room Air* O2 Flow Rate 0 FiO2 21 Intake & Output (last 24hrs) 06/07/24 06/07/24 06/08/24 15:00 23:00 07:00 Intake Total 60 ml Output Total 8000 ml Balance -7940 ml LABS: Laboratory: Test 06/08/24 12:57 06/08/24 08:58 06/07/24 13:14 Range/Units Potassium Level 3.4 #L 3.5-5.1 mmol/L White Blood Count 10.0 4.8-10.8 K/uL Red Blood Count 3.80 L 4.00-5.50 MIL/uL Hemoglobin 10.8 L 12.0-16.0 g/dL Hematocrit 32.1 L 36-48 % Mean Corpuscular Volume 84.5 79-99 fL Mean Corpuscular Hemoglobin 28.4 27.0-33.0 pg Mean Corpuscular Hemoglobin Concent 33.6 32.0-36.0 g/dL Red Cell Distribution Width 17.6 H 11.0-15.5 % Platelet Count 340 130-400 K/uL Mean Platelet Volume 9.2 7.5-10.5 fL Immature Granulocyte % (Auto) 2.0 H 0-1 % Neutrophils (%) (Auto) 78.3 H 40.0-77.0 % Lymphocytes (%) (Auto) 14.3 L 21.0-51.0 % Monocytes (%) (Auto) 3.4 3.0-13.0 % Eosinophils (%) (Auto) 1.2 0.0-8.0 % Basophils (%) (Auto) 0.8 0.0-5.0 % Neutrophils # (Auto) 7.8 H 1.8-7.7 K/uL Lymphocytes # (Auto) 1.4 1.0-4.8 K/uL Monocytes # (Auto) 0.3 0.1-1.0 K/uL Eosinophils # (Auto) 0.12 0.00-0.70 K/uL Basophils # (Auto) 0.08 0.00-0.20 K/uL Absolute Immature Granulocyte (auto 0.20 0-1 K/uL Nucleated Red Blood Cells 0.0 0.0-0.19 % Sodium Level 133 L 136-145 mmol/L Chloride Level 97 L 101-111 mmol/L Carbon Dioxide Level 25 21-32 mmol/L Blood Urea Nitrogen 89 *H 7-18 mg/dL Creatinine 7.6 H 0.5-1.0 mg/dL Glomerular Filtration Rate Calc 7 >90 mL/min Random Glucose 127 #H 70-105 mg/dL Total Calcium 7.3 L 8.5-10.1 mg/dL Magnesium Level 1.80 1.80-2.40 mg/dL Lactic Acid Level 1.6 0.8-2.5 mmol/L Troponin I High Sensitivity 48 4-50 ng/L B-Type Natriuretic Peptide 2490 H 0-100 pg/mL DIAGNOSTICS / RADIOLOGY: [ ] PROBLEM LIST : Medical Problems: (1) Bradycardia ICD Codes: R00.1 - Bradycardia, unspecified (2) Elevated brain natriuretic peptide (BNP) level ICD Codes: R79.89 - Other specified abnormal findings of blood chemistry (3) ESRD (end stage renal disease) ICD Codes: N18.6 - End stage renal disease (4) Hyperkalemia ICD Codes: E87.5 - Hyperkalemia (5) Leukocytosis ICD Codes: D72.829 - Elevated white blood cell count, unspecified (6) Weakness ICD Codes: R53.1 - Weakness RBKA-surgical dehisced wound Left foot plantar DFU PLAN: [RBKA-surgical dehisced wound - Medihoney Left foot plantar DFU - Hydrafara blue ] ESTRADA GONZALEZ Jun 08, 2024 13:47
[2024-06-08] MEDS ORDERED: NIFE-40 PO (14:27)
[2024-06-08] MEDS ORDERED: CARV12.580 PO (14:27)
--- NOTE | 2024-06-08 14:27 | DS ---
[facility] DISCHARGE SUMMARY Date Patient Seen: Jun 08, 2024 Time of Visit: 14:27 Supervising Physician: [ ] Primary Care Physician: Dr. Hawk Orosco Outpatient Specialists: Inpatient Consults: Dr. 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 BKA per culture on 05/17/2024 Diabetic neuropathy Pulmonary hypertension with RVSP of 49 mm Hg on 08/24/2020 per 2D echo Diastolic heart failure with the EF of 45-50%, per echo on 08/24/2020 Moderate mitral regurgitation on 2D echo 08/24/2020 Drug-seeking behavior Chronic problem list: Anemia, anxiety, CHF, dm, HDL, HTN, ESRD, vascular disease HOSPITAL COURSE: HPI (per admitting provider) The patient was treated for the following problems: ACTIVE PROBLEM LIST FOR THE HOSPITALIZATION: CHRONIC PROBLEMS: continue previous management per PCP unless otherwise indicated CAUL FAT PULLER FINDINGS/RECOMMENDATIONS: [ ] PROCEDURES: as mentioned above DISCHARGE MEDICATIONS: Pt hemodynamically stable and afebrile at time of discharge. PCP notified of patients admission, hospital course and discharge. PHYSICAL EXAM: GENERAL: Alert, weak, awake, oriented x 3, chronically ill. HEENT: EOMI, Sclera non icteric, moist mucosa NECK: Supple, no JVD, trachea midline LUNGS: Clear breath sounds bilaterally. No wheezes HEART: Regular rate and rhythm. Normal S1 and S2, without murmurs ABD: Abdomen soft, nontender. Bowel sounds present EXT: No clubbing cyanosis or edema. Right BKA. Dressing is clean and dry. NEURO: Alert and oriented X3, follows commands. FOLLOW-UP: Follow-up with PCP in 2-3 days RECOMMENDATIONS: See Discharge Instructions This case was seen and discussed with my supervising physician. More than 30 min utes spent on discharge process, including evaluation of the patient, discussion with nursing staff, medication reconciliation and follow-up appointments CONOR GUEVARA CNP Jun 08, 2024 14:27
[2024-06-08] MEDS ORDERED: HYDR25TA67 PO (14:39)
[2024-06-08] MEDS: hydrALAZine 25MG TABLET PO SCH (16:24)
--- NOTE | 2024-06-08 17:04 | NUR ---
DCP CM SPOKE TO PATIENT ASSESSMENT DONE. PATIENT IS INDEPENDENT PRIOR TO ADMISSION, ADMITTED FROM [facility], PRIOR TO LIVES AT HOME W/PARENTS, SISTER LIVES CLOSE BY. PATIENT HAS A WALKER, WHEELCHAIR, GLUCOMETER, USES INSULIN FOR DM, PT HAS BPM, GOES TO [facility] MWF @ 10AM. PT WOULD LIKE TO RETURN TO [facility], CONSENT SIGNED TORREY. DCP BACK TO [facility] ONCE ACCEPTED. CM DC CLINICAL CONSULTANT SENT CLINICALS TO [facility] AND [facility]. PER REP NO NEED NEW PAS[facility]. REP CAME TO SEE PATIENT AT THIS TIME, PT HAS RE-ACCEPTANCE. EMS FILLED OUT AND FAXED FOR TODAY. PRIMARY NURSE HONEY MADE AWARE. CM TO CONTINUE TO FOLLOW UP. Addendum: 06/08/24 at 1708 by CORNELIUS ANTHONY LVN Amended: Links added.
--- NOTE | 2024-06-08 17:30 | NUR ---
Spoke to [facility] team in regards to SBP remain >180, >190 mmHg, receive order to HOLD transfer and will re-eval in AM
--- NOTE | 2024-06-08 18:40 | PN ---
[facility] PROGRESS NOTE Date Patient Seen: Jun 08, 2024 Time of Visit: 18:39 Supervising Physician: Vel Oscar Primary Care Physician: Dr. Hawk Orosco Outpatient Specialists: Inpatient Consults: Dr. 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 Her potassium this morning was up high at 6.7 before dialysis and after dialysis dropped to 3.4. Patient blood pressure however has been up high over after dialysis so we had to increase the BP regimen, started Coreg and nifedipine. We also started hydralazine p.o.. Continue with current lisinopril. We will hold discharge today till tomorrow if sytolic blood pressure stable less than 180. REVIEW OF SYSTEMS: 12 point ROS reviewed with patient. Pertinent positives mentioned above. Otherwise negative. PHYSICAL EXAM: GENERAL: Alert, weak, awake, oriented x 3, chronically ill. HEENT: EOMI, Sclera non icteric, moist mucosa NECK: Supple, no JVD, trachea midline LUNGS: Clear breath sounds bilaterally. No wheezes HEART: Regular rate and rhythm. Normal S1 and S2, without murmurs ABD: Abdomen soft, nontender. Bowel sounds present EXT: No clubbing cyanosis or edema. Right BKA. Dressing is clean and dry. NEURO: Alert and oriented X3, follows commands. Vital Signs (last 8hr) Date Time Temp Pulse Resp B/P (MAP) Pulse Ox O2 Delivery O2 Flow Rate FiO2 06/08/24 16:14 98.1 80 22 188/81 97 Room Air 06/08/24 16:00 95 Room Air* 0 21 06/08/24 14:54 193/83 06/08/24 14:54 205/85 06/08/24 14:52 98.2 79 18 202/98 97 Room Air 06/08/24 13:15 98.2 88 16 195/84 Room Air 06/08/24 13:00 98.2 82 16 192/95 Room Air 06/08/24 12:45 85 16 197/84 Room Air 06/08/24 12:30 88 16 186/96 Room Air 06/08/24 12:26 95 Room Air* 0 21 06/08/24 12:15 82 16 190/88 Room Air 06/08/24 12:00 86 16 195/92 Room Air 06/08/24 11:45 84 16 190/98 Room Air 06/08/24 11:30 88 16 184/93 Room Air 06/08/24 11:15 79 16 202/98 Room Air 06/08/24 11:00 79 16 196/91 Room Air 06/08/24 10:45 77 16 190/72 Room Air LABS: Hematology Labs: Test 06/08/24 08:58 Range/Units White Blood Count 10.0 4.8-10.8 K/uL Red Blood Count 3.80 L 4.00-5.50 MIL/uL Hemoglobin 10.8 L 12.0-16.0 g/dL Hematocrit 32.1 L 36-48 % Mean Corpuscular Volume 84.5 79-99 fL Mean Corpuscular Hemoglobin 28.4 27.0-33.0 pg Mean Corpuscular Hemoglobin Concent 33.6 32.0-36.0 g/dL Red Cell Distribution Width 17.6 H 11.0-15.5 % Platelet Count 340 130-400 K/uL Mean Platelet Volume 9.2 7.5-10.5 fL Immature Granulocyte % (Auto) 2.0 H 0-1 % Neutrophils (%) (Auto) 78.3 H 40.0-77.0 % Lymphocytes (%) (Auto) 14.3 L 21.0-51.0 % Monocytes (%) (Auto) 3.4 3.0-13.0 % Eosinophils (%) (Auto) 1.2 0.0-8.0 % Basophils (%) (Auto) 0.8 0.0-5.0 % Neutrophils # (Auto) 7.8 H 1.8-7.7 K/uL Lymphocytes # (Auto) 1.4 1.0-4.8 K/uL Monocytes # (Auto) 0.3 0.1-1.0 K/uL Eosinophils # (Auto) 0.12 0.00-0.70 K/uL Basophils # (Auto) 0.08 0.00-0.20 K/uL Absolute Immature Granulocyte (auto 0.20 0-1 K/uL Nucleated Red Blood Cells 0.0 0.0-0.19 % Chemistry Labs: Test 06/08/24 12:57 06/08/24 08:58 06/07/24 13:14 Range/Units Potassium Level 3.4 #L 3.5-5.1 mmol/L Sodium Level 133 L 136-145 mmol/L Chloride Level 97 L 101-111 mmol/L Carbon Dioxide Level 25 21-32 mmol/L Blood Urea Nitrogen 89 *H 7-18 mg/dL Creatinine 7.6 H 0.5-1.0 mg/dL Glomerular Filtration Rate Calc 7 >90 mL/min Random Glucose 127 #H 70-105 mg/dL Total Calcium 7.3 L 8.5-10.1 mg/dL Magnesium Level 1.80 1.80-2.40 mg/dL Lactic Acid Level 1.6 0.8-2.5 mmol/L Troponin I High Sensitivity 48 4-50 ng/L B-Type Natriuretic Peptide 2490 H 0-100 pg/mL DIAGNOSTICS / RADIOLOGY RESULTS: [ ] PLAN Admit patient to medical floor with telemetry monitoring. P.r.n. medications for: Pain management, nausea, vomiting, hypertension, fever, constipation. Resume patient's home medications Xanax, amlodipine, Pepcid, lisinopril. Nephrology was consulted and patient received dialysis in the ED. Plan is for dialysis also tomorrow 06/08/2024. Per report patient could be discharged tomorrow 06/08/2020 after dialysis if patient continues stable. Monitor renal and liver function. Monitor electrolytes and treat accordingly. DVT and GI prophylaxis. Morning labs. NEURO: Minimize central acting medications as possible. Maintain fall precautions, adequate lighting during the day PULMONARY: Supplemental 02 as needed. Maintain aspiration precautions at all times CARDIOVASCULAR: Follow hemodynamics. Vital signs per facility protocol GI & NUTRITION: Continue with nutritional support. Continue stool softeners and laxatives as needed. KIDNEYS & ELECTROLYTES: Strict monitoring of intake, output and overall fluid balance. Avoid nephrotoxic medications to the extent possible. Medications to be dosed according to renal function. Monitor electrolytes and replace as needed ENDOCRINE: Maintain blood glucose between 100-180 at all times. Hypoglycemia protocol in place INFECTIOUS DISEASE: Trend temperature, WBC and procalcitonin level Follow cultures, deescalate antibiotics as soon as possible. Panculture if new onset fever ONCOLOGY/HEMATOLOGY/COAGULATION: Monitor for s/s of bleeding Monitor hemoglobin, coagulation studies as needed SKIN: Pressure ulcer prevention per facility protocol Specialty mattress ORTHO/REHAB: Continue PT/OT Prophylaxis: Continue GI and DVT prophylaxis Code Status: Full Resuscitation Disposition: [facility] Jun 08, 2024 18:40
[2024-06-08] MEDS: carVEDIlol 25 MG TABLET PO SCH (20:19)
[2024-06-09] VITALS: BP 170/66; PULSE 76; RESP 18; TEMP 98.1
[2024-06-09 04:00] VITALS: BP 170/71; PULSE 77; RESP 16; TEMP 98
[2024-06-09 05:40] VITALS: BP 142/61; PULSE 68
[2024-06-09 05:48] LABS: CREATININE 6.6 mg/dL (0.5-1.0); POTASSIUM 5.3 mmol/L (3.5-5.1)
[2024-06-09] MEDS: HONEY 1 APPL/ML TUBE TP SCH (07:53)
[2024-06-09 08:00] VITALS: BP 137/64; PULSE 72; RESP 18; TEMP 98.4; O2SAT 97
[2024-06-09] MEDS ORDERED: HYDR25 PO (08:50)
--- NOTE | 2024-06-09 09:30 | NUR ---
REPORT ATTEMPTED TO CALL REPORT TO [facility], STATED NURSE IS BUSY AT THE MOMENT.
--- NOTE | 2024-06-09 09:46 | DS ---
[facility] DISCHARGE SUMMARY Date Patient Seen: Jun 09, 2024 Time of Visit: 09:46 Supervising Physician: Vel Oscar Primary Care Physician: Dr. Hawk Orosco Outpatient Specialists: Inpatient Consults: Dr. 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 Blanca is a 39-year-old female with history of anemia, anxiety, CHF, DM, HDL, HTN, ESRD, vascular disease, and right BKA who presents to the emergency department with complaints of weakness from [facility]. Patient reports her last dialysis was Tuesday. Her usually dialysis days are Tuesday, Tuesday, Tuesday. The patient reports that she had a missed dialysis because the dialysis days were changed due to the holidays. Patient of Dr. Samayoa. Patient denied SOB, chest pain, nausea, vomiting, any other pain, problem or concern. The chris nava received dialysis in the ED and ED provider reports that she will have another dialysis session tomorrow. ED request the patient be admitted with the diagnosis of hyperkalemia, ESRD, Leukocytosis, Elevated brain natriuretic peptide (BNP) level, Bradycardia, Weakness. I assessed the patient at bedside in 429. Patient appeared chronically ill, in no distress, breathing was even and unlabored. Patient reported left back pain. She states that it is her kidney pain. Patient also reported pain to her right BKA which is a new surgical amputation onset about one month. She reports that Dilaudid is what helps with the pain and that she receives it when she comes to the hospital. Informed the patient labs, diagnostics, and plan of care. She verbalized understanding and is in agreement with the plan. Plan and assessment are listed below. Hospital course Patient came to the hospital on 06/07/2024 with complaint of weakness and missing dialysis. Patient was found with hyperkalemia up to 8.7. Patient was provided with hemodialysis on admission as well as following day with UF of 4 L and 4.6 L subsequently. However her blood pressure was elevated systolic up to 202 even after dialysis. Patient was resumed with home regimen lisinopril and amlodipine. given still remains hypertensive, she was switched to nifedipine from norvasc. Also start hydralazine and Coreg. After these BP regimen patient blood pressure has maintained with systolic less than 160. She is cleared to be discharged back to [facility] in stable condition. SENIOR ELECTRICAL DESIGN ENGINEER FINDINGS/RECOMMENDATIONS: Progress note from nephrology on 06/08/2024 Dr. Samayoa IMPRESSION: * Hyperkalemia. * End-stage renal disease with noncompliance. * Diabetes mellitus. * Hypertension. PLAN: The patient will continue with the dialysis as prescribed. The patient is encouraged yet again in regards to her general medical care including her dialysis sessions. I did discuss with the primary team. The patient can safely be discharged post-dialysis. The patient is highly encouraged to follow up at the dialysis unit. The patient and family with multiple questions, all of which were answered. PROCEDURES: NA DISCHARGE MEDICATIONS: See below Pt hemodynamically stable and afebrile at time of discharge. PCP notified of patients admission, hospital course and discharge. New Medications: Hydralazine HCl (Hydralazine HCl) 25 Mg Tablet 25 MG PO TID, #90 TAB Carvedilol (Coreg) 12.5 Mg Tablet 12.5 MG PO BID, #60 TAB Hydralazine HCl (Apresoline) 25 Mg Tab 25 MG PO TID, #60 TAB Nifedipine (Nifedipine ER) 30 Mg Tab.er.24 60 MG PO DAILY, #60 TAB Continued Medications: Alprazolam (Xanax) 0.5 Mg Tablet 1 TAB PO BID PRN for anxiety for 30 Days, #60 TAB 0 Refills Diphenhydramine HCl (Diphenhydramine HCl) 25 Mg Capsule 25 MG PO TIDP PRN for ITCHING, CAP Famotidine (Pepcid) 20 Mg Tablet 1 TAB PO BID for 30 Days, #60 TAB 0 Refills Lisinopril (Lisinopril) 40 Mg Tablet 1 TAB PO DAILY for 30 Days, #30 TAB 0 Refills Discontinued Medications: Amlodipine Besylate (Norvasc) 5 Mg Tablet 2 TAB PO BID for 30 Days, #30 TAB 0 Refills PHYSICAL EXAM: GENERAL: Alert, weak, awake, oriented x 3, chronically ill. HEENT: EOMI, Sclera non icteric, moist mucosa NECK: Supple, no JVD, trachea midline LUNGS: Clear breath sounds bilaterally. No wheezes HEART: Regular rate and rhythm. Normal S1 and S2, without murmurs ABD: Abdomen soft, nontender. Bowel sounds present EXT: No clubbing cyanosis or edema. Right BKA. Dressing is clean and dry. NEURO: Alert and oriented X3, follows commands. FOLLOW-UP: Follow-up with PCP in 2-3 days Follow up with nephrology on HD days RECOMMENDATIONS: See Discharge Instructions This case was seen and discussed with my supervising physician. More than 30 minutes spent on discharge process, including evaluation of the patient, discussion with nursing staff, medication reconciliation and follow-up appointments CONOR GUEVARA CNP Jun 09, 2024 09:46
--- NOTE | 2024-06-09 10:02 | NUR ---
Report called and given to Chloe GOLD. Pending EMS worm picker.
--- NOTE | 2024-06-09 10:23 | NUR ---
dressing to betzy picc line changed at this time.
[2024-06-09 13:12] VITALS: BP 140/68
--- NOTE | 2024-06-09 14:05 | NUR ---
EMS CALLED [facility] PER ULTRASOUND TESTER PATIENT IS NEXT TO BE PICKED UP.
--- NOTE | 2024-06-09 14:57 | NUR ---
discharge Patient discharged with EMS at this time, patient denies having any concerns at this time.
[2024-06-10] MEDS ORDERED: FAMOTIDINE 20MG TAB PO SCH (09:00)
== END 2024-06-09 15:00 ==
LOC: EDH 12:20 → EDHIP 15:55 → 4AH 20:42
PROVIDERS: ADMIT Internal Medicine Critical Care Medicine; ATTEND Internal Medicine Critical Care Medicine
DX: I16.0 Hypertensive urgency (principal); E87.5 Hyperkalemia; I13.2 Hypertensive heart and chronic kidney disease with heart failure and with stage 5 chronic kidney disease, or end stage renal disease; E11.22 Type 2 diabetes mellitus with diabetic chronic kidney disease; I50.32 Chronic diastolic (congestive) heart failure; N18.6 End stage renal disease; I27.20 Pulmonary hypertension, unspecified; E11.40 Type 2 diabetes mellitus with diabetic neuropathy, unspecified; E11.65 Type 2 diabetes mellitus with hyperglycemia; E83.51 Hypocalcemia; I34.0 Nonrheumatic mitral (valve) insufficiency; E87.1 Hypo-osmolality and hyponatremia; D72.829 Elevated white blood cell count, unspecified; F41.9 Anxiety disorder, unspecified; D63.1 Anemia in chronic kidney disease; E78.5 Hyperlipidemia, unspecified; Z99.2 Dependence on renal dialysis; Z98.890 Other specified postprocedural states; Z79.899 Other long term (current) drug therapy; Z89.511 Acquired absence of right leg below knee
CPT/HCPCS: 96365; 96366; 96375 ×2; 99291; 93005 ×2; 84484; 80048 ×4; 83880; 85025 ×2; 87040 ×2; 82948 ×5; 83605; 36415 ×3; 71045; 94640; 90935 ×2; 96376 ×2; 84132; 83735; J1815; G0378 ×40; J1171 ×2; J2270; J7070; J0360 ×5; J0612 ×2; J2405 ×2; J1644; Q0163; A6209; G0257

== ENCOUNTER 2024-06-15 14:56 | Inpatient (IN) | payer MEDICARE ==
[~2024-06-15] VITALS: Ht 170.2 cm; Wt 65.8 kg
[2024-06-15] VITALS (17 sets, daily range): BP systolic 131–230; BP diastolic 53–117; PULSE 63–123; RESP 14–20; TEMP 98–98.2; O2SAT 100
[~2024-06-15 14:56] MED LIST changes: -AMLO5TAB5 PO; +CARV12.580 PO; +HYDR25 PO; +HYDR25TA67 PO; +NIFE-40 PO
[2024-06-15 15:12] LABS: BASOPHILS # (AUTO) 0.03 K/uL (0.00-0.20); BASOPHILS % (AUTO) 0.2 % (0.0-5.0); EOSINOPHILS # (AUTO) 0.17 K/uL (0.00-0.70); EOSINOPHILS % (AUTO) 1.4 % (0.0-8.0); HEMATOCRIT 32.6 % (36-48); IMMATURE GRANULOCYTE ABSOLUTE 0.06 K/uL (0-1); LYMPHOCYTES # (AUTO) 1.1 K/uL (1.0-4.8); MEAN CORPUSCULAR HEMOGLOBIN 28.4 pg (27.0-33.0); MEAN CORPUSCULAR HGB CONC 32.5 g/dL (32.0-36.0); MEAN CORPUSCULAR VOLUME 87.4 fL (79-99); MONOCYTES # (AUTO) 0.4 K/uL (0.1-1.0); MONOCYTES % (AUTO) 3.1 % (3.0-13.0); NEUTROPHILS # (AUTO) 10.4 K/uL (1.8-7.7); NEUTROPHILS % (AUTO) 85.8 % (40.0-77.0); PLATELET COUNT (AUTO) 334 K/uL (130-400); RED BLOOD CELL COUNT(AUTO) 3.73 MIL/uL (4.00-5.50); RED CELL DISTRIBUTION WIDTH 16.8 % (11.0-15.5); WHITE BLOOD COUNT (AUTO) 12.1 K/uL (4.8-10.8)
--- NOTE | 2024-06-15 15:28 | HMCIMG ---
CHEST 1VW REASON: CP COMPARISON: 06/07/2024 FINDINGS: There is cardiomegaly. There is no pulmonary vascular congestion. Lungs are clear. Right-sided PermCath and right-sided PICC line remain in place. IMPRESSION: 1. Stable cardiomegaly. 2. Dialysis catheter and PICC line in place.
[2024-06-15 15:38] LABS: MAGNESIUM 2.2 mg/dL (1.80-2.40)
[2024-06-15 15:39] LABS: B-TYPE NATRIURETIC PEPTIDE 1860 pg/mL (0-100)
--- NOTE | 2024-06-15 15:39 | EKG ---
[facility] Test Date: 2024-06-15 Test Time: 15:06:39 Pat Name: MAGUI ANTHONY Department: ED Room: Gender: F Ekg Technician: [id number] : 1985 Requested By: JETT COOL Order Number: [id number] Reading MD: Tyler Joy Measurements Intervals [place] Rate: 36 P: 0 CT: 0 QRS: 165 QRSD: 192 T: 35 QT: 636 QTc: 495 Interpretive Statements Junctional rhythm IVCD, consider RBBB Lateral infarct, age indeterminate Compared to ECG 06/07/2024 18:35:11 Junctional rhythm now present Myocardial infarct finding now present Sinus rhythm no longer present Electronically Signed On 06-15-2024 16:36:38 LINK TRAINER MAINTENANCE MAN by Tyler Joy Please click the below link to view image of tracing.
[2024-06-15 16:20] LABS: CARBON DIOXIDE 20 mmol/L (21-32); CHLORIDE 99 mmol/L (101-111); GLOMERULAR FILTR. RATE CALC 5 mL/min (>90); GLUCOSE,RANDOM 146 mg/dL (70-105); SODIUM SERUM 137 mmol/L (136-145)
[2024-06-15 16:28] LABS: POTASSIUM > 9.5 mmol/L (3.5-5.1)
[2024-06-15 16:29] LABS: UREA NITROGEN, BLOOD 167 mg/dL (7-18)
--- NOTE | 2024-06-15 16:39 | ERN ---
General Chief Complaint: Other Problems Stated Complaint: OTHER PROBLEMS Time Seen by MD: 14:59 History of Present Illness Initial Comments 39-year-old female who presents for lethargy and abnormal cardiac rhythms. Patient brought in by EMS from nursing facility. According to nursing facility she has been more lethargic today than usual. she was found to have a heart rate 30-60 according to EMS. Also had a labile blood pressure, lowest 90 systolic. Patient is dialysis dependent, her last dialysis was about 72 hours ago. She was scheduled to go to dialysis today but she did not have dialysis done because she came here to the ER. The patient was lethargic but able to answer questions. She was reporting generalized pain and requesting Dilaudid. Allergies: Coded Allergies: No Known Drug Allergies (Unverified Allergy, Unknown, 01/03/17) Home Meds Active Scripts Hydralazine HCl (Apresoline) 25 Mg Tab, 25 MG PO TID, #60 TAB [facility] Hydralazine HCl (Hydralazine HCl) 25 Mg Tablet, 25 MG PO TID, #90 TAB [facility] Nifedipine (Nifedipine ER) 30 Mg Tab.er.24, 60 MG PO DAILY, #60 TAB [facility]/08/24 Carvedilol (Coreg) 12.5 Mg Tablet, 12.5 MG PO BID, #60 TAB [facility]/24 Reported Medications Alprazolam (Xanax) 0.5 Mg Tablet, 1 TAB PO BID PRN for anxiety for 30 Days, #60 TAB 0 Refills 04/05/24 Lisinopril (Lisinopril) 40 Mg Tablet, 1 TAB PO DAILY for 30 Days, #30 TAB 0 Refills 04/05/24 Famotidine (Pepcid) 20 Mg Tablet, 1 TAB PO BID for 30 Days, #60 TAB 0 Refills 04/05/24 Diphenhydramine HCl (Diphenhydramine HCl) 25 Mg Capsule, 25 MG PO TIDP PRN for ITCHING, CAP 04/05/24 Past Medical History Past Medical History: Diabetes-Type II, Hypertension, Other Medical History Other: CKD ON DIALYSIS Past Surgical History: Other, LAVA Surgical History Other: R CHEST DIALYSIS ACCESS Family History Family History: Negative Social History Social History: Drugs, Negative Female( History) History: Not Applicable ROS Dictation CONSTITUTIONAL: Weakness fatigue HEAD/FACE: No signs of trauma. EENT: No eye pain, no blurred vision, no tearing, no double vision, no ear pain, no ear discharge, no nose pain, no nasal congestion, no throat pain, no throat swelling, no mouth pain. RESPIRATORY: No cough, no orthopnea, no SOB, no stridor, no wheezing. CARDIOVASCULAR: No chest pain, no edema, no palpitations, no syncope. GASTROINTESTINAL/ABDOMINAL: No abdominal pain, no constipation, no diarrhea, no nausea, no vomiting. GENITOURINARY: No abnormal discharge, no dysuria, no frequent urination, no hematuria. No complaints of pain in the genitals. MUSCULOSKELETAL: No back pain, no gout, no joint pain, no joint swelling, no muscle pain, no muscle stiffness, no neck pain. INTEGUMENTARY: No change in color, no change in hair/nails, no dryness, no lesion, no lumps, no rash. NEUROLOGICAL/PSYCH: No anxiety, not depressed, no emotional problem, no headache, no numbness, no pre-existing deficit, no history of seizures, no tremors, no weakness. HEMATOLOGIC/LYMPHATIC: Not anemic, no history of blood clots, no apparent bleeding, no bruising, glands not swollen. All Systems Negative, Except as Noted. Physical Exam Physical Exam Dictation VITAL SIGNS: Reviewed. GENERAL APPEARANCE: Lethargic but able answer questions HEAD AND FACE: Non-traumatic. EYES: PERRL, pink conjunctivas, eyelid no trauma, anterior chamber clear. EARS: Pinnas intact and no signs of trauma or erythema. Ear canals clear and no discharge. TMs no erythema. NOSE: No discharge, no bleeding. OROPHARYNX: Mouth normal, teeth no caries, tongue pink. Pharynx clear, no erythema. Tonsils no exudates, no abscesses noted. Mucous membrane moist. NECK: Supple, non-tender, no thyromegaly, no masses, no JVD, no bruits. BREAST: Deferred. CHEST: No tenderness, no crepitus, no paradoxical movement, no retractions. LUNGS: Clear, well-ventilated, symmetric, no rales, no wheezing, no rhonchi, no stridor, good breath sounds bilaterally. HEART: Regular rate, regular rhythm, no murmur, no gallops. VASCULAR: No peripheral edema. ABDOMEN: Soft, positive bowel sounds, nondistended, no guarding, nontender, no rebound, no masses no hepatomegaly, no splenomegaly, no Wise's sign, no hernias. RECTAL: Deferred. GENITAL: Deferred. NEUROLOGICAL: Normal speech, gross motor function intact, gross sensory function intact. MUSCULOSKELETAL: Neck nontender, full range of motion, back nontender, full range of motion. EXTREMITIES: Nontender, full range of motion. SKIN: Color pink, dry, no turgor, no rash, no lacerations, no abrasions, no contusions. LYMPHATICS: Deferred. Results Laboratory and Microbiology Lab and Micro Result Laboratory Tests Test 06/15/24 15:05 White Blood Count 12.1 K/uL (4.8-10.8) H Red Blood Count 3.73 MIL/uL (4.00-5.50) L Hemoglobin 10.6 g/dL (12.0-16.0) L Hematocrit 32.6 % (36-48) L Mean Corpuscular Volume 87.4 fL (79-99) Mean Corpuscular Hemoglobin 28.4 pg (27.0-33.0) Mean Corpuscular Hemoglobin Concent 32.5 g/dL (32.0-36.0) Red Cell Distribution Width 16.8 % (11.0-15.5) H Platelet Count 334 K/uL (130-400) Mean Platelet Volume 10.1 fL (7.5-10.5) Immature Granulocyte % (Auto) 0.5 % (0-1) Neutrophils (%) (Auto) 85.8 % (40.0-77.0) H Lymphocytes (%) (Auto) 9.0 % (21.0-51.0) L Monocytes (%) (Auto) 3.1 % (3.0-13.0) Eosinophils (%) (Auto) 1.4 % (0.0-8.0) Basophils (%) (Auto) 0.2 % (0.0-5.0) Neutrophils # (Auto) 10.4 K/uL (1.8-7.7) H Lymphocytes # (Auto) 1.1 K/uL (1.0-4.8) Monocytes # (Auto) 0.4 K/uL (0.1-1.0) Eosinophils # (Auto) 0.17 K/uL (0.00-0.70) Basophils # (Auto) 0.03 K/uL (0.00-0.20) Absolute Immature Granulocyte (auto 0.06 K/uL (0-1) Nucleated Red Blood Cells 0.0 % (0.0-0.19) White Cell Morphology Comment See comments Sodium Level 137 mmol/L (136-145) Potassium Level > 9.5 mmol/L (3.5-5.1) *H Chloride Level 99 mmol/L (101-111) L Carbon Dioxide Level 20 mmol/L (21-32) L Blood Urea Nitrogen 167 mg/dL (7-18) *H Creatinine 10.0 mg/dL (0.5-1.0) *H Glomerular Filtration Rate Calc 5 mL/min (>90) Random Glucose 146 mg/dL (70-105) H Total Calcium 7.3 mg/dL (8.5-10.1) L Phosphorus Level 16.0 mg/dL (2.5-4.9) H Magnesium Level 2.20 mg/dL (1.80-2.40) Ammonia 24 umol/L (11-32) Total Creatine Kinase 65 U/L (21-232) # Troponin I High Sensitivity 40.4 ng/L (4-50) C-Reactive Protein, Quantitative 18.60 mg/L (0.5-3.0) H B-Type Natriuretic Peptide 1860 pg/mL (0-100) H MDM CC: Hypotension lethargy and bradycardia. Historian: Patient And family at bedside. Patient was lethargic in his difficult to get a good history. EMS also provided much of the history. Comorbidities include diabetes, hypertension, CKD on dialysis, correction resident. Access: LAVA, right chest tunneled dialysis catheter differential diagnosis: Electrolyte abnormalities, missed dialysis, uncontrolled hypertension, other. Initial EKG shows junctional rhythm with a rate of 36 normal axis good R-wave progression. No STEMI. There are peaked T-waves. Concern for hyperkalemia or electrolyte abnormality. CBC shows white count of 12, hemoglobin 10.6. Left shift. No bands. Chemistry shows a potassium that is unreasonable greater than nine, BUN 167 creatinine of 10. Phosphorus 16. Patient needs emergent dialysis. CXR shows stable cardiomegaly otherwise unremarkable. Patient given hyperkalemia cocktail in the ER : Lokelma, albuterol, insulin and dextrose, calcium. Consultation: Dr. Samayoa for emergent dialysis. dialysis nurse contacted. Consultation: Hospitalist for admission. ED Course Orders Procedure Category Date Status Time Cardiac Panel LAB 06/15/24 Complete 14:59 Cbc With Differential LAB 06/15/24 Complete 14:59 B-Type Natriuretic LAB 06/15/24 Complete Peptide 14:59 Magnesium LAB 06/15/24 Complete 14:59 Phosphorus LAB 06/15/24 Complete 14:59 12 Lead Ekg Tracing- EKG 06/15/24 Resulted Technical 14:59 Ammonia LAB 06/15/24 Complete 14:59 Chest 1vw RAD 06/15/24 Resulted 14:59 Crp Quantitative LAB 06/15/24 Complete 14:59 Basic Metabolic Panel LAB 06/15/24 Complete 16:00 Calcium Gluc 1gm PHA 06/15/24 Complete (Calcium Gluc 1gm 16:30 Dextrose 50%-Water PHA 06/15/24 Complete (Dextrose 50%-Water) 16:30 Insulin Regular, PHA 06/15/24 Complete Human 3ml (Humulin R 16:30 Albuterol 0.083% PHA 06/15/24 Complete 2.5mg/3ml (Proventil 16:30 Sodium Zirconium PHA 06/15/24 Complete Cyclosilicate 16:30 Dextrose 50%-Water PHA 06/15/24 Complete (D50w) 16:37 Calcium Gluc 1gm PHA 06/15/24 Complete (Calcium Gluc 1gm 16:38 Edm Admit Bridge Order ADM 06/15/24 Transmitted 16:43 Consult [facility] [place], [place] In-Pt DIALYCON 06/15/24 Transmitted Dialysis 17:15 In-Patient Dialysis DIAL 06/18/24 Verified Treatment 06:00 Obtain Consent For CPOE 06/15/24 Transmitted Hemodialysi 17:15 Dialysis Prescription DIAL 06/15/24 Transmitted 17:15 Albumin (Human) 25% PHA 06/15/24 In Process (Albumin (Human) 25% 17:30 0.9%Nacl 1000ml (Ns PHA 06/15/24 In Process 1000ml) 17:30 Hemodialysis Nurings DIAL 06/15/24 Transmitted Orders 17:15 Current Medications Medications (Trade) Dose Ordered Sig/Balwinder Route PRN Reason Start Time Stop Time Status Last Admin Dose Admin Albumin Human (Albumin (Human) 25%) 50 ml ONCE IV 06/15/24 17:30 06/16/24 17:29 Albuterol Sulfate (Proventil 0.083% 2.5mg/3ml) 10 mg ONCE IH 06/15/24 16:30 06/16/24 11:50 DC 06/15/24 17:25 Calcium Gluconate (Calcium Gluc 1gm Vial) 1 gm STK-MED ONCE .ROUTE 06/15/24 16:38 06/15/24 16:38 DC Calcium Gluconate 1 gm/Sodium Chloride 110 ml @ 110 mls/hr ONCE ONCE IV 06/15/24 16:30 06/15/24 17:29 DC 06/15/24 16:40 Dextrose (D50w) 50 ml STK-MED ONCE IV 06/15/24 16:37 06/15/24 16:37 DC Dextrose (Dextrose 50%-Water) 25 gm ONCE ONCE IV 06/15/24 16:30 06/15/24 16:31 DC 06/15/24 16:59 Insulin Human Regular (humuLIN R 100 UNIT/ML 3ML) 5 unit ONCE ONCE IV 06/15/24 16:30 06/15/24 16:31 DC 06/15/24 16:43 Sodium Chloride 1,000 ml @ 0 mls/hr ONCE IV 06/15/24 17:30 07/15/24 17:29 06/15/24 18:07 Sodium Zirconium Cyclosilicate (Lokelma) 5 gm ONCE ONCE PO 06/15/24 16:30 06/15/24 16:31 DC 06/15/24 16:40 Vital Signs Date Time Temp Pulse Resp B/P (MAP) Pulse Ox O2 Delivery O2 Flow Rate FiO2 06/15/24 17:35 98.1 63 20 179/73 100 Nasal Cannula 10.0 06/15/24 17:22 123 20 06/15/24 17:03 97.9 73 16 179/73 100 Room Air* 0 21 06/15/24 15:00 97.9 60 16 103/25 99 Room Air* 0 21 06/15/24 15:00 97.9 66 16 103/25 100 Room Air 0 DX & DISP Disposition: Inpatient Departure Impression: Primary Impression: Hyperkalemia Additional Impression: ESRD needing dialysis Critical Time: 30 minutes (Critical Care Procedure NoteAuthorized and Performed by: meTotal critical care time: Approximately 36 minutesDue to a high probability of clinically significant, life threatening deterioration, the patient required my highest level of preparedness to intervene emergently and I personally spent this critical care time directly and personally managing the patient. This critical care time included obtaining a history; examining the patient; pulse oximetry; ordering and review of studies; arranging urgent treatment with development of a management plan; evaluation of patient's response to treatment; frequent reassessment; and, discussions with other providers.This critical care time was performed to assess and manage the high probability of imminent, life-threatening deterioration that could result in multi-organ failure. It was exclusive of separately billable procedures and treating other patients and teaching time.Please see MDM section and the rest of the note for further information on patient assessment and treatment.) Condition: Stable Referrals: MARTY VENTURA MD (PCP) JETT COOL DO Jun 15, 2024 16:39
[2024-06-15] MEDS: CALCIUM GLUC 1GM 1 GM in 0.9%NACL 100ML 100 ML IV ONE (16:40)
[2024-06-15] MEDS: SODIUM ZIRCONIUM CYCLOSILICATE 5 GM POWD.PACK PO ONE (16:40)
[2024-06-15] MEDS: INSULIN humuLIN R 100 UNIT/ML 3ML IV ONE (16:43)
[2024-06-15] MEDS: DEXTROSE 50%-WATER 25 GM/50 ML VIAL IV ONE (16:59)
[2024-06-15] MEDS: DEXTROSE 50%-WATER 50 ML DISP.SYRIN IV ONE ×2 (17:00→22:23)
[2024-06-15] MEDS: CALCIUM GLUC 1GM/10ML VIAL ONE (17:00)
[2024-06-15] MEDS: ALBUTEROL 0.083% 2.5 MG/3 ML INH IH SCH (17:25)
[2024-06-15] MEDS: ALBUMIN (HUMAN) 25% 50 ML IV.SOLN. IV SCH (17:30)
[2024-06-15] MEDS: 0.9%NACL 1000ML 1,000 ML IV SCH (18:07)
--- NOTE | 2024-06-15 18:12 | HP ---
[facility] HISTORY & PHYSICAL Date Patient Seen: Jun 15, 2024 Time of Visit: 18:12 Supervising Physician: Dr. Michael Mclaughlin Primary Care Physician: MARTY VENTURA MD (PCP) Outpatient Specialists: Inpatient Consults: Dr. 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 Blanca is a 39-year-old female with a history of ESRD on hemodialysis, DM type 2, anemia, anxiety, HTN, CHF, HDL, PVD, and right BKA who presented to the ED for evaluation of lethargy and abnormal cardiac rhythms. Patient brought in by EMS from nursing facility. ED provider reported that a ccording to nursing facility she has been more lethargic today than usual. She was found to have a heart rate 30-60 and had a systolic blood pressure in the 90s according to EMS. Patient last dialysis was about 72 hours ago. She was scheduled to go to dialysis today but she did not have dialysis done because she came here to the ER. The patient was lethargic but able to answer questions. She was reporting generalized pain and requesting Dilaudid. In ED the patient was given hyperkalemia cocktail in the ER: Lokelma, albuterol, insulin and dextrose, calcium. Consultation was done with Dr. Samayoa for emergent dialysis. The patient received emergent dialysis in ED. ED request patient be admitted with the diagnosis of hyperkalemia and ESRD needing dialysis. I went to assess the patient at bedside in ER 6. Patient's breathing was even, unlabored, appeared comfortable, in no distress. She was sitting up, smiling, answering questions appropriately. She denied any chest pain, shortness of breath, any other pain, problem or concern. I informed her and the at bedside of labs, diagnostics, and plan of care. They verbalize understanding and is in agreement with the plan. Plan and assessment are listed below. PAST MEDICAL HX: see above PAST SURGICAL HX: Left upper arm AV graft PermCath right chest wall PICC line MUSA Right BKA SOCIAL HISTORY: No tobacco, ETOH, or illicit drug use Coded Allergies: No Known Drug Allergies (Unverified Allergy, Unknown, 01/03/17) REVIEW OF SYSTEMS: 12 point ROS reviewed with patient. Pertinent positives mentioned above. Otherwise negative. PHYSICAL EXAM: GENERAL: alert, weak, awake oriented x 3 HEENT: EOMI, Sclera non icteric, moist mucosa NECK: Supple, no JVD, trachea midline CHEST WALL: PermCath right chest wall LUNGS: Clear breath sounds bilaterally. No wheezes HEART: Regular rate and rhythm. Normal S1 and S2, without murmurs ABD: Abdomen soft, nontender. Bowel sounds present EXT: No clubbing cyanosis or edema. Right BKA left upper arm AV graft NEURO: Alert and oriented X3, follows commands Vital Signs (last 8hr) Date Time Temp Pulse Resp B/P (MAP) Pulse Ox O2 Delivery O2 Flow Rate FiO2 06/15/24 18:04 97.9 54 20 136/89 100 Room Air* 0 21 06/15/24 17:22 123 20 06/15/24 17:03 97.9 73 16 179/73 100 Room Air* 0 21 06/15/24 15:00 97.9 60 16 103/25 99 Room Air* 0 21 06/15/24 15:00 97.9 66 16 103/25 100 Room Air 0 LABS: Hematology Labs: Test 06/15/24 15:05 Range/Units White Blood Count 12.1 H 4.8-10.8 K/uL Red Blood Count 3.73 L 4.00-5.50 MIL/uL Hemoglobin 10.6 L 12.0-16.0 g/dL Hematocrit 32.6 L 36-48 % Mean Corpuscular Volume 87.4 79-99 fL Mean Corpuscular Hemoglobin 28.4 27.0-33.0 pg Mean Corpuscular Hemoglobin Concent 32.5 32.0-36.0 g/dL Red Cell Distribution Width 16.8 H 11.0-15.5 % Platelet Count 334 130-400 K/uL Mean Platelet Volume 10.1 7.5-10.5 fL Immature Granulocyte % (Auto) 0.5 0-1 % Neutrophils (%) (Auto) 85.8 H 40.0-77.0 % Lymphocytes (%) (Auto) 9.0 L 21.0-51.0 % Monocytes (%) (Auto) 3.1 3.0-13.0 % Eosinophils (%) (Auto) 1.4 0.0-8.0 % Basophils (%) (Auto) 0.2 0.0-5.0 % Neutrophils # (Auto) 10.4 H 1.8-7.7 K/uL Lymphocytes # (Auto) 1.1 1.0-4.8 K/uL Monocytes # (Auto) 0.4 0.1-1.0 K/uL Eosinophils # (Auto) 0.17 0.00-0.70 K/uL Basophils # (Auto) 0.03 0.00-0.20 K/uL Absolute Immature Granulocyte (auto 0.06 0-1 K/uL Nucleated Red Blood Cells 0.0 0.0-0.19 % White Cell Morphology Comment See comments Chemistry Labs: Test 06/15/24 15:05 Range/Units Sodium Level 137 136-145 mmol/L Potassium Level > 9.5 *H 3.5-5.1 mmol/L Chloride Level 99 L 101-111 mmol/L Carbon Dioxide Level 20 L 21-32 mmol/L Blood Urea Nitrogen 167 *H 7-18 mg/dL Creatinine 10.0 *H 0.5-1.0 mg/dL Glomerular Filtration Rate Calc 5 >90 mL/min Random Glucose 146 H 70-105 mg/dL Total Calcium 7.3 L 8.5-10.1 mg/dL Phosphorus Level 16.0 H 2.5-4.9 mg/dL Magnesium Level 2.20 1.80-2.40 mg/dL Ammonia 24 11-32 umol/L Total Creatine Kinase 65 # 21-232 U/L Troponin I High Sensitivity 40.4 4-50 ng/L C-Reactive Protein, Quantitative 18.60 H 0.5-3.0 mg/L B-Type Natriuretic Peptide 1860 H 0-100 pg/mL DIAGNOSTICS / RADIOLOGY RESULTS: [ ] PLAN Admit to PCCU with telemetry monitoring. Monitor respiratory status closely. Continue oxygen therapy as needed. Titrate oxygen to keep SpO2 equal to greater than 92%. Albuterol and Atrovent as needed for shortness of breath. ED has consulted nephrology. Who will see the patient in the morning. BIS team we will follow skin care specialist recommendations for hemodialysis. Fluid restriction a 1200 mL. Strict I&Os. Daily weights. Reconcile home medication once available. P.r.n. medications for: Pain management, fever, hypertension, nausea, vomiting, constipation. Monitor renal and liver function. Monitor electrolytes and treat accordingly. A.m. labs: CBC, BNP, Mag, phos, TSH, A1c. GI and DVT prophylaxis. NEURO: Minimize central acting medications as possible. Maintain fall precautions, adequate lighting during the day PULMONARY: Supplemental 02 as needed. Maintain aspiration precautions at all times CARDIOVASCULAR: Follow hemodynamics. Vital signs per facility protocol GI & NUTRITION: Continue with nutritional support. Continue stool softeners and laxatives as needed. KIDNEYS & ELECTROLYTES: Strict monitoring of intake, output and overall fluid balance. Avoid nephrotoxic medications to the extent possible. Medications to be dosed according to renal function. Monitor electrolytes and replace as needed ENDOCRINE: Maintain blood glucose between 100-180 at all times. Hypoglycemia protocol in place INFECTIOUS DISEASE: Trend temperature, WBC and procalcitonin level Follow cultures, deescalate antibiotics as soon as possible. Panculture if new onset fever ONCOLOGY/HEMATOLOGY/COAGULATION: Monitor for s/s of bleeding Monitor hemoglobin, coagulation studies as needed SKIN: Pressure ulcer prevention per facility protocol Specialty mattress ORTHO/REHAB: Continue PT/OT Prophylaxis: Continue GI and DVT prophylaxis Code Status: Full Resuscitation Disposition: AMBROCIO HERNANDEZ Jun 15, 2024 18:12
[2024-06-15] MEDS ORDERED: acetaMINOPHEN 650 MG SUPPOSITORY RC PRN (18:30)
[2024-06-15] MEDS ORDERED: TEMAZepam 15 MG CAPSULE PO PRN (18:30)
[2024-06-15] MEDS ORDERED: doCUSate SODIUM 100 MG CAP PO PRN (18:30)
[2024-06-15] MEDS ORDERED: acetaMINOPHEN 325 MG TAB PO PRN (18:30)
[2024-06-15] MEDS ORDERED: LACTULOSE 20 GM/30 ML UDCUP PO PRN (18:30)
[2024-06-15] MEDS: hydrALAZine 20MG/ML VIAL IV PRN (18:53)
--- NOTE | 2024-06-15 19:15 | NUR ---
PT CURRENTLY RECIEVING DIALYSIS.
--- NOTE | 2024-06-15 20:55 | NUR ---
DIALYSIS COMPLETED AT THIS TIME. 4L REMOVED PER THE DIALYSIS NURSE.
[2024-06-15] MEDS: INSULIN humuLIN R 100 UNIT/ML 3ML SQ SCH (21:00)
[2024-06-15] MEDS: hydroMORPHone 0.5 MG SYG (0.5MG/0.5ML) IVP PRN (21:23)
--- NOTE | 2024-06-15 22:24 | NUR ---
INFORMED MALIKA WHE[employer]ER[employer] OF BG OF [employer], OKAYED TO GIVE D5O.
[2024-06-15] MEDS: LAbetaLOL 20MG SYG IV PRN (22:28)
[2024-06-15] MEDS: NITROGLYCERIN 1GM OINT 1 INCH/1GM TD SCH (23:14)
[2024-06-16] VITALS (9 sets, daily range): BP systolic 184–194; BP diastolic 84–110; PULSE 69–79; RESP 18–19; TEMP 98.2–98.8; O2SAT 97–100
--- NOTE | 2024-06-16 01:12 | NUR ---
SPOKE WITH AMBROCIO WHEELER-SHAMIKA AT THIS TIME REGARDING PATIENT ELEVATED BLOOD PRESSURE. TELEPHONE ORDER RECEIVED TO GIVE PATIENT CLONIDINE 0.2MG PO AND PRN HYDRALAZINE AT THIS TIME.
[2024-06-16] MEDS: ondanSETRON 4MG INJ IVP PRN (01:50)
[2024-06-16] MEDS: IpraTROPium 0.5 MG/2.5 ML INH IH PRN (02:44)
[2024-06-16] MEDS: ALBUTEROL 0.083% 2.5 MG/3 ML INH IH PRN (02:44)
[2024-06-16] MEDS: cloNIDine HCL 0.2 MG TABLET PO ONE (03:11)
[2024-06-16] MEDS: PANTOPrazole 40 MG TAB DR PO SCH (08:30)
[2024-06-16] MEDS: HEParin 5,000 UNIT VIAL SQ SCH (08:30)
--- NOTE | 2024-06-16 09:06 | NUR ---
ANDREIA RICE NOTIFIED OF PATIENTS STATUS CHANGE AND INCREASED BP.
[2024-06-16 10:03] LABS: MEAN CORPUSCULAR HEMOGLOBIN 28.3 pg (27.0-33.0); MEAN CORPUSCULAR HGB CONC 32.7 g/dL (32.0-36.0); MEAN CORPUSCULAR VOLUME 86.7 fL (79-99); RED BLOOD CELL COUNT(AUTO) 3.46 MIL/uL (4.00-5.50); RED CELL DISTRIBUTION WIDTH 16.8 % (11.0-15.5)
[2024-06-16 10:36] LABS: MAGNESIUM 1.9 mg/dL (1.80-2.40); PHOSPHORUS 9.9 mg/dL (2.5-4.9); POTASSIUM 5.6 mmol/L (3.5-5.1); THYROID STIMULATING HORMONE 6.33 uIU/mL (0.36-3.74)
--- NOTE | 2024-06-16 13:17 | PN ---
[facility] PROGRESS NOTE Date Patient Seen: Jun 16, 2024 Time of Visit: 13:17 Supervising Physician: Dr. oKnstantin Coats Primary Care Physician: MARTY VENTURA MD (PCP) Outpatient Specialists: Inpatient Consults: Dr. 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 Patient appears extremely anxious, states that she continues with moderate pain however she has just been administered Dilaudid and said that she feels that it was starting to work. I received a call from nursing staff in the ED that the patient's blood pressure was 212 systolic, verbal orders given to restart her current blood pressure medication from home. At the time of my visit her blood pressure is 179 systolic, I have advised to administer another 10 mg of hydralazine as well as 20 mg lisinopril. She is pending a bed on the floor at this time, we will continue to watch her vitals. She is currently pending emergent hemodialysis, Nephrology has been consulted on the case. REVIEW OF SYSTEMS: 12 point ROS reviewed with patient. Pertinent positives mentioned above. Otherwise negative. PHYSICAL EXAM: GENERAL: alert, weak, awake oriented x 3 HEENT: EOMI, Sclera non icteric, moist mucosa NECK: Supple, no JVD, trachea midline CHEST WALL: PermCath right chest wall LUNGS: Clear breath sounds bilaterally. No wheezes HEART: Regular rate and rhythm. Normal S1 and S2, without murmurs ABD: Abdomen soft, nontender. Bowel sounds present EXT: No clubbing cyanosis or edema. Right BKA left upper arm AV graft NEURO: Alert and oriented X3, follows commands Vital Signs (last 8hr) Date Time Temp Pulse Resp B/P (MAP) Pulse Ox O2 Delivery O2 Flow Rate FiO2 06/16/24 12:16 181/70 06/16/24 11:37 97.9 80 16 181/70 100 Nasal Cannula* 2.0 N/A 06/16/24 09:45 80 16 179/68 100 Nasal Cannula* 2 28 06/16/24 08:45 70 16 200/73 100 Nasal Cannula* 2 28 06/16/24 07:45 69 16 213/75 100 Nasal Cannula* 2 28 06/16/24 06:41 72 18 N/A Room Air 2.0 28 06/16/24 06:34 72 16 194/46 100 Nasal Cannula* 2 28 LABS: Hematology Labs: Test 06/16/24 09:51 06/15/24 15:05 Range/Units White Blood Count 10.0 4.8-10.8 K/uL Red Blood Count 3.46 L 4.00-5.50 MIL/uL Hemoglobin 9.8 L 12.0-16.0 g/dL Hematocrit 30.0 L 36-48 % Mean Corpuscular Volume 86.7 79-99 fL Mean Corpuscular Hemoglobin 28.3 27.0-33.0 pg Mean Corpuscular Hemoglobin Concent 32.7 32.0-36.0 g/dL Red Cell Distribution Width 16.8 H 11.0-15.5 % Platelet Count 299 130-400 K/uL Mean Platelet Volume 9.4 7.5-10.5 fL Nucleated Red Blood Cells 0.0 0.0-0.19 % Immature Granulocyte % (Auto) 0.5 0-1 % Neutrophils (%) (Auto) 85.8 H 40.0-77.0 % Lymphocytes (%) (Auto) 9.0 L 21.0-51.0 % Monocytes (%) (Auto) 3.1 3.0-13.0 % Eosinophils (%) (Auto) 1.4 0.0-8.0 % Basophils (%) (Auto) 0.2 0.0-5.0 % Neutrophils # (Auto) 10.4 H 1.8-7.7 K/uL Lymphocytes # (Auto) 1.1 1.0-4.8 K/uL Monocytes # (Auto) 0.4 0.1-1.0 K/uL Eosinophils # (Auto) 0.17 0.00-0.70 K/uL Basophils # (Auto) 0.03 0.00-0.20 K/uL Absolute Immature Granulocyte (auto 0.06 0-1 K/uL White Cell Morphology Comment See comments Chemistry Labs: Test 06/16/24 11:41 06/16/24 09:51 06/15/24 21:49 06/15/24 15:05 Range/Units Whole Blood Glucose 93 70-110 MG/DL Sodium Level 138 136-145 mmol/L Potassium Level 5.6 #H 3.5-5.1 mmol/L Chloride Level 98 L 101-111 mmol/L Carbon Dioxide Level 28 21-32 mmol/L Blood Urea Nitrogen 96 #*H 7-18 mg/dL Creatinine 7.0 H 0.5-1.0 mg/dL Glomerular Filtration Rate Calc 7 >90 mL/min Random Glucose 72 # 70-105 mg/dL Total Calcium 7.6 L 8.5-10.1 mg/dL Phosphorus Level 9.9 #H 2.5-4.9 mg/dL Magnesium Level 1.90 1.80-2.40 mg/dL Thyroid Stimulating Hormone (TSH) 6.33 H 0.36-3.74 uIU/mL Bedside Glucose Comment Notified Nurse Ammonia 24 11-32 umol/L Total Creatine Kinase 65 # 21-232 U/L Troponin I High Sensitivity 40.4 4-50 ng/L C-Reactive Protein, Quantitative 18.60 H 0.5-3.0 mg/L B-Type Natriuretic Peptide 1860 H 0-100 pg/mL DIAGNOSTICS / RADIOLOGY RESULTS: [ ] PLAN Admit to PCCU with telemetry monitoring. Monitor respiratory status closely. Continue oxygen therapy as needed. Titrate oxygen to keep SpO2 equal to greater than 92%. Albuterol and Atrovent as needed for shortness of breath. ED has consulted nephrology. Who will see the patient in the morning. BIS team we will follow memory care director recommendations for hemodialysis. Fluid restriction a 1200 mL. Strict I&Os. Daily weights. Reconcile home medication once available. P.r.n. medications for: Pain management, fever, hypertension, nausea, vomiting, constipation. Monitor renal and liver function. Monitor electrolytes and treat accordingly. A.m. labs: CBC, BNP, Mag, phos, TSH, A1c. GI and DVT prophylaxis. NEURO: Minimize central acting medications as possible. Maintain fall precautions, adequate lighting during the day PULMONARY: Supplemental 02 as needed. Maintain aspiration precautions at all times CARDIOVASCULAR: Follow hemodynamics. Vital signs per facility protocol GI & NUTRITION: Continue with nutritional support. Continue stool softeners and laxatives as needed. KIDNEYS & ELECTROLYTES: Strict monitoring of intake, output and overall fluid balance. Avoid nephrotoxic medications to the extent possible. Medications to be dosed according to renal function. Monitor electrolytes and replace as needed ENDOCRINE: Maintain blood glucose between 100-180 at all times. Hypoglycemia protocol in place INFECTIOUS DISEASE: Trend temperature, WBC and procalcitonin level Follow cultures, deescalate antibiotics as soon as possible. Panculture if new onset fever ONCOLOGY/HEMATOLOGY/COAGULATION: Monitor for s/s of bleeding Monitor hemoglobin, coagulation studies as needed SKIN: Pressure ulcer prevention per facility protocol Specialty mattress ORTHO/REHAB: Continue PT/OT Prophylaxis: Continue GI and DVT prophylaxis Code Status: Full Resuscitation Disposition: DANG CHIRINOS Jun 16, 2024 13:17
[2024-06-16] MEDS: MINOXIDIL 2.5 MG PO ONE (13:30)
[2024-06-16] MEDS: NA ZIRCON CYCLOSIL(LOKELMA 10GM) PO ONE (13:31)
--- NOTE | 2024-06-16 15:09 | CONS ---
REFERRING PHYSICIAN: Michael Mclaughlin MD REASON FOR CONSULTATION: Hyperkalemia, volume overload, ESRD. HISTORY OF PRESENT ILLNESS: A 39-year-old female who just recently discharged from the hospital. She has a history of diabetes mellitus and hypertension. She has a history of vascular disease, recent BKA. She is receiving outpatient IV antibiotics for the osteomyelitis. The patient presented to the hospital with underlying lethargy. In the emergency room, the patient was found to have significant electrolyte abnormalities including a potassium of greater than 9 mmol/L. She has a history of noncompliance with her general medical care including her diet. The patient did receive urgent dialysis on the day of admission and the patient is being seen in consultation for all of the above. PAST MEDICAL HISTORY: Diabetes mellitus, hypertension, vascular disease, and ESRD. PAST SURGICAL HISTORY: AV access, BKA. SOCIAL HISTORY: She lives independently. No tobacco use. FAMILY HISTORY: There is no renal disease in the family. ALLERGIES: There are no allergies. MEDICATIONS: All noted. REVIEW OF SYSTEMS: GENERAL: She is feeling weak and tired. HEENT: No change in vision, no change in hearing, no nasal discharge, no sore throat. CARDIOVASCULAR: There is no current chest pain or palpitations. PULMONARY: There is no shortness of breath. GASTROINTESTINAL: She is tolerating a diet. MUSCULOSKELETAL: Complains of weakness. NEUROLOGIC: No seizures or focal deficits. PSYCHIATRIC: No history of hallucinations or psychosis. ENDOCRINE: Diabetes mellitus. No history of thyroid disease. HEME: History of anemia. No history of malignancy. PHYSICAL EXAMINATION: VITAL SIGNS: Blood pressure 181/70, pulse 80, she is afebrile. GENERAL: She is a young female, lying in bed on the medical floor. HEENT: Head is atraumatic. Pupils are equal, roving to light. Oropharynx is without exudate. Nares are clear. NECK: There is no JVP. There is no thyromegaly, no mass. CARDIOVASCULAR: Regular. There is no S3, S4 gallop. LUNGS: Coarse with equal thoracic movement. ABDOMEN: Soft, nondistended, nontender. EXTREMITIES: Reveal no clubbing, no cyanosis. NEUROLOGICAL: She is awake. She is alert. She is oriented. SKIN: Reveals no rashes or nodules. BACK: There is no CVA tenderness, no back deformities. LABORATORY DATA: Sodium 138, potassium 4.6, BUN is 96, creatinine is 7, phosphorus is 10. Hemoglobin 9.8, hematocrit 30. IMPRESSION: * Hyperkalemia. * End-stage renal disease with noncompliance. * Diabetes mellitus. * Hypertension. * Electrolyte abnormalities. PLAN: The patient will be given a dose of Lokelma for the hyperkalemia. The patient has been counseled in regard to her compliance not only with her dialysis, but also with her diet. The patient can be started back on the Renvela for the hyperphosphatemia. We will follow closely. Once the patient is discharged, she will follow up at the dialysis unit. TID: [id number] RECEIPT: [id number]
--- NOTE | 2024-06-16 16:46 | NUR ---
INITIAL/DCP-[facility] vs [facility] w pt and boyfriend this afternoon to discuss dcp. Pt admitted w volume overload/hyperkalemia. EC mother Sapphire Blanca [phone] or boyfriend Lino Vieyra [phone]. PCP Dr Orosco. Preferred pharmacy [facility] on [address]. Pt admitted from [facility] where she was receiving IV ABx/therapy and wound care. She attends [facility] for HD treatments. Prior to SNF pt was living w her father. She is currently non ambulatory and requires assist w ADLs. She owns an old wc. Pt mentions that she would like to return to [facility] to complete her IV ABX tx and rehab. TORREY/PC obtained. Per Renee Sevilla. She will inquire regarding SNF days left. Addendum: 06/16/24 at 1652 by ROSALBA MENDOZA CM Amended: Links added.
[2024-06-16] MEDS: sevELAMer HCL 800 MG TABLET PO SCH (16:49)
[2024-06-17] VITALS (11 sets, daily range): BP systolic 142–182; BP diastolic 70–89; PULSE 69–81; RESP 18; TEMP 98.4–99.4; O2SAT 98
[2024-06-17] MEDS: LORazepam 1 MG TABLET PO PRN ×2 (04:46→16:37)
[2024-06-17 05:10] LABS: HEMATOCRIT 27.6 % (36-48); MEAN CORPUSCULAR VOLUME 84.9 fL (79-99); RED BLOOD CELL COUNT(AUTO) 3.25 MIL/uL (4.00-5.50); RED CELL DISTRIBUTION WIDTH 16.8 % (11.0-15.5)
[2024-06-17 05:33] LABS: ALBUMIN 2.1 g/dL (3.5-5.0); BILIRUBIN,TOTAL 0.3 mg/dL (0.2-1.0); TOTAL PROTEIN, SERUM 6.1 g/dL (6.0-8.3)
[2024-06-17 06:00] LABS: CREATININE 8.4 mg/dL (0.5-1.0); POTASSIUM 6.3 mmol/L (3.5-5.1)
[2024-06-17] MEDS: INSULIN humuLIN R 100 UNIT/ML 3ML IV ONE (06:30)
[2024-06-17] MEDS ORDERED: CALCIUM GLUC 1GM/10ML VIAL IV ONE (06:30)
[2024-06-17] MEDS: CALCIUM GLUC 1GM 1 GM in 0.9%NACL 50ML 50 ML IV ONE (07:00)
[2024-06-17] MEDS: ALBUTEROL 0.083% 2.5 MG/3 ML INH IH ONE (08:00)
[2024-06-17] MEDS ORDERED: TUBE5VIA TD (08:22)
[2024-06-17] MEDS: LISINOPRIL 20 MG TABLET PO SCH (08:29)
[2024-06-17] MEDS: DEXTROSE 50%-WATER 50 ML DISP.SYRIN IV ONE (08:30)
[2024-06-17] MEDS: kayEXALate 15GM/60ML PO ONE (08:30)
[2024-06-17] MEDS: SODIUM BICARB 50MEQ 50ML VIAL IV ONE (08:30)
[2024-06-17] MEDS: ALPRAZolam 1 MG TAB PO ONE (10:05)
[2024-06-17] MEDS: TIGECYCLINE 50 MG in 0.9%NACL 100ML 100 ML IV SCH (11:09)
[2024-06-17] MEDS ORDERED: MINOXIDIL 2.5 MG PO SCH (12:00)
--- NOTE | 2024-06-17 12:26 | PN ---
[facility] PROGRESS NOTE Date Patient Seen: Jun 17, 2024 Time of Visit: 12:13 Supervising Physician: Dr. Konstantin Coats Primary Care Physician: MARTY VENTURA MD (PCP) Outpatient Specialists: Inpatient Consults: Dr. Samayoa, Nephrology PROBLEM LIST: Acute hypoxemic respiratory failure in need of emergent dialysis, POA, improved Volume overload in ESRD in need of emergent dialysis, POA Severe hyperkalemia, potassium > 9.5, improved after HD Superficial wound to right BKA stump and left lateral foot. 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 She remains uncomfortable today, pending scheduled pain medication. Patient's anxiety appears to be very severe. She only received one dose of Ativan yesterday. During conversation multiple occasions she appears to hyperventilate and have what seems to be a near panic attack. Patient's pain seems to be a great source of anxiety for her. Of note the patient has bilateral wounds to her lower extremities, one large one on the right BKA stump, as well as a smaller one to the left lateral aspect of the foot. They both appear clean, currently dressed and bandaged. Wound Care has been consulted from the case as well as Infectious Disease. Patient was on tigecycline at the SNF facility she was on which has been restarted today. I am adding scheduled and PRN anxiety medication for this patient as well. Patient received hemodialysis yesterday, her potassium went from greater than 9.5 yesterday to 6.3 today. Her hemoglobin has remained stable at 9.1 today. Her blood pressures have improved following her hemodialysis, she remains in the 160 systolic today, we will continue to adress this pharmaceuticaly. Plan for discharge within the next REVIEW OF SYSTEMS: 12 point ROS reviewed with patient. Pertinent positives mentioned above. Otherwise negative. PHYSICAL EXAM: GENERAL: alert, weak, awake oriented x 3 HEENT: EOMI, Sclera non icteric, moist mucosa NECK: Supple, no JVD, trachea midline CHEST WALL: PermCath right chest wall LUNGS: Clear breath sounds bilaterally. No wheezes HEART: Regular rate and rhythm. Normal S1 and S2, without murmurs ABD: Abdomen soft, nontender. Bowel sounds present EXT: No clubbing cyanosis or edema. Right BKA left upper arm AV graft NEURO: Alert and oriented X3, follows commands Vital Signs (last 8hr) Date Time Temp Pulse Resp B/P (MAP) Pulse Ox O2 Delivery O2 Flow Rate FiO2 06/17/24 12:00 99.3 80 18 166/77 96 Room Air 21 06/17/24 08:01 81 18 06/17/24 08:00 98.8 72 18 182/89 97 Room Air 21 06/17/24 07:05 81 18 06/17/24 04:18 98.8 69 18 160/72 96 Room Air LABS: Hematology Labs: Test 06/17/24 04:55 06/15/24 15:05 Range/Units White Blood Count 11.0 H 4.8-10.8 K/uL Red Blood Count 3.25 L 4.00-5.50 MIL/uL Hemoglobin 9.1 L 12.0-16.0 g/dL Hematocrit 27.6 L 36-48 % Mean Corpuscular Volume 84.9 79-99 fL Mean Corpuscular Hemoglobin 28.0 27.0-33.0 pg Mean Corpuscular Hemoglobin Concent 33.0 32.0-36.0 g/dL Red Cell Distribution Width 16.8 H 11.0-15.5 % Platelet Count 317 130-400 K/uL Mean Platelet Volume 10.1 7.5-10.5 fL Nucleated Red Blood Cells 0.0 0.0-0.19 % Immature Granulocyte % (Auto) 0.5 0-1 % Neutrophils (%) (Auto) 85.8 H 40.0-77.0 % Lymphocytes (%) (Auto) 9.0 L 21.0-51.0 % Monocytes (%) (Auto) 3.1 3.0-13.0 % Eosinophils (%) (Auto) 1.4 0.0-8.0 % Basophils (%) (Auto) 0.2 0.0-5.0 % Neutrophils # (Auto) 10.4 H 1.8-7.7 K/uL Lymphocytes # (Auto) 1.1 1.0-4.8 K/uL Monocytes # (Auto) 0.4 0.1-1.0 K/uL Eosinophils # (Auto) 0.17 0.00-0.70 K/uL Basophils # (Auto) 0.03 0.00-0.20 K/uL Absolute Immature Granulocyte (auto 0.06 0-1 K/uL White Cell Morphology Comment See comments Chemistry Labs: Test 06/17/24 11:13 06/17/24 04:55 06/16/24 09:51 06/15/24 21:49 Range/Units Whole Blood Glucose 146 H 70-110 MG/DL Sodium Level 137 136-145 mmol/L Potassium Level 6.3 *H 3.5-5.1 mmol/L Chloride Level 95 L 101-111 mmol/L Carbon Dioxide Level 25 21-32 mmol/L Blood Urea Nitrogen 120 #*H 7-18 mg/dL Creatinine 8.4 *H 0.5-1.0 mg/dL Glomerular Filtration Rate Calc 6 >90 mL/min Random Glucose 199 #H 70-105 mg/dL Total Calcium 6.9 L 8.5-10.1 mg/dL Total Bilirubin 0.3 0.2-1.0 mg/dL Aspartate Amino Transf (AST/SGOT) 22 10-37 U/L Alanine Aminotransferase (ALT/SGPT) 27 12-78 U/L Alkaline Phosphatase 246 H 50-136 U/L Total Protein 6.1 6.0-8.3 g/dL Albumin 2.1 L 3.5-5.0 g/dL Phosphorus Level 9.9 #H 2.5-4.9 mg/dL Magnesium Level 1.90 1.80-2.40 mg/dL Thyroid Stimulating Hormone (TSH) 6.33 H 0.36-3.74 uIU/mL Bedside Glucose Comment Notified Nurse Test 06/15/24 15:05 Range/Units Ammonia 24 11-32 umol/L Total Creatine Kinase 65 # 21-232 U/L Troponin I High Sensitivity 40.4 4-50 ng/L C-Reactive Protein, Quantitative 18.60 H 0.5-3.0 mg/L B-Type Natriuretic Peptide 1860 H 0-100 pg/mL DIAGNOSTICS / RADIOLOGY RESULTS: [ ] PLAN Admit to PCCU with telemetry monitoring. Monitor respiratory status closely. Continue oxygen therapy as needed. Titrate oxygen to keep SpO2 equal to greater than 92%. Albuterol and Atrovent as needed for shortness of breath. ED has consulted nephrology. Who will see the patient in the morning. BIS team we will follow market researcher recommendations for hemodialysis. Fluid restriction a 1200 mL. Strict I&Os. Daily weights. Reconcile home medication once available. P.r.n. medications for: Pain management, fever, hypertension, nausea, vomiting, constipation. Monitor renal and liver function. Monitor electrolytes and treat accordingly. A.m. labs: CBC, BNP, Mag, phos, TSH, A1c. GI and DVT prophylaxis. NEURO: Minimize central acting medications as possible. Maintain fall precautions, adequate lighting during the day PULMONARY: Supplemental 02 as needed. Maintain aspiration precautions at all times CARDIOVASCULAR: Follow hemodynamics. Vital signs per facility protocol GI & NUTRITION: Continue with nutritional support. Continue stool softeners and laxatives as needed. KIDNEYS & ELECTROLYTES: Strict monitoring of intake, output and overall fluid balance. Avoid nephrotoxic medications to the extent possible. Medications to be dosed according to renal function. Monitor electrolytes and replace as needed ENDOCRINE: Maintain blood glucose between 100-180 at all times. Hypoglycemia protocol in place INFECTIOUS DISEASE: Trend temperature, WBC and procalcitonin level Follow cultures, deescalate antibiotics as soon as possible. Panculture if new onset fever ONCOLOGY/HEMATOLOGY/COAGULATION: Monitor for s/s of bleeding Monitor hemoglobin, coagulation studies as needed SKIN: Pressure ulcer prevention per facility protocol Specialty mattress ORTHO/REHAB: Continue PT/OT Prophylaxis: Continue GI and DVT prophylaxis Code Status: Full Resuscitation Disposition: DANG CHIRINOS Jun 17, 2024 12:26
[2024-06-17 13:21] LABS: BASOPHILS # (AUTO) 0.04 K/uL (0.00-0.20); BASOPHILS % (AUTO) 0.4 % (0.0-5.0); EOSINOPHILS # (AUTO) 0.66 K/uL (0.00-0.70); EOSINOPHILS % (AUTO) 6.7 % (0.0-8.0); HEMATOCRIT 27.2 % (36-48); IMMATURE GRANULOCYTE ABSOLUTE 0.03 K/uL (0-1); LYMPHOCYTES # (AUTO) 2.2 K/uL (1.0-4.8); LYMPHOCYTES % (AUTO) 22.5 % (21.0-51.0); MEAN CORPUSCULAR HEMOGLOBIN 28.7 pg (27.0-33.0); MEAN CORPUSCULAR HGB CONC 33.8 g/dL (32.0-36.0); MEAN CORPUSCULAR VOLUME 84.7 fL (79-99); MONOCYTES # (AUTO) 0.7 K/uL (0.1-1.0); MONOCYTES % (AUTO) 7.5 % (3.0-13.0); NEUTROPHILS # (AUTO) 6.2 K/uL (1.8-7.7); NEUTROPHILS % (AUTO) 62.6 % (40.0-77.0); PLATELET COUNT (AUTO) 316 K/uL (130-400); RED BLOOD CELL COUNT(AUTO) 3.21 MIL/uL (4.00-5.50); RED CELL DISTRIBUTION WIDTH 16.6 % (11.0-15.5); WHITE BLOOD COUNT (AUTO) 9.8 K/uL (4.8-10.8)
[2024-06-17] MEDS: NA ZIRCON CYCLOSIL(LOKELMA 10GM) PO ONE (13:26)
[2024-06-17] MEDS: MINOXIDIL 2.5 MG PO ONE (13:26)
[2024-06-17] MEDS ORDERED: COMPOUND IV MISC 1 EACH IVSOLN MISC PRN (13:30)
[2024-06-17 13:42] LABS: ALBUMIN 2.4 g/dL (3.5-5.0); BILIRUBIN,TOTAL 0.3 mg/dL (0.2-1.0); TOTAL PROTEIN, SERUM 6.5 g/dL (6.0-8.3)
[2024-06-17 13:46] LABS: CREATININE 8.9 mg/dL (0.5-1.0)
--- NOTE | 2024-06-17 18:26 | PN ---
FOLLOWUP PROGRESS NOTE SUBJECTIVE: A 39-year-old female with history of diabetes mellitus and hypertension. She has a history of vascular disease, status post BKA. She has a history of noncompliance with her general medical care. She presented with severe hyperkalemia. The patient requiring urgent dialysis. She has had similar admissions in the past and the patient is being seen as a followup visit for all of the above. REVIEW OF SYSTEMS: GENERAL: She is feeling weak and tired. HEENT: No change in vision. No change in hearing. CARDIOVASCULAR: There is no current chest pain or palpitation. PULMONARY: She has chronic shortness of breath. GASTROINTESTINAL: She is tolerating a diet. MUSCULOSKELETAL: Complains of weakness. PHYSICAL EXAMINATION: VITAL SIGNS: Blood pressure is 180/80, pulse in the 70s. GENERAL: She is a chronically ill female, much older than appearing. HEENT: Head is atraumatic. Pupils equal, roving to light. Oropharynx is without exudate. Nares clear. NECK: There is no JVP. There is no thyromegaly, no mass. CARDIOVASCULAR: Regular. There is no S3, S4 gallop. LUNGS: Coarse with equal thoracic movement. ABDOMEN: Soft, nondistended, nontender. EXTREMITIES: Reveal no clubbing, no cyanosis. NEUROLOGIC: She is awake. She is alert. LABORATORY DATA: Hemoglobin 9, hematocrit 27, white cell count 11,000. Sodium 137, potassium 6.3, BUN 120, creatinine is 8. IMPRESSION: * Hyperkalemia. * End-stage renal disease with noncompliance. * Diabetes mellitus. * Hypertension. PLAN: The patient will be given additional dose of Lokelma for the hyperkalemia. The patient's antihypertensive medications continued to be adjusted. We will continue to follow closely. She will receive dialysis in the a.m. I have discussed with the patient on multiple occasions in regards to her compliance with her general medical care including her diet. We will follow closely. All labs can be repeated in the morning. TID: [id number] RECEIPT: [id number]
[2024-06-17] MEDS: ALPRAZolam 1 MG TAB PO SCH (20:50)
[2024-06-18] VITALS (25 sets, daily range): BP systolic 149–198; BP diastolic 57–94; PULSE 71–101; RESP 16–20; TEMP 98.4–99.1; O2SAT 96–100
[2024-06-18 05:07] LABS: MEAN CORPUSCULAR HEMOGLOBIN 28.7 pg (27.0-33.0); MEAN CORPUSCULAR HGB CONC 33.5 g/dL (32.0-36.0); MEAN CORPUSCULAR VOLUME 85.8 fL (79-99); RED BLOOD CELL COUNT(AUTO) 3.03 MIL/uL (4.00-5.50); RED CELL DISTRIBUTION WIDTH 16.4 % (11.0-15.5); WHITE BLOOD COUNT (AUTO) 8.9 K/uL (4.8-10.8)
[2024-06-18 05:26] LABS: CREATININE 9.5 mg/dL (0.5-1.0); POTASSIUM 6.5 mmol/L (3.5-5.1)
[2024-06-18] MEDS: ALBUTEROL 0.083% 2.5 MG/3 ML INH IH STA (06:12)
[2024-06-18] MEDS: DEXTROSE 50%-WATER 50 ML DISP.SYRIN IV STA (06:12)
[2024-06-18] MEDS: CALCIUM GLUC 1GM 1 GM in 0.9%NACL 100ML 100 ML IV STA (06:12)
[2024-06-18] MEDS: INSULIN humuLIN R 100 UNIT/ML 3ML IV STA (06:15)
[2024-06-18] MEDS: LISINOPRIL 40 MG TABLET PO SCH (09:03)
--- NOTE | 2024-06-18 09:35 | PN ---
DIALYSIS NOTE SUBJECTIVE: The patient was seen and evaluated, on hemodialysis, prescription noted. OBJECTIVE: VITAL SIGNS: Blood pressure is 149/83. CARDIOVASCULAR: Regular. LUNGS: Coarse. IMPRESSION: End-stage renal disease. PLAN: The patient will continue with maximal ultrafiltration as blood pressure allows. TID: [id number] RECEIPT: [id number]
[2024-06-18] MEDS: GABAPENTIN 300 MG CAPSULE PO ONE (09:55)
[2024-06-18 10:24] LABS: CREATININE 7.1 mg/dL (0.5-1.0); MAGNESIUM 1.7 mg/dL (1.80-2.40); POTASSIUM 4.9 mmol/L (3.5-5.1)
--- NOTE | 2024-06-18 13:46 | PN ---
[facility] PROGRESS NOTE Date Patient Seen: Jun 18, 2024 Time of Visit: 13:46 Supervising Physician: Dr. Konstantin Coats Primary Care Physician: AMRTY VENTURA MD (PCP) Outpatient Specialists: Inpatient Consults: Dr. Samayoa, Nephrology PROBLEM LIST: Acute hypoxemic respiratory failure in need of emergent dialysis, POA, improved Volume overload in ESRD in need of emergent dialysis, POA Severe hyperkalemia, potassium > 9.5, improved after HD Superficial wound to right BKA stump and left lateral foot. Electrolyte derangement (hypochloremia, hypocalcemia, hyperphosphatemia) Volume overload, POA Episode of hypoglycemia, not POA Anemia chronic disease Diabetes mellitus with hyperglycemia Drug-seeking behavior Chronic problem list: Anemia, anxiety, CHF, DM type 2, HDL, HTN, ESRD on hem odialysis, Lava, right chest dialysis access, PVD Recent right BKA with Acinetobacter infection of right BKA per culture on 10/2023 Diabetic neuropathy Pulmonary hypertension with RVSP of 49 mm Hg on 08/24/2020 per 2D echo Diastolic heart failure with the EF of 45-50%, per echo on 08/24/2020 Moderate mitral regurgitation on 2D echo 08/24/2020 INTERVAL HISTORY: REVIEW OF SYSTEMS: 12 point ROS reviewed with patient. Pertinent positives mentioned above. Otherwise negative. PHYSICAL EXAM: GENERAL: alert, weak, awake oriented x 3 HEENT: EOMI, Sclera non icteric, moist mucosa NECK: Supple, no JVD, trachea midline CHEST WALL: PermCath right chest wall LUNGS: Clear breath sounds bilaterally. No wheezes HEART: Regular rate and rhythm. Normal S1 and S2, without murmurs ABD: Abdomen soft, nontender. Bowel sounds present EXT: No clubbing cyanosis or edema. Right BKA left upper arm AV graft NEURO: Alert and oriented X3, follows commands Vital Signs (last 8hr) Date Time Temp Pulse Resp B/P (MAP) Pulse Ox O2 Delivery O2 Flow Rate FiO2 06/18/24 12:30 98 16 191/82 Nasal Cannula 4.0 06/18/24 12:15 98 16 193/80 Nasal Cannula 4.0 06/18/24 12:09 95 195/83 06/18/24 12:07 195/83 06/18/24 12:00 95 16 195/83 Nasal Cannula 4.0 06/18/24 11:45 96 16 196/73 Nasal Cannula 4.0 06/18/24 11:30 99 16 178/70 Nasal Cannula 4.0 06/18/24 11:15 99 16 172/73 Nasal Cannula 4.0 06/18/24 11:00 99 16 158/67 Nasal Cannula 4.0 06/18/24 11:00 161/81 06/18/24 11:00 98.8 101 16 156/75 100 Nasal Cannula 2.0 06/18/24 10:45 98 16 161/81 Nasal Cannula 4.0 06/18/24 10:30 98 16 156/75 Nasal Cannula 4.0 06/18/24 10:15 98 16 152/69 Nasal Cannula 4.0 06/18/24 10:00 91 16 177/81 Nasal Cannula 4.0 06/18/24 09:46 170/87 06/18/24 09:45 88 16 170/87 Nasal Cannula 4.0 06/18/24 09:30 98.8 84 16 175/83 Nasal Cannula 4.0 06/18/24 09:00 98.8 88 18 163/75 Room Air 4.0 06/18/24 07:00 98.4 86 18 196/94 100 Room Air 06/18/24 06:19 78 20 N/A Room Air 21 06/18/24 06:15 73 20 LABS: Hematology Labs: Test 06/18/24 05:02 06/17/24 13:08 Range/Units White Blood Count 8.9 4.8-10.8 K/uL Red Blood Count 3.03 L 4.00-5.50 MIL/uL Hemoglobin 8.7 L 12.0-16.0 g/dL Hematocrit 26.0 L 36-48 % Mean Corpuscular Volume 85.8 79-99 fL Mean Corpuscular Hemoglobin 28.7 27.0-33.0 pg Mean Corpuscular Hemoglobin Concent 33.5 32.0-36.0 g/dL Red Cell Distribution Width 16.4 H 11.0-15.5 % Platelet Count 280 130-400 K/uL Mean Platelet Volume 10.0 7.5-10.5 fL Nucleated Red Blood Cells 0.0 0.0-0.19 % Immature Granulocyte % (Auto) 0.3 0-1 % Neutrophils (%) (Auto) 62.6 40.0-77.0 % Lymphocytes (%) (Auto) 22.5 21.0-51.0 % Monocytes (%) (Auto) 7.5 3.0-13.0 % Eosinophils (%) (Auto) 6.7 0.0-8.0 % Basophils (%) (Auto) 0.4 0.0-5.0 % Neutrophils # (Auto) 6.2 1.8-7.7 K/uL Lymphocytes # (Auto) 2.2 1.0-4.8 K/uL Monocytes # (Auto) 0.7 0.1-1.0 K/uL Eosinophils # (Auto) 0.66 0.00-0.70 K/uL Basophils # (Auto) 0.04 0.00-0.20 K/uL Absolute Immature Granulocyte (auto 0.03 0-1 K/uL Chemistry Labs: Test 06/18/24 10:34 06/18/24 10:00 06/17/24 13:08 Range/Units Whole Blood Glucose 95 70-110 MG/DL Sodium Level 140 136-145 mmol/L Potassium Level 4.9 3.5-5.1 mmol/L Chloride Level 100 L 101-111 mmol/L Carbon Dioxide Level 26 21-32 mmol/L Blood Urea Nitrogen 110 #*H 7-18 mg/dL Creatinine 7.1 H 0.5-1.0 mg/dL Glomerular Filtration Rate Calc 7 >90 mL/min Random Glucose 101 70-105 mg/dL Total Calcium 6.6 L 8.5-10.1 mg/dL Magnesium Level 1.70 L 1.80-2.40 mg/dL Total Bilirubin 0.3 0.2-1.0 mg/dL Aspartate Amino Transf (AST/SGOT) 23 10-37 U/L Alanine Aminotransferase (ALT/SGPT) 26 12-78 U/L Alkaline Phosphatase 263 H 50-136 U/L Total Protein 6.5 6.0-8.3 g/dL Albumin 2.4 L 3.5-5.0 g/dL DIAGNOSTICS / RADIOLOGY RESULTS: [ ] PLAN Admit to PCCU with telemetry monitoring. Monitor respiratory status closely. Continue oxygen therapy as needed. Titrate oxygen to keep SpO2 equal to greater than 92%. Albuterol and Atrovent as needed for shortness of breath. ED has consulted nephrology. Who will see the patient in the morning. 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 Fluid restriction a 1200 mL. Strict I&Os. Daily weights. Reconcile home medication once available. P.r.n. medications for: Pain management, fever, hypertension, nausea, vomiting, constipation. Monitor renal and liver function. Monitor electrolytes and treat accordingly. A.m. labs: CBC, BNP, Mag, phos, TSH, A1c. GI and DVT prophylaxis. NEURO: Minimize central acting medications as possible. Maintain fall precautions, adequate lighting during the day PULMONARY: Supplemental 02 as needed. Maintain aspiration precautions at all times CARDIOVASCULAR: Follow hemodynamics. Vital signs per facility protocol GI & NUTRITION: Continue with nutritional support. Continue stool softeners and laxatives as needed. KIDNEYS & ELECTROLYTES: Strict monitoring of intake, output and overall fluid balance. Avoid nephrotoxic medications to the extent possible. Medications to be dosed according to renal function. Monitor electrolytes and replace as needed ENDOCRINE: Maintain blood glucose between 100-180 at all times. Hypoglycemia protocol in place INFECTIOUS DISEASE: Trend temperature, WBC and procalcitonin level Follow cultures, deescalate antibiotics as soon as possible. Panculture if new onset fever ONCOLOGY/HEMATOLOGY/COAGULATION: Monitor for s/s of bleeding Monitor hemoglobin, coagulation studies as needed SKIN: Pressure ulcer prevention per facility protocol Specialty mattress ORTHO/REHAB: Continue PT/OT Prophylaxis: Continue GI and DVT prophylaxis Code Status: Full Resuscitation Disposition: DANG CHIRINOS Jun 18, 2024 13:46
--- NOTE | 2024-06-18 14:27 | DS ---
[facility] DISCHARGE SUMMARY Date Patient Seen: Jun 18, 2024 Time of Visit: 14:24 Supervising Physician: Dr. Konstantin Coats Primary Care Physician: MARTY VENTURA MD (PCP) Outpatient Specialists: Inpatient Consults: Dr. Samayoa, Nephrology HOSPITAL COURSE: HPI (per admitting provider) Ms. Blanca is a 39-year-old female with a history of ESRD on hemodialysis, DM type 2, anemia, anxiety, HTN, CHF, HDL, PVD, and right BKA who presented to the ED for evaluation of lethargy and abnormal cardiac rhythms. Patient brought in by EMS from nursing facility. ED provider reported that according to nursing facility she has been more lethargic today than usual. She was found to have a heart rate 30-60 and had a systolic blood pressure in the 90s according to EMS. Patient last dialysis was about 72 hours ago. She was scheduled to go to dialysis today but she did not have dialysis done because she came here to the ER. The patient was lethargic but able to answer questions. She was reporting generalized pain and requesting Dilaudid. In ED the patient was given hyperkalemia cocktail in the ER: Lokelma, albuterol, insulin and dextrose, calcium. Consultation was done with Dr. Samayoa for emergent dialysis. The patient received emergent dialysis in ED. ED request patient be admitted with the diagnosis of hyperkalemia and ESRD needing dialysis. I went to assess the patient at bedside in ER 6. Patient's breathing was even, unlabored, appeared comfortable, in no distress. She was sitting up, smiling, answering questions appropriately. She denied any chest pain, shortness of breath, any other pain, problem or concern. I informed her and the at bedside of labs, diagnostics, and plan of care. They verbalize understanding and is in agreement with the plan. Plan and assessment are listed below. The patient was treated for the following problems: Patient was admitted for hyperkalemia, missed dialysis session, as well as hypertension with the systolic pressure above 210. Patient was seen by Nephrology and administered two doses of Lokelma as well as received two rounds of two hemodialysis, patient came from [place] where she was receiving IV antibiotics for bilateral lower extremity wounds one to the lateral aspect of her left foot and one two the right BKA stump. These appear healthy at the time of discharge, she has been cleared by Infectious Disease to discontinue IV antibiotic treatment and she is being discharged home at this time. ACTIVE PROBLEM LIST FOR THE HOSPITALIZATION: Acute hypoxemic respiratory failure in need of emergent dialysis, POA, improved Volume overload in ESRD in need of emergent dialysis, POA Severe hyperkalemia, potassium > 9.5, improved after HD Superficial wound to right BKA stump and left lateral foot. Electrolyte derangement (hypochloremia, hypocalcemia, hyperphosphatemia) Volume overload, POA Episode of hypoglycemia, not POA Anemia chronic disease Diabetes mellitus with hyperglycemia Drug-seeking behavior CHRONIC PROBLEMS: continue previous management per PCP unless otherwise indicated Anemia, anxiety, CHF, DM type 2, HDL, HTN, ESRD on hemodialysis, Lava, right chest dialysis access, PVD Recent right BKA with Acinetobacter infection of right BKA per culture on 05/17/2024 Diabetic neuropathy Pulmonary hypertension with RVSP of 49 mm Hg on 08/24/2020 per 2D echo Diastolic heart failure with the EF of 45-50%, per echo on 08/24/2020 Moderate mitral regurgitation on 2D echo 08/24/2020 POLICE CAPTAIN FINDINGS/RECOMMENDATIONS: [ ] PROCEDURES: as mentioned above DISCHARGE MEDICATIONS: Pt hemodynamically stable and afebrile at time of discharge. PCP notified of patients admission, hospital course and discharge. PHYSICAL EXAM: GENERAL: alert, weak, awake oriented x 3 HEENT: EOMI, Sclera non icteric, moist mucosa NECK: Supple, no JVD, trachea midline CHEST WALL: PermCath right chest wall LUNGS: Clear breath sounds bilaterally. No wheezes HEART: Regular rate and rhythm. Normal S1 and S2, without murmurs ABD: Abdomen soft, nontender. Bowel sounds present EXT: No clubbing cyanosis or edema. Right BKA left upper arm AV graft NEURO: Alert and oriented X3, follows commands FOLLOW-UP: Follow-up with PCP in 2-3 days RECOMMENDATIONS: See Discharge Instructions This case was seen and discussed with my supervising physician. More than 30 minutes spent on discharge process, including evaluation of the patient, discussion with nursing staff, medication reconciliation and follow-up appointments DANG MELTON Jun 18, 2024 14:27
--- NOTE | 2024-06-18 16:11 | NUR ---
CM NOTE CM f/u with patient regarding d/c planning. States she would like to return home and not to SNF. CM discussed wound care needs. States she previously had services with [facility] and wanting services resumed. [facility] services were previously ordered with Dr. Kirsty Blakely. Patient reports she has home health agency phone number and will contact them to discuss arrangements. CM explained no current order for home health but offered to fax updates to assist with services. Patient gave consent for [facility]. CM faxed clinical to [facility]. CM also f/u with Dr. Winnie Samayoa regarding permacath removal. [facility] his office can scheduled removal as o/p. updated Kirsty BOSWELL and primary nurse. Nurse also aware to remove picc line prior to d/c. Addendum: 06/18/24 at 1620 by SARI COTA Amended: Links added.
--- NOTE | 2024-06-18 16:26 | NUR ---
CM NOTE/[facility] CM received call from [facility] with [facility]. States patient is still active with their services and will use previous orders.
--- NOTE | 2024-06-18 18:08 | NUR ---
DISCHARGE INSTRUCTIONS WERE GIVEN TO THIS PATIENT AND SPOUSE AT BEDSIDE. TELE LINDA WAS REMOVED AND RETURNED TO TELEMETRY ROOM. PICC LINE WAS REMOVED USING ASEPTIC TECHNIQUE. PICC LINE MEASURED 36CM AND WAS INTACT. DRY DRESSING APPLIED AFTER 7 MINUTES OF MANUAL PRESSURE AND PATIENT TOLERATED WELL. ALL BELONGINGS WERE ACCOUNTED FOR AND TAKEN BY SPOUSE. FOLLOW UP APPT. WITH DR. VENTURA PROVIDED. [facility] WAS CALLED FOR REPORT AND REPORT GIVEN TO ALLA HOOD. PATIENT WAS TAKEN DOWN TO PRIVATE VEHICLE VIA WHEELCHAIR.
--- NOTE | 2024-06-18 21:25 | CONS ---
INFECTIOUS DISEASE CONSULTATION REQUESTING PHYSICIAN: ANDREIA Abbott REASON FOR CONSULTATION: Right below-knee stump infection. HISTORY OF PRESENT ILLNESS: A 39-year-old female with history of hypertension, diabetes mellitus and ESRD, on dialysis, who presented to the hospital with weakness, altered mental status and low blood pressure. The patient was a transfer from senior living where she was receiving antibiotic. The patient was found to have hypertension in the Emergency Room. The patient has a history of right below-knee amputation. Recently found to have a stump infection and dehiscence. The patient was receiving tigecycline at the senior living. No fever or chills. No nausea, no vomiting, no diarrhea, no abdominal pain. PAST MEDICAL HISTORY: * ESRD, on dialysis. * Hypertension. * Anxiety disorder. * GERD. * Diabetes mellitus. * Hypothyroidism. * Left foot ulcer. PAST SURGICAL HISTORY: * section. * AV fistula surgery. * Right below-knee amputation. * Left foot wound debridement. ALLERGIES: No known drug allergy. CURRENT MEDICATIONS: Reviewed. SOCIAL HISTORY: No alcohol, tobacco or illicit drug use. FAMILY HISTORY: Positive for diabetes mellitus. REVIEW OF SYSTEMS: Greater than 10 systems were reviewed, negatives as documented. PHYSICAL EXAMINATION: GENERAL: Young female. VITAL SIGNS: Temperature 98.8, pulse 99, respirations 16, BP 178/70. EYES: No icterus, no conjunctival hemorrhage. HENT: No oral thrush seen. Moist oral mucosa. NECK: Supple, no JVD or thyromegaly. LUNGS: Good air entry. No rales, no rhonchi. CARDIOVASCULAR: S1, S2 regular. No murmur heard. ABDOMEN: Full, soft, nontender. Bowel sounds present. CENTRAL NERVOUS SYSTEM: Awake, alert, oriented x 3. No focal deficits. SKIN: No rashes, no itchiness. LYMPHATIC: There is inguinal lymphadenopathy. BACK: No deformity, no pressure ulcer. EXTREMITIES: Right below-knee stump ulcer ____ area, has some slough tissue. No purulent drainage. There is some area of granulation tissue. Small ulcer in the lateral aspect of the left foot. No drainage is seen. LABORATORY DATA: Sodium 140, potassium 4.9, BUN 110, creatinine 7.1. WBC 8.9, hemoglobin 8.7, platelets 280. ASSESSMENT: A 39-year-old female presented to the hospital with altered mental status and low blood pressure. Current problem include: * ____ stump dehiscence and infection. * Cellulitis. * History of infection with multidrug resistant organism. * Left foot diabetic ulcer. * End-stage renal disease, on dialysis. * Chronic pain syndrome. PLAN: * Continue wound care. * Continue tigecycline. * Continue pain management. * Continue dialysis. * Continue nutritional support. * Monitor electrolytes. * No further antibiotic needed upon discharge. Thank you for allowing me to participate in the care of this patient. TID: [id number] RECEIPT: [id number]
== END 2024-06-18 18:20 | disposition home health service (06) | DRG 640 ==
LOC: EDH 14:56 → EDHIP 17:44 → OBSVTOIN 17:44 → 2AH 06-16 12:28
PROVIDERS: ADMIT Internal Medicine Critical Care Medicine; ATTEND Internal Medicine Critical Care Medicine
PROC: 5A1D70Z Performance of Urinary Filtration, Intermittent, Less than 6 Hours Per Day (ICD-10-PCS; principal; 2024-06-15)
PROC: 5A1D70Z Performance of Urinary Filtration, Intermittent, Less than 6 Hours Per Day (ICD-10-PCS; 2024-06-18)
DX: E87.5 Hyperkalemia (principal); J96.01 Acute respiratory failure with hypoxia; N18.6 End stage renal disease; I50.32 Chronic diastolic (congestive) heart failure; I13.2 Hypertensive heart and chronic kidney disease with heart failure and with stage 5 chronic kidney disease, or end stage renal disease; M86.8X8 Other osteomyelitis, other site; E83.51 Hypocalcemia; E87.8 Other disorders of electrolyte and fluid balance, not elsewhere classified; E83.39 Other disorders of phosphorus metabolism; E11.22 Type 2 diabetes mellitus with diabetic chronic kidney disease; E11.649 Type 2 diabetes mellitus with hypoglycemia without coma; D63.1 Anemia in chronic kidney disease; E11.65 Type 2 diabetes mellitus with hyperglycemia; Z76.5 Malingerer [conscious simulation]; F41.0 Panic disorder [episodic paroxysmal anxiety]; E11.51 Type 2 diabetes mellitus with diabetic peripheral angiopathy without gangrene; E11.40 Type 2 diabetes mellitus with diabetic neuropathy, unspecified; K21.9 Gastro-esophageal reflux disease without esophagitis; G89.4 Chronic pain syndrome; E11.69 Type 2 diabetes mellitus with other specified complication; L97.529 Non-pressure chronic ulcer of other part of left foot with unspecified severity; E11.621 Type 2 diabetes mellitus with foot ulcer; I27.20 Pulmonary hypertension, unspecified; E03.9 Hypothyroidism, unspecified; Z89.511 Acquired absence of right leg below knee; Z99.2 Dependence on renal dialysis; Z91.199 Patient's noncompliance with other medical treatment and regimen due to unspecified reason; Z83.3 Family history of diabetes mellitus; Z79.899 Other long term (current) drug therapy
CPT/HCPCS: 36415; 71045; 80048; 80053; 82140; 82550; 82948; 83735; 83880; 84100; 84443; 84484; 85025; 85027; 86140; 90935; 93005; 94640; G0378; J0360; J0612; J1171; J1644; J1815; J2405; J3243; J3490; J7070

== ENCOUNTER 2024-06-19 21:20 | Emergency (ER) | payer MEDICARE ==
[~2024-06-19] VITALS: Ht 162.6 cm; Wt 68.0 kg
[~2024-06-19 21:20] MED LIST changes: +TUBE5VIA TD
[2024-06-19 21:45] VITALS: BP 126/74; PULSE 86; RESP 18; TEMP 98.4; O2SAT 98
[2024-06-19] MEDS: acetaMINOPHEN 500 MG TABLET PO ONE (22:21)
--- NOTE | 2024-06-19 22:54 | ERN ---
ED Note History of Present Illness Stated Complaint: DIFFICULTY BREATHING Chief Complaint: Shortness of Breath Time Seen by MD: 21:23 Time Seen by Midlevel: 21:23 Dictation: 39-year-old female presents to the emergency department per EMS for evaluation due to report of having [facility] a [facility] the [facility]. Patient states that she slid down from the bed and injure her left leg and right stump. At this time, she rates her level of pain as a 4/10. She denies having sustained any other type of injury. Upon the initial evaluation, she is requesting for Dilaudid to be administered. At this time, she is advised in regards to obtaining the x-rays and then the treatment and plan of care is to be pursued for the control of pain. Upon initial evaluation, the patient presents with a normal neurologic and neurovascular examination. Allergies: Coded Allergies: No Known Drug Allergies (Unverified Allergy, Unknown, 01/03/17) Home Meds Active Scripts Hydralazine HCl (Apresoline) 25 Mg Tab, 25 MG PO TID, #60 TAB Prov:CONOR GUEVARA [facility] 06/09/24 Hydralazine HCl (Hydralazine HCl) 25 Mg Tablet, 25 MG PO TID, #90 TAB Prov:CONOR GUEVARA [facility] 06/08/24 Nifedipine (Nifedipine ER) 30 Mg Tab.er.24, 60 MG PO DAILY, #60 TAB Prov:CONOR GUEVARA [facility] 06/08/24 Carvedilol (Coreg) 12.5 Mg Tablet, 12.5 MG PO BID, #60 TAB Prov:CONOR GUEVARA [facility] 06/08/24 Reported Medications Tuberculin,Purif.prot.deriv. (Aplisol) 5 Tub. Unit/0.1 Ml Vial, 0.1 ML TD ONCE for 10 Days, #1 ML 0 Refills 06/17/24 Alprazolam (Xanax) 0.5 Mg Tablet, 1 TAB PO BID PRN for anxiety for 30 Days, #60 TAB 0 Refills 04/05/24 Lisinopril (Lisinopril) 40 Mg Tablet, 1 TAB PO DAILY for 30 Days, #30 TAB 0 Refills 04/05/24 Famotidine (Pepcid) 20 Mg Tablet, 1 TAB PO BID for 30 Days, #60 TAB 0 Refills 04/05/24 Diphenhydramine HCl (Diphenhydramine HCl) 25 Mg Capsule, 25 MG PO TIDP PRN for ITCHING, CAP 04/05/24 Past Medical History Past Medical History: Diabetes-Type II, Hypertension, Other Additional Past Medical Hx: CKD ON DIALYSIS Surgical History: Other, LAVA Surgical History Other: R CHEST DIALYSIS ACCESS Family History: Negative Social History: Drugs, Negative, Lives in Long-Term History: Not Applicable RN Note Reviewed/Agreed w/PFSH: Yes Review of System Dictation See HPI. Initial Vital Sign VS Vital Signs Date Time Temp Pulse Resp B/P (MAP) Pulse Ox O2 Delivery O2 Flow Rate FiO2 06/19/24 21:23 97.9 57 16 133/76 100 Room Air 0 06/19/24 21:45 21 Physical Exam Dictation General: awake, alert, NAD Head/Face: Normocephalic, atraumatic Eyes: PERRL, EOMI ENT: Oral mucosa moist Neck: Trachea midline, supple Cardiovascular: RRR, no edema Respiratory: Symmetrical, non-labored Abdomen: Soft, non-tender, non-distended, no guarding. Skin: Warm, dry, good turgor, no rash MS/Extremity: Pulses equal, no cyanosis, neurovascular intact, FROM Neuro: COAx4, GCS 15, steady gait, Psych: Normal behavior, mood, and affect normal Results (Laboratory/Radiology) X-RAY Comment: X-ray of the left femur, left tib-fib and right tib-fib with no evidence of any fractures as interpreted by me. ED Course ED Course Orders Procedure Category Date Status Time Femur 2 Vw Left RAD 06/19/24 Taken 21:27 Tibia/Fibula 2vws Lt RAD 06/19/24 Taken 21:27 Tibia/Fibula 2vws Rt RAD 06/19/24 Taken 21:27 Acetaminophen 500mg PHA 06/19/24 Complete Tab (Tylenol 500mg T 21:30 Current Medications Medications (Trade) Dose Ordered Sig/Balwinder Route PRN Reason Start Time Stop Time Status Last Admin Dose Admin Acetaminophen (TYLenol 500MG TAB) 1,000 mg ONCE ONCE PO 06/19/24 21:30 06/19/24 21:31 DC 06/19/24 22:21 Vital Signs Date Time Temp Pulse Resp B/P (MAP) Pulse Ox O2 Delivery O2 Flow Rate FiO2 06/19/24 21:45 98.4 86 18 126/74 98 Room Air* 0 21 06/19/24 21:23 97.9 57 16 133/76 100 Room Air 0 Medical Decision Making MDM MDM: Differential diagnosis: Left thigh sprain, left lower leg sprain, right lower leg contusion. Rationale: Tests considered and ordered secondary to shared decision making include: Previous outside records reviewed: Old ER visits. Risk of complication and/or morbidity or mortality of patient management: None Medications-Per medication reconciliation Need for hospitalization: Patient does not meet criteria for hospitalization. Need for emergency major/minor surgery: No There are no social concerns with this patient. Prescription drug management Prescriptions will include symptomatic care Patient's prior external medical records from other ER visits were reviewed by me as indicated. Prior testing and results from previous visits were reviewed. Prior tests were taken into account with medical decision making and resource utilization, independent historian/historians were used to obtain complete medical history. I independently interpreted the test that were performed, results were reviewed by me and considered findings on radiology if ordered. Medical management and examination interpretation discussions were had by me with other qualified healthcare professionals as indicated for the patient's care. Patient was asleep at the time of disposition for discharge for which she was explained that no evidence 70 fracture exist and she will be this fold home. DX & DISP Disposition: Discharge Departure Impression: Primary Impression: Sprain of left lower leg Additional Impression: Muscle strain of left thigh Condition: Stable Referrals: MARTY VENTURA MD (PCP) Time of Disposition: 23:20 RAHEL CHAVEZ Jun 19, 2024 22:54
--- NOTE | 2024-06-20 00:21 | NUR ---
MR QUIÑONES AT BEDSIDE TO SIGN PAINTER PATIENT
--- NOTE | 2024-06-20 01:40 | HMCIMG ---
TIBIA/FIBULA 2VWS RT HISTORY: Pain COMPARISON: None TECHNIQUE: 2 images of right tibia and fibula were obtained. FINDINGS: Below knee amputation is seen of right tibia and fibula. Vascular calcifications are seen. Surgical viktoriya are seen. There is no acute displaced fracture or dislocation. Degenerative changes are seen. IMPRESSION: 1. Findings as described above.
--- NOTE | 2024-06-20 01:40 | HMCIMG ---
FEMUR 2 VW LEFT HISTORY: Pain COMPARISON: None TECHNIQUE: 4 images of left femur were obtained. FINDINGS: There is no acute displaced fracture or dislocation. Vascular calcifications are seen. The space narrowing is seen. Degenerative changes are seen. IMPRESSION: 1. Findings as described above.
--- NOTE | 2024-06-20 01:41 | HMCIMG ---
TIBIA/FIBULA 2VWS LT HISTORY: Pain COMPARISON: None TECHNIQUE: 2 images of left tibia and fibula were obtained. FINDINGS: There is no acute displaced fracture or dislocation. IMPRESSION: 1. Findings as described above.
== END 2024-06-20 00:21 | disposition home or self-care (01) ==
LOC: EDH 21:20
DX: S83.92XA Sprain of unspecified site of left knee, initial encounter (principal); S76.912A Strain of unspecified muscles, fascia and tendons at thigh level, left thigh, initial encounter; I12.0 Hypertensive chronic kidney disease with stage 5 chronic kidney disease or end stage renal disease; E11.22 Type 2 diabetes mellitus with diabetic chronic kidney disease; N18.6 End stage renal disease; Z79.899 Other long term (current) drug therapy; Z99.2 Dependence on renal dialysis; W18.39XA Other fall on same level, initial encounter; Y93.89 Activity, other specified; Y92.89 Other specified places as the place of occurrence of the external cause; Y99.8 Other external cause status
CPT/HCPCS: 73552; 73590; 99284

== ENCOUNTER 2024-06-20 10:11 | Emergency (ER) | payer MEDICARE ==
[~2024-06-20] VITALS: Ht 154.9 cm; Wt 68.0 kg
[2024-06-20 10:11] VITALS: BP 0/0; PULSE 0; RESP 0
--- NOTE | 2024-06-20 10:11 | NUR ---
REFER TO CODE BLUE SHEET WELL.
[2024-06-20] MEDS ORDERED: ATROPINE 1MG SYG IVP ONE (10:12)
--- NOTE | 2024-06-20 10:47 | ERN ---
ED Note History of Present Illness Stated Complaint: CARDIAC ARREST Chief Complaint: CPR/Full Arrest Time Seen by MD: 10:27 Dictation: 39-year-old female with history of dialysis and HTN presents to the ED via EMS for cardiac arrest. EMS reports an unwitnessed cardiac arrest found by patient's father, father reports he had seen patient will end our before. Upon EMS arrival family was performing CPR, EMS intubated patient with a 6.5 ET tube 22 cm at the teeth, they report a glucose 250 mg/dL, administered 3 epis and 1 bicarb on route and performed CPR. EMS also mentioned patient did not receive dialysis today and last dialysis was received on Tuesday. Allergies: Coded Allergies: No Known Drug Allergies (Unverified Allergy, Unknown, 01/03/17) Home Meds Active Scripts Hydralazine HCl (Apresoline) 25 Mg Tab, 25 MG PO TID, #60 TAB Prov:CONOR GUEVARA [facility] 06/09/24 Hydralazine HCl (Hydralazine HCl) 25 Mg Tablet, 25 MG PO TID, #90 TAB Prov:[facility] 06/08/24 Nifedipine (Nifedipine ER) 30 Mg Tab.er.24, 60 MG PO DAILY, #60 TAB Prov:[facility] 06/08/24 Carvedilol (Coreg) 12.5 Mg Tablet, 12.5 MG PO BID, #60 TAB Prov:[facility] 06/08/24 Reported Medications Tuberculin,Purif.prot.deriv. (Aplisol) 5 Tub. Unit/0.1 Ml Vial, 0.1 ML TD ONCE for 10 Days, #1 ML 0 Refills 06/17/24 Alprazolam (Xanax) 0.5 Mg Tablet, 1 TAB PO BID PRN for anxiety for 30 Days, #60 TAB 0 Refills 04/05/24 Lisinopril (Lisinopril) 40 Mg Tablet, 1 TAB PO DAILY for 30 Days, #30 TAB 0 Refills 04/05/24 Famotidine (Pepcid) 20 Mg Tablet, 1 TAB PO BID for 30 Days, #60 TAB 0 Refills 04/05/24 Diphenhydramine HCl (Diphenhydramine HCl) 25 Mg Capsule, 25 MG PO TIDP PRN for ITCHING, CAP 10/24/24 Past Medical History Past Medical History: Diabetes-Type II, Hypertension, Other Additional Past Medical Hx: CKD ON DIALYSIS Surgical History: Other, LAVA Surgical History Other: R CHEST DIALYSIS ACCESS Family History: Negative Social History: Drugs, Negative, Lives in [place] History: Not Applicable Review of System Dictation ROS unable to obtain due to clinical status Physical Exam Dictation General: Patient is intubated with a 6.5 ET tube 22 cm at the teeth Head/Face: Normocephalic, atraumatic Eyes: Unreactive pupils Cardiovascular: No cardiac activity Respiratory: Bilateral breath sounds by bag valve ventilation Abdomen: Soft, non-distended MS/Extremity: Right BKA Skin: Cyanotic, pale Medical Decision Making MDM MDM: Differential diagnosis: Cardiac arrest, respiratory arrest Previous outside records reviewed: Old ER visits. Need for hospitalization: Patient does not meet criteria for hospitalization. Need for emergency major/minor surgery: No Patient's prior external medical records from other ER visits were reviewed by me as indicated. Prior testing and results from previous visits were reviewed. Prior tests were taken into account with medical decision making and resource utilization, independent historian/historians were used to obtain complete medical history. Critical Care Note Critical Time: other (Total critical care time was 33 minutes. Excluding time for procedures. Management of critically ill patient with concern for acute decompensation. ) DX & DISP Disposition: Discharge Departure Impression: Primary Impression: Cardiac arrest Condition: Referrals: MARTY VENTURA MD (PCP) DOMENIC MELENDREZ MD Jun 20, 2024 10:47
--- NOTE | 2024-06-20 11:02 | NUR ---
CODE BLUE Sw present with family during code blue. informed family CPR was not successful and pt had . Sw provided emotional support. Director Of Business Operations notified of and will visit with the family
--- NOTE | 2024-06-20 11:21 | NUR ---
YEHUDA: JAYME CALLED AND ASKED FOR FURTHER INFORMATION BUT WOULD ALSO CALL BACK ONCE BENNY AND PCP HAVE BEEN INFORMED.
--- NOTE | 2024-06-20 11:45 | NUR ---
DR VENTURA CALLED AND INFORMED THAT PT HAS . AFTER REVIEW OF THE CHART AND INFORMATION GIVEN ABOUT PT EXPIRING, DR VENTURA STATED THAT HE DID NOT FEEL THAT THE PT NEEDED AN AUTOPSY
--- NOTE | 2024-06-20 11:51 | NUR ---
POWERHOUSE ATTENDANT: I SPOKE TO BENNY RUSSO. AFTER SPEAKING TO AND FILLING HIM IN ON WHAT TRANSPIRED, HE WAS ALSO INFORMED THAT DR VENTURA WOULD SIGN CERTIFICATE AND THAT THE PCP DID NOT FEEL A AUTOPSY WAS NECESSARY. HE SAID TO SEND HIM THE INFORMATION VIA HIS EMAIL [email or web address]. AND HE WOULD TAKE CARE OF IT.
--- NOTE | 2024-06-20 12:28 | NUR ---
FAMILY STILL AT BEDSIDE. STILL PENDING HOME REQUEST
--- NOTE | 2024-06-20 12:31 | NUR ---
ORNAMENTER ROYAL SAMSON JUST SPOKE TO FAMILY AND PROVIDED INFORMATION PER THEIR REQUEST
--- NOTE | 2024-06-20 13:20 | NUR ---
PT ADVOCATE FAWN AND KARTHIK CLINICAL PRODUCTION PLANNING MANAGER JUST SPOKE W/THE PTS FAMILY
--- NOTE | 2024-06-20 13:28 | NUR ---
ADDITIONAL ADMINISTRATIVE PERSONNEL JUST ENTERED ROOM TO SPEAK W/THE FAMILY
--- NOTE | 2024-06-20 14:21 | NUR ---
[facility]: ARMANDO CALLED AND WILL BE CALLING THE MOTHER.
--- NOTE | 2024-06-20 14:21 | NUR ---
HOME: PTS MOTHER STATED THAT FAMILY ARE AT [facility] MAKING ARRANAGEMENTS AND WILL INFORM ME ONCE THINGS ARE FINALZED
--- NOTE | 2024-06-20 14:22 | NUR ---
MULTIPLE FAMILY MEMBERS STILL AT BEDSIDE.
--- NOTE | 2024-06-20 14:28 | NUR ---
[facility] CALLED AND STATED THEY WILL CALL THE FAMILY
--- NOTE | 2024-06-20 14:31 | NUR ---
PER ORGAN DONATION LINE: NIKKI RECOMMENDED WE NOW PLACED PT IN THE [place]. FAMILY STILL AT BEDSIDE. AT LEAST UNTIL PT IS READY TO BE PICKED UP BY THE ESTABLISHED / CONFIRMED HOME.
--- NOTE | 2024-06-20 14:37 | NUR ---
PT SIBLING JUST INFORMED ME THAT [facility] IS NOW THE CONFIRMED HOME FOR THE PT.
--- NOTE | 2024-06-20 14:57 | NUR ---
FAMILY JUST MADE AWARE THAT SECURITY WOULD BE HERE TO TRANSPORT PT TO THE [facility]. VALUABLES (BLANKET AND BRACELET) GIVEN TO FAMILY
--- NOTE | 2024-06-20 15:30 | NUR ---
POST MORTEM CARE: PT WAS PROVIDED POST MORTEM CARE. PLACED IN THE BODY BAG-TAGGED AND TAKEN TO THE [place] BY NEDA. DIAMOND PITTS ASSISTED . RECRUITER SPECIALIST BIANCA-ROYAL SAMSON
--- NOTE | 2024-06-20 16:15 | NUR ---
ORGAN REFERRAL NIKKI CALLED AND STATED IT WAS OK TO RELEASE THE PT CORPSE TO [facility]. MEDICAL OFFICE TECHNICIAN ROYAL SAMSON MADE AWARE. PT ALREADY IN THE [facility]
== END 2024-06-20 15:30 ==
LOC: EDH 10:11
DX: I46.9 Cardiac arrest, cause unspecified (principal); I12.0 Hypertensive chronic kidney disease with stage 5 chronic kidney disease or end stage renal disease; E11.22 Type 2 diabetes mellitus with diabetic chronic kidney disease; N18.6 End stage renal disease; Z79.899 Other long term (current) drug therapy; Z99.2 Dependence on renal dialysis
CPT/HCPCS: 99291; 92950; J7070; J0171; J0461; J3490